=== PATIENT | male | born 1950 | race Caucasian/White ===

== ENCOUNTER 2021-12-13 07:32 | Outpatient (CLI) | payer MEDICARE, BC, SELFPAY | END 2021-12-13 07:33 | disposition home or self-care (01) | PROVIDERS: PCP Surgery; Visit Provider Family Medicine | DX: R42 Dizziness and giddiness (principal); R53.1 Weakness | CPT/HCPCS: A0425; A0427 ==

== ENCOUNTER 2021-12-13 08:00 | Emergency (ER) | payer MEDICARE, BC, SELFPAY ==
[2021-12-13 08:05] VITALS: BP 142/96; PULSE 86; RESP 20; TEMP 35.9; O2SAT 97; BMI 39.3
--- NOTE | 2021-12-13 08:14 | CRLHL7_ITS ---
For Patients: As a result of the Century Cures Act, medical imaging exams and procedure reports are released immediately into your electronic medical record. You may view this report before your referring provider. If you have questions, please contact your health care provider. INDICATION: Weakness. Dizziness. Cough. COMPARISON: No prior transaxial studies of the chest TECHNIQUE: : CT examination of the chest was performed with the uneventful intravenous administration of 95 cc of Isovue 370 while thin axial sections were obtained from above the apices of the lungs to the lung bases. Please note that all CT scans at this facility use dose modulation, iterative reconstruction, and/or weight-based dosing when appropriate to reduce radiation dose to as low as reasonably achievable. FINDINGS: : HEART and MEDIASTINUM: The heart size is enlarged. There is no mediastinal or hilar adenopathy or mass. There is no pericardial effusion.There are atherosclerotic vascular calcifications. PULMONARY ARTERIAL CIRCULATION: There is no visible intraluminal filling defect to suggest pulmonary embolus. LUNGS: The lungs show no focal consolidation or mass. The airways appear normal. Trace basilar subsegmental atelectasis. PLEURAL SPACES: There is no pleural effusion, pneumothorax or pleural based mass. VISUALIZED UPPER ABDOMEN: No acute appearing upper abdominal finding. 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 IMPRESSION: Enlarged heart. No finding of pulmonary embolus. Trace bibasilar subsegmental atelectasis. Lungs and pleural spaces otherwise unremarkable. Please note that all CT scans at this facility use dose modulation, iterative reconstruction, and/or weight-based dosing when appropriate to reduce radiation dose to as low as reasonably achievable. Dictated by Virgilio Ferro MD @ 12/13/2021 11:01:00 AM (Electronically Signed)
--- NOTE | 2021-12-13 08:14 | CRLHL7_ITS ---
For Patients: As a result of the Century Cures Act, medical imaging exams and procedure reports are released immediately into your electronic medical record. You may view this report before your referring provider. If you have questions, please contact your health care provider. INDICATION: Weakness. Dizziness. COMPARISON: Limited portions of an MRI dated May 12, 2020 TECHNIQUE: CT examination of the head was performed as axial sections without intravenous contrast. Images were obtained from the vertex of the skull through the skull base. Please note that all CT scans at this facility use dose modulation, iterative reconstruction, and/or weight-based dosing when appropriate to reduce radiation dose to as low as reasonably achievable. FINDINGS: The brain shows no sign of mass lesion, mass effect, hemorrhage, or edema. There are involutional changes. There is [id number] cortical atrophy and there is mild white matter disease. There is no hydrocephalus. Intracranial atherosclerosis The visualized portions of the orbits are normal in appearance. The osseous structures are normal in appearance with no sign of abnormality in the skull base or calvarium. IMPRESSION: Involutional changes. No acute appearing findings. Please note that all CT scans at this facility use dose modulation, iterative reconstruction, and/or weight-based dosing when appropriate to reduce radiation dose to as low as reasonably achievable. Dictated by Virgilio Ferro MD @ 12/13/2021 10:56:48 AM (Electronically Signed)
--- NOTE | 2021-12-13 08:17 | ED_ITS ---
HPI - General Adult General Time Seen by Provider: 08:17 Date Seen: 12/13/21 Chief complaint: Weakness Stated complaint: Dizzy, lightheaded Time Seen by Provider: 12/13/21 08:07 Source: patient Mode of arrival: EMS Limitations: no limitations History of Present Illness HPI narrative: Patient is a 70-year-old male who has had 3 days of dizziness lightheadedness common today felt he needed a lower and soft to the ground to prevent falling. He feels the room spinning. He called 911 and ambulance brought him to the ER, he also reports he has had a lot of diaphoresis and sweats, no chest pain, has history of atrial fib and he is on Xarelto. He lives in [place]. He has had no leg swelling, edema, dysuria, does not believe he has had a cough of any significance. He has not had chest pain. He reports currently he is feeling a little lightheaded but otherwise well, he does have a history of nausea as well but not vomiting. No rigors, no fevers to speak of and no blood in his stool or bowel change Related Data Home Medications Medication Instructions Recorded Confirmed Calcium 600 + D(3) 12/13/21 albuterol sulfate 90 mcg/actuation inhalation 12/13/21 aerosol inhaler aspirin 81 mg capsule 81 mg PO DAILY 12/13/21 12/13/21 atorvastatin 20 mg tablet mg 12/13/21 carvedilol 6.25 mg tablet mg 12/13/21 cholestyramine-aspartame 4 gram ea 12/13/21 oral powder for susp in a packet (Cholestyramine Light) dapagliflozin 10 mg tablet mg 12/13/21 (Farxiga) diclofenac sodium 1 % topical gel topical 12/13/21 furosemide 20 mg tablet 20 mg PO DAILY PRN weight gain 12/13/21 12/13/21 insulin aspart U-100 100 unit/mL subcut 12/13/21 (3 mL) subcutaneous pen insulin detemir U-100 100 unit/mL unit subcut 12/13/21 (3 mL) subcutaneous pen (Levemir FlexTouch U-100 Insulin) pantoprazole 40 mg tablet,delayed mg PO 12/13/21 release rivaroxaban 20 mg tablet (Xarelto) mg 12/13/21 spironolactone 25 mg tablet mg 08/17/22 valsartan 160 mg tablet mg 12/13/21 Allergies Allergy/AdvReac Type Severity Reaction Status Date / Time metformin AdvReac Verified 12/13/21 10:44 tetracycline AdvReac Verified 12/13/21 10:44 duloxetine AdvReac Uncoded 12/13/21 10:44 tamsulosin AdvReac syncopal Uncoded 12/13/21 10:44 Review of Systems Status of ROS: Reports: 10 or more systems reviewed and unremarkable except as noted in History and below PFSH PFS Social History Smoking Status: Never smoker How often do you have a drink containing alcohol: 2-4 times a month AUDIT-C Alcohol total score: 2 Non-prescribed substance use: denies use Exam Narrative: Exam Narrative: Objective: Patient is alert orient x3, somewhat slow to respond in speech but is appropriate, mental status is appropriate Vital signs are unremarkable he is afebrile O2 sat is 97% on room air HEENT is unremarkable no scleral icterus no facial asymmetry, mouth slightly dry Neck is supple Chest is clear no rales or wheezing Heart irregular regular 2/6 systolic murmur with Abdomen obese benign nontender Extremities are no edema, neurologic nonfocal Skin warm and dry, good peripheral perfusion Const: Vital Signs, click to edit/add: Vital Signs - 24 hr 12/13/21 08:05 Temperature 96.6 F L Pulse Rate [Right Pulse Oximeter] 86 Respiratory Rate 20 Blood Pressure [Le ft Upper Arm] 142/96 H Pulse Oximetry 97 Oxygen Delivery Me thod Room Air Course Vital Signs Vital signs: Initial Vital Signs Temperature 96.6 F L 12/13/21 08:05 Temperature Source Temporal Artery Scan 12/13/21 08:05 Pulse Rate 86 12/13/21 08:05 Respiratory Rate 20 12/13/21 08:05 Blood Pressure 142/96 H 12/13/21 08:05 Blood Pressure Mean 111 12/13/21 08:05 Pulse Oximetry 97 12/13/21 08:05 Oxygen Delivery Method 12/13/21 08:05 Vital Signs Temperature 96.6 F L 12/13/21 08:05 Pulse Rate 86 12/13/21 08:05 Respiratory Rate 20 12/13/21 08:05 Blood Pressure 142/96 H 12/13/21 08:05 Pulse Oximetry 97 12/13/21 08:05 Oxygen Delivery Method 12/13/21 08:05 Temperature 96.6 F L 12/13/21 08:05 Pulse Rate 72 12/13/21 11:30 Respiratory Rate 18 12/13/21 11:30 Blood Pressure 126/82 12/13/21 11:30 Pulse Oximetry 97 12/13/21 11:30 Oxygen Delivery Method 12/13/21 11:30 Medical Decision Making MDM Narrative Medical decision making narrative: Patient is a 70 year white male with history of AFib on Xarelto with dizziness for 3 days, I think a head CT scan rule out bleed or other intracranial process be appropriate, also get a chest CT given his diaphoresis and sweats rule out PE, rule out pneumonia. He will need a troponin and EKG and telemetry and cardiac monitoring, rule out acute coronary syndrome Addendum: The patient reports his dizziness is much better, his head CT shows some degenerative change but no acute findings, chest x-ray with the same findings her with also reassuring fine, he had some slight heart involvement on his chest x-ray and enlargement. Patient's the patient's laboratory studies sasha w an elevated proBNP negative troponin negative CRP, other laboratory studies look reassuring, urinalysis looks negative. Patient does feel better with his Ativan given he feels less dizzy, would recommend we try and move him about a little bit and see if he tolerates this well if he does I think he could go home rest light activity fluids and recheck with regular doctor within 48 hours. Addendum: The patient has some chronic ambulatory difficulties he does have a walker, he was able to get up and move to the bathroom without difficulty. I would suggest he get home health nurse O2 assessed the situation visit him, and also social service consult about discharge planning needs and ongoing care needs. Patient this time of the his stable to per seat home and he would like to try that. Always a risk when people go home with ambulatory difficulty to an independent setting, but that is his current arrangement think hospitalization would not benefit him at this time. Lab Data Labs: Lab Results 12/13/21 12/13/21 12/13/21 Range/Units 08:23 08:54 08:54 WBC 8.11 (4.50-11.00) K/uL RBC 5.24 (4.30-5.90) m/uL Hgb 16.1 (13.5-17.5) gm/dL Hct 47.5 (37.0-53.0) % MCV 91 (80-100) fL MCH 31 (26-34) pg MCHC 34 (32-36) gm/dL RDW Coeff of Louise 13.3 (11.5-15.5) % Plt Count 167 (140-440) K/uL Neut % (Auto) 66.1 (42.0-72.0) % Lymph % (Auto) 24.7 (20-44) % Brooke % (Auto) 7.5 (0.0-11.0) % Eos % (Auto) 1.0 (0.0-7.0) % Baso % (Auto) 0.5 (0.0-3.0) % Neut # (Auto) 5.36 (1.7-7.0) K/uL Lymph # (Auto) 2.00 (0.90-2.90) K/uL Brooke # (Auto) 0.60 (0.00-0.90) K/UL Eos # (Auto) 0.08 (0.00-0.50) K/uL Baso # (Auto) 0.04 (0.00-0.30) K/uL Abs Immat Gran (auto) 0.02 (0.00-0.30) K/uL INR (0.91-1.10) Sodium (135-149) mmol/L Potassium (3.6-5.1) mmol/L Chloride (96-114) mmol/L Carbon Dioxide (20-32) mmol/L BUN (7-30) mg/dL Creatinine (0.5-1.5) mg/dL Estimated Creat Clear Estimated GFR ml/min Glucose (60-115) mg/dL Venous Lactic Acid (Serial Order) Calcium (8.4-10.6) mg/dL Total Bilirubin (0.1-1.5) mg/dL Direct Bilirubin (0.0-0.5) mg/dL AST (12-35) U/L ALT (4-50) U/L Alkaline Phosphatase (40-150) U/L Troponin I (0.01-0.04) ng/mL C-Reactive Protein (0.5-1.0) mg/dL NT-Pro-B Natriuret Pep (0-125) PG/mL Total Protein (6.0-8.3) g/dL Albumin (3.3-5.0) g/dL Amylase 58 (18-89) U/L Urine Color (Yellow) Urine Appearance (Clear) Urine pH (5.0-8.5) Ur Specific Dewy Rose (1.000-1.030) Urine Protein (Negative) Urine Glucose (UA) (Negative) Urine Ketones (Negative) Urine Blood (Negative) Urine Nitrite (Negative) Urine Bilirubin (Negative) Urine Urobilinogen (0.2-1.0) Ur Leukocyte Esterase (Negative) Urine RBC (0-2) Urine WBC (0-5) Ur Squamous Epith Cells (None-Few) Amorphous Sediment (None) Urine Bacteria (None) SARS-CoV-2 (PCR) Negative SARS-CoV-2 (Negative) 12/13/21 12/13/21 12/13/21 Range/Units 08:54 08:54 08:54 WBC (4.50-11.00) K/uL RBC (4.30-5.90) m/uL Hgb (13.5-17.5) gm/dL Hct (37.0-53.0) % MCV (80-100) fL MCH (26-34) pg MCHC (32-36) gm/dL RDW Coeff of Louise (11.5-15.5) % Plt Count (140-440) K/uL Neut % (Auto) (42.0-72.0) % Lymph % (Auto) (20-44) % Brooke % (Auto) (0.0-11.0) % Eos % (Auto) (0.0-7.0) % Baso % (Auto) (0.0-3.0) % Neut # (Auto) (1.7-7.0) K/uL Lymph # (Auto) (0.90-2.90) K/uL Brooke # (Auto) (0.00-0.90) K/UL Eos # (Auto) (0.00-0.50) K/uL Baso # (Auto) (0.00-0.30) K/uL Abs Immat Gran (auto) (0.00-0.30) K/uL INR 1.73 H (0.91-1.10) Sodium (135-149) mmol/L Potassium (3.6-5.1) mmol/L Chloride (96-114) mmol/L Carbon Dioxide (20-32) mmol/L BUN (7-30) mg/dL Creatinine (0.5-1.5) mg/dL Estimated Creat Clear Estimated GFR ml/min Glucose (60-115) mg/dL Venous Lactic Acid (Serial Order) Calcium (8.4-10.6) mg/dL Total Bilirubin 0.7 (0.1-1.5) mg/dL Direct Bilirubin 0.2 (0.0-0.5) mg/dL AST 28 (12-35) U/L ALT 20 (4-50) U/L Alkaline Phosphatase 83 (40-150) U/L Troponin I < 0.01 L (0.01-0.04) ng/mL C-Reactive Protein 1.0 (0.5-1.0) mg/dL NT-Pro-B Natriuret Pep 527 H (0-125) PG/mL Total Protein 7.0 (6.0-8.3) g/dL Albumin 3.9 (3.3-5.0) g/dL Amylase (18-89) U/L Urine Color (Yellow) Urine Appearance (Clear) Urine pH (5.0-8.5) Ur Specific Dewy Rose (1.000-1.030) Urine Protein (Negative) Urine Glucose (UA) (Negative) Urine Ketones (Negative) Urine Blood (Negative) Urine Nitrite (Negative) Urine Bilirubin (Negative) Urine Urobilinogen (0.2-1.0) Ur Leukocyte Esterase (Negative) Urine RBC (0-2) Urine WBC (0-5) Ur Squamous Epith Cells (None-Few) Amorphous Sediment (None) Urine Bacteria (None) SARS-CoV-2 (PCR) (Negative) 12/13/21 12/13/21 Range/Units 08:54 09:11 WBC (4.50-11.00) K/uL RBC (4.30-5.90) m/uL Hgb (13.5-17.5) gm/dL Hct (37.0-53.0) % MCV (80-100) fL MCH (26-34) pg MCHC (32-36) gm/dL RDW Coeff of Louise (11.5-15.5) % Plt Count (140-440) K/uL Neut % (Auto) (42.0-72.0) % Lymph % (Auto) (20-44) % Brooke % (Auto) (0.0-11.0) % Eos % (Auto) (0.0-7.0) % Baso % (Auto) (0.0-3.0) % Neut # (Auto) (1.7-7.0) K/uL Lymph # (Auto) (0.90-2.90) K/uL Brooke # (Auto) (0.00-0.90) K/UL Eos # (Auto) (0.00-0.50) K/uL Baso # (Auto) (0.00-0.30) K/uL Abs Immat Gran (auto) (0.00-0.30) K/uL INR (0.91-1.10) Sodium 138 (135-149) mmol/L Potassium 4.3 (3.6-5.1) mmol/L Chloride 109 (96-114) mmol/L Carbon Dioxide 18 L (20-32) mmol/L BUN 27 (7-30) mg/dL Creatinine 1.2 (0.5-1.5) mg/dL Estimated Creat Clear 61.97 Estimated GFR 65 ml/min Glucose 181 H (60-115) mg/dL Venous Lactic Acid (Serial Order) Calcium 8.8 (8.4-10.6) mg/dL Total Bilirubin (0.1-1.5) mg/dL Direct Bilirubin (0.0-0.5) mg/dL AST (12-35) U/L ALT (4-50) U/L Alkaline Phosphatase (40-150) U/L Troponin I (0.01-0.04) ng/mL C-Reactive Protein (0.5-1.0) mg/dL NT-Pro-B Natriuret Pep (0-125) PG/mL Total Protein (6.0-8.3) g/dL Albumin (3.3-5.0) g/dL Amylase (18-89) U/L Urine Color Yellow (Yellow) Urine Appearance Clear (Clear) Urine pH 5.5 (5.0-8.5) Ur Specific Dewy Rose 1.025 (1.000-1.030) Urine Protein Negative (Negative) Urine Glucose (UA) 2+ A (Negative) Urine Ketones Negative (Negative) Urine Blood Negative (Negative) Urine Nitrite Negative (Negative) Urine Bilirubin Negative (Negative) Urine Urobilinogen 0.2 (0.2-1.0) Ur Leukocyte Esterase Negative (Negative) Urine RBC 0-2 (0-2) Urine WBC 0-2 (0-5) Ur Squamous Epith Cells Few (None-Few) Amorphous Sediment Few A (None) Urine Bacteria Few A (None) SARS-CoV-2 (PCR) (Negative) Discharge Plan Discharge Clinical Impression: Dizziness Patient Disposition: Home, Self-Care Condition: Improved Additional Instructions: Rest, light activity, update regular physician within the next 2 days, return sooner problems concerns difficulty Activity Level: Light activity Discharge Diet: Diabetic Prescriptions: No Action carvedilol 6.25 mg tablet Label Comments: TAKE 1 TABLET BY MOUTH TWICE DAILY WITH FOOD atorvastatin 20 mg tablet spironolactone 25 mg tablet Label Comments: TAKE 1 TABLET BY MOUTH EVERY MORNING pantoprazole 40 mg tablet,delayed release (DR/EC) PO albuterol sulfate 90 mcg/actuation HFA aerosol inhaler INHALATION valsartan 160 mg tablet insulin aspart U-100 100 unit/mL (3 mL) insulin pen SUBCUT cholestyramine-aspartame [Cholestyramine Light] 4 gram powder in packet Label Comments: MIX 1 PACKET IN LIQUID THEN TAKE BY MOUTH 2 TIMES DAILY WITH MEALS Levemir FlexTouch U-100 Insuln 100 unit/mL (3 mL) insulin pen SUBCUT Label Comments: INJECT 25 UNITS SUBCUTANEOUS EVERY NIGHT AT BEDTIME diclofenac sodium 1 % gel TOPICAL Label Comments: APPLY 4 GRAMS TOPICALLY TO THE AFFECTED AREA FOUR TIMES DAILY Xarelto 20 mg tablet Farxiga 10 mg tablet aspirin 81 mg capsule 81 mg PO DAILY Calcium 600 + D(3) furosemide 20 mg tablet 20 mg PO DAILY PRN (Reason: weight gain) Rx Instructions: if >290# Follow Up/Referrals: Elijah Fernandez MD [Primary Care Provider] - Stand Alone Forms: [employer] Info Instructions
[2021-12-13 08:30] VITALS: BP 142/96; PULSE 82; RESP 18; O2SAT 97
[2021-12-13 09:00] VITALS: BP 135/90; PULSE 85; RESP 18; O2SAT 96
[2021-12-13 09:10] LABS: Lactate Sepsis w/Reflex* 2.1 mmol/L (0.5-1.9)
[2021-12-13 09:12] LABS: Basophils Absolute Auto 0.04 K/uL (0.00-0.30); Basophils Percent Auto 0.5 % (0.0-3.0); Eosinophils Absolute Auto 0.08 K/uL (0.00-0.50); Hematocrit 47.5 % (37.0-53.0); Hemoglobin* 16.1 gm/dL (13.5-17.5); Immature Granulocytes Abs Auto 0.02 K/uL (0.00-0.30); Lymphocytes Percent Auto 24.7 % (20-44); Mean Corpuscular HGB Conc 34 gm/dL (32-36); Mean Corpuscular Hemoglobin 31 pg (26-34); Mean Corpuscular Volume 91 fL (80-100); Monocytes Percent Auto 7.5 % (0.0-11.0); Neutrophils Absolute Auto 5.36 K/uL (1.7-7.0); Neutrophils Percent Auto 66.1 % (42.0-72.0); Platelet Count* 167 K/uL (140-440); RDW Coefficient of Variation % 13.3 % (11.5-15.5); Red Blood Count 5.24 m/uL (4.30-5.90); White Blood Count* 8.11 K/uL (4.50-11.00)
[2021-12-13 09:14] LABS: Slide Review Reflex No
[2021-12-13 09:38] LABS: INR 1.73 (0.91-1.10); Prothrombin Time 20.7 Seconds
[2021-12-13 09:42] LABS: Albumin* 3.9 g/dL (3.3-5.0)
[2021-12-13 09:42] LABS: SARS PCR* Negative SARS-CoV-2 (Negative)
[2021-12-13 09:46] LABS: Alanine Aminotransferase* 20 U/L (4-50); Alkaline Phosphatase* 83 U/L (40-150); Amylase* 58 U/L (18-89); Aspartate Amino Transferase* 28 U/L (12-35); Bilirubin Direct* 0.2 mg/dL (0.0-0.5); Bilirubin Total* 0.7 mg/dL (0.1-1.5)
[2021-12-13 09:49] LABS: Appearance Urine Clear (Clear); Bilirubin Urine Negative (Negative); Blood Urine Negative (Negative); Color Urine Yellow (Yellow); Glucose Urine 2+ (Negative); Ketones Urine Negative (Negative); Leukocyte Esterase Urine Negative (Negative); Nitrite Urine Negative (Negative); Protein Urine Negative (Negative); Specific Gravity Urine 1.025 (1.000-1.030); Urobilinogen Urine 0.2 (0.2-1.0); pH Urine 5.5 (5.0-8.5)
[2021-12-13 09:55] LABS: NT Pro B Type NatriureticPept* 527 PG/mL (0-125)
[2021-12-13 09:58] LABS: Troponin I* < 0.01 ng/mL (0.01-0.04)
[2021-12-13 10:00] LABS: Chloride* 109 mmol/L (96-114); Sodium* 138 mmol/L (135-149)
[2021-12-13 10:01] LABS: Potassium* 4.3 mmol/L (3.6-5.1)
[2021-12-13] MEDS: LORazepam 2 MG/ML inj 1 MG IVP (10:02)
[2021-12-13 10:03] LABS: Creatinine* 1.2 mg/dL (0.5-1.5); Est. Creatinine Clearance* 61.97; Estimated Glomerular Filt Rate 65 ml/min
[2021-12-13] MEDS: 0.9 % SODIUM CHLORIDE 500 ML 500 ML IV (10:03)
[2021-12-13 10:04] LABS: Blood Urea Nitrogen* 27 mg/dL (7-30); Calcium* 8.8 mg/dL (8.4-10.6); Carbon Dioxide* 18 mmol/L (20-32); Glucose* 181 mg/dL (60-115)
[2021-12-13 10:10] LABS: Bacteria Urine Few; RBC Urine 0-2 (0-2); Squamous Epithelial Cell Urine Few (None-Few); WBC Urine 0-2 (0-5)
[2021-12-13 10:11] LABS: Amorphous Sediment Urine Few
[2021-12-13 11:00] VITALS: BP 135/90; PULSE 73; RESP 18; O2SAT 96
--- NOTE | 2021-12-13 11:28 | ED.NURSE ---
no second lactate per dr carnes
[2021-12-13 11:30] VITALS: BP 126/82; PULSE 72; RESP 18; O2SAT 97
--- NOTE | 2021-12-13 13:34 | ED.NURSE ---
call to [facility] social worker, set up home health per Dr. Valero, Pt was agreeable. Soc services will contact Pt.
--- NOTE | 2021-12-13 14:06 | PC.SOCIAL ---
Referral from physician for home care for pt. Pt. has discharged from the ED. A referral for home care was made to [facility], [facility], and PT to start next week. A message was left for pt. to call back to update and offer additional resources.
== END 2021-12-13 12:30 | disposition home or self-care (01) ==
PROVIDERS: Emergency Provider Family Medicine; PCP Surgery
DX: R42 Dizziness and giddiness (principal)
CPT/HCPCS: 36415; 70450; 71260; 80048; 80076; 81001; 82150; 83880; 84484; 85025; 85610; 86140; 87040; 87086; 87635; 93005; 96374; 99284; 99285; J2060; J7120; Q9967

== ENCOUNTER 2022-06-29 19:33 | Emergency (ER) | payer MEDICARE, BC, SELFPAY ==
[2022-06-29 20:31] VITALS: BP 135/113; PULSE 71; RESP 16; TEMP 36.6; O2SAT 98; BMI 39.3
--- NOTE | 2022-06-29 21:13 | ED.EPISTAXIS ---
History of Present Illness General Chief Complaint: Epistaxis/Nosebleed Stated Complaint: Bad bloody nose Time Seen by Provider: 06/29/22 21:02 History of Present Illness HPI Narrative: This 71-year-old male comes in with epistaxis. He states that it started bleeding around 3 or 4 hours ago. He had bleeding from his right nostril. He was plugging in the end of his nostril but the bleeding continued posteriorly. He states that the bleeding stopped after a couple hours and then resumed again spontaneously. He is taking Xarelto. He does not report any lightheadedness or shortness of breath. Currently he does not have any active bleeding. Related Data Home Medications Medication Instructions Recorded Confirmed Calcium 600 + D(3) 12/13/21 albuterol sulfate 90 mcg/actuation inhalation 12/13/21 aerosol inhaler aspirin 81 mg capsule 81 mg PO DAILY 12/13/21 12/13/21 atorvastatin 20 mg tablet mg 12/13/21 carvedilol 6.25 mg tablet mg 12/13/21 cholestyramine-aspartame 4 gram ea 12/13/21 oral powder for susp in a packet (Cholestyramine Light) dapagliflozin 10 mg tablet mg 12/13/21 (Farxiga) diclofenac sodium 1 % topical gel topical 12/13/21 furosemide 20 mg tablet 20 mg PO DAILY PRN weight gain 12/13/21 12/13/21 insulin aspart U-100 100 unit/mL subcut 12/13/21 (3 mL) subcutaneous pen insulin detemir U-100 100 unit/mL unit subcut 12/13/21 (3 mL) subcutaneous pen (Levemir FlexTouch U-100 Insulin) pantoprazole 40 mg tablet,delayed mg PO 12/13/21 release rivaroxaban 20 mg tablet (Xarelto) mg 12/13/21 spironolactone 25 mg tablet mg 12/13/21 valsartan 160 mg tablet mg 12/13/21 Allergies Allergy/AdvReac Type Severity Reaction Status Date / Time metformin AdvReac Verified 12/13/21 10:44 tetracycline AdvReac Verified 12/13/21 10:44 duloxetine AdvReac Uncoded 12/13/21 10:44 tamsulosin AdvReac syncopal Uncoded 12/13/21 10:44 Review of Systems Status of ROS: Reports: 10 or more systems reviewed and unremarkable except as noted in History and below Narrative: Constitutional: No fevers, no weight gain or loss. Eyes: No discharge. No vision changes. HENT: No congestion, no sore throat, no ear pain. Bleeding from the right nostril which is not currently active. Cardiovascular: No chest pain, no palpitations. Respiratory: No shortness of breath, no wheezes, no cough. Gastrointestinal: No abdominal pain, no vomiting, no diarrhea. Genitourinary: No dysuria, no hematuria. Musculoskeletal: Normal range of motion. Skin: No rashes, no pruritis. Neurological: No dizziness, weakness, sensory change, speech change. Endo/Heme/Allergies: No bruising or bleeding. No polydipsia. Pysch: no suicidality, no anxiety, no insomnia. All other systems reviewed and are negative. [facility] Social History Smoking Status: Never smoker How often do you have a drink containing alcohol: 2-4 times a month AUDIT-C Alcohol total score: 2 Non-prescribed substance use: denies use Exam Narrative: Exam Narrative: Constitutional: Well-developed, well-nourished, no acute distress. HEENT: Normocephalic, atraumatic. Left nostril appears normal. Right nostril has sign of injury to the lateral aspect of the anterior aspect of the right nostril. There is no active bleeding and no sign of posterior bleeding. Neck: Normal range of motion. Nontender. Supple. Heart: Intact distal pulses. Lungs: No chest discomfort. No wheezes, rhonchi, or rales. Abdomen: Nontender. Back: Normal range of motion. Extremities: Normal range of motion. No injury. Skin: Intact. No rash. Warm. No erythema or pallor. Neurologic: No altered sensation. No weakness. Alert and oriented. Psychiatric: No suicidality. No anxiety or depression. No insomnia. Nursing notes and vitals signs are reviewed. Const: Vital Signs, click to edit/add: Vital Signs - 24 hr 06/29/22 20:31 Temperature 97.9 F Pulse Rate [Left P ulse Oximeter] 71 Respiratory Rate 16 Blood Pressure [Ri ght Upper Arm] 135/113 H Pulse Oximetry 98 Oxygen Delivery Me thod Room Air Course Vital Signs Vital signs: Initial Vital Signs Temperature 97.9 F 06/29/22 20:31 Temperature Source Temporal Artery Scan 06/29/22 20:31 Pulse Rate 71 06/29/22 20:31 Respiratory Rate 16 06/29/22 20:31 Blood Pressure 135/113 H 06/29/22 20:31 Blood Pressure Mean 120 06/29/22 20:31 Blood Pressure Position Sitting 06/29/22 20:31 Pulse Oximetry 98 06/29/22 20:31 Oxygen Delivery Method 06/29/22 20:31 Vital Signs Temperature 97.9 F 06/29/22 20:31 Pulse Rate 71 06/29/22 20:31 Respiratory Rate 16 06/29/22 20:31 Blood Pressure 135/113 H 06/29/22 20:31 Pulse Oximetry 98 06/29/22 20:31 Oxygen Delivery Method 06/29/22 20:31 Temperature 97.9 F 06/29/22 20:31 Pulse Rate 71 06/29/22 20:31 Respiratory Rate 16 06/29/22 20:31 Blood Pressure 135/113 H 06/29/22 20:31 Pulse Oximetry 98 06/29/22 20:31 Oxygen Delivery Method 06/29/22 20:31 MDM - Epistaxis MDM Narrative Medical decision making narrative: This patient had an episode of epistaxis and then a recurrent episode. Currently he does not have any active bleeding. I can see the site where the bleeding occurred on the lateral aspect of his right anterior nostril. If rebleeding occurs this should be able to be controlled with direct pressure. The patient does have a nasal clamp. He did receive a dose of Afrin. Instructions were given regarding what to do if rebleeding occurs. Discharge Plan Discharge Clinical Impression: Epistaxis Patient Disposition: Home, Self-Care Condition: Improved Additional Instructions: Continue current medications. Be very gentle with the nostril as it is healing. If rebleeding occurs applied direct pressure and use Afrin as needed and directed. Return if unable to arrest the bleeding. Prescriptions: No Action carvedilol 6.25 mg tablet Label Comments: TAKE 1 TABLET BY MOUTH TWICE DAILY WITH FOOD atorvastatin 20 mg tablet spironolactone 25 mg tablet Label Comments: TAKE 1 TABLET BY MOUTH EVERY MORNING pantoprazole 40 mg tablet,delayed release (DR/EC) PO albuterol sulfate 90 mcg/actuation HFA aerosol inhaler INHALATION valsartan 160 mg tablet insulin aspart U-100 100 unit/mL (3 mL) insulin pen SUBCUT cholestyramine-aspartame [Cholestyramine Light] 4 gram powder in packet Label Comments: MIX 1 PACKET IN LIQUID THEN TAKE BY MOUTH 2 TIMES DAILY WITH MEALS Levemir FlexTouch U-100 Insuln 100 unit/mL (3 mL) insulin pen SUBCUT Label Comments: INJECT 25 UNITS SUBCUTANEOUS EVERY NIGHT AT BEDTIME diclofenac sodium 1 % gel TOPICAL Label Comments: APPLY 4 GRAMS TOPICALLY TO THE AFFECTED AREA FOUR TIMES DAILY Xarelto 20 mg tablet Farxiga 10 mg tablet aspirin 81 mg capsule 81 mg PO DAILY Calcium 600 + D(3) furosemide 20 mg tablet 20 mg PO DAILY PRN (Reason: weight gain) Rx Instructions: if >290# Follow Up/Referrals: Elijah Fernandez MD [Primary Care Provider] - Stand Alone Forms: [facility] Info Instructions
[2022-06-29] MEDS: OXYMETAZOLINE 0.05% NASAL SPRAY 1 SPRAY NOSTRIL-B (21:28)
--- NOTE | 2022-06-29 21:28 | ED.NURSE ---
afrin sprayed into R and L nostril per MD Shafer request.
[2022-06-29 21:46] VITALS: BP 130/99; PULSE 74; RESP 16; TEMP 36.7
== END 2022-06-29 21:47 | disposition home or self-care (01) ==
LOC: ED 21:20
PROVIDERS: Emergency Provider Emergency Medicine Emergency Medical Services; PCP Surgery
DX: R04.0 Epistaxis (principal)
CPT/HCPCS: 99282; 99284

== ENCOUNTER 2022-08-14 14:27 | Emergency (ER) | payer MEDICARE, BC, SELFPAY ==
[2022-08-14] VITALS (11 sets, daily range): BP systolic 102–119; BP diastolic 73–89; PULSE 71–93; RESP 18; TEMP 36; O2SAT 90–99
--- NOTE | 2022-08-14 15:08 | CRLHL7_ITS ---
For Patients: As a result of the Century Cures Act, medical imaging exams and procedure reports are released immediately into your electronic medical record. You may view this report before your referring provider. If you have questions, please contact your health care provider. INDICATION: Ptosis. Upward gaze palsy left eye. TECHNIQUE: CT head without contrast. COMPARISON: 12/13/2021. FINDINGS: CSF spaces: Within normal limits for age. Brain parenchyma and extra-axial spaces: The tenorio-white differentiation is normal. No sign of mass, hemorrhage, or midline shift. No extra-axial fluid collection. Skull base and calvarium: The visualized paranasal sinuses and mastoid air cells demonstrate no acute or significant findings. The visualized orbits are grossly unremarkable. No skull fractures. IMPRESSION: Unremarkable noncontrast head CT. No findings to explain ptosis or upward gaze palsy. Please note that all CT scans at this facility use dose modulation, iterative reconstruction, and/or weight-based dosing when appropriate to reduce radiation dose to as low as reasonably achievable. Dictated by Otf Uribe MD @ 08/14/2022 4:18:22 PM (Electronically Signed)
--- NOTE | 2022-08-14 15:18 | ED.GENADULT ---
HPI - General Adult General Date Seen: 08/14/22 Chief complaint: Dizziness/Vertigo Stated complaint: Headache, dizzy, blurred vision Time Seen by Provider: 08/14/22 14:53 Source: patient Mode of arrival: ambulatory Limitations: no limitations History of Present Illness HPI narrative: Patient is a 71-year-old male with underlying atrial fibrillation and diabetes who presents for evaluation of what he describes as flu symptoms. He talks about having a headache and blurred vision. He also mentions having diarrhea and nausea but no vomiting. The diarrhea is mild, he is noting loose stools maybe every other day, no abdominal pain. He is not had a fever that he knows of. His primary complaint is of blurred vision which on closer inspection he says is a sensation that when he turns his head quickly his eyes do not track normally. He does have a history of an episode of vertigo and this feels different, he has not had any sensation of movement or spinning. He has had a mild headache. Symptoms have been present for 2 weeks and have been stable, not worsening but also not improving. He denies any history of trauma recently. He has not had chest pain or cough. He says he has a little bit short of breath but that is baseline for him. According to his records he is taking both a baby aspirin as well as Xarelto. He does not smoke. Related Data Home Medications Medication Instructions Recorded Confirmed Calcium 600 + D(3) 12/13/21 albuterol sulfate 90 mcg/actuation inhalation 12/13/21 aerosol inhaler aspirin 81 mg capsule 81 mg PO DAILY 12/13/21 12/13/21 atorvastatin 20 mg tablet mg 12/13/21 carvedilol 6.25 mg tablet mg 12/13/21 cholestyramine-aspartame 4 gram ea 12/13/21 oral powder for susp in a packet (Cholestyramine Light) dapagliflozin 10 mg tablet mg 12/13/21 (Farxiga) diclofenac sodium 1 % topical gel topical 12/13/21 furosemide 20 mg tablet 20 mg PO DAILY PRN weight gain 12/13/21 12/13/21 insulin aspart U-100 100 unit/mL subcut 12/13/21 (3 mL) subcutaneous pen insulin detemir U-100 100 unit/mL unit subcut 12/13/21 (3 mL) subcutaneous pen (Levemir FlexTouch U-100 Insulin) pantoprazole 40 mg tablet,delayed mg PO 12/13/21 release rivaroxaban 20 mg tablet (Xarelto) mg 12/13/21 spironolactone 25 mg tablet mg 12/13/21 valsartan 160 mg tablet mg 12/13/21 Allergies Allergy/AdvReac Type Severity Reaction Status Date / Time metformin AdvReac Verified 12/13/21 10:44 tetracycline AdvReac Verified 12/13/21 10:44 duloxetine AdvReac Uncoded 12/13/21 10:44 tamsulosin AdvReac syncopal Uncoded 12/13/21 10:44 Review of Systems Status of ROS: Reports: 10 or more systems reviewed and unremarkable except as noted in History and below PFSH [facility] Social History Smoking Status: Never smoker Second hand tobacco smoke exposure: No How often do you have a drink containing alcohol: 2-4 times a month How many standard drinks containing alcohol do you have on a typical day: 1 or 2 How often do you have six or more drinks on one occasion: Never AUDIT-C Alcohol total score: 2 Non-prescribed substance use: denies use service: No Exam Narrative: Exam Narrative: Vital signs as noted above. In general, an alert, nontoxic male. In easily. Head: Normocephalic, atraumatic. Eyes: Pupils are equal reactive. He has an upward gaze palsy on the right as well as partial ptosis of the right lid. He is able to actively raise his lid if directed to, but at rest has a definite ptosis which his neighbor who is with him says is new. ENT: Mucous membranes are moist. Throat is normal. Tongue is midline. Neck: Supple without lymphadenopathy. Heart: Irregularly irregular. No obvious murmur. Lungs: Clear bilaterally. No increased work of breathing, crackles or wheezes. Abdomen: Soft and nontender. No organomegaly. Extremities: Well perfused. Pulses intact. Neurologic: Patient is alert and oriented to person and place. Speech is somewhat slow and measured, but fluent. Face is symmetric aside from the ptosis. Moves all extremities equally. Strength is 5 of 5 bilaterally and sensation is intact throughout. Affect: Normal. Skin: Warm and dry. Well perfused. Const: Vital Signs, click to edit/add: Vital Signs - 24 hr 08/14/22 14:44 08/14/22 14:55 08/14/22 15:00 Temperature 96.8 F L Pulse Rate 72 83 Pulse Rate [Pulse Oximeter] 71 Respiratory Rate Blood Pressure Blood Pressure [Ri ght Upper Arm] 119/89 Pulse Oximetry 96 97 99 Oxygen Delivery Me thod Room Air 08/14/22 15:02 08/14/22 15:37 08/14/22 16:34 Temperature Pulse Rate 80 93 Pulse Rate [Pulse Oximeter] Respiratory Rate Blood Pressure 102/73 Blood Pressure [Ri ght Upper Arm] Pulse Oximetry 97 90 98 Oxygen Delivery Me thod 08/14/22 16:36 08/14/22 17:00 08/14/22 18:00 Temperature Pulse Rate 84 77 Pulse Rate [Pulse Oximeter] 86 Respiratory Rate 18 Blood Pressure 118/81 Blood Pressure [Ri ght Upper Arm] 105/76 Pulse Oximetry 93 96 Oxygen Delivery Me thod 08/14/22 17:30 08/14/22 17:54 Temperature Pulse Rate 84 Pulse Rate [Pulse Oximeter] Respiratory Rate Blood Pressure 105/76 Blood Pressure [Ri ght Upper Arm] Pulse Oximetry 97 Oxygen Delivery Me thod Documenting provider has reviewed patient's vital signs: yes Course Course Hospital Course: On arrival, patient had an EKG which by my review showed atrial fibrillation with a reasonably controlled rate of 91 beats per minute. I do not see any acute ST segment changes. He has a single PVC. He had a blood sugar 160. He is not significantly hypertensive. He does have neurologic findings which are reportedly acute. Labs are ordered. I am going to get a head CT, I think hemorrhage is relatively unlikely given the duration of symptoms but with headache and anticoagulation I do want to rule that out 1st. Assuming that is negative, I think an MRI to rule out infarction or other process is indicated. Patient's labs were unremarkable. White count is normal, hemoglobin is mildly elevated at 17.6. Sed rate is normal, CRP is 1.0. TSH is normal, he was concerned about influenza so we did check that for him and that was negative. Point of care troponin is 0. Metabolic panel is unremarkable, INR is 1.57, patient is on Xarelto. LFTs notable for a total bilirubin of 2.0 of uncertain significance, remainder of LFTs are normal. He had a CT of the head which by my review was negative. Went on to have an MRI of the brain which overall was read as fairly unremarkable as well, he has some matter changes and a couple of small chronic hemorrhages in the left frontal lobe but otherwise no acute findings according to the radiologist. I did discuss his case with Dr. Rodríguez, who was on-call for Neurology at [facility]. Overall in terms of acute causes, I think those have been ruled out. He did suggest a possible diagnosis of myasthenia gravis, and I have ordered myasthenia gravis with reflex testing. I have reviewed all this with the patient. I have given him the phone number to call tomorrow to make a follow-up appointment with Neurology. If he is feeling worse, developing more weakness or having other difficulties at any time, he can return to the emergency department. Otherwise, I have stressed the importance of outpatient follow-up, as we have not determined the cause for his acute neurologic changes. Vital Signs Vital signs: Initial Vital Signs Temperature 96.8 F L 08/14/22 14:44 Temperature Source Temporal Artery Scan 08/14/22 14:44 Pulse Rate 71 08/14/22 14:44 Blood Pressure 119/89 08/14/22 14:44 Blood Pressure Mean 99 08/14/22 14:44 Blood Pressure Position Supine 08/14/22 14:44 Pulse Oximetry 96 08/14/22 14:44 Oxygen Delivery Method Room Air 08/14/22 14:44 Vital Signs Temperature 96.8 F L 08/14/22 14:44 Pulse Rate 71 08/14/22 14:44 Blood Pressure 119/89 08/14/22 14:44 Pulse Oximetry 96 08/14/22 14:44 Oxygen Delivery Method Room Air 08/14/22 14:44 Temperature 96.8 F L 08/14/22 14:44 Pulse Rate 86 08/14/22 18:00 Respiratory Rate 18 08/14/22 18:00 Blood Pressure 105/76 08/14/22 18:00 Pulse Oximetry 97 08/14/22 17:30 Oxygen Delivery Method Room Air 08/14/22 14:44 Medical Decision Making Lab Data Labs: Lab Results 08/14/22 08/14/22 08/14/22 Range/Units 15:24 15:36 17:11 WBC 7.46 (4.50-11.00) K/uL RBC 5.72 (4.30-5.90) m/uL Hgb 17.6 H (13.5-17.5) gm/dL Hct 52.0 (37.0-53.0) % MCV 91 (80-100) fL MCH 31 (26-34) pg MCHC 34 (32-36) gm/dL RDW Coeff of Louise 13.2 (11.5-15.5) % Plt Count 183 (140-440) K/uL Neut % (Auto) 64.0 (42.0-72.0) % Lymph % (Auto) 26.4 (20-44) % Latimer % (Auto) 7.2 (0.0-11.0) % Eos % (Auto) 0.8 (0.0-7.0) % Baso % (Auto) 0.4 (0.0-3.0) % Neut # (Auto) 4.77 (1.7-7.0) K/uL Lymph # (Auto) 1.97 (0.90-2.90) K/uL Latimer # (Auto) 0.50 (0.00-0.90) K/UL Eos # (Auto) 0.06 (0.00-0.50) K/uL Baso # (Auto) 0.03 (0.00-0.30) K/uL ESR < 2 L (2-15) mm/hr INR 1.57 H (0.91-1.10) APTT 37 H (23-33) Seconds Sodium 136 (135-149) mmol/L Potassium 4.1 (3.6-5.1) mmol/L Chloride 104 (96-114) mmol/L Carbon Dioxide 25 (20-32) mmol/L BUN 25 (7-30) mg/dL Creatinine 1.4 (0.5-1.5) mg/dL Estimated GFR 53 ml/min Glucose 163 H (60-115) mg/dL Calcium 9.0 (8.4-10.6) mg/dL Total Bilirubin 2.0 H (0.1-1.5) mg/dL Direct Bilirubin 0.5 (0.0-0.5) mg/dL AST 26 (12-35) U/L ALT 21 (4-50) U/L Alkaline Phosphatase 85 (40-150) U/L C-Reactive Protein 1.0 (0.5-1.0) mg/dL Total Protein 7.6 (6.0-8.3) g/dL Albumin 4.2 (3.3-5.0) g/dL TSH 3.640 (0.270-4.200) uIU/mL SARS-CoV-2 (PCR) Negative SARS-CoV-2 (Negative) Influenza Type A (PCR) Negative PCR FLU A (Negative) Influenza Type B (PCR) Negative PCR FLU B (Negative) RSV (PCR) Negative PCR RSV (Negative) POC Troponin I 0.00 L (0.01-0.04) ng/ml Discharge Plan Discharge Clinical Impression: Gaze palsy, Ptosis of eyelid, right Patient Disposition: Home, Self-Care Condition: Stable Instructions: Ptosis (ED) Additional Instructions: Your test today are normal, there is no evidence of stroke or bleeding in your head. Your labs look normal as well. I talked with the neurologist, we are adding on a couple of other blood tests and they would like you to follow-up with them. The neurologist thinks your symptoms may possibly be due to a condition called myasthenia gravis. Follow-up is very important. You can call and make an appointment at their [facility], at [phone]. Please call tomorrow to make this appointment. In the meantime, if you have any worsening weakness or other significant changes, return to the emergency department. Prescriptions: No Action carvedilol 6.25 mg tablet Patient Comments: TAKE 1 TABLET BY MOUTH TWICE DAILY WITH FOOD atorvastatin 20 mg tablet spironolactone 25 mg tablet Patient Comments: TAKE 1 TABLET BY MOUTH EVERY MORNING pantoprazole 40 mg tablet,delayed release (DR/EC) PO albuterol sulfate 90 mcg/actuation HFA aerosol inhaler INHALATION valsartan 160 mg tablet insulin aspart U-100 100 unit/mL (3 mL) insulin pen SUBCUT cholestyramine-aspartame [Cholestyramine Light] 4 gram powder in packet Patient Comments: MIX 1 PACKET IN LIQUID THEN TAKE BY MOUTH 2 TIMES DAILY WITH MEALS Levemir FlexTouch U-100 Insuln 100 unit/mL (3 mL) insulin pen SUBCUT Patient Comments: INJECT 25 UNITS SUBCUTANEOUS EVERY NIGHT AT BEDTIME diclofenac sodium 1 % gel TOPICAL Patient Comments: APPLY 4 GRAMS TOPICALLY TO THE AFFECTED AREA FOUR TIMES DAILY Xarelto 20 mg tablet Farxiga 10 mg tablet aspirin 81 mg capsule 81 mg PO DAILY Calcium 600 + D(3) furosemide 20 mg tablet 20 mg PO DAILY PRN (Reason: weight gain) Rx Instructions: if >290# Follow Up/Referrals: Elijah Fernandez MD [Primary Care Provider] - Stand Alone Forms: [employer] Info Instructions
--- NOTE | 2022-08-14 15:47 | CRLHL7_ITS ---
For Patients: As a result of the Century Cures Act, medical imaging exams and procedure reports are released immediately into your electronic medical record. You may view this report before your referring provider. If you have questions, please contact your health care provider. Indication: Ptosis, right eye upward gaze palsy Technique: Multiplanar, multisequence MRI of the brain obtained without contrast. Comparison: Same day CT head Findings: The ventricles and cortical sulci are mildly prominent. No hydrocephalus or herniation. No acute/subacute ischemia, intracranial hemorrhage or abnormal extra-axial fluid collection. There are scattered small foci of FLAIR hyperintensity throughout the supratentorial white matter bilaterally, along with a couple of chronic micro hemorrhages within the left frontal lobe. Midline structures are unremarkable. Major expected intracranial flow voids are visualized. Bone marrow signal is unremarkable. No suspicious findings in the regional soft tissues. Mild ethmoid sinus mucosal thickening, without air-fluid level or mastoid effusion. There are bilateral lens implants. Impression: 1. No evidence of acute intracranial abnormality. 2. Mild generalized cerebral volume loss, with mild scattered chronic microangiopathy changes, and a couple of chronic micro hemorrhages in the left frontal lobe. Dictated by Uzma Scott MD @ 08/14/2022 4:47:51 PM (Electronically Signed)
[2022-08-14 15:48] LABS: Basophils Absolute Auto 0.03 K/uL (0.00-0.30); Basophils Percent Auto 0.4 % (0.0-3.0); Eosinophils Absolute Auto 0.06 K/uL (0.00-0.50); Eosinophils Percent Auto 0.8 % (0.0-7.0); Hemoglobin* 17.6 gm/dL (13.5-17.5); Immature Granulocytes Abs Auto 0.09 K/uL (0.00-0.30); Immature Granulocytes Pct Auto 1.2 %; Lymphocytes Absolute Auto 1.97 K/uL (0.90-2.90); Lymphocytes Percent Auto 26.4 % (20-44); Mean Corpuscular HGB Conc 34 gm/dL (32-36); Mean Corpuscular Hemoglobin 31 pg (26-34); Mean Corpuscular Volume 91 fL (80-100); Monocytes Percent Auto 7.2 % (0.0-11.0); Neutrophils Absolute Auto 4.77 K/uL (1.7-7.0); Platelet Count* 183 K/uL (140-440); RDW Coefficient of Variation % 13.2 % (11.5-15.5); Red Blood Count 5.72 m/uL (4.30-5.90); White Blood Count* 7.46 K/uL (4.50-11.00)
[2022-08-14 15:51] LABS: Slide Review Reflex No
[2022-08-14 16:00] LABS: Chloride* 104 mmol/L (96-114)
[2022-08-14 16:01] LABS: Potassium* 4.1 mmol/L (3.6-5.1); Sodium* 136 mmol/L (135-149)
[2022-08-14 16:03] LABS: Creatinine* 1.4 mg/dL (0.5-1.5); Estimated Glomerular Filt Rate 53 ml/min
[2022-08-14 16:04] LABS: Blood Urea Nitrogen* 25 mg/dL (7-30); Carbon Dioxide* 25 mmol/L (20-32); Glucose* 163 mg/dL (60-115)
[2022-08-14 16:15] LABS: INR 1.57 (0.91-1.10); Prothrombin Time 19.6 Seconds
[2022-08-14 16:17] LABS: Partial Thromboplastin Time* 37 Seconds (23-33)
[2022-08-14 16:39] LABS: PCR FLU A Negative PCR FLU A (Negative); PCR FLU B Negative PCR FLU B (Negative); PCR RSV Negative PCR RSV (Negative); SARS PCR* Negative SARS-CoV-2 (Negative)
[2022-08-14 17:25] LABS: Albumin* 4.2 g/dL (3.3-5.0)
[2022-08-14 17:28] LABS: Bilirubin Direct* 0.5 mg/dL (0.0-0.5)
[2022-08-14 17:29] LABS: Alanine Aminotransferase* 21 U/L (4-50); Alkaline Phosphatase* 85 U/L (40-150); Aspartate Amino Transferase* 26 U/L (12-35); Total Protein* 7.6 g/dL (6.0-8.3)
[2022-08-14 17:31] LABS: Erythrocyte SedimentationRate* < 2 mm/hr (2-15)
[2022-08-17 21:12] LABS: Acetychloline Blocking Antibod 11 % (0-26)
== END 2022-08-14 18:01 | disposition home or self-care (01) ==
PROVIDERS: Emergency Provider Emergency Medicine; PCP Surgery
DX: H02.401 Unspecified ptosis of right eyelid (principal); H51.0 Palsy (spasm) of conjugate gaze
CPT/HCPCS: 36415; 70450; 70551; 80048; 80076; 83519; 83520; 84443; 84484; 85025; 85610; 85651; 85730; 86140; 87631; 93005; 99285

== ENCOUNTER 2023-07-15 12:18 | Emergency (ER) | payer MEDICARE, BC, SELFPAY ==
[2023-07-15] VITALS (26 sets, daily range): BP systolic 88–132; BP diastolic 64–86; PULSE 70–93; RESP 20; TEMP 36.6; O2SAT 93–100; BMI 38.0
[2023-07-15 13:34] LABS: PCR FLU A Negative PCR FLU A (Negative); PCR FLU B Negative PCR FLU B (Negative); PCR RSV Negative PCR RSV (Negative); SARS PCR* POSITIVE SARS-CoV-2 (Negative)
--- NOTE | 2023-07-15 13:39 | ED.NAVMDI ---
HPI - Nausea/Vomiting/Diarrhea General Time Seen by Provider: 13:39 Date Seen: 07/15/23 Chief complaint: Nausea/Vomiting Stated complaint: Nausea, diarrhea, short of breath Time Seen by Provider: 07/15/23 13:39 Source: patient Mode of arrival: ambulatory Limitations: no limitations History of Present Illness HPI Narrative: Lionel is a very pleasant 72-year-old male with history of atrial fibrillation currently on Xarelto, diabetes, history of emotional breakdown currently living in adult foster care who comes to the emergency room with complaints of pain all over and a cough. Patient notes that 10 days ago he had the onset of coughing and nausea with 1 episode of vomiting. He had diarrhea but states that he has had diarrhea for years and the amount has not changed. He notes that he has occasional headache and earlier today had a left-sided headache with blurred vision but had his dissipated. He notes occasional chest pain when he is coughing hard. He notes left sided abdominal pain when he is coughing as well. He has not been wheezing. Earlier today he was going to do errands and when he was walking up stairs he was very tired with pain over his entire body. Patient has not taken any medications at this time. He is fully vaccinated with 5 COVID shots in the past. He has never had COVID. He notes that his caregiver Olesya just returned from a cruise and has been ill. Related Data Home Medications Medication Instructions Recorded Confirmed Calcium 600 + D(3) 12/13/21 albuterol sulfate 90 mcg/actuation inhalation 12/13/21 aerosol inhaler aspirin 81 mg capsule 81 mg PO DAILY 12/13/21 12/13/21 atorvastatin 20 mg tablet mg 12/13/21 carvedilol 6.25 mg tablet mg 12/13/21 cholestyramine-aspartame 4 gram ea 12/13/21 oral powder for susp in a packet (Cholestyramine Light) dapagliflozin propanediol 10 mg mg 12/13/21 tablet (Farxiga) diclofenac sodium 1 % topical gel topical 12/13/21 furosemide 20 mg tablet 20 mg PO DAILY PRN weight gain 12/13/21 12/13/21 insulin aspart U-100 100 unit/mL subcut 12/13/21 (3 mL) subcutaneous pen insulin detemir U-100 100 unit/mL unit subcut 12/13/21 (3 mL) subcutaneous pen (Levemir FlexTouch U-100 Insulin) pantoprazole 40 mg tablet,delayed mg PO 12/13/21 release rivaroxaban 20 mg tablet (Xarelto) mg 12/13/21 spironolactone 25 mg tablet mg 12/13/21 valsartan 160 mg tablet mg 12/13/21 Allergies Allergy/AdvReac Type Severity Reaction Status Date / Time metformin AdvReac Verified 12/13/21 10:44 tetracycline AdvReac Verified 12/13/21 10:44 duloxetine AdvReac Uncoded 12/13/21 10:44 tamsulosin AdvReac syncopal Uncoded 12/13/21 10:44 Review of Systems Status of ROS: Reports: 10 or more systems reviewed and unremarkable except as noted in History and below Const: Reports: fatigue; Denies: fever or chills Eyes: Reports: blurry vision (Transient.) ENMT: Denies: throat pain or throat swelling Cardio: Reports: chest pain (With cough) and lightheadedness; Denies: palpitations, edema, swelling of feet/ankles or shortness of breath with exertion Resp: Reports: cough; Denies: shortness of breath GI: Reports: abdominal pain, vomiting and diarrhea (Chronic) : Denies: painful urination Musculo: Denies: back pain Endo: Reports: fatigue Allergy/Immuno: Denies: throat swelling PFSH PFSH Social History Smoking Status: Never smoker Do you use any of these nicotine containing products: None Second hand tobacco smoke exposure: No How often do you have a drink containing alcohol: 2-4 times a month How many standard drinks containing alcohol do you have on a typical day: 1 or 2 How often do you have six or more drinks on one occasion: Never AUDIT-C Alcohol total score: 2 Non-prescribed substance use: denies use service: No Exam Narrative: Exam Narrative: Lionel is alert and oriented. He is nontoxic in appearance. EOM is full equal pupils are equal round reactive. Head is atraumatic normocephalic oral cavity with moist mucous membranes neck is supple without lymphadenopathy Heart with regular rate and abnormal rhythm. Not hyper dynamic. Lungs are clear in all lung mario. Abdomen is soft. There is some slight tenderness left upper quadrant but this seems to be abdominal wall musculature. Calf without pain and no swelling. Moving all extremities. Const: Vital Signs, click to edit/add: Vital Signs - 24 hr 07/15/23 12:44 07/15/23 14:24 07/15/23 14:30 Temperature 97.8 F Pulse Rate 82 92 Pulse Rate [Pulse Oximeter] 77 Respiratory Rate 20 Blood Pressure Blood Pressure [Ri ght Upper Arm] 88/67 L Pulse Oximetry 97 97 97 Oxygen Delivery Me thod Room Air 07/15/23 14:33 07/15/23 14:45 07/15/23 15:00 Temperature Pulse Rate 76 80 93 Pulse Rate [Pulse Oximeter] Respiratory Rate Blood Pressure 110/75 Blood Pressure [Ri ght Upper Arm] Pulse Oximetry 95 98 99 Oxygen Delivery Me thod 07/15/23 15:03 07/15/23 15:15 07/15/23 15:30 Temperature Pulse Rate 82 77 72 Pulse Rate [Pulse Oximeter] Respiratory Rate Blood Pressure 132/86 Blood Pressure [Ri ght Upper Arm] Pulse Oximetry 98 100 99 Oxygen Delivery Me thod 07/15/23 15:32 07/15/23 15:45 07/15/23 16:00 Temperature Pulse Rate 72 83 70 Pulse Rate [Pulse Oximeter] Respiratory Rate Blood Pressure 131/78 Blood Pressure [Ri ght Upper Arm] Pulse Oximetry 99 99 94 Oxygen Delivery Me thod 07/15/23 16:02 Temperature Pulse Rate 80 Pulse Rate [Pulse Oximeter] Respiratory Rate Blood Pressure 112/76 Blood Pressure [Ri ght Upper Arm] Pulse Oximetry 98 Oxygen Delivery Me thod Documenting provider has reviewed patient's vital signs: yes Course Reevaluation(s) Reevaluation #1: Patient noted to be feeling much improved after 1 L of saline. Initial blood pressure 88/67 has now rebounded to 132/86. His pulse remained stable at 77. He notes his abdominal pain has resolved and is only present when he coughs. Vital Signs Vital signs: Initial Vital Signs Temperature 97.8 F 07/15/23 12:44 Temperature Source Temporal Artery Scan 07/15/23 12:44 Pulse Rate 77 07/15/23 12:44 Respiratory Rate 20 07/15/23 12:44 Blood Pressure 88/67 L 07/15/23 12:44 Blood Pressure Mean 74 07/15/23 12:44 Pulse Oximetry 97 07/15/23 12:44 Oxygen Delivery Method Room Air 07/15/23 12:44 Vital Signs Temperature 97.8 F 07/15/23 12:44 Pulse Rate 77 07/15/23 12:44 Respiratory Rate 20 07/15/23 12:44 Blood Pressure 88/67 L 07/15/23 12:44 Pulse Oximetry 97 07/15/23 12:44 Oxygen Delivery Method Room Air 07/15/23 12:44 Temperature 97.8 F 07/15/23 12:44 Pulse Rate 80 07/15/23 16:02 Respiratory Rate 20 07/15/23 12:44 Blood Pressure 112/76 07/15/23 16:02 Pulse Oximetry 98 07/15/23 16:02 Oxygen Delivery Method Room Air 07/15/23 12:44 Medications Administered Medications: Discontinued Medications Generic Name Dose Route Start Last Admin Trade Name Freq PRN Reason Stop Dose Admin Sodium Chloride 1,000 mls @ 1,000 mls/hr 07/15/23 13:58 07/15/23 15:15 0.9 % Sodium Chloride 1000 Ml IV 07/15/23 14:57 Infused .Q1H JD Infusion Ondansetron HCl 4 mg 07/15/23 15:22 07/15/23 15:30 Ondansetron 2 Mg/Ml Inj IVP 07/15/23 15:23 4 mg ONCE ONE Administration MDM - Nausea/Vomiting/Diarrhea MDM Narrative Medical decision making narrative: 1. COVID-at this time chest x-ray is reassuring with no evidence of infiltrate, a D-dimer is negative. Fortunately patient has oxygen levels that her in the 90s with a normal CRP. At this time do not feel the need to pursue CT. I think patient has persisting weakness lightheadedness from the COVID. Today is his 1st medical visit for this particular illness. Patient is looking much improved after 1 L of normal saline although he states he is not feeling any different. However when I walk into the room to discuss his findings he is sitting cross-legged on the bed drinking water and very interactive. 2. Diarrhea-this appears to be chronic. Patient did not need to use restroom today. I do not feel this represents any significant change or is related to his COVID. 3. Abdominal pain-this appears to be abdominal in musculature that is causing him discomfort from cough. After 1 L of saline patient had no further complaints of abdominal pain. I do not feel he needs imaging at this time but should abdominal pain increase he will need to be re-evaluated. White count is normal. As is CRP. 4. Atypical Chest pain with cough-this atypical chest pain as 2 sets of cardiac enzymes are negative. Patient's EKG is reassuring with atrial fibrillation but no evidence of acute ST or T-wave changes. Patient is currently on Xarelto and has not skipped any of his doses. 5. Disposition-home at this time. Seek medical attention especially for increasing fever, shortness of breath, worsening symptoms and as needed. Medical Records Attestation: I reviewed the patient's medical records. Lab Data Attestation: I reviewed the patient's lab results. Labs: Lab Results 07/15/23 07/15/23 07/15/23 Range/Units 12:50 14:08 14:14 WBC 10.61 (4.50-11.00) K/uL RBC 5.69 (4.30-5.90) m/uL Hgb 17.2 (13.5-17.5) gm/dL Hct 51.3 (37.0-53.0) % MCV 90 (80-100) fL MCH 30 (26-34) pg MCHC 34 (32-36) gm/dL RDW Coeff of Louise 12.8 (11.5-15.5) % Plt Count 193 (140-440) K/uL Neut % (Auto) 72.1 H (42.0-72.0) % Lymph % (Auto) 20.4 (20-44) % [place] % (Auto) 6.3 (0.0-11.0) % Eos % (Auto) 0.4 (0.0-7.0) % Baso % (Auto) 0.2 (0.0-3.0) % Neut # (Auto) 7.60 H (1.7-7.0) K/uL Lymph # (Auto) 2.16 (0.90-2.90) K/uL [place] # (Auto) 0.70 (0.00-0.90) K/UL Eos # (Auto) 0.04 (0.00-0.50) K/uL Baso # (Auto) 0.02 (0.00-0.30) K/uL Abs Immat Gran (auto) 0.06 (0.00-0.30) K/uL Imm/Tot Granulo (auto) 0.6 % D-Dimer Quant (PE/DVT) 0.32 (0.00-0.50) ug/ml Sodium 139 (135-149) mmol/L Potassium 4.6 (3.6-5.1) mmol/L Chloride 108 (96-114) mmol/L Carbon Dioxide 21 (20-32) mmol/L Anion Gap 10 (7-15) mEq/L BUN 23 (7-30) mg/dL Creatinine 1.2 (0.5-1.5) mg/dL Estimated Creat Clear 60.18 Estimated GFR 64 ml/min Glucose 159 H (60-115) mg/dL Lactate 2.0 H (0.5-1.9) mmol/L Calcium 9.0 (8.4-10.6) mg/dL Magnesium 1.7 (1.5-2.6) mg/dL Total Bilirubin 1.8 H (0.1-1.5) mg/dL AST 29 (12-35) U/L ALT 15 (4-50) U/L Alkaline Phosphatase 85 (40-150) U/L C-Reactive Protein < 0.5 L (0.5-1.0) mg/dL Total Protein 7.4 (6.0-8.3) g/dL Albumin 4.0 (3.3-5.0) g/dL Lipase 60 (23-300) U/L Urine Color Yellow (Yellow) Urine Appearance Clear (Clear) Urine pH 7.0 (5.0-8.5) Ur Specific [place] 1.010 (1.000-1.030) Urine Protein Negative (Negative) Urine Glucose (UA) Negative (Negative) Urine Ketones Negative (Negative) Urine Blood Trace-lysed A (Negative) Urine Nitrite Negative (Negative) Urine Bilirubin Negative (Negative) Urine Urobilinogen 0.2 (0.2-1.0) Ur Leukocyte Esterase Negative (Negative) Urine RBC 0-2 (0-2) Urine WBC 0-2 (0-5) Ur Squamous Epith Cells Few (None-Few) Urine Bacteria Few A (None) SARS-CoV-2 (PCR) POSITIVE SARS-CoV-2 A (Negative) Influenza Type A (PCR) Negative PCR FLU A (Negative) Influenza Type B (PCR) Negative PCR FLU B (Negative) RSV (PCR) Negative PCR RSV (Negative) POC Troponin I (0.01-0.04) ng/ml 07/15/23 Range/Units 15:22 WBC (4.50-11.00) K/uL RBC (4.30-5.90) m/uL Hgb (13.5-17.5) gm/dL Hct (37.0-53.0) % MCV (80-100) fL MCH (26-34) pg MCHC (32-36) gm/dL RDW Coeff of Louise (11.5-15.5) % Plt Count (140-440) K/uL Neut % (Auto) (42.0-72.0) % Lymph % (Auto) (20-44) % [place] % (Auto) (0.0-11.0) % Eos % (Auto) (0.0-7.0) % Baso % (Auto) (0.0-3.0) % Neut # (Auto) (1.7-7.0) K/uL Lymph # (Auto) (0.90-2.90) K/uL [place] # (Auto) (0.00-0.90) K/UL Eos # (Auto) (0.00-0.50) K/uL Baso # (Auto) (0.00-0.30) K/uL Abs Immat Gran (auto) (0.00-0.30) K/uL Imm/Tot Granulo (auto) % D-Dimer Quant (PE/DVT) (0.00-0.50) ug/ml Sodium (135-149) mmol/L Potassium (3.6-5.1) mmol/L Chloride (96-114) mmol/L Carbon Dioxide (20-32) mmol/L Anion Gap (7-15) mEq/L BUN (7-30) mg/dL Creatinine (0.5-1.5) mg/dL Estimated Creat Clear Estimated GFR ml/min Glucose (60-115) mg/dL Lactate (0.5-1.9) mmol/L Calcium (8.4-10.6) mg/dL Magnesium (1.5-2.6) mg/dL Total Bilirubin (0.1-1.5) mg/dL AST (12-35) U/L ALT (4-50) U/L Alkaline Phosphatase (40-150) U/L C-Reactive Protein (0.5-1.0) mg/dL Total Protein (6.0-8.3) g/dL Albumin (3.3-5.0) g/dL Lipase (23-300) U/L Urine Color (Yellow) Urine Appearance (Clear) Urine pH (5.0-8.5) Ur Specific [place] (1.000-1.030) Urine Protein (Negative) Urine Glucose (UA) (Negative) Urine Ketones (Negative) Urine Blood (Negative) Urine Nitrite (Negative) Urine Bilirubin (Negative) Urine Urobilinogen (0.2-1.0) Ur Leukocyte Esterase (Negative) Urine RBC (0-2) Urine WBC (0-5) Ur Squamous Epith Cells (None-Few) Urine Bacteria (None) SARS-CoV-2 (PCR) (Negative) Influenza Type A (PCR) (Negative) Influenza Type B (PCR) (Negative) RSV (PCR) (Negative) POC Troponin I 0.01 (0.01-0.04) ng/ml Imaging Data Chest x-ray: Attestation: I have reviewed the pertinent imaging results. My impression: I do not note any significant infiltrates. Radiologist's impression: Cardiovascular and mediastinum: Cardiomediastinal silhouette is mildly enlarged, similar to prior. Lungs and pleural spaces: Slightly low lung volumes. Mild basilar atelectasis. Otherwise lungs are clear no evidence of pleural effusion. No pneumothorax identified. Bones and soft tissues: Unremarkable for age. IMPRESSION: No acute cardiopulmonary process identified. No significant interval change. ECG Data Attestation: I personally reviewed and interpreted this ECG as follows: ECG interpretation date: 07/15/23 Discharge Plan Discharge Clinical Impression: COVID, Fatigue Patient Disposition: Home w/ Parent or Adult Condition: Improved Additional Instructions: Continue to push fluids. Rest. Return to the emergency room for chest pain, difficulty breathing, hot high fever and as needed. Prescriptions: No Action carvedilol 6.25 mg tablet Patient Comments: TAKE 1 TABLET BY MOUTH TWICE DAILY WITH FOOD atorvastatin 20 mg tablet spironolactone 25 mg tablet Patient Comments: TAKE 1 TABLET BY MOUTH EVERY MORNING pantoprazole 40 mg tablet,delayed release (DR/EC) PO albuterol sulfate 90 mcg/actuation HFA aerosol inhaler INHALATION valsartan 160 mg tablet insulin aspart U-100 100 unit/mL (3 mL) insulin pen SUBCUT cholestyramine-aspartame [Cholestyramine Light] 4 gram powder in packet Patient Comments: MIX 1 PACKET IN LIQUID THEN TAKE BY MOUTH 2 TIMES DAILY WITH MEALS Levemir FlexTouch U100 Insulin 100 unit/mL (3 mL) insulin pen SUBCUT Patient Comments: INJECT 25 UNITS SUBCUTANEOUS EVERY NIGHT AT BEDTIME diclofenac sodium 1 % gel TOPICAL Patient Comments: APPLY 4 GRAMS TOPICALLY TO THE AFFECTED AREA FOUR TIMES DAILY Xarelto 20 mg tablet Farxiga 10 mg tablet aspirin 81 mg capsule 81 mg PO DAILY Calcium 600 + D(3) furosemide 20 mg tablet 20 mg PO DAILY PRN (Reason: weight gain) Rx Instructions: if >290# Follow Up/Referrals: Elijah Fernandez MD [Primary Care Provider] - Stand Alone Forms: [facility] Info Instructions
--- NOTE | 2023-07-15 13:57 | XR_ITS ---
Patient: BOYD LOREDO Facility:?[facility] Patient ID:?[id number] Site Patient ID:?[id number]. Site :?[id number] Study:?XRay-Chest Portable-07/15/2023 2:22:52 PM Ordering Physician:Emily Ayala Final Report: INDICATION: COVID and cough. TECHNIQUE: Chest 1 view. COMPARISON: October 03, 2020. FINDINGS: Cardiovascular and mediastinum: Cardiomediastinal silhouette is mildly enlarged, similar to prior. Lungs and pleural spaces: Slightly low lung volumes. Mild basilar atelectasis. Otherwise lungs are clear no evidence of pleural effusion. No pneumothorax identified. Bones and soft tissues: Unremarkable for age. IMPRESSION: No acute cardiopulmonary process identified. No significant interval change. Dictated by Miguelangel Webb MD @ 07/15/2023 3:01:41 PM Signed by:?Miguelangel Webb MD @07/15/2023 3:01:41 PM (Electronic Signature)
[2023-07-15] MEDS: 0.9 % SODIUM CHLORIDE 1000 ml 1,000 ML IV (14:15)
[2023-07-15 14:20] LABS: Basophils Absolute Auto 0.02 K/uL (0.00-0.30); Basophils Percent Auto 0.2 % (0.0-3.0); Eosinophils Absolute Auto 0.04 K/uL (0.00-0.50); Eosinophils Percent Auto 0.4 % (0.0-7.0); Hematocrit 51.3 % (37.0-53.0); Hemoglobin* 17.2 gm/dL (13.5-17.5); Immature Granulocytes Abs Auto 0.06 K/uL (0.00-0.30); Immature Granulocytes Pct Auto 0.6 %; Lymphocytes Absolute Auto 2.16 K/uL (0.90-2.90); Lymphocytes Percent Auto 20.4 % (20-44); Mean Corpuscular HGB Conc 34 gm/dL (32-36); Mean Corpuscular Hemoglobin 30 pg (26-34); Mean Corpuscular Volume 90 fL (80-100); Monocytes Percent Auto 6.3 % (0.0-11.0); Neutrophils Percent Auto 72.1 % (42.0-72.0); Platelet Count* 193 K/uL (140-440); RDW Coefficient of Variation % 12.8 % (11.5-15.5); Red Blood Count 5.69 m/uL (4.30-5.90); White Blood Count* 10.61 K/uL (4.50-11.00)
[2023-07-15 14:26] LABS: Appearance Urine Clear (Clear); Bilirubin Urine Negative (Negative); Blood Urine Trace-lysed (Negative); Color Urine Yellow (Yellow); Glucose Urine Negative (Negative); Ketones Urine Negative (Negative); Leukocyte Esterase Urine Negative (Negative); Nitrite Urine Negative (Negative); Protein Urine Negative (Negative); Urobilinogen Urine 0.2 (0.2-1.0)
[2023-07-15 14:27] LABS: Slide Review Reflex No
[2023-07-15 14:33] LABS: Bacteria Urine Few; RBC Urine 0-2 (0-2); Squamous Epithelial Cell Urine Few (None-Few); WBC Urine 0-2 (0-5)
[2023-07-15 14:40] LABS: Chloride* 108 mmol/L (96-114)
[2023-07-15 14:41] LABS: Sodium* 139 mmol/L (135-149)
[2023-07-15 14:42] LABS: Potassium* 4.6 mmol/L (3.6-5.1)
[2023-07-15 14:43] LABS: Creatinine* 1.2 mg/dL (0.5-1.5); Est. Creatinine Clearance* 60.18; Estimated Glomerular Filt Rate 64 ml/min
[2023-07-15 14:44] LABS: Alanine Aminotransferase* 15 U/L (4-50); Alkaline Phosphatase* 85 U/L (40-150); Anion Gap 10 mEq/L (7-15); Aspartate Amino Transferase* 29 U/L (12-35); Bilirubin Total* 1.8 mg/dL (0.1-1.5); Blood Urea Nitrogen* 23 mg/dL (7-30); Carbon Dioxide* 21 mmol/L (20-32); Lipase* 60 U/L (23-300); Total Protein* 7.4 g/dL (6.0-8.3)
[2023-07-15 14:45] LABS: Glucose* 159 mg/dL (60-115); Magnesium* 1.7 mg/dL (1.5-2.6)
[2023-07-15 14:49] LABS: C Reactive Protein* < 0.5 mg/dL (0.5-1.0)
[2023-07-15 14:50] LABS: D Dimer Quantitative* 0.32 ug/ml (0.00-0.50)
[2023-07-15] MEDS: ONDANSETRON 2 MG/ML inj 4 MG IVP (15:30)
[2023-07-15 15:48] LABS: Troponin, Point-of-Care* 0.01 ng/ml (0.01-0.04)
== END 2023-07-15 18:14 | disposition home or self-care (01) ==
PROVIDERS: Emergency Provider Family Medicine; PCP Surgery
DX: U07.1 COVID-19 (principal); R53.83 Other fatigue
CPT/HCPCS: 36415; 71045; 80053; 81001; 83605; 83690; 83735; 84484; 85025; 85379; 86140; 87631; 93005; 96361; 96374; 99284; 99285; J2405; J7030

== ENCOUNTER 2023-08-23 17:56 | Emergency (ER) | payer MEDICARE, BC, SELFPAY ==
[2023-08-23 18:13] VITALS: BP 136/100; PULSE 104; RESP 18; TEMP 36.4; O2SAT 98; BMI 35.6
--- NOTE | 2023-08-23 18:36 | ED.GENADULT ---
HPI - General Adult General Date Seen: 08/23/23 Chief complaint: Epistaxis/Nosebleed Stated complaint: nosebleed Time Seen by Provider: 08/23/23 18:35 History of Present Illness HPI narrative: 72-year-old gentleman with a history of AFib on Xarelto presenting to the ER today with epistaxis. He started having nose bleeding around 5:30 p.m. today. He says he gets nosebleeds fairly often over the past 6 months (about 7 nose bleeds over the past 6 months) but has not had 1 that is been bleeding is heavy is today before. He does not know what is causing his nose bleeds. His partner think that he might be because he is rubbing his nose to vigorously. His current nosebleed started about 5:30 p.m. when he was at home. He tried to pack his nose with gauze to stop the bleeding which has worked before but it kept bleeding. He was passing clots of blood. The blood is coming mostly from the right nostril but a little bit from the left and was also running down the back of his throat. He did get nauseous after swallowing some blood but is now feeling better. No other unusual bleeding or bruising. Related Data Home Medications Medication Instructions Recorded Confirmed Calcium 600 + D(3) 12/13/21 albuterol sulfate 90 mcg/actuation inhalation 12/13/21 aerosol inhaler aspirin 81 mg capsule 81 mg PO DAILY 12/13/21 12/13/21 atorvastatin 20 mg tablet mg 12/13/21 carvedilol 6.25 mg tablet mg 12/13/21 cholestyramine-aspartame 4 gram ea 12/13/21 oral powder for susp in a packet (Cholestyramine Light) dapagliflozin propanediol 10 mg mg 12/13/21 tablet (Farxiga) diclofenac sodium 1 % topical gel topical 12/13/21 furosemide 20 mg tablet 20 mg PO DAILY PRN weight gain 12/13/21 12/13/21 insulin aspart U-100 100 unit/mL subcut 12/13/21 (3 mL) subcutaneous pen insulin detemir U-100 100 unit/mL unit subcut 12/13/21 (3 mL) subcutaneous pen (Levemir FlexTouch U-100 Insulin) pantoprazole 40 mg tablet,delayed mg PO 12/13/21 release rivaroxaban 20 mg tablet (Xarelto) mg 12/13/21 spironolactone 25 mg tablet mg 12/13/21 valsartan 160 mg tablet mg 12/13/21 Allergies Allergy/AdvReac Type Severity Reaction Status Date / Time metformin AdvReac Verified 12/13/21 10:44 tetracycline AdvReac Verified 12/13/21 10:44 duloxetine AdvReac Uncoded 12/13/21 10:44 tamsulosin AdvReac syncopal Uncoded 12/13/21 10:44 [facility] Social History Smoking Status: Never smoker Do you use any of these nicotine containing products: None Second hand tobacco smoke exposure: No How often do you have a drink containing alcohol: 2-4 times a month How many standard drinks containing alcohol do you have on a typical day: 1 or 2 How often do you have six or more drinks on one occasion: Never AUDIT-C Alcohol total score: 2 Non-prescribed substance use: denies use service: No Exam Narrative: Exam Narrative: Constitutional: Appears well-developed and well-nourished. Alert. Conversant. Non toxic. HENT: Head: Atraumatic. Nose: External nose normal. No sign of trauma. He does have cotton packed in both of his nostrils. I instructed him on how to apply direct digital pressure to his nose (nasal clamp does not fit). He has a small amount of ongoing bleeding mostly from the right nostril. We were able to stop the bleeding by direct pressure. I evaluated with otoscope. Unable to identify site of bleeding in the right nostril because there was blood obscuring the field. We in still do Afrin and re-evaluated. I am able to identify a site of bleeding on mucosal surface of the septum a few mm in from the nares. No active bleeding. We applied mucosal E atomized 1% lidocaine with epi. We then applied 2% viscous uro jet lidocaine on a cotton ball in the patient's right near. We let this sit for 5 minutes. We then cauterized the site of bleeding on the nasal septum using silver nitrate. After this no recurrent bleeding. He tolerated well. No pain or complication. Mouth/Throat: Oral mucosa is clear and moist. no trismus. Pharynx normal. No posterior or pharyngeal bleeding. Tonsils symmetric. No tonsillar enlargement, erythema, or exudate. Eyes: Conjunctivae normal. EOM normal. Pupils equal, round, and reactive to light. No scleral icterus. Neck: Normal range of motion. Neck supple. No tracheal deviation present. Cardiovascular: Normal rate, regular rhythm. No gallop. No friction rub. No murmur heard. Normal capillary Pulmonary/Chest: Effort normal. No stridor. No respiratory distress. No wheezes. No rales. No rhonchi . Musculoskeletal: RUE: Normal range of motion. No tenderness. No deformity LUE: Normal range of motion. No tenderness. No deformity RLE: Normal range of motion. No edema. No tenderness. No deformity LLE: Normal range of motion. No edema. No tenderness. No deformity Neurological: Alert and oriented to person, place, and time. Normal strength. CN II-VII intact. No sensory deficit. GCS eye subscore is 4. GCS verbal subscore is 5. GCS motor subscore is 6. Normal coordination Skin: Skin is warm and dry. No rash noted. No pallor. Normal capillary refill. Psychiatric: Normal mood. Normal affect. Const: Vital Signs, click to edit/add: Vital Signs - 24 hr 08/23/23 18:13 Temperature 97.5 F L Pulse Rate [Pulse Oximeter] 104 H Respiratory Rate 18 Blood Pressure [Ri ght Upper Arm] 136/100 H Pulse Oximetry 98 Oxygen Delivery Me thod Room Air Course Vital Signs Vital signs: Initial Vital Signs Temperature 97.5 F L 08/23/23 18:13 Temperature Source Temporal Artery Scan 08/23/23 18:13 Pulse Rate 104 H 08/23/23 18:13 Respiratory Rate 18 08/23/23 18:13 Blood Pressure 136/100 H 08/23/23 18:13 Blood Pressure Mean 112 H 08/23/23 18:13 Blood Pressure Position Sitting 08/23/23 18:13 Pulse Oximetry 98 08/23/23 18:13 Oxygen Delivery Method Room Air 08/23/23 18:13 Vital Signs Temperature 97.5 F L 08/23/23 18:13 Pulse Rate 104 H 08/23/23 18:13 Respiratory Rate 18 08/23/23 18:13 Blood Pressure 136/100 H 08/23/23 18:13 Pulse Oximetry 98 08/23/23 18:13 Oxygen Delivery Method Room Air 08/23/23 18:13 Temperature 97.5 F L 08/23/23 18:13 Pulse Rate 104 H 08/23/23 18:13 Respiratory Rate 18 08/23/23 18:13 Blood Pressure 136/100 H 08/23/23 18:13 Pulse Oximetry 98 08/23/23 18:13 Oxygen Delivery Method Room Air 08/23/23 18:13 Medications Administered Medications: Discontinued Medications Generic Name Dose Route Start Last Admin Trade Name Freq PRN Reason Stop Dose Admin Lidocaine HCl 15 ml 08/23/23 18:37 08/23/23 19:39 Lidocaine Viscous 2% 15 Ml Solution SWISH/SPIT 08/23/23 18:38 Not Given ONCE ONE Lidocaine HCl 6 ml 08/23/23 18:58 08/23/23 19:25 Lidocaine Hcl 2 % Jelly (Top) Sterile TOPICAL 08/23/23 18:59 6 ml ONCE ONE Administration Oxymetazoline HCl 1 spray 08/23/23 18:37 08/23/23 19:25 Oxymetazoline 0.05% Nasal [place] NOSTRIL-B 1 spray BID PRN Administration Silver Nitrate/Potassium Nitrate 1 each 08/23/23 18:37 08/23/23 19:25 Silver Nitrate Applicator 1 Each Stick..Ea. TOPICAL 08/23/23 18:38 1 each ONCE ONE Administration Medical Decision Making MDM Narrative Medical decision making narrative: 72-year-old gentleman on Xarelto for stroke prophylaxis with AFib presenting to the ER today with epistaxis. He does report episodes of epistaxis that have always been controlled at home over the past 6 months. This is the 1st bleed nosebleed bad enough to bring him to the ER. Fortunately were able to bring them large majority of the bleeding under control with direct pressure. We were able to identify a site of bleeding in the right anterior nares on the nasal septum. After topical anesthesia we did use silver nitrate to cauterize the bleeding site. Good hemostasis was achieved. We monitor the patient here in the ER any had no recurrent bleeding. He passed an ambulation trial and went to the bathroom in the recurrent bleeding. At this point I do not think we need to pack his naris. Hold off on TXA for now. He is hemodynamically stable. No lightheadedness. At this point I do not think he needs hemoglobin check or admission for monitoring. Since he is on Xarelto he certainly would be at risk for rebleeding. We discussed care to prevent rebleeding including saline, humidifier. Avoid nasal picking and rubbing. Recommend clinic follow-up with ENT next week for re-evaluation. Precautions for return to the ER reviewed. Discharge Plan Discharge Clinical Impression: Epistaxis Patient Disposition: Home, Self-Care Condition: Stable Instructions: Nosebleed (ED) Additional Instructions: As we discussed, to keep her nose healthy try to use a humidifier at home and use nasal saline to help keep the lining of your nose healthy and moist. Avoid rubbing or picking at your nose. It is okay to continue on your medications, including Xarelto, for now. If you have any recurrent episodes of nose bleeding, be sure to lean forward and hold pressure on the soft part of your nose. Set a timer for 10 minutes and continue to hold firm pressure for 10 minutes. If your still bleeding after 10 minutes come back to the ER to be rechecked. Even if your getting better, you should recheck with ENT, Dr. Andrade, within 1 week. You can call [phone] to the [facility] scheduler to set up an appointment to see Dr. Andrade Prescriptions: No Action carvedilol 6.25 mg tablet Patient Comments: TAKE 1 TABLET BY MOUTH TWICE DAILY WITH FOOD atorvastatin 20 mg tablet spironolactone 25 mg tablet Patient Comments: TAKE 1 TABLET BY MOUTH EVERY MORNING pantoprazole 40 mg tablet,delayed release (DR/EC) PO albuterol sulfate 90 mcg/actuation HFA aerosol inhaler INHALATION valsartan 160 mg tablet insulin aspart U-100 100 unit/mL (3 mL) insulin pen SUBCUT cholestyramine-aspartame [Cholestyramine Light] 4 gram powder in packet Patient Comments: MIX 1 PACKET IN LIQUID THEN TAKE BY MOUTH 2 TIMES DAILY WITH MEALS Levemir FlexTouch U100 Insulin 100 unit/mL (3 mL) insulin pen SUBCUT Patient Comments: INJECT 25 UNITS SUBCUTANEOUS EVERY NIGHT AT BEDTIME diclofenac sodium 1 % gel TOPICAL Patient Comments: APPLY 4 GRAMS TOPICALLY TO THE AFFECTED AREA FOUR TIMES DAILY Xarelto 20 mg tablet Farxiga 10 mg tablet aspirin 81 mg capsule 81 mg PO DAILY Calcium 600 + D(3) furosemide 20 mg tablet 20 mg PO DAILY PRN (Reason: weight gain) Rx Instructions: if >290# Follow Up/Referrals: Elijah Fernandez MD [Primary Care Provider] - Stand Alone Forms: Source MDx Instructions
[2023-08-23] MEDS: SILVER NITRATE APPLICATOR 1 EACH STICK..EA. TOPICAL (19:25)
[2023-08-23] MEDS: OXYMETAZOLINE 0.05% NASAL SPRAY 1 SPRAY NOSTRIL-B (19:25)
[2023-08-23] MEDS: lidocaine HCL 2 % JELLY (TOP) STERILE 6 ML TOPICAL (19:25)
== END 2023-08-23 19:53 | disposition home or self-care (01) ==
PROVIDERS: Emergency Provider Emergency Medicine; PCP Surgery
DX: R04.0 Epistaxis (principal)
CPT/HCPCS: 30901; 99282; 99283; A9270

== ENCOUNTER 2023-09-28 02:07 | Emergency (ER) | payer MEDICARE, BC, SELFPAY ==
--- NOTE | 2023-09-28 02:09 | ED_ITS ---
History of Present Illness General Date Seen: 09/28/23 Chief Complaint: Epistaxis/Nosebleed Stated Complaint: nosebleed Time Seen by Provider: 09/28/23 02:09 Source: patient Mode of arrival: ambulatory Limitations: no limitations History of Present Illness HPI Narrative: Patient is a 72-year-old male with history of AFib on Xarelto, hypertension presenting to the emergency department for epistaxis. States this morning he started to have a nosebleed from his right naris and has continued all day. He has been dealing with this on and off for several months now. He saw his primary care provider today and he got a referral for ENT. Patient states it has bled from his left nares once but almost always is from the right. Denies lightheadedness, dizziness, chest pain, shortness of breath, headache, vision changes, weakness, numbness. No other concerns noted at this time. States previously when this has happened he has needed to be cauterized. Related Data Home Medications ?Medication ?Instructions ?Recorded ?Confirmed Calcium 600 + D(3) 12/13/21 albuterol sulfate 90 mcg/actuation inhalation 12/13/21 aerosol inhaler aspirin 81 mg capsule 81 mg PO DAILY 12/13/21 09/28/23 atorvastatin 20 mg tablet mg 12/13/21 carvedilol 6.25 mg tablet mg 12/13/21 cholestyramine-aspartame 4 gram ea 12/13/21 oral powder for susp in a packet (Cholestyramine Light) dapagliflozin propanediol 10 mg mg 12/13/21 tablet (Farxiga) diclofenac sodium 1 % topical gel topical 12/13/21 furosemide 20 mg tablet 20 mg PO DAILY PRN weight gain 12/13/21 12/13/21 insulin aspart U-100 100 unit/mL subcut 12/13/21 (3 mL) subcutaneous pen insulin detemir U-100 100 unit/mL unit subcut 12/13/21 (3 mL) subcutaneous pen (Levemir FlexTouch U-100 Insulin) pantoprazole 40 mg tablet,delayed mg PO 12/13/21 release rivaroxaban 20 mg tablet (Xarelto) mg 12/13/21 spironolactone 25 mg tablet mg 12/13/21 valsartan 160 mg tablet mg 12/13/21 alfuzosin 10 mg tablet,extended 10 mg PO DAILY 09/28/23 09/28/23 release 24 hr carvedilol 12.5 mg tablet 12.5 mg PO BID 09/28/23 09/28/23 cholestyramine-aspartame 4 gram 1 ea PO DAILY 09/28/23 09/28/23 oral powder (Cholestyramine Light) empagliflozin 10 mg tablet 10 mg PO DAILY 09/28/23 09/28/23 (Jardiance) valsartan 80 mg tablet 80 mg PO DAILY 09/28/23 09/28/23 Allergies Allergy/AdvReac Type Severity Reaction Status Date / Time metformin AdvReac Verified 12/13/21 10:44 tetracycline AdvReac Verified 12/13/21 10:44 duloxetine AdvReac Uncoded 12/13/21 10:44 tamsulosin AdvReac syncopal Uncoded 12/13/21 10:44 Review of Systems Narrative: Pertinent systems reviewed and were negative unless stated in HPI PFSH PFSH Social History Smoking Status: Never smoker Do you use any of these nicotine containing products: None Second hand tobacco smoke exposure: No How often do you have a drink containing alcohol: 2-4 times a month How many standard drinks containing alcohol do you have on a typical day: 1 or 2 How often do you have six or more drinks on one occasion: Never AUDIT-C Alcohol total score: 2 Non-prescribed substance use: denies use service: No Exam Narrative: Exam Narrative: Const: Well-nourished, Well-developed, in mild distress Eyes: PERRL, no conjunctival injection, and symmetrical lids HENT: Bleeding noted from right nares with large clot seen on exam. Cannot visualize source of bleeding at this time. Some blood seen in back of throat. Neck: Symmetric, trachea midline, No thyromegaly. MSK:Extremities w/o deformity, Normal Active ROM Skin: Warm, Dry. No rashes or lesions. Neuro: Normal Muscle tone, No focal neurological deficits. Psych: Awake, Alert, & Oriented x3. Appropriate mood and affect. Const: Vital Signs, click to edit/add: Vital Signs - 24 hr 09/28/23 02:15 09/28/23 03:59 Temperature 97.6 F 97.5 F L Pulse Rate [Pulse Oximeter] 87 87 Respiratory Rate 18 18 Blood Pressure [Le ft Upper Arm] 97/64 153/91 H Pulse Oximetry 98 98 Oxygen Delivery Me thod Room Air Room Air Course Vital Signs Vital signs: Initial Vital Signs Temperature 97.6 F 09/28/23 02:15 Temperature Source Temporal Artery Scan 09/28/23 02:15 Pulse Rate 87 09/28/23 02:15 Pulse Rhythm Regular 09/28/23 02:15 Respiratory Rate 18 09/28/23 02:15 Blood Pressure 97/64 09/28/23 02:15 Blood Pressure Mean 75 09/28/23 02:15 Blood Pressure Position Sitting 09/28/23 02:15 Pulse Oximetry 98 09/28/23 02:15 Oxygen Delivery Method Room Air 09/28/23 02:15 Vital Signs Temperature 97.6 F 09/28/23 02:15 Pulse Rate 87 09/28/23 02:15 Respiratory Rate 18 09/28/23 02:15 Blood Pressure 97/64 09/28/23 02:15 Pulse Oximetry 98 09/28/23 02:15 Oxygen Delivery Method Room Air 09/28/23 02:15 Temperature 97.5 F L 09/28/23 03:59 Pulse Rate 87 09/28/23 03:59 Respiratory Rate 18 09/28/23 03:59 Blood Pressure 153/91 H 09/28/23 03:59 Pulse Oximetry 98 09/28/23 03:59 Oxygen Delivery Method Room Air 09/28/23 03:59 Medications Administered Medications: Generic Name Dose Route Start Last Admin Trade Name Freq PRN Reason Stop Dose Admin Lidocaine HCl 6 ml 09/28/23 03:37 09/28/23 02:45 Lidocaine Hcl 2 % Jelly (Top) Sterile TOPICAL 09/28/23 03:38 6 ml ONCE ONE Administration Ondansetron HCl 4 mg 09/28/23 02:38 09/28/23 02:43 Ondansetron Odt 4 Mg Tab PO 09/28/23 02:39 4 mg ONCE ONE Administration Ondansetron HCl 4 mg 09/28/23 03:37 09/28/23 03:45 Ondansetron Odt 4 Mg Tab PO 09/28/23 03:38 4 mg ONCE ONE Administration Oxymetazoline HCl 1 spray 09/28/23 03:37 09/28/23 02:16 Oxymetazoline 0.05% Nasal [place] NOSTRIL-B 1 spray BID PRN Administration MDM - Epistaxis MDM Narrative Medical decision making narrative: Patient is a 72-year-old male presenting for right nares epistaxis. We 1st arrived he was slightly hypotensive but doing well. Asymptomatic other than the bleeding. I did do a CBC. He returned showing no concerning abnormalities. Hemoglobin is 16.4. He is having some nausea and Zofran was given. I initially tried to direct pressure with a nasal clamp. I had a blood clots and then Afrin was squirted into the right nostril and clamp was placed with the head leaned forward for 20 minutes. This did not stop the bleeding. At this time I will try to cauterized with silver nitrate. Tried to numb up the area with cotton swabs covered in lidocaine and Afrin. While cauterizing I could not get the bleeding to stop if so could not do effective cauterize of it. At that time a rhino rocket was placed. I was not able to get all the way N but considering I could see the bleed from the inferior turbinate I do believe I have been in far enough. He appeared to have some vagal symptoms in became nauseated another dose of Zofran was given. He got lightheaded. Symptoms eventually resolved. His blood pressure is now 153 over 91. He is feeling better now and does states he feels well enough to go home. No further bleeding has been seen. He will follow up to have the rhino rocket removed in the next few days. Lab Data Labs: Lab Results 09/28/23 Range/Units 02:30 WBC 8.73 (4.50-11.00) K/uL RBC 5.39 (4.30-5.90) m/uL Hgb 16.4 (13.5-17.5) gm/dL Hct 49.6 (37.0-53.0) % MCV 92 (80-100) fL MCH 30 (26-34) pg MCHC 33 (32-36) gm/dL RDW Coeff of Louise 13.9 (11.5-15.5) % Plt Count 157 (140-440) K/uL Neut % (Auto) 55.8 (42.0-72.0) % Lymph % (Auto) 33.2 (20-44) % Schley % (Auto) 8.6 (0.0-11.0) % Eos % (Auto) 1.3 (0.0-7.0) % Baso % (Auto) 0.6 (0.0-3.0) % Neut # (Auto) 4.88 (1.7-7.0) K/uL Lymph # (Auto) 2.90 (0.90-2.90) K/uL Schley # (Auto) 0.80 (0.00-0.90) K/UL Eos # (Auto) 0.11 (0.00-0.50) K/uL Baso # (Auto) 0.05 (0.00-0.30) K/uL Abs Immat Gran (auto) 0.04 (0.00-0.30) K/uL Imm/Tot Granulo (auto) 0.5 % Discharge Plan Discharge Clinical Impression: Epistaxis Patient Disposition: Home, Self-Care Condition: Improved Instructions: Nosebleed (ED) Additional Instructions: Have the rhino rocket removed in the next 48-72 hours. This can be done either with the primary care provider, ENT, emergency department, urgent care. Also give you information to set up ENT follow-up. Prescriptions: No Action carvedilol 6.25 mg tablet Patient Comments: TAKE 1 TABLET BY MOUTH TWICE DAILY WITH FOOD atorvastatin 20 mg tablet spironolactone 25 mg tablet Patient Comments: TAKE 1 TABLET BY MOUTH EVERY MORNING pantoprazole 40 mg tablet,delayed release (DR/EC) PO albuterol sulfate 90 mcg/actuation HFA aerosol inhaler INHALATION valsartan 160 mg tablet insulin aspart U-100 100 unit/mL (3 mL) insulin pen SUBCUT cholestyramine-aspartame [Cholestyramine Light] 4 gram powder in packet Patient Comments: MIX 1 PACKET IN LIQUID THEN TAKE BY MOUTH 2 TIMES DAILY WITH MEALS Levemir FlexTouch U100 Insulin 100 unit/mL (3 mL) insulin pen SUBCUT Patient Comments: INJECT 25 UNITS SUBCUTANEOUS EVERY NIGHT AT BEDTIME diclofenac sodium 1 % gel TOPICAL Patient Comments: APPLY 4 GRAMS TOPICALLY TO THE AFFECTED AREA FOUR TIMES DAILY Xarelto 20 mg tablet Farxiga 10 mg tablet aspirin 81 mg capsule 81 mg PO DAILY Calcium 600 + D(3) furosemide 20 mg tablet 20 mg PO DAILY PRN (Reason: weight gain) Rx Instructions: if >290# carvedilol 12.5 mg tablet 12.5 mg PO BID valsartan 80 mg tablet 80 mg PO DAILY alfuzosin 10 mg tablet extended release 24 hr 10 mg PO DAILY Cholestyramine Light 4 gram powder 1 ea PO DAILY Jardiance 10 mg tablet 10 mg PO DAILY Follow Up/Referrals: Elijah Fernandez MD [Primary Care Provider] - Stand Alone Forms: [facility] Info Instructions Procedures Epistaxis Control Nostril: Yes right Nose prepped with: Yes lidocaine and Yes oxymetazoline Direct inspection: Yes anterior source identified Direct inspection method: Yes nasal speculum and Yes otoscope Clots removed by: Yes blowing nose Epistaxis treatment: Yes silver nitrate cautery, Yes nasal tampon and Yes oxidized cellulose sheet Results of treatment: Yes bleeding controlled Estimated blood loss (if any): less than 5mls Complications: Yes none Conclusion: patient tolerated procedure
[2023-09-28 02:15] VITALS: BP 97/64; PULSE 87; RESP 18; TEMP 36.4; O2SAT 98; BMI 38.5
--- NOTE | 2023-09-28 02:15 | PC.NURSE ---
Afrin to right nare, nasal clamp on. Will recheck at 0240.
[2023-09-28] MEDS: OXYMETAZOLINE 0.05% NASAL SPRAY 1 SPRAY NOSTRIL-B (02:16)
[2023-09-28 02:38] LABS: Basophils Absolute Auto 0.05 K/uL (0.00-0.30); Basophils Percent Auto 0.6 % (0.0-3.0); Eosinophils Absolute Auto 0.11 K/uL (0.00-0.50); Eosinophils Percent Auto 1.3 % (0.0-7.0); Hematocrit 49.6 % (37.0-53.0); Hemoglobin* 16.4 gm/dL (13.5-17.5); Immature Granulocytes Abs Auto 0.04 K/uL (0.00-0.30); Immature Granulocytes Pct Auto 0.5 %; Lymphocytes Percent Auto 33.2 % (20-44); Mean Corpuscular HGB Conc 33 gm/dL (32-36); Mean Corpuscular Hemoglobin 30 pg (26-34); Mean Corpuscular Volume 92 fL (80-100); Monocytes Percent Auto 8.6 % (0.0-11.0); Neutrophils Absolute Auto 4.88 K/uL (1.7-7.0); Neutrophils Percent Auto 55.8 % (42.0-72.0); Platelet Count* 157 K/uL (140-440); RDW Coefficient of Variation % 13.9 % (11.5-15.5); Red Blood Count 5.39 m/uL (4.30-5.90); White Blood Count* 8.73 K/uL (4.50-11.00)
--- NOTE | 2023-09-28 02:40 | PC.NURSE ---
Nasal clamp off. Right nare still bleeding. Per physician orders use lidocaine jelly topically to cotton ball, right nare. Zofran 4mg ODT given for nausea.
[2023-09-28 02:41] LABS: Slide Review Reflex No
[2023-09-28] MEDS: ONDANSETRON ODT 4 MG TAB PO ×2 (02:43→03:45)
--- OUTSIDE RECORDS SUMMARY | 2023-09-28 02:44 | XMS_ITS | Clinical Summary ---
Author Organization [facility] Address [place], [place] [address] Care Team Providers Care Life Management Teacher Name Role Phone Evan Marinelli MD Primary Care Provider [phone] Allergies Active Allergy Reactions Criticality Noted Date Comments Duloxetine Other - Describe In Comment Field 06/28/2016 Mouth sores Metformin Diarrhea 04/07/2019 Tamsulosin Syncope High 10/29/2007 flomax Tetracycline Intolerance-Can't Take 08/14/2005 Bumps on tongue Medications Medication Sig Dispensed Refills Start Date End Date Status albuterol HFA (PRO-AIR; VENTOLIN; PROVENTIL) 90 mcg/actuation inhalerIndications: COPD with chronic bronchitis (HC) Inhale 1-2 Puffs by mouth every 4 hours if needed (shortness of breath). 1 Each 4 2 Active diclofenac topical (VOLTAREN) 1 % gelIndications:Olap Developer arti pain of both knees Apply 4 g topically to affected area(s) four times daily. 100 g 1 2 Active pen needle, diabetic (BD Insulin Pen Needle UF) 31 gauge x 5/16Indications:Ty pe 2 diabetes mellitus with diabetic neuropathy, with long-term current use of insulin (HC) USE FOR ADMINISTERING INSULIN 400 Each 3 3 Active carvediloL (COREG) 12.5 mg tabletIndications:H eart failure with reduced ejection fraction (HC) Take 1 Tablet (12.5 mg) by mouth two times daily. Additional refills require cardiology appt. Please call [phone] to schedule 180 Tablet 4 Active cholestyramine-aspa rtame (QUESTRAN LIGHT) 4 gram powderIndications:C hronic diarrhea 1 packet daily by mouth away from other medications 231 g 11 4 Active furosemide (LASIX) 20 mg tabletIndications:A cute combined systolic and diastolic CHF, NYHA class 3 (HC) TAKE ONCE DAILY IF WEIGHT IS>290, HOLD IF WEIGHT IS<290 90 Tablet 4 Active atorvastatin (LIPITOR) 20 mg tabletIndications:H yperlipidemia, unspecified hyperlipidemia type Take 1 Tablet (20 mg) by mouth at bedtime. 90 Tablet 3 4 Active blood sugar diagnostic (Contour Next Test Strips) stripIndications:Ty pe 2 diabetes mellitus with diabetic neuropathy, with long-term current use of insulin (HC) USE TO TEST FOUR TIMES DAILY 400 Each 3 4 Active insulin aspart, U-100, (NOVOLOG FLEXPEN) 100 unit/mL (3 mL) penIndications:Type 2 diabetes mellitus with diabetic neuropathy, with long-term current use of insulin (HC) INJECT 12 UNITS UNDER THE SKIN EVERY MORNING, 15 UNITS AT NOON, AND 15 UNITS EVERY EVENING 60 mL 3 4 Active insulin detemir U-100 (LEVEMIR) 100 unit/mL (3 mL) penIndications:Type 2 diabetes mellitus with diabetic neuropathy, with long-term current use of insulin (HC) Inject 19 units subcutaneous before bedtime. 18 mL 3 4 Active pantoprazole (PROTONIX) 40 mg delayed-release tabletIndications:C hronic GERD Take 1 Tablet (40 mg) by mouth once daily before a meal. 90 Tablet 3 4 Active spironolactone (ALDACTONE) 25 mg tabletIndications:A cute combined systolic and diastolic CHF, NYHA class 3 (HC) Take 1 Tablet (25 mg) by mouth every morning. 90 Tablet 3 4 Active valsartan (DIOVAN) 80 mg tabletIndications:H eart failure with reduced ejection fraction (HC) Take 1 Tablet (80 mg) by mouth once daily. 90 Tablet 3 4 Active rivaroxaban (Xarelto) 20 mg tabletIndications:L ongstanding persistent atrial fibrillation (HC) Take 1 Tablet (20 mg) by mouth once daily with evening meal. 90 Tablet 3 4 Active empagliflozin (JARDIANCE) 10 mg tabletIndications:T ype 2 diabetes mellitus with diabetic neuropathy, with long-term current use of insulin (HC) Take 1 Tablet (10 mg) by mouth once daily. 90 Tablet 3 4 Active transmitter for continuous blood glucose monitor (CGM)Indications:Ty pe 2 diabetes mellitus with diabetic neuropathy, with long-term current use of insulin (HC) Change every 90 days 1 Each 2 09/06/19 24 Discontinu ed(*Patien t states no longer taking) blood sugar diagnostic (Contour Next Test Strips) stripIndications:Ty pe 2 diabetes mellitus with diabetic neuropathy, with long-term current use of insulin (HC) USE TO TEST FOUR TIMES DAILY 400 Each 3 3 09/06/19 24 Discontinu ed(Reorder (E-cancel not sent)) insulin aspart, U-100, (NOVOLOG FLEXPEN) 100 unit/mL (3 mL) penIndications:Type 2 diabetes mellitus with diabetic neuropathy, with long-term current use of insulin (HC) INJECT 8 UNITS UNDER THE SKIN EVERY MORNING, 12 UNITS AT NOON, AND 12 UNITS EVERY EVENING 60 mL 3 3 09/06/19 Discontinu ed(*Medica tion adjustment ) pantoprazole (PROTONIX) 40 mg delayed-release tabletIndications:C hronic GERD Take 1 Tablet (40 mg) by mouth once daily before a meal. 90 Tablet 3 3 09/06/19 24 Discontinu ed(Reorder (E-cancel not sent)) valsartan (DIOVAN) 80 mg tabletIndications:H eart failure with reduced ejection fraction (HC) Take 1 Tablet (80 mg) by mouth once daily. 90 Tablet 3 3 09/06/19 24 Discontinu ed(Reorder (E-cancel not sent)) atorvastatin (LIPITOR) 20 mg tabletIndications:H yperlipidemia, unspecified hyperlipidemia type TAKE 1 TABLET(20 MG) BY MOUTH EVERY DAY 90 Tablet 3 3 09/06/19 24 Discontinu ed(Reorder (E-cancel not sent)) Xarelto 20 mg tabletIndications:L ongstanding persistent atrial fibrillation (HC) TAKE 1 TABLET(20 MG) BY MOUTH EVERY DAY WITH THE EVENING MEAL 90 Tablet 2 4 09/06/19 24 Discontinu ed(Reorder (E-cancel not sent)) insulin detemir U-100 (LEVEMIR) 100 unit/mL (3 mL) penIndications:Type 2 diabetes mellitus with diabetic neuropathy, with long-term current use of insulin (HC) ADMINISTER 19 UNITS UNDER THE SKIN EVERY NIGHT AT BEDTIME 45 mL 4 09/06/19 24 Discontinu ed(Reorder (E-cancel not sent)) dapagliflozin propanediol (Farxiga) 10 mg tabletIndications:T ype 2 diabetes mellitus with diabetic neuropathy, with long-term current use of insulin (HC) Take 1 Tablet (10 mg) by mouth once daily. 60 Tablet 5 4 09/06/19 24 Discontinu ed(Reorder (E-cancel not sent)) spironolactone (ALDACTONE) 25 mg tabletIndications:A cute combined systolic and diastolic CHF, NYHA class 3 (HC) TAKE 1 TABLET(25 MG) BY MOUTH EVERY MORNING 30 Tablet 4 09/06/19 24 Discontinu ed(Reorder (E-cancel not sent)) dapagliflozin propanediol (Farxiga) 5 mg tabletIndications:T ype 2 diabetes mellitus with diabetic neuropathy, with long-term current use of insulin (HC) Take 1 Tablet (5 mg) by mouth once daily. 90 Tablet 3 4 09/06/19 24 Discontinu ed(*Availa bility/For mulary change/Cos t of medication ) Active Problems Problem Noted Date Diagnosed Date Ascending aorta dilatation 06/01/2021 Overview: 4.7 cm May 2021 4.5 cm May 2022 Heart failure with reduced ejection fraction 11/2020 Atrial fibrillation 10/04/2020 Adenomatous colon polyp 01/29/2017 Overview: Colonoscopy 12/2016 polyps repeat in 3 years Colonoscopy 03/2020 polyp, repeat in 5 years Morbid obesity with BMI of 40.0-44.9, adult 03/0 10/2016 JOANIE 05/04/2014 AHI-48 05/17/2014 Chronic cough 04/01/2014 Calcific tendinitis of right shoulder 08/13/2012 Other chronic allergic conjunctivitis 04/01/2012 Overactive bladder 06/25/2011 Regular astigmatism 10/20/2008 Presbyopia 10/20/2008 HIATAL HERNIA 11/14/2006 Unspecified essential hypertension 08/15/2005 Other and unspecified hyperlipidemia 08/15/2005 Esophageal reflux 08/15/2005 Overview: EGD 07/2014 normal BPH without urinary obstruction 08/15/2005 Type 2 diabetes mellitus wit h diabetic neuropathy, with long-term current use of insulin 08/08/2004 Acute combined systolic and diastolic CHF, NYHA class 3 ASHD (arteriosclerotic heart disease) Resolved Problems Problem Noted Date Diagnosed Date Resolved Date Benign cyst of right kidney 04/06/2021 01/25/2023 Overview: Cyst found on kidney at emergency room -- plan follow up CT March 2022. New onset atrial fibrillation 01/06/2019 04/14/2021 Coccydynia 01/27/2013 04/08/2019 Right knee pain 08/13/2012 07/02/2018 Tinea pedis 05/06/2012 07/02/2018 Bursitis of hip, right, greater trochanter 02/19/2012 04/08/2019 Esophageal ulcer 06/25/2011 08/02/2014 Fx foot bone NEC-closed 09/26/2010 03/09/2018 Myopia 10/20/2008 01/25/2023 Vitreous Hemorrhage-R 07/09/20082008 Memory loss 07/09/2007 04/08/2019 Major depressive disorder, r ecurrent episode, severe, without mention of psychotic behavior 08/15/2005 04/01/2018 Generalized anxiety disorder 08/15/2005 04/08/2019 Headache(784.0) 08/15/2005 07/02/2018 Encounters Date Type Department Care Team Description 09/27/2023 10:15 AM CDT Office Visit [facility] [address] [facility] [place] [address] Selin Briones PA Nose Problem 09/27/2023 Travel 09/27/2023 Nurse Triage [facility] [address] [facility] [place] [address] Evan Marinelli MD Nose Problem 09/06/2023 1:10 PM CDT Office Visit [address] [address] Evan Marinelli MD Medicare ANNUAL (subsequent) Visit (72 year old male) 09/06/[address] [address] Evan Marinelli MD Refill Request (DAPAGLIFLOZIN) 09/06/2023 Travel 08/29/[address] [address] Evan Marinelli MD Refill Request (Spironolactone) 08/28/[address] [address] Evan Marinelli MD Refill Request (Spironolactone) 08/17/[address] [address] Evan Marinelli MD Refill Request (Furosemide) 08/15/[address] [address] Evan Marinelli MD Refill Request (dapagliflozin propanediol (Farxiga) 10 mg tablet) 08/15/[address] [address] Jori Siddiqui MD Medication Management (cholestyramine-aspar tame (QUESTRAN LIGHT) 4 gram powder) 08/13/2023 Nurse Triage [address] [address] Evan Marinelli MD Nose Problem 08/06/[address] [address] Evan Marinelli MD Prior Authorization (dapagliflozin propanediol (Farxiga) 10 mg tablet (PA NOT NEEDED/ NOT REQUIRED)) 08/05/2023 Telephone [facility] [address] [place] [address] Evan Marinelli MD Medication Management (Generic vs. Brand ) 07/24/2023 Refill [facility] [address] [place] [address] Evan Marinelli MD Refill Request (Farxiga) 07/15/2023 Orders Only [facility] Scanner 1 scan: (1-Ord) [facility], XR CHECT 1 VIEW PORTABLE, 07/15/2023 07/15/2023 Nurse Triage [facility] [address] [place] [address] Evan Marinelli MD Vomiting 07/12/2023 Refill [facility] [address] [place] [address] Jorge Alberto Cavanaugh MD Refill Request (Carvedilol) 07/03/2023 2:30 PM DECK MECHANIC Office Visit [facility] [address] [place] [address] Jori Siddiqui MD Consult (Loose stools, 1-4 bowel movements daily, symptoms x years) 07/03/2023 Travel 07/01/2023 Telephone [facility] [address] [place] [address] Evan Marinelli MD Results 06/28/2023 1:00 PM DECK MECHANIC Ancillary Procedure [facility] [address] [place] [phone] 06/28/2023 Travel from Last 3 Months Immunizations Name Administration Dates Next Due AMB INFLUENZA IIV3 (AGE 65+ YRS) PF (Flu Clinic Only) 02/20/2018 COVID-19 vaccine (Moderna 100mcg/0.5mL) MARLON DOBBINS 10/05/2021,03/05/2021,07/14/2020,06/13 COVID-19 vaccine (Moderna 50 mcg/0.5mL) 12YO+ BIVALENT MARLON DOBBINS 02/25/2022 Hepatitis B (Adult) 03/28/1999,11/21/1998,1998 Influenza A (H1N1), Inactiva abiola (Age >=3 Years) 04/15/2009 Influenza Virus, Unspecified 03/22/1998,02/17/19 97 Influenza, High-dose Inactivated 02/13/2016,01/27 Influenza, High-dose Quadriv alent Inactivated 02/25/2022 Influenza, IIV3 (Age >=3 years) 01/28/20 13,02/19/2012,01/19/2011,02/08,01/24/2009,02/26/2008,03/10/2007 ,05/03/2006,02/03/2005 Influenza, IIV4 01/26/2014 Influenza, Inactivated AIIV4 (Age 65+ Years) Preserv Free 01/25/2023,01/09/2021,02/15/2020 Influenza, Inactivated IIV3 (Age 65+ Years) Preserv Free 01/06/2019,01/01/2017 Pneumococcal Poly,23-Valent (Pneumovax) 02/13/2016,08/02/2004 Pneumococcal conj 13-Valent (Prevnar 13) 02/08/2015 RSV, Bivalent Vaccine Recons tituted (Abrysvo 120MCG/0.5mL) 02/04/2023 Td (Age >=7 Years) 09/05/1998,04/28/1989 Tdap 06/22/2014,10/04/2005 Zoster (Shingrix-RZV, recombinant) 12/10/2017, Zoster (Zostavax-ZVL, live) 02/19/2012 Family History Medical History Relation Name Comments Cancer-colon Father 80 Heart Disease Father Hypertension Father Cancer Mother Stomach Diabetes Sister 1 5 yrs younger Unknown Sister 2 16 months young er Relation Name Status Comments Father Mother Sister 1 Sister 2 Social History Tobacco Use Types Packs/Day Years Used Date Smoking Tobacco: Never Passive Smoke Exposure: Yes Smokeless Tobacco: Never Tobacco Cessation:Counseling Given: Yes Comments:2nd hand smoke exposure for 12+ yrs Alcohol Use Standard Drinks/Week Comments Yes 0 (1 standard drink = 0.6 oz pure alcohol) very rarely (1-2 drinks every 3 weeks, prior history of heavy alcohol use PHQ-2 Answer Date Recorded PHQ-2 TOTAL SCORE 1 09/06/2023 Social Connections Answer Date Recorded Frequency of Communication with Friends and Fami ly 0 12/13/2022 Financial Resource Strain Answer Date R ecorded Difficulty of Paying Living Expenses 3 12/13/2022 Difficulty of Paying Living Expenses Not on file 12/13/2022 Food Insecurity Answer Date Recorded Worried About Running Out of Food in the Last Ye ar 1 12/13/2022 Transportation Needs Answer Date Record ed Lack of Transportation (Medical) 1 12/13/2022 Housing Stability Answer Date Recorded Unable to Pay for Housing in the Last Year 1 12/13/2022 Sex and Gender Information Value Date Recorded Sex Assigned at Not on file Gender Identity Not on file Sexual Orientation Not on file Obstetrics History Last Filed Vital Signs Vital Sign Reading Time Taken Comments Blood Pressure 128/91 09/27/2023 10:06 AM CDT Pulse 90 09/27/2023 10:06 AM CDT Temperature 36.5 ??C (97.7 ??F) 09/06/2023 1:04 PM CD T Respiratory Rate 22 04/06/2021 2:12 PM DECK MECHANIC Oxygen Saturation 97% 09/27/2023 10: 06 AM CDT Inhaled Oxygen Concentration - - Weight 129.5 kg (285 lb 9.6 oz) 024 10:06 AM CDT Height 182.9 cm (6') 09/06/2023 1:04 PM CDT Body Mass Index 38.73 09/06/2023 1:04 PM CDT Plan of Treatment Upcoming Encounters Date Type Department Care Team (Late st Contact Info) Description 10/29/2023 2:00 PM CDT Office Visit [facility] [address] [place] [phone] Matthew Willis MD [address] [place] [address] 12/09/2023 1:25 PM CDT Office Visit [facility] [address] [place] [address] Evan Marinelli MD [address] [place] [address] Health Maintenance Due Date Last Done Comments Influenza for age 65+ 12/29/2023 01/25/2023 , 02/25/2022, 01/09/2021, Additional history exists Tetanus booster 06/22/2024 06/22/2014, 11/2005, 09/28/2005, Additional history exists BMI (ht and wt on same day) for age 18+ 09/05/2024 09/06/2023, 11/27/2022, 08/17/2022, Additional history exists Depression screening for age 12+ 09/05/2024 09/06/2023, 09/06/2023, 06/04/2023, Additional history exists Medicare Wellness for age 65+ 09/06/2024, 04/27/2022, 04/14/2021, Additional history exists Colonoscopy through age 75 03/29/202503/29, 03/29/2020, 03/29/2020, Additional history exists Lipids for age 45-75 02/21/2028 02/20/2023, 11/20/2022, 11/13/2021, Additional history exists Tdap Completed 06/22/2014, 10/04/2005 Pneumococcal series for age 65+ Completed 02/13/2016, 02/08/2015, 08/02/2004 Hepatitis C screening for ag e 18-79 Completed 11/20/2016 Zoster (shingles) series for age 50+ Completed 12/10/2017, 09/25/2017, 02/19/2012 COVID-19 vaccine series Completed 02/05/20, 02/25/2022, 10/05/2021, Additional history exists Procedures Procedure Name Priority Date/Time Associated Diagnosis Comments BASIC METABOLIC PANEL Routine 09/06/2023 1:32 PM CDT Type 2 diabetes mellitus with diabetic neuropathy, with long-term current use of insulin (HC) HEMOGLOBIN A1C Routine 09/06/2023 1:32 PM CDT Type 2 diabetes mellitus with diabetic neuropathy, with long-term current use of insulin (HC) SCAN-RADIOLOGY REPORT 07/15/2023 12:00 AM CDT ECHO TTE COMPLETE WO CONTRAST Routine 06/28/2023 1:36 PM DECK MECHANIC Ascending aorta dilatation (HC) LIPID PANEL W REFLEX MEASURED LDL Routine 02/20/2023 11:34 AM CDT Type 2 diabetes mellitus with diabetic neuropathy, with long-term current use of insulin (HC) COLONOSCOPY DIAGNOSTIC Routine 03/29/2020 12:12 PM DECK MECHANIC History of colon polyps ANTI HCV Routine 11/20/2016 12:25 PM CDT Need for hepatitis C screening test from Last 3 Months or Most Recently Relevant to Health Maintenance Results * (ABNORMAL) HEMOGLOBIN A1C MONITORING (POCT) (09/06/2023 1:32 PM CDT) HEMOGLOBIN A1C MONITORING (POCT) 7.0(H) <=6.4 % 09/06/2023 1:43 PM CDT [facility] Blood BLOOD SPECIMEN / Unknown Butterfly / Unknown 09/06/2023 1:32 PM CDT 09/06/2023 1:33 PM CDT Narrative [facility] - 09/06/2023 1:43 PM CDT ? (<=6.9%) ? Indicates good control ? (7.0% to 7.9%) ? Indicates fair control ? (>=8.0%) ? Indicates poor control ?? NOTE: ??These thresholds are guidelines and ?individual targets may vary. Falsely low levels may be seen with: Recent Transfusion, Recent Significant Blood Loss, Hemolytic Diseases, or Falsely elevated levels may be seen with: Untreated Anemias, Splenectomy ? Evan Marinelli MD CHEMISTRY [facility] [address] [place] [address], [place] [phone] * (ABNORMAL) BASIC METABOLIC PANEL (09/06/2023 1:32 PM CDT) SODIUM 139 136 - 145 mmol/L 09/06/2023 10:30 PM CDT [facility] POTASSIUM 4.7 3.5 - 5.1 mmol/L 09/06/2023 10:30 PM CDT [facility] CHLORIDE 106 98 - 107 mmol/L 09/06/2023 10:30 PM CDT [facility] CO2,TOTAL 20(L) 22 - 29 mmol/L 09/06/2023 10:30 PM CDT [facility] ANION GAP 13 5 - 18 09/06/2023 10:30 PM CDT [facility] GLUCOSE 130(H) 70 - 99 mg/dL 09/06/2023 10:30 PM CDT [facility] CALCIUM 8.8 8.8 - 10.2 mg/dL 09/06/2023 10:30 PM CDT [facility] BUN 20 8 - 23 mg/dL 09/06/2023 10:30 PM CDT [facility] CREATININE 1.47(H) 0.70 - 1.20 mg/dL 09/06/2023 10:30 PM CDT [facility] BUN/CREAT RATIO 14 10 - 20 10:30 PM CDT [facility] eGFR 50(L) >90 mL/min/1.7 3m2 09/06/2023 10:30 PM CDT [facility] Comment:As of 2021, eG FR is calculated by the CKD-EPI creatinine equation without race adjustment. ??eGFR can be influenced by muscle mass, exercise, and diet. ??The reported eGFR is an estimation only and is only applicable if the renal function is stable. Blood BLOOD SPECIMEN / Unknown Butterfly / Unknown 09/06/2023 1:32 PM CDT 09/06/2023 1:33 PM CDT Evan Marinelli MD CHEMISTRY [facility] [address] [place] [address], * SCAN-RADIOLOGY REPORT (07/15/2023 12:00 AM CDT) Anatomical Region Laterality Modality Other Scanner OTHER * ECHO TTE COMPLETE WO CONTRAST (06/28/2023 1:36 PM DECK MECHANIC) AORTIC VALVE MEAN PG 1 mmHg EJECTION FRACTION 49 % LVEDD 5.3 cm EJECTION FRACTION 55% Anatomical Region Laterality Modality Ultrasound 06/28/2023 1:00 PM DECK MECHANIC Narrative 06/28/2023 3:27 PM DECK MECHANIC ECHOCARDIOGRAM BOYD CARLOS ? Accession#: ?? [id number] : ?1950 72 years Study Date: ?? 06/28/2023 1:00:45 PM Gender: M ?BP: ? 120/70 mmHg Height: 183.00 cm ?BSA: ?2.47 m? ? ? Weight: 128.00 kg ?Tech: ? MSR ? Referring MD: EVAN MARINELLI Site: ? [facility] Reading Location: Mobile OP Patient Location: Outpatient. Procedure: 2D, Spectral Doppler and Color Doppler. Indication for study: Ascending aorta dilatation (HC) Cardiac Rhythm: Irregular.Study quality: Technically limited. Final Impressions: 1. Technically limited exam. 2. Normal LV size, mildly increased wall thickness, low normal global systolic function with an estimated EF of ~ 55%. 3. Right ventricular cavity size is not well visualized, global systolic RV function is not well visualized. 4. Mildly enlarged left atrium. 5. The ascending aorta is dilated with a maximal diameter of 4.3 cm. 6. The aortic sinus is dilated with a maximal diameter of 4.7 cm. Chamber Sizes and Function Normal left ventricular size, mildly increased wall thickness, low normal global systolic function with an estimated EF of ~ 55%. Left atrial size is mildly enlarged. Right ventricular cavity size is not well visualized, global systolic RV function is not well visualized. The right atrium is normal. The pulmonary artery is not well visualized. The sinus of Valsalva is dilated. The ascending aorta is dilated. Valves, RV Pressures and Diastolic Function The aortic valve is trileaflet, no stenosis and trivial regurgitation. The mitral valve is normal in structure, trace mitral regurgitation. Indeterminate pattern of LV diastolic filling. The tricuspid valve is normal in structure. Tricuspid regurgitation is trace regurgitation. The pulmonic valve is not well visualized. Mild pulmonary regurgitation. Masses, Effusion, Shunts There is no pericardial effusion. The inferior vena cava is not well visualized, respiratory size variation not well visualized. No left to right shunting was detected by limited color flow Doppler interrogation of the interatrial septum. MEASUREMENTS AND CALCULATIONS 2-D Measurements and LV Function: LVID (d) 5.3 cm LV FS% (2D) ?? 19 % LVID (s) 4.2 cm LVOT diameter 2.3 cm IVS (d) ??1.3 cm HR ?86 bpm LVPW (d) 1.3 cm RV Max 4C (d) 4.3 cm Ao Sinus 4.7 cm Asc Ao ?? 4.3 cm Diastology: Mitral ?Tissue Doppler E Peak 0.6 m/s ??e', Septum ? 0.07 m/s DT ? 170 msec e', Lateral ?0.12 m/s ?E/e' Average ?? 6.11 Aortic Valve: Vmax ? 0.8 m/s ??AWA (V) ?? 3.52 cm? ? ? VTI ?0.13 m ?? AWA (I) ?? 3.39 cm? ? ? LVOT V max 0.6 m/s ??Max PG ?2 mmHg LVOT VTI ?? 0.11 m ?? Mean PG ?? 1 mmHg SV ? 44 ml ?Dim Index 0.81 SV index ?? 18 ml/m? ? ? CO ?3.8 l/min ?CI ?1.5 l/min/m? ? ? Mitral Valve: MVA ?4.5 cm? ? ? MV P 1/2 49 msec Tricuspid Valve and estimated PA pressures: TAPSE 1.1 cm Pulmonic Valve: PIEDV 1.6 m/s . This study was interpreted by an [facility] accredited facility. ??Final ?? Procedure Note Matthew Zambrano MD - 06/28/2023 ECHOCARDIOGRAM BOYD CARLOS : 1950 72 years Study Date: 06/28/2023 1:00:45 PM Gender: M BP: 120/70 mmHg Height: 183.00 cm BSA: 2.47 m? ? ? Weight: 128.00 kg Tech: CARLA Referring MD: EVAN MARINELLI Site: [facility] Reading Location: Mobile OP Patient Location: Outpatient. Procedure: 2D, Spectral Doppler and Color Doppler. Indication for study: Ascending aorta dilatation (HC) Cardiac Rhythm: Irregular.Study quality: Technically limited. Final Impressions: 1. Technically limited exam. 2. Normal LV size, mildly increased wall thickness, low normal globalsystolic function with an estimated EF of ~ 55%. 3. Right ventricular cavity size is not well visualized, global systolicRV function is not well visualized. 4. Mildly enlarged left atrium. 5. The ascending aorta is dilated with a maximal diameter of 4.3 cm. 6. The aortic sinus is dilated with a maximal diameter of 4.7 cm. Chamber Sizes and Function Normal left ventricular size, mildly increased wall thickness, low normalglobal systolic function with an estimated EF of ~ 55%. Left atrial sizeis mildly enlarged. Right ventricular cavity size is not well visualized,global systolic RV function is not well visualized. The right atrium isnormal. The pulmonary artery is not well visualized. The sinus of Valsalvais dilated. The ascending aorta is dilated. Valves, RV Pressures and Diastolic Function The aortic valve is trileaflet, no stenosis and trivial regurgitation. Themitral valve is normal in structure, trace mitral regurgitation.Indeterminate pattern of LV diastolic filling. The tricuspid valve isnormal in structure. Tricuspid regurgitation is trace regurgitation. Thepulmonic valve is not well visualized. Mild pulmonary regurgitation. Masses, Effusion, Shunts There is no pericardial effusion. The inferior vena cava is not wellvisualized, respiratory size variation not well visualized. No left toright shunting was detected by limited color flow Doppler interrogation ofthe interatrial septum. MEASUREMENTS AND CALCULATIONS 2-D Measurements and LV Function: LVID (d) 5.3 cm LV FS% (2D) 19 % LVID (s) 4.2 cm LVOT diameter 2.3 cm IVS (d) 1.3 cm HR 86 bpm LVPW (d) 1.3 cm RV Max 4C (d) 4.3 cm Ao Sinus 4.7 cm Asc Ao 4.3 cm Diastology: Mitral Tissue Doppler E Peak 0.6 m/s e', Septum 0.07 m/s DT 170 msec e', Lateral 0.12 m/s E/e' Average 6.11 Aortic Valve: Vmax 0.8 m/s AWA (V) 3.52 cm? ? ? VTI 0.13 m AWA (I) 3.39 cm? ? ? LVOT V max 0.6 m/s Max PG 2 mmHg LVOT VTI 0.11 m Mean PG 1 mmHg SV 44 ml Dim Index 0.81 SV index 18 ml/m? ? ? CO 3.8 l/min CI 1.5 l/min/m? ? ? Mitral Valve: MVA 4.5 cm? ? ? MV P 1/2 49 msec Tricuspid Valve and estimated PA pressures: TAPSE 1.1 cm Pulmonic Valve: PIEDV 1.6 m/s . This study was interpreted by an [facility] accredited facility. Final Evan Marinelli MD ECHO ORD * LIPID PANEL W REFLEX MEASURED LDL (02/20/2023 11:34 AM CDT) CHOLESTEROL,TOTAL 135 100 - 199 mg/dL 02/21/2023 8:03 AM CDT [facility] Comment: Cholesterol, Total Reference Ranges Desirable <200 mg/dL Borderline 200-239 mg/dL High >=240 mg/dL TRIGLYCERIDES 135 <150 mg/dL 02/21/2023 8:03 AM CDT [facility] HDL CHOLESTEROL 44 >40 mg/dL 8:03 AM CDT [facility] NON-HDL CHOLESTEROL 91 <145 mg/dl 02/21/2023 8:03 AM CDT [facility] CHOL/HDL RATIO 3.07 <4.50 02/21/2023 8:03 AM CDT [facility] LDL CHOLESTEROL 64 <=130 mg/dL 02/21/2023 8:03 AM CDT [facility] VLDL CHOLESTEROL 27 <=30 mg/dL 02/21/2023 8:03 AM CDT [facility] PROVIDER ORDERED STATUS RANDOM 02/21/2023 8:03 AM CDT [facility] Blood BLOOD SPECIMEN / Unknown Venipuncture / Unknown 02/20/2023 11:34 AM CDT 02/20/2023 11:37 AM CDT Ryder Thompson MD CHEMISTRY [facility] [address] [place], [place] [address] * COLONOSCOPY DIAGNOSTIC (03/29/2020 12:12 PM DECK MECHANIC) Jori Siddiqui MD GI PROCEDURE ORD * ANTI HCV (11/20/2016 12:25 PM CDT) HEPATITIS C ANTIBODY Non-Reacti ve Non-Reacti ve 11/20/2016 8:43 PM CDT [facility] Blood BLOOD SPECIMEN / Unknown Venipuncture / Unknown 11/20/2016 12:25 PM CDT 11/20/2016 1:51 PM CDT Narrative [facility] - 11/20/2016 8:43 PM CDT Antibodies to HCV not detected; does not exclude the possibility of exposure to HCV. Evan Marinelli MD SEND OUTS [facility] [address] [place] [address], from Last 3 Months or Most Recently Relevant to Health Maintenance Advance Directives Documents on File Type Date Recorded Patient Director Data Analytics Expl anation KENYA 2021 11:11 AM SYDNI ZAMBRANO, 12/19/2021 * Full Code (Latest Code Status on File) Date Activated Date Inactivated Comments 10/04/2020 9:05 PM 10/16/2020 2:59 PM Question Answer Comments Code Status Discussion: Discussed * Full Code Date Activated Date Inactivated Comments 07/09/2007 1:19 AM 07/21/2007 4:26 PM * Full Code Date Activated Date Inactivated Comments 07/08/2007 11:19 PM 07/09/2007 1:19 AM Care Teams Life Management Teacher Relationship Specialty Start Date End Date [place] [address] [address] PCP - General Family Practice 03/17/14
[2023-09-28] MEDS: lidocaine HCL 2 % JELLY (TOP) STERILE 6 ML TOPICAL (02:45)
[2023-09-28 03:59] VITALS: BP 153/91; PULSE 87; RESP 18; TEMP 36.4; O2SAT 98
== END 2023-09-28 04:43 | disposition home or self-care (01) ==
PROVIDERS: Emergency Provider Student in an Organized Health Care Education/Training Program; PCP Surgery
DX: R04.0 Epistaxis (principal)
CPT/HCPCS: 30901; 36415; 85025; 99283; A9270

== ENCOUNTER 2024-02-19 20:01 | Outpatient (CLI) | payer MEDICARE, BC, SELFPAY | END 2024-02-19 20:02 | disposition home or self-care (01) | LOC: AMB 02-22 19:28 | PROVIDERS: PCP Surgery; Visit Provider Family Medicine | DX: S89.91XA Unspecified injury of right lower leg, initial encounter (principal); W01.0XXA Fall on same level from slipping, tripping and stumbling without subsequent striking against object, initial encounter; Y92.008 Other place in unspecified non-institutional (private) residence as the place of occurrence of the external cause | CPT/HCPCS: A0425; A0427 ==

== ENCOUNTER 2024-02-19 20:20 | Observation (INO) | payer MEDICARE, BC, SELFPAY ==
[2024-02-19 20:26] VITALS: BP 170/90; PULSE 74; RESP 18; TEMP 36.7; O2SAT 99; BMI 38.7
--- OUTSIDE RECORDS SUMMARY | 2024-02-19 20:29 | XMS_ITS | Clinical Summary ---
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 100 g 1 2 Active pen needle, diabetic (BD Insulin Pen Needle UF) 31 gauge x 5/16Indications:Ty pe 2 diabetes mellitus with diabetic neuropathy, with long-term current use of insulin (HC) USE FOR ADMINISTERING INSULIN 400 Each 3 3 Active atorvastatin (LIPITOR) 20 mg tabletIndications:H yperlipidemia, unspecified hyperlipidemia type Take 1 Tablet (20 mg) by mouth at bedtime. 90 Tablet 3 4 Active blood sugar diagnostic (Contour Next Test Strips) stripIndications:Ty pe 2 diabetes mellitus with diabetic neuropathy, with long-term current use of insulin (HC) USE TO TEST FOUR TIMES DAILY 400 Each 3 4 Active empagliflozin (JARDIANCE) 10 mg tabletIndications:T ype 2 diabetes mellitus with diabetic neuropathy, with long-term current use of insulin (HC) Take 1 Tablet (10 mg) by mouth once daily. 90 Tablet 3 4 Active rivaroxaban (Xarelto) 15 mg tab tabletIndications:L ongstanding persistent atrial fibrillation (HC) Take 1 Tablet (15 mg) by mouth once daily with evening meal. 90 Tablet 3 4 Active cholestyramine-aspa rtame (QUESTRAN LIGHT) 4 gram powderIndications:C hronic diarrhea 1 packet daily by mouth away from other medications 693 g 2 4 Active carvediloL (Coreg) 25 mg tabletIndications:C hronic diastolic heart failure (HC) Take 1 Tablet (25 mg) by mouth two times daily with meals. 180 Tablet 3 4 Active valsartan (DIOVAN) 160 mg tabletIndications:C hronic diastolic heart failure (HC) Take 1 Tablet (160 mg) by mouth once daily. 90 Tablet 3 4 Active furosemide (LASIX) 20 mg tabletIndications:A cute combined systolic and diastolic CHF, NYHA class 3 (HC) TAKE ONCE DAILY IF WEIGHT IS>290, HOLD IF WEIGHT IS<290 90 Tablet 4 Active pantoprazole (PROTONIX) 40 mg delayed-release tabletIndications:C hronic GERD Take 1 Tablet (40 mg) by mouth once daily before a meal. 90 Tablet 2 4 Active insulin detemir U-100 (LEVEMIR) 100 unit/mL (3 mL) penIndications:Type 2 diabetes mellitus with diabetic neuropathy, with long-term current use of insulin (HC) Inject 19 units subcutaneous before bedtime. 18 mL 3 4 Active insulin aspart, U-100, (NOVOLOG FLEXPEN) 100 unit/mL (3 mL) penIndications:Type 2 diabetes mellitus with diabetic neuropathy, with long-term current use of insulin (HC) INJECT 12 UNITS UNDER THE SKIN TWICE DAILY WITH MEALS 60 mL 3 4 Active spironolactone (ALDACTONE) 25 mg tabletIndications:A cute combined systolic and diastolic CHF, NYHA class 3 (HC) Take 1 Tablet (25 mg) by mouth every morning. 90 Tablet 3 4 02/13/20 Discontinu ed(*Medica tion adjustment ) insulin aspart, U-100, (NOVOLOG FLEXPEN) 100 unit/mL (3 mL) penIndications:Type 2 diabetes mellitus with diabetic neuropathy, with long-term current use of insulin (HC) INJECT 12 UNITS UNDER THE SKIN EVERY MORNING, 15 UNITS AT NOON, AND 12 UNITS EVERY EVENING 60 mL 3 4 02/13/20 Discontinu ed(*Medica tion adjustment ) insulin detemir U-100 (LEVEMIR) 100 unit/mL (3 mL) penIndications:Type 2 diabetes mellitus with diabetic neuropathy, with long-term current use of insulin (HC) Inject 21 units subcutaneous before bedtime. 18 mL 3 4 02/13/20 Discontinu ed(*Medica tion adjustment ) Active Problems Problem Noted Date Diagnosed Date Ascending aorta dilatation 06/01/2021 Overview (12/09/2023): 4.7 cm May 2021 4.5 cm May 2022 4.7 cm May 2023 Heart failure with reduced ejection fraction 11/2020 Atrial fibrillation 10/04/2020 Adenomatous colon polyp 01/29/2017 Overview (03/30/2020): Colonoscopy 12/2016 polyps repeat in 3 years Colonoscopy 03/2020 polyp, repeat in 5 years Morbid obesity with BMI of 40.0-44.9, adult /0 10/2016 JOANIE 05/04/2014 AHI-48 05/17/2014 Chronic cough 04/01/2014 Calcific tendinitis of right shoulder 08/13/2012 Other chronic allergic conjunctivitis 04/01/2012 Overactive bladder 06/25/2011 Regular astigmatism 10/20/2008 Presbyopia 10/20/2008 HIATAL HERNIA 11/14/2006 Unspecified essential hypertension 08/15/2005 Other and unspecified hyperlipidemia 08/15/2005 Esophageal reflux 08/15/2005 Overview (08/02/2014): EGD 07/2014 normal BPH without urinary obstruction 08/15/2005 Type 2 diabetes mellitus wit h diabetic neuropathy, with long-term current use of insulin 08/08/2004 Acute combined systolic and diastolic CHF, NYHA class 3 ASHD (arteriosclerotic heart disease) Resolved Problems Problem Noted Date Diagnosed Date Resolved Date Benign cyst of right kidney 04/06/2021 01/25/2023 Overview (04/06/2021): Cyst found on kidney at emergency room -- plan follow up CT March 2022. New onset atrial fibrillation 01/06/2019 04/14/2021 Coccydynia 01/27/2013 04/08/2019 Right knee pain 08/13/2012 07/02/2018 Tinea pedis 05/06/2012 07/02/2018 Bursitis of hip, right, greater trochanter 02/19/2012 04/08/2019 Esophageal ulcer 06/25/2011 08/02/2014 Fx foot bone NEC-closed 09/26/201009/2018 Myopia 10/20/2008 01/25/2023 Vitreous Hemorrhage-R 07/09/20082008 Memory loss 07/09/2007 04/08/2019 Major depressive disorder, r ecurrent episode, severe, without mention of psychotic behavior 08/15/2005 04/01/2018 Generalized anxiety disorder 08/15/2005 04/08/2019 Headache(784.0) 08/15/2005 07/02/2018 Encounters Date Type Department Care Team Description 02/13/2024 12:45 PM CDT Office Visit [facility] [address] [place] [address] Elijah Fernandez MD Follow Up 02/13/2024 Travel 01/23/2024 11:55 AM CDT Nurse/Clinic Staff Only [facility] [address] [place] [address] Immunization/Injection (COVID-19) 01/23/2024 Travel 01/14/2024 2:25 PM CDT Office Visit [facility] [address] [place] [address] Elijah Fernandez MD Perspiration (Been going on for weeks); Gi Problem (Been going on for weeks); Fatigue (Been going on for weeks); Breathing Problem (Shortness of breath been going on for weeks); Diarrhea (Been going on for weeks) 01/14/2024 Travel 01/14/2024 Nurse Triage [facility] [address] [place] [address] Elijah Fernandez MD Perspiration (Sweating, feeling shaky) 12/23/2023 1:45 PM CDT Office Visit [facility] [address] [facility] [address] [place] [phone] Jose Alfredo Donald DO Consult (Back Pain) 12/23/2023 Travel 12/10/2023 Telephone [facility] [address] [place] [address] Elijah Fernandez MD Screening (Spine Center) 12/09/2023 1:25 PM CDT Office Visit [facility] [address] [place] [address] Elijah Fernandez MD Diabetes (follow up diabetes) 12/09/2023 10:20 AM CDT Office Visit [facility] [address] [place] [address] Olivier Ortega MD Musculoskeletal Problem (Consult, bilateral knee pain and ongoing back pain.) 12/09/2023 Travel 12/05/2023 1:30 PM CDT Office Visit [facility] [address] [place] [address] Benita Edgar MD Consult (Epistaxis [R04.0]) 12/05/2023 Travel 11/25/2023 1:00 PM CDT Nurse/Clinic Staff Only [facility] [address] [place] [address] Blood Pressure (BP 122/75) 11/25/2023 Travel 11/21/2023 Refill [facility] [address] [place] [address] Elijah Fernandez MD Refill Request (Pantoprazole) from Last 3 Months Immunizations Name Administration Dates Next Due AMB INFLUENZA IIV3 (AGE 65+ YRS) PF (Flu Clinic Only) 02/20/2018 COVID-19 VACCINE SPIKEVAX (M ODERNA 50MCG/0.5ML) 12YO+ PFS 01/23/2024 COVID-19 vaccine (Moderna 100mcg/0.5mL) PF, MDV 10/05/2021,03/05/2021,07/14/2020,06/13 COVID-19 vaccine (Moderna 50 mcg/0.5mL) 12YO+ BIVALENT PF, MDV 02/25/2022 Hepatitis B (Adult) 03/28/1999,11/21/1998,1998 Influenza A (H1N1), Inactiva abiola (Age >=3 Years) 04/15/2009 Influenza Virus, Unspecified 03/22/1998,02/17/19 97 Influenza, High-dose Inactivated 02/13/2016,01/27 Influenza, High-dose Quadriv alent Inactivated 02/25/2022 Influenza, IIV3 (Age >=3 years) 01/28/20 13,02/19/2012,01/19/2011,02/08,01/24/2009,02/26/2008,03/10/2007 ,05/03/2006,02/03/2005 Influenza, IIV4 01/26/2014 Influenza, Inactivated AIIV4 (Age 65+ Years) Preserv Free 01/25/2023,01/09/2021,02/15/2020 Influenza, Inactivated IIV3 (Age 65+ Years) Preserv Free 01/14/2024,01/06/2019,01/01/2017 Pneumococcal Poly,23-Valent (Pneumovax) 02/13/2016,08/02/2004 Pneumococcal conj 13-Valent [...] of Communication with Friends and Fami ly 4 01/14/2024 Financial Resource Strain Answer Date R ecorded Difficulty of Paying Living Expenses 3 01/14/2024 Difficulty of Paying Living Expenses Not on file 01/14/2024 Food Insecurity Answer Date Recorded Do you worry your food will run out before you are able to buy more? 1 01/14/2024 Transportation Needs Answer Date Record ed Lack of Transportation (Medical) 1 01/14/2024 Housing Stability Answer Date Recorded What is your housing situation today? 1 01/14/2024 Sex and Gender Information Value Date Recorded Sex Assigned at Not on file Gender Identity Not on file Sexual Orientation Not on file Obstetrics History Last Filed Vital Signs Vital Sign Reading Time Taken Comments Blood Pressure 125/82 02/13/2024 1:02 PM CDT Pulse 52 02/13/2024 1:02 PM CDT Temperature 36.5 ??C (97.7 ??F) 12/09/2023 1 0:18 AM CDT Respiratory Rate 22 04/06/2021 2:12 PM ROD BUSTER HELPER Oxygen Saturation 97% 02/13/2024 1:02 PM CDT Inhaled Oxygen Concentration - - Weight 128.9 kg (284 lb 3.2 oz) 02/13/2024 1:02 PM CDT Height 182.9 cm (6' 0.01) 12/23/2023 1:16 PM CD T Body Mass Index 38.54 12/23/2023 1:16 PM CDT Plan of Treatment Upcoming Encounters Date Type Department Care Team (Late st Contact Info) Description 03/12/2024 12:20 PM ROD BUSTER HELPER Office Visit [facility] [address] [place] [address] Elijah Fernandez MD [address] [facility] [address] Health Maintenance Due Date Last Done Comments Tetanus booster 06/22/2024 06/22/2014, 06/0 11/2005, 09/28/2005, Additional history exists Depression screening for age 12+ 09/05/2024 09/06/2023, 09/06/2023, 06/04/2023, Additional history exists Medicare Wellness for age 65+ 09/06/2024, 04/27/2022, 04/14/2021, Additional history exists BMI (ht and wt on same day) for age 18+ 12/22/2024 12/23/2023, 12/09/2023, 09/06/2023, Additional history exists Colonoscopy through age 75 03/29/202503/29, 03/29/2020, 03/29/2020, Additional history exists Lipids for age 45-75 02/21/2028 02/20/2023, 11/20/2022, 11/13/2021, Additional history exists Tdap Completed 06/22/2014, 10/04/2005 Pneumococcal series for age 65+ Completed 02/13/2016, 02/08/2015, 08/02/2004 Hepatitis C screening for ag e 18-79 Completed 11/20/2016 Zoster (shingles) series for age 50+ Completed 12/10/2017, 09/25/2017, 02/19/2012 Influenza for age 65+ Completed 01/14/2024 , 01/25/2023, 02/25/2022, Additional history exists COVID-19 vaccine series Completed 01/23/20 24, 02/04/2023, 02/25/2022, Additional history exists Procedures Procedure Name Priority Date/Time Associated Diagnosis Comments BASIC METABOLIC PANEL Routine 12/09/2023 1:26 PM CDT Type 2 diabetes mellitus with diabetic neuropathy, with long-term current use of insulin (HC) HEMOGLOBIN A1C MONITORING (POCT) Routine 12/09/2023 1:26 PM CDT Type 2 diabetes mellitus with diabetic neuropathy, with long-term current use of insulin (HC) LIPID PANEL W REFLEX MEASURED LDL Routine 02/20/2023 11:34 AM CDT Type 2 diabetes mellitus with diabetic neuropathy, with long-term current use of insulin (HC) COLONOSCOPY DIAGNOSTIC Routine 03/29/2020 12:12 PM ROD BUSTER HELPER History of colon polyps ANTI HCV Routine 11/20/2016 12:25 PM CDT Need for hepatitis C screening test from Last 3 Months or Most Recently Relevant to Health Maintenance Results * (ABNORMAL) HEMOGLOBIN A1C MONITORING (POCT) (12/09/2023 1:26 PM CDT) HEMOGLOBIN A1C MONITORING (POCT) 7.5(H) <=6.4 % 12/09/2023 1:38 PM CDT [facility] Blood BLOOD SPECIMEN / Unknown Butterfly / Unknown 12/09/2023 1:26 PM CDT 12/09/2023 1:26 PM CDT Narrative [facility] - 12/09/2023 1:38 PM CDT ? (<=6.9%) ? Indicates good control ? (7.0% to 7.9%) ? Indicates fair control ? (>=8.0%) ? Indicates poor control ?? NOTE: ??These thresholds are guidelines and ?individual targets may vary. Falsely low levels may be seen with: Recent Transfusion, Recent Significant Blood Loss, Hemolytic Diseases, or Falsely elevated levels may be seen with: Untreated Anemias, Splenectomy ? Elijah Fernandez MD CHEMISTRY [facility] [address] [place] [address], [place] [phone] * (ABNORMAL) BASIC METABOLIC PANEL (12/09/2023 1:26 PM CDT) SODIUM 135(L) 136 - 145 mmol/L 12/10/2023 1:14 AM [facility] POTASSIUM 4.9 3.5 - 5.1 mmol/L 12/10/2023 1:14 AM [facility] CHLORIDE 103 98 - 107 mmol/L 12/10/2023 1:14 AM [facility] CO2,TOTAL 20(L) 22 - 29 mmol/L 12/10/2023 1:14 AM [facility] ANION GAP 12 5 - 18 12/10/2023 1:14 AM [facility] GLUCOSE 268(H) 70 - 99 mg/dL 12/10/2023 1:14 AM [facility] CALCIUM 8.9 8.8 - 10.2 mg/dL 12/10/2023 1:14 AM [facility] BUN 20 8 - 23 mg/dL 12/10/2023 1:14 AM [facility] CREATININE 1.24(H) 0.70 - 1.20 mg/dL 12/10/2023 1:14 AM [facility] BUN/CREAT RATIO 16 10 - 20 1:14 AM [facility] eGFR 61(L) >90 mL/min/1.7 3m2 12/10/2023 1:14 AM [facility] Comment:As of 2021, eG FR is calculated by the CKD-EPI creatinine equation without race adjustment. ??eGFR can be influenced by muscle mass, exercise, and diet. ??The reported eGFR is an estimation only and is only applicable if the renal function is stable. Blood BLOOD SPECIMEN / Unknown Butterfly / Unknown 12/09/2023 1:26 PM CDT 12/09/2023 1:26 PM CDT Elijah Fernandez MD CHEMISTRY [facility] [address] [place] [address], * LIPID PANEL W REFLEX MEASURED LDL (02/20/2023 11:34 AM CDT) CHOLESTEROL,TOTAL 135 100 - 199 mg/dL 02/21/2023 8:03 AM CDT [facility] Comment: Cholesterol, Total Reference Ranges Desirable <200 mg/dL Borderline 200-239 mg/dL High >=240 mg/dL TRIGLYCERIDES 135 <150 mg/dL 02/21/2023 8:03 AM CDT [facility] HDL CHOLESTEROL 44 >40 mg/dL 8:03 AM CDT [facility] NON-HDL CHOLESTEROL 91 <145 mg/dl 02/21/2023 8:03 AM CDT [facility] CHOL/HDL RATIO 3.07 <4.50 02/21/2023 8:03 AM CDT [facility] LDL CHOLESTEROL 64 <=130 mg/dL 02/21/2023 8:03 AM CDT [facility] VLDL CHOLESTEROL 27 <=30 mg/dL 02/21/2023 8:03 AM CDT [facility] PROVIDER ORDERED STATUS RANDOM 02/21/2023 8:03 AM CDT [facility] Blood BLOOD SPECIMEN / Unknown Venipuncture / Unknown 02/20/2023 11:34 AM CDT 02/20/2023 11:37 AM CDT Ryder Thompson MD CHEMISTRY [facility] [address] [place] [address], * COLONOSCOPY DIAGNOSTIC (03/29/2020 12:12 PM ROD BUSTER HELPER) Jori Siddiqui MD GI PROCEDURE ORD * ANTI HCV (11/20/2016 12:25 PM CDT) HEPATITIS C ANTIBODY Non-Reacti ve Non-Reacti ve 11/20/2016 8:43 PM CDT [facility] Blood BLOOD SPECIMEN / Unknown Venipuncture / Unknown 11/20/2016 12:25 PM CDT 11/20/2016 1:51 PM CDT Narrative [facility] - 11/20/2016 8:43 PM CDT Antibodies to HCV not detected; does not exclude the possibility of exposure to HCV. Elijah Fernandez MD SEND OUTS [facility] [address] [place] [address], from Last 3 Months or Most Recently Relevant to Health Maintenance Advance Directives Documents on File Type Date Recorded Patient Olap Developer Expl anation KENYA 2021 11:11 AM SYDNI [...] 11:19 PM 07/09/2007 1:19 AM Care Teams Echocardiography Radiology Technologist Relationship Specialty Start Date End Date Elijah Fernandez MD [address] [place] [address] PCP - General Family Practice 03/17/14
--- NOTE | 2024-02-19 20:30 | ED_ITS ---
HPI - Extremity Injury (Lower) General Time Seen by Provider: 20:30 Date Seen: 02/19/24 Chief Complaint: Extremity Pain/Injury, Lower Stated Complaint: Right Knee Pain/Injury Time Seen by Provider: 02/19/24 20:22 Source: patient, EMS and RN notes reviewed Mode of arrival: EMS Limitations: no limitations History of Present Illness HPI Narrative: This 73-year-old male is brought in by ambulance from home after he injured his right leg when he misstepped and fell. He was going down concrete steps in his garage, had socks on, slipped and bent his right leg wrong. It hurts most in the knee area but he states that is also sore in the ankle, feels he twisted his hip as well. He has known arthritis in his hip, does not hurt as much as as knee does. His knee hurts medially along the knee area and just above. He states if we lift it is okay but he is having significant pain if he tries to move or walk. EMS did attempt an IV but were unable. He did not hit his head, denies any loss of consciousness, no neck or back pain. No difficulty breathing. Has a very superficial abrasion over the left posterior elbow area of but he is not having any pain with range of motion or movement in this arm or elbow. Patient is anticoagulated on Xarelto but do not see any significant hematomas or bruising at this point as I am talking to him. complaint: hip injury, knee injury and ankle injury Onset (ago): minute(s) Place: home Related Data Home Medications ?Medication ?Instructions ?Recorded ?Confirmed Calcium 600 + D(3) 12/13/21 albuterol sulfate 90 mcg/actuation inhalation 12/13/21 aerosol inhaler aspirin 81 mg capsule 81 mg PO DAILY 12/13/21 09/28/23 atorvastatin 20 mg tablet mg 12/13/21 carvedilol 6.25 mg tablet mg 12/13/21 cholestyramine-aspartame 4 gram ea 12/13/21 oral powder for susp in a packet (Cholestyramine Light) dapagliflozin propanediol 10 mg mg 12/13/21 tablet (Farxiga) diclofenac sodium 1 % topical gel topical 12/13/21 furosemide 20 mg tablet 20 mg PO DAILY PRN weight gain 12/13/21 12/13/21 insulin aspart U-100 100 unit/mL subcut 12/13/21 (3 mL) subcutaneous pen insulin detemir U-100 100 unit/mL unit subcut 12/13/21 (3 mL) subcutaneous pen (Levemir FlexTouch U-100 Insulin) pantoprazole 40 mg tablet,delayed mg PO 12/13/21 release rivaroxaban 20 mg tablet (Xarelto) mg 12/13/21 spironolactone 25 mg tablet mg 12/13/21 valsartan 160 mg tablet mg 12/13/21 alfuzosin 10 mg tablet,extended 10 mg PO DAILY 09/28/23 09/28/23 release 24 hr carvedilol 12.5 mg tablet 12.5 mg PO BID 09/28/23 09/28/23 cholestyramine-aspartame 4 gram 1 ea PO DAILY 09/28/23 09/28/23 oral powder (Cholestyramine Light) empagliflozin 10 mg tablet 10 mg PO DAILY 09/28/23 09/28/23 (Jardiance) valsartan 80 mg tablet 80 mg PO DAILY 09/28/23 09/28/23 Allergies Allergy/AdvReac Type Severity Reaction Status Date / Time metformin AdvReac Verified 02/19/24 20:29 tetracycline AdvReac Verified 02/19/24 20:29 duloxetine AdvReac Uncoded 12/13/21 10:44 tamsulosin AdvReac syncopal Uncoded 12/13/21 10:44 Review of Systems Narrative: Five as per HPI. PFSH PFSH Social History Smoking Status: Never smoker Do you use any of these nicotine containing products: None Second hand tobacco smoke exposure: No How often do you have a drink containing alcohol: 2-4 times a month How many standard drinks containing alcohol do you have on a typical day: 1 or 2 How often do you have six or more drinks on one occasion: Never AUDIT-C Alcohol total score: 2 Non-prescribed substance use: denies use service: No Exam Const: Vital Signs, click to edit/add: Vital Signs - 24 hr 02/19/24 20:26 Temperature 98.0 F Pulse Rate [Right Pulse Oximeter] 74 Respiratory Rate 18 Blood Pressure [Ri ght Upper Arm] 170/90 H Pulse Oximetry 99 Oxygen Delivery Me thod Room Air Patient is in exam room 5, he is lying in the bed, alert, interactive, no apparent distress. Right lower extremity is exposed, see no visible ecchymosis, no abrasions. There is no swelling throughout the toes, foot, ankle, lower extremity, knee, thigh or hip that I can palpate or visualize. I can internally and externally rotate his hip without any significant pain. He complains of pain when I palpate along his right medial knee, I can do some flexion extension of the joint, do not feel any joint effusion. His lower extremity really has no traumatic change, complains of pain when I palpate along his medial as well as lateral malleolus of the right ankle. Neurovascular is intact in this extremity. There is no swelling of the right ankle, ankle mortise palpates intact. Face atraumatic, sclera clear. Able to speak in complete sentences. CV regular rate and rhythm, no significant murmur heard. Lungs are clear. Abdomen soft, nontender. Documenting provider has reviewed patient's vital signs: yes Course Course ED Course: Obtain images of his right hip and pelvis, knee as well as ankle to rule out acute fracture. He is adamant that he did not hit his head, no neck or back issues, no evidence of any hemodynamic instability or active bleeding. Reevaluation(s) Time of Reevaluation #1: 22:35 Reevaluation #1: Have reviewed with patient that the only findings are lateral malleolus fracture. On re-evaluation of his ankle, he is definitely tender over that posterior and distal fibula. He is not giving me any tenderness over the medial malleolus. There is no significant swelling that is developed. He still complains of right medial knee pain, can lift his leg off the bed, do not appreciate any significant joint effusion. We reviewed that x-rays of his knee and hip were negative for fracture but this does not rule out ligamentous injury or cartilaginous injury within the knee. Will get him some Tylenol, put him in a orthopedic boot for stabilization of the ankle fracture. He does live independently, does not want observation status for hospitalization, states it is too much money. He is worried about returning home and having to get up to urinate at night. Did review with him that I cannot make him admission, he does not meet criteria. If he does not feel safe to go home, he certainly can be placed in the hospital but it will be observation status. He declines. Vital Signs Vital signs: Initial Vital Signs Temperature 98.0 F 02/19/24 20:26 Temperature Source Temporal Artery Scan 02/19/24 20:26 Pulse Rate 74 02/19/24 20:26 Respiratory Rate 18 02/19/24 20:26 Blood Pressure 170/90 H 02/19/24 20:26 Blood Pressure Mean 116 H 02/19/24 20:26 Blood Pressure Position Sitting 02/19/24 20:26 Pulse Oximetry 99 02/19/24 20:26 Oxygen Delivery Method Room Air 02/19/24 20:26 Vital Signs Temperature 98.0 F 02/19/24 20:26 Pulse Rate 74 02/19/24 20:26 Respiratory Rate 18 02/19/24 20:26 Blood Pressure 170/90 H 02/19/24 20:26 Pulse Oximetry 99 02/19/24 20:26 Oxygen Delivery Method Room Air 02/19/24 20:26 Temperature 98.0 F 02/19/24 20:26 Pulse Rate 74 02/19/24 20:26 Respiratory Rate 18 02/19/24 20:26 Blood Pressure 170/90 H 02/19/24 20:26 Pulse Oximetry 99 02/19/24 20:26 Oxygen Delivery Method Room Air 02/19/24 20:26 MDM - Extremity Injury (Lower) MDM Narrative Medical decision making narrative: Patient's clinical exam is reassuring but will x-ray his right hip and pelvis, right knee, right ankle to ensure no traumatic change or fracture. I do not feel any right knee joint effusion. Imaging Data XR right hip: Attestation: I have reviewed the pertinent imaging results. My impression: A my preliminary view, do not see any hip or pelvic fracture. Does seem to have some bilateral hip arthritic changes. Await Radiology over read. Radiologist's impression: Patient: BOYD LOREDO Facility:?[facility] Patient ID:?[id number] Site Patient ID:?[id number]. Site :?1950 Study:?XRay-Hip Right 2V-02/19/2024 10:06:16 PM Ordering Physician:Shantal Khalil Final Report: Indication: Trauma. Technique: AP view of the pelvis with AP and lateral views of the right hip. Comparison: None. Findings: No acute fracture, dislocation, or suspicious osseous lesion. Mild degenerative changes of the bilateral hips without significant joint space narrowing. There are degenerative changes of the lower lumbar spine. No suspicious soft tissue abnormality. Impression: No acute osseous abnormality identified. If clinical suspicion for fracture remains high, recommend further evaluation with CT/MR Dictated by Pavel Alonso MD @ 02/19/2024 10:23:45 PM (Electronic Signature) XR right knee: Attestation: I have reviewed the pertinent imaging results. My impression: With I do not appreciate any acute fracture on my preliminary review. Radiologist's impression: Patient: BOYD LOREDO Facility:?[facility] Patient ID:?[id number] Site Patient ID:?[id number]. Site :?1950 Study:?XRay-Knee Right 2V-02/19/2024 10:06:40 PM Ordering Physician:Shantal Khalil Final Report: Indication: Trauma. Technique: Two views of the right knee. Comparison: None. Findings: No definite acute fracture, dislocation, or suspicious osseous lesion. No significant joint space narrowing. No joint effusion. No suspicious soft tissue abnormality. Impression: No definite acute osseous abnormality. If clinical suspicion for fracture remains high, recommend further evaluation with CT/MR. Dictated by Pavel Alonso MD @ 02/19/2024 10:21:51 PM (Electronic Signature) XR right ankle: Attestation: I have reviewed the pertinent imaging results. My impression: Question lateral malleolus fracture posteriorly seen on the lateral view, await Radiology over-read. Radiologist's impression: Patient: BOYD LOREDO Facility:?[facility] Patient ID:?[id number] Site Patient ID:?[id number]. Site :?1950 Study:?XRay-Extremity Right ANKLE 3V-02/19/2024 10:07:02 PM Ordering Physician:Shantal Khalil Final Report: Indication: Fall, pain. Technique: Right ankle 3 views. Comparison: None. Findings: Bones: Acute, nondisplaced fracture of the distal fibula, only seen on the lateral image. There may be a nondisplaced fracture of the posterior malleolus, also only seen on the lateral image. No medial malleolar fracture. No underlying aggressive osseous lesion. Tiny posterior calcaneal enthesophyte. Joint spaces: No ankle joint effusion. The joint spaces are preserved. Soft tissues: Lateral malleolar soft tissue swelling.. Impression: Acute, nondisplaced fracture of the distal fibula, and possibly of the posterior malleolus, both of which are only seen on the lateral image. Dictated by Nathan Michelle MD @ 02/19/2024 10:27:27 PM (Electronic Signature) Discharge Plan Discharge Clinical Impression: Fall, Acute pain of right knee, Fracture of lateral malleolus of right ankle Instructions: Ankle Fracture (ED), Fall Prevention for Older Adults (ED), Knee Pain (ED) Additional Instructions: Please call Orthopedic Clinic in the morning to get scheduled for follow-up to re-evaluate ankle fracture and further evaluation and management of your knee pain if ongoing. Phone number is [phone]. Need to leave the boot on for stabilization of the ankle fracture. Elevate this leg as much as able to to help diminish pain and swelling. Can purchase an [id number]-ydabevq knee sleeve or brace as this might provide some improvement in your symptoms. I would recommend getting your friends cane or possibly walker to help with ambulation. Can use Tylenol 1000 mg 3 times a day for pain management. Can also try using some ice to your right knee and see if this helps decrease pain. There is no evidence of fracture in the knee but that does not mean that there cannot be cartilage or ligament damage that is not seen on x-ray. Activity Level: Activity as Tolerated Prescriptions: No Action carvedilol 6.25 mg tablet Patient Comments: TAKE 1 TABLET BY MOUTH TWICE DAILY WITH FOOD atorvastatin 20 mg tablet spironolactone 25 mg tablet Patient Comments: TAKE 1 TABLET BY MOUTH EVERY MORNING pantoprazole 40 mg tablet,delayed release (DR/EC) PO albuterol sulfate 90 mcg/actuation HFA aerosol inhaler INHALATION valsartan 160 mg tablet insulin aspart U-100 100 unit/mL (3 mL) insulin pen SUBCUT cholestyramine-aspartame [Cholestyramine Light] 4 gram powder in packet Patient Comments: MIX 1 PACKET IN LIQUID THEN TAKE BY MOUTH 2 TIMES DAILY WITH MEALS Levemir FlexTouch U100 Insulin 100 unit/mL (3 mL) insulin pen SUBCUT Patient Comments: INJECT 25 UNITS SUBCUTANEOUS EVERY NIGHT AT BEDTIME diclofenac sodium 1 % gel TOPICAL Patient Comments: APPLY 4 GRAMS TOPICALLY TO THE AFFECTED AREA FOUR TIMES DAILY Xarelto 20 mg tablet Farxiga 10 mg tablet aspirin 81 mg capsule 81 mg PO DAILY Calcium 600 + D(3) furosemide 20 mg tablet 20 mg PO DAILY PRN (Reason: weight gain) Rx Instructions: if >290# carvedilol 12.5 mg tablet 12.5 mg PO BID valsartan 80 mg tablet 80 mg PO DAILY alfuzosin 10 mg tablet extended release 24 hr 10 mg PO DAILY Cholestyramine Light 4 gram powder 1 ea PO DAILY Jardiance 10 mg tablet 10 mg PO DAILY Follow Up/Referrals: Elijah Fernandez MD [Primary Care Provider] - Stand Alone Forms: [facility] Info Instructions
--- OUTSIDE RECORDS SUMMARY | 2024-02-19 20:30 | XMS_ITS | Continuity of Care Document ---
Author Organization [facility] Address [address] [address] [place] [address] Phone Care Team Providers Care Hi Ranger Operator Name Role Phone Pauly Peguero MD Unavailable Unavailable Allergies, Adverse Reactions, Alerts Substance Reaction Status Criticality TAMSULOSIN HCL faint Active No Informatio n difficulty breathing+ Active No Inf ormation FLAVORING AGENT Rash Active No Informati on TETRACYCLINE HCL bumps on tounge Active No Infor mation tetracycline bumps on tounge Active No Informati on WARNIN allergy(ies) could not be collected because the type is not supported. Please contact the source practice for further details. Medications Medication Instructions Dosage Effective Dates (start - stop) Status Comments Multiple Vitamin Tab take 1 tablet by ORAL route every day with food 1 tablet - Active citalopram 10 mg Tab take 1 tablet (10MG) by oral route every day 10 MG - Active oxybutynin chloride 5 mg Tab take 1 tablet (5MG) by oral route every day 5 MG - Active bupropion HCl SR 150 mg Tab take 1 tablet (150MG) by ORAL route every day 150 MG - Active simvastatin 40 mg Tab take 1 tablet (40MG) by ORAL route every day in the evening 40 MG - Active OMEPRAZOLE (unknown strength) take 1 capsule by ORAL route every day before a meal Not Available - Active aspirin 81 mg Tab Take one tablet by mouth daily - Active Abilify 5 mg Tab - Active COMPLEX B-100 (unknown strength) one tab orally each day Not Available - Active Actos 45 mg Tab Take 1 tablet by mouth daily - Active Entocort EC 3 mg 24 hr Cap Take three capsules by mouth daily - No Longer Active Entocort EC 3 mg 24 hr Cap Take three tablets every morning - No Longer Active Entocort EC 3 mg 24 hr Cap Take three tablets every morning - No Longer Active benztropine 1 mg Tab Take 1 tablet by mouth daily - No Longer Active Cymbalta 60 mg Cap one tab orally each day - No Longer Active terazosin 2 mg Cap Take one tablet by mouth twice a day - No Longer Active thiamine 100 mg Tab Take one tablet by mouth daily - No Longer Active Zocor 80 mg Tab Take one tablet by mouth daily - No Longer Active atenolol 100 mg Tab Take one tablet by mouth daily - No Longer Active lisinopril-hydroc hlorothiazide 20 mg-12.5 mg Tab Take 1 tablet by mouth daily - No Longer Active Procedures Procedure Date Colonoscopy Flex; W/remov Les- 12 Colonoscopy Flex; W/bx 1/mx Ugi Endo; W/bx 1/mx Level Iv-surg Path Gross/micro 12 Offic/outpt E&m Estab Minor 10 09 G8447 Colonoscopy Flex; W/bx 1/mx Ugi Endo; W/bx 1/mx Level Iv-surg Path Gross/micro 09 Offic Cons New/estab Mod-hi 60 09 Routine Serum Collection [id number] [place] PH Monitor Ugi Endo; Dx W/wo Collec Specm 07 Advance Directives Directive Yes / No Effective Date File Name Resuscitation Not Answered N/A N/A Life Support Not Answered N/A N/A Intubation Not Answered N/A N/A Antibiotics Not Answered N/A N/A IV Fluid Support Not Answered N/A N/A Tube Feed Not Answered N/A N/A Other Directive N/A N/A WARNING:The information contained in this section is historical and is provided for information only and does not constitute a legal document or any assurance that the information is still accurate. Please verify the information with the mendoza of the legal document before using it for clinical purposes. Encounters Encounter Description Practice Location Reason(s) For Visit Diagnoses Date Provider Providers Copied on Encounter [facility], [address] [address], [place], [id number], [place] tel:[phone] [facility] Family Hx GI Tract CancerEsop Ulcer W/o BleedGastritis W/o BleedColon Cancer ScreeningColon Cancer ScreeningEsop Ulcer W/o BleedFamily Hx GI Tract CancerBenign Neoplasm Colon 2 Marielena Coats. [address] [facility], [facility] [address], [place], [id number] , [place]. [phone] Referring Provider: Nathan Pedraza, [address], [place], [address]. tel:[phone] [facility], [address] [address], [place], [id number], [place] tel:[phone] [facility] No Information 9 Marielena Coats. [address] [facility], [facility] [address], [facility] [place], [id number] , [place]. [phone] Offic/outpt E&m Estab Minor 10 [facility], [address] [address], [place], [id number], [place] tel:[phone] [facility] Colitis undefined (chief complaint) Colitis Unspecified/IBD 9 Phillip Wheat. [address] [facility], [facility] [address], [place], [id number] , [place]. [phone] Referring Provider: Nathan Pedraza, [address], [place], [address]. tel:[phone] [facility], [address] [address], [facility] [place], [id number], [place] tel:[phone] [facility] Colitis Unspecified/IBDColi tis Unspecified/IBDAbdo alyssa Pain, UnspecifiedDiarrhea Benign Neoplasm Lg Bowel Sep-2 3-200 9 Phillip Wheat. [address] [address], [facility], [place], [id number] , [place]. tel: [phone] Referring Provider: Nathan Pedraza, [address], [place], [address]. tel:[phone] Offic Cons New/estab Mod-hi 60 [facility], [address] [address], [facility] [place], [id number], [place] tel:[phone] [facility] DiarrheaNausea Alone Sep-0 2200 9 Haroldo Albert. [address] [address], [facility] [place], [id number] , [place]. tel:[phone] Referring Provider: Nathan Pedraza, [address], [place], [address]. tel:[phone] [facility], [address] [address], [facility] [place], [id number], [place] tel:[phone] [facility] Diarrhea (chief complaint) No Information Sep-0 2200 9 Haroldo Albert. [address] [facility] [address], [facility] [place], [id number] , [place]. tel:[phone] Referring Provider: Nathan Pedraza, [address], [place], [address]. tel:[phone] [facility], [address] [address], [facility] [place], [id number], [place] tel:[phone] [facility] No Information Sep-3 0-200 7 Yumiko Flowers. [address] [facility] [address], [place], [id number] , [place]. tel: [phone] [facility], [address] [address], [place], [id number], [place] tel:[phone] Leti [facility] HeartburnHiatal Hernia 5200 7 Radha Siegel. [address] [facility], [facility] [address], [place], [id number] , [place]. tel: [phone] Family History Family Member Type Diagnosis Age At Onset First degree family history Problem (finding) cancer of colon First degree family history Problem (finding) Mother stomach cancer First degree family history Problem (finding) No Family history of No history of Colon Polyps First degree family history Problem (finding) No history of Ulcerative Colitis First degree family history Problem (finding) No history of Crohn's Payers Payer name Insurance type Covered republican ID Authoriza tion(s) [facility] CI [id number] Social History Type Description Quantity Date Captured Comments Alcohol Use Details Unknown Caffeine Use Details Unknown Tobacco Use Status No Information Smoking Status No Information Sex Male Chief Complaint And Reason For Visit No Information Reason For Referral Reason For Referral No Information History Of Present Illness Encounter Date Complaint History Of Prese nt Illness No Information Functional Status Date Functional Assessmen t No Information Instructions Date Instruction Additional Infor mation No Information Assessments Type Assessment Date No Information Patient Care Teams Name Effective Dates (start - stop) Status Members No Information
--- OUTSIDE RECORDS SUMMARY | 2024-02-19 20:30 | XMS_ITS | Continuity of Care Document ---
Author Organization [facility] Address [address] [place] [address] Phone Care Team Providers Care Stripping Shovel Operator Name Role Phone Sarah MEDINA, PhD, Herb Unavailable Unavai lable Procedures Procedure Date Office/Outpatient Visit,[facility] 2023 Advance Directives Directive Yes / No Effective Date File Name No Information Encounters Encounter Description Practice Location Reason(s) For Visit Diagnoses Date Provider Providers Copied on Encounter Office/Outpat ient Visit,[facility], [address], [place], [place], [id number], [place] tel:[phone] [facility] Low back pain, unspecified Sarah Estevez. [facility], [address] [facility] [address], [place], [address], [place]. tel:[phone] Referring Provider: Elijah Suarez, [address], [place], [address] . tel:[phone] Family History Family Member Type Diagnosis Age At Onset No Information Payers Payer name Insurance type Covered green party ID Authoriza tion(s) Medicare MB [id number] [facility] [id number] Social History Type Description Quantity Date Captured Comments Sex Male Smoking Status No Information Vital Signs Date / Time: Height Weight BMI Pulse Rate Blood Pressure Temperature Respiratory Rate Body Surface Area Head Circumference Head Circ. Percentile Wt./Gregor. Percentile BMI percentile Pulse Ox Inhaled Ox 9:35 AM 72.00 in 127.006 kg (280.00 lbs) 37.9 7 kg/m eter (2) Chief Complaint And Reason For Visit No [...]
--- NOTE | 2024-02-19 20:37 | CRLHL7_ITS ---
For Patients: As a result of the Century Cures Act, medical imaging exams and procedure reports are released immediately into your electronic medical record. You may view this report before your referring provider. If you have questions, please contact your health care provider. Indication: Fall, pain. Technique: Right ankle 3 views. Comparison: None. Findings: Bones: Acute, nondisplaced fracture of the distal fibula, only seen on the lateral image. There may be a nondisplaced fracture of the posterior malleolus, also only seen on the lateral image. No medial malleolar fracture. No underlying aggressive osseous lesion. Tiny posterior calcaneal enthesophyte. Joint spaces: No ankle joint effusion. The joint spaces are preserved. Soft tissues: Lateral malleolar soft tissue swelling.. Impression: Acute, nondisplaced fracture of the distal fibula, and possibly of the posterior malleolus, both of which are only seen on the lateral image. Dictated by Nathan Michelle MD @ 02/19/2024 10:27:27 PM (Electronically Signed)
--- NOTE | 2024-02-19 20:37 | CRLHL7_ITS ---
For Patients: As a result of the Cures Act, medical imaging exams and procedure reports are released immediately into your electronic medical record. You may view this report before your referring provider. If you have questions, please contact your health care provider. Indication: Trauma. Technique: AP view of the pelvis with AP and lateral views of the right hip. Comparison: None. Findings: No acute fracture, dislocation, or suspicious osseous lesion. Mild degenerative changes of the bilateral hips without significant joint space narrowing. There are degenerative changes of the lower lumbar spine. No suspicious soft tissue abnormality. Impression: No acute osseous abnormality identified. If clinical suspicion for fracture remains high, recommend further evaluation with CT/MR Dictated by Pavel Alonso MD @ 02/19/2024 10:23:45 PM (Electronically Signed)
--- NOTE | 2024-02-19 20:37 | CRLHL7_ITS ---
For Patients: As a result of the Cures Act, medical imaging exams and procedure reports are released immediately into your electronic medical record. You may view this report before your referring provider. If you have questions, please contact your health care provider. Indication: Trauma. Technique: Two views of the right knee. Comparison: None. Findings: No definite acute fracture, dislocation, or suspicious osseous lesion. No significant joint space narrowing. No joint effusion. No suspicious soft tissue abnormality. Impression: No definite acute osseous abnormality. If clinical suspicion for fracture remains high, recommend further evaluation with CT/MR. Dictated by Pavel Alonso MD @ 02/19/2024 10:21:51 PM (Electronically Signed)
--- OUTSIDE RECORDS SUMMARY | 2024-02-19 21:21 | XMS_ITS | Continuity of Care Document ---
Author Organization [facility] Address [address] [address] [place] [address] Phone Care Team Providers Care Clinical Staff Pharmacist Name Role Phone Pauly Peguero MD Unavailable [...] Diagnoses Date Provider Providers Copied on Encounter [facility], [address] [address], [place], [id number], [place] tel:[phone] [facility] Family Hx GI Tract CancerEsop Ulcer W/o BleedGastritis W/o BleedColon Cancer ScreeningColon Cancer ScreeningEsop Ulcer W/o BleedFamily Hx GI Tract CancerBenign Neoplasm Colon 2 Marielena Coats. [address] [facility], [facility] [address], [place], [id number] , [place]. [phone] Referring Provider: Nathan Pedraza, [address], [place], [address]. tel:[phone] [facility], [address] [address], [place], [id number], [place] tel:[phone] [facility] No Information 9 Marielena Coats. [address] [facility], [facility] 500, [facility] [place], [id number] , [place]. [phone] Offic/outpt E&m Estab Minor 10 [facility], [address] [address], [place], [address], [place] tel:[phone] [facility] Colitis undefined (chief complaint) Colitis Unspecified/IBD 9 Phillip Wheat. [address] [facility], [facility] 500, [place], [id number] , [place]. [phone] Referring Provider: Nathan Pedraza, [address], [place], [address]. tel:[phone] [facility], [address] [address], [facility], [id number], [place] tel:[phone] [facility] Colitis Unspecified/IBDColi tis Unspecified/IBDAbdo alyssa Pain, UnspecifiedDiarrhea Benign Neoplasm Lg Bowel Sep-2 3-200 9 Phillip Wheat. [address] [address], [facility], [place], [id number] , [place]. tel: [phone] Referring Provider: Nathan Pedraza, [address], [place], [address]. tel:[phone] Offic Cons New/estab Mod-hi 60 [facility], [address] [address], [facility], [id number], [place] tel:[phone] [facility] DiarrheaNausea Alone Sep-0 2200 9 Haroldo Albert. [address] [address], [facility] [place], [address] , [place]. tel:[phone] Referring Provider: Nathan Pedraza, [address], [place], [address]. tel:[phone] [facility], [address] [address], [facility], [address], [place] tel:[phone] [facility] Diarrhea (chief complaint) No Information Sep-0 2200 9 Haroldo Albert. [address] [facility] 500, [facility] [place], [id number] , [place]. tel:[phone] Referring Provider: Nathan Pedraza, [address], [place], [address]. tel:[phone] [facility], [address] [address], [facility], [address], [place] tel:[phone] [facility] No Information Sep-3 0-200 7 Yumiko Flowers. [address] [facility] 500, [place], [id number] , [place]. tel: [phone] [facility], [address] [address], [place], [id number], [place] tel:[phone] Leti [facility] HeartburnHiatal Hernia 5200 7 Radha Siegel. [address] [facility], [facility] [address], [place], [id number] , [place]. tel: [phone] Family History Family Member Type Diagnosis Age [...] Crohn's Payers Payer name Insurance type Covered constitution party ID Authoriza tion(s) [facility] CI [id number] Social History Type Description Quantity Date Captured [...]
--- OUTSIDE RECORDS SUMMARY | 2024-02-19 21:21 | XMS_ITS | Clinical Summary ---
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 Apply 4 [...] Description 02/13/2024 12:45 PM CDT Office Visit [facility] [address] [place] [place] [address] Elijah Fernandez MD Follow Up 02/13/2024 Travel 01/23/2024 11:55 AM CDT Nurse/Clinic Staff Only [facility] [address] [place] [address] Immunization/Injection (COVID-19) 01/23/2024 Travel 01/14/2024 2:25 PM CDT Office Visit [facility] [address] [place] [address] Elijah Fernandez MD Perspiration (Been going on for weeks); Gi Problem (Been going on for weeks); Fatigue (Been going on for weeks); Breathing Problem (Shortness of breath been going on for weeks); Diarrhea (Been going on for weeks) 01/14/2024 Travel 01/14/2024 Nurse Triage [facility] [address] [place] [address] Elijah Fernandez MD Perspiration (Sweating, feeling shaky) 12/23/2023 1:45 PM CDT Office Visit [facility] [address] [place] [id number] Jose Alfredo Donald DO Consult (Back Pain) 12/23/2023 Travel 12/10/2023 Telephone [facility] [address] [place] [address] Elijah Fernandez MD Screening (Spine Center) 12/09/2023 1:25 PM CDT Office Visit [facility] [address] [place] [address] Elijah Fernandez MD Diabetes (follow up diabetes) 12/09/2023 10:20 AM CDT Office Visit [facility] [address] [place] [address] Olivier Ortega MD Musculoskeletal Problem (Consult, bilateral knee pain and ongoing back pain.) 12/09/2023 Travel 12/05/2023 1:30 PM CDT Office Visit [facility] [address] [place] [address] Benita Edgar MD Consult (Epistaxis [R04.0]) 12/05/2023 Travel 11/25/2023 1:00 PM CDT Nurse/Clinic Staff Only [facility] [address] [place] [address] Blood Pressure (BP 122/75) 11/25/2023 Travel 11/21/2023 Refill [facility] [address] [place] [address] Elijah Fernandez MD Refill Request (Pantoprazole) from [...] CDT Respiratory Rate 22 04/06/2021 2:12 PM SOCIAL WELFARE CLERK Oxygen Saturation 97% 02/13/2024 1:02 PM CDT Inhaled Oxygen Concentration - - Weight 128.9 kg (284 lb 3.2 oz) 02/13/2024 1:02 PM CDT Height 182.9 cm (6' 0.01) 12/23/2023 1:16 PM CD T Body Mass Index 38.54 12/23/2023 1:16 PM CDT Plan of Treatment Upcoming Encounters Date Type Department Care Team (Late st Contact Info) Description 03/12/2024 12:20 PM SOCIAL WELFARE CLERK Office Visit [facility] [address] [place] [address] Elijah Fernandez MD [address] [facility] [address] Health Maintenance Due Date Last Done Comments [...] (HC) COLONOSCOPY DIAGNOSTIC Routine 03/29/2020 12:12 PM SOCIAL WELFARE CLERK History of colon polyps ANTI HCV Routine 11/20/2016 12:25 PM CDT Need for hepatitis C screening test from Last 3 Months or Most Recently Relevant to Health Maintenance Results * (ABNORMAL) HEMOGLOBIN A1C MONITORING (POCT) (12/09/2023 1:26 PM CDT) HEMOGLOBIN A1C MONITORING (POCT) 7.5(H) <=6.4 % 12/09/2023 1:38 PM CDT [facility] Blood BLOOD SPECIMEN / Unknown Butterfly / Unknown 12/09/2023 1:26 PM CDT 12/09/2023 1:26 PM CDT Narrative [facility] - 12/09/2023 1:38 PM CDT ? (<=6.9%) [...] Anemias, Splenectomy ? Elijah Fernandez MD CHEMISTRY [facility] [address] [place] [address], [place] [phone] * (ABNORMAL) BASIC METABOLIC PANEL (12/09/2023 1:26 PM CDT) SODIUM 135(L) 136 - 145 mmol/L 12/10/2023 1:14 AM [facility] POTASSIUM 4.9 3.5 - 5.1 mmol/L 12/10/2023 1:14 AM [facility] CHLORIDE 103 98 - 107 mmol/L 12/10/2023 1:14 AM [facility] CO2,TOTAL 20(L) 22 - 29 mmol/L 12/10/2023 1:14 AM [facility] ANION GAP 12 5 - 18 12/10/2023 1:14 AM [facility] GLUCOSE 268(H) 70 - 99 mg/dL 12/10/2023 1:14 AM [facility] CALCIUM 8.9 8.8 - 10.2 mg/dL 12/10/2023 1:14 AM [facility] BUN 20 8 - 23 mg/dL 12/10/2023 1:14 AM [facility] CREATININE 1.24(H) 0.70 - 1.20 mg/dL 12/10/2023 1:14 AM [facility] BUN/CREAT RATIO 16 10 - 20 1:14 AM [facility] eGFR 61(L) >90 mL/min/1.7 3m2 12/10/2023 1:14 AM [facility] Comment:As of 2021, [...] CHEMISTRY [facility] [address] [place] [address], * LIPID PANEL W REFLEX MEASURED LDL (02/20/2023 11:34 AM CDT) CHOLESTEROL,TOTAL 135 100 - 199 mg/dL 02/21/2023 8:03 AM CDT [facility] Comment: Cholesterol, Total Reference Ranges Desirable <200 mg/dL Borderline 200-239 mg/dL High >=240 mg/dL TRIGLYCERIDES 135 <150 mg/dL 02/21/2023 8:03 AM CDT [facility] HDL CHOLESTEROL 44 >40 mg/dL 8:03 AM CDT [facility] NON-HDL CHOLESTEROL 91 <145 mg/dl 02/21/2023 8:03 AM CDT [facility] CHOL/HDL RATIO 3.07 <4.50 02/21/2023 8:03 AM CDT [facility] LDL CHOLESTEROL 64 <=130 mg/dL 02/21/2023 8:03 AM CDT [facility] VLDL CHOLESTEROL 27 <=30 mg/dL 02/21/2023 8:03 AM CDT [facility] PROVIDER ORDERED STATUS RANDOM 02/21/2023 8:03 AM CDT [facility] Blood BLOOD SPECIMEN / Unknown Venipuncture / Unknown 02/20/2023 11:34 AM CDT 02/20/2023 11:37 AM CDT Ryder Thompson MD CHEMISTRY [facility] [address] [place] [address], * COLONOSCOPY DIAGNOSTIC (03/29/2020 12:12 PM SOCIAL WELFARE CLERK) Jori Siddiqui MD GI PROCEDURE ORD * ANTI HCV (11/20/2016 12:25 PM CDT) HEPATITIS C ANTIBODY Non-Reacti ve Non-Reacti ve 11/20/2016 8:43 PM CDT [facility] Blood BLOOD SPECIMEN / Unknown Venipuncture / Unknown 11/20/2016 12:25 PM CDT 11/20/2016 1:51 PM CDT Narrative [facility] - 11/20/2016 8:43 PM CDT Antibodies to HCV not detected; does not exclude the possibility of exposure to HCV. Elijah Fernandez MD SEND OUTS [facility] 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
--- OUTSIDE RECORDS SUMMARY | 2024-02-19 21:21 | XMS_ITS | Continuity of Care Document ---
Author Organization [facility] Address [address] [place] [address] Phone Care Team Providers Care Mixing Machine Feeder Name Role Phone Sarah MEDINA, PhD, Herb Unavailable Unavai lable Procedures Procedure Date Office/Outpatient Visit,[facility] 2023 Advance Directives Directive Yes / No Effective Date File Name No Information Encounters Encounter Description Practice Location Reason(s) For Visit Diagnoses Date Provider Providers Copied on Encounter Office/Outpat ient Visit,[facility], [facility], [address], [place], [place], [id number], [place] tel:[phone] [facility] - [facility] Low back pain, unspecified Sarah Estevez. [facility], [address] [facility] [address], [place], [address], [place]. tel:[phone] Referring Provider: Elijah Suarez, [address], [place], [address] . tel:[phone] Family History Family Member Type Diagnosis Age At Onset No Information Payers Payer name Insurance type Covered democrat ID Authoriza tion(s) Medicare MB [id number] [facility] [id number] Social History Type Description Quantity Date Captured [...]
--- OUTSIDE RECORDS SUMMARY | 2024-02-19 21:22 | XMS_ITS | Continuity of Care Document ---
Author Organization [facility] Address [address] [address] [place] [address] Phone Care Team Providers Care Office Copy Selector Name Role Phone Pauly Peguero MD Unavailable [...] Diagnoses Date Provider Providers Copied on Encounter [facility], [address] [address], [place], [id number], [place] tel:[phone] [facility] Family Hx GI Tract CancerEsop Ulcer W/o BleedGastritis W/o BleedColon Cancer ScreeningColon Cancer ScreeningEsop Ulcer W/o BleedFamily Hx GI Tract CancerBenign Neoplasm Colon 2 Marielena Coats. [address] [facility], [facility] 500, [place], [id number] , [place]. [phone] Referring Provider: Nathan Pedraza, [address], [place], [address]. tel:[phone] [facility], [address] [address], [place], [id number], [place] tel:[phone] [facility] No Information 9 Marielena Coats. [address] [facility], [facility] [address], [facility] [place], [id number] , [place]. [phone] Offic/outpt E&m Estab Minor 10 [facility], [address] [address], [place], [id number], [place] tel:[phone] [facility] Colitis undefined (chief complaint) Colitis Unspecified/IBD 9 Phillip Wheat. [address] [facility], [facility] 500, [place], [id number] , [place]. [phone] Referring Provider: Nathan Pedraza, [address], [place], [address]. tel:[phone] [facility], [address] [address], [facility], [id number], [place] tel:[phone] [facility] Colitis Unspecified/IBDColi tis Unspecified/IBDAbdo alyssa Pain, UnspecifiedDiarrhea Benign Neoplasm Lg Bowel Sep-2 3-200 9 Phillip Wheat. [address] [address], [facility], [place], [id number] , [place]. tel: [phone] Referring Provider: Nathan Pedraza, [address], [place], [address]. tel:[phone] Offic Cons New/estab Mod-hi 60 [facility], [address] [address], [facility], [address], [place] tel:[phone] [facility] DiarrheaNausea Alone Sep-0 2200 9 Haroldo Albert. [address] [address], [facility] [place], [id number] , [place]. tel:[phone] Referring Provider: Nathan Pedraza, [address], [place], [address]. tel:[phone] [facility], [address] [address], [facility], [id number], [place] tel:[phone] [facility] Diarrhea (chief complaint) No Information Sep-0 2200 9 Haroldo Albert. [address] [facility] 500, [facility] [place], [id number] , [place]. tel:[phone] Referring Provider: Nathan Pedraza, [address], [place], [address]. tel:[phone] [facility], [address] [address], [facility] [place], [address], [place] tel:[phone] [facility] No Information Sep-3 0-200 7 Yumiko Flowers. [address] [facility] [address], [place], [id number] , [place]. tel: [phone] [facility], [address] [address], [place], [id number], [place] tel:[phone] Leti [facility] HeartburnHiatal Hernia 5200 7 Radha Siegel. [address] [facility], [facility] [address], [place], [id number] , [place]. tel: [phone] Family History Family Member Type Diagnosis Age [...] Insurance type Covered republican ID Authoriza tion(s) [facility] CI [id number] Social History Type Description Quantity Date Captured [...]
--- OUTSIDE RECORDS SUMMARY | 2024-02-19 21:22 | XMS_ITS | Continuity of Care Document ---
Author Organization [facility] Address [address] [place] [address] Phone Care Team Providers Care Railroad Brake Repairer Name Role Phone Sarah MEDIAN, PhD, Herb Unavailable Unavai lable Procedures Procedure Date Office/Outpatient Visit,[facility] 2023 Advance Directives Directive Yes / No Effective Date File Name No Information Encounters Encounter Description Practice Location Reason(s) For Visit Diagnoses Date Provider Providers Copied on Encounter Office/Outpat ient Visit,[facility], [facility], [address], [place], [place], [id number], [place] tel:[phone] [facility] - [facility] Low back pain, unspecified Sarah Estevez. [facility], [address] [facility] [address], [place], [address], [place]. tel:[phone] Referring Provider: Elijah Suarez, [address], [place], [address] . tel:[phone] Family History Family Member Type Diagnosis Age At Onset No Information Payers Payer name Insurance type Covered alliance party ID Authoriza tion(s) Medicare MB [id number] [facility] [id number] Social History Type Description Quantity Date Captured [...]
[2024-02-19] MEDS: ACETAMINOPHEN 500 MG TABLET 1000 MG PO (23:21)
[2024-02-19 23:42] VITALS: BP 155/84; PULSE 72; RESP 18; TEMP 36.7; O2SAT 99
--- OUTSIDE RECORDS SUMMARY | 2024-02-19 23:42 | XMS_ITS | Continuity of Care Document ---
Author Organization [facility] Address [address] [place] [address] Phone Care Team Providers Care Obgyn Specialist Name Role Phone Sarah MEDINA, PhD, Herb Unavailable Unavai lable Procedures Procedure Date Office/Outpatient Visit,[facility] 2023 Advance Directives Directive Yes / No Effective Date File Name No Information Encounters Encounter Description Practice Location Reason(s) For Visit Diagnoses Date Provider Providers Copied on Encounter Office/Outpat ient Visit,[facility], [facility], [address], [place], [place], [id number], [place] tel:[phone] [facility] - [facility] Low back pain, unspecified Sarah Estevez. [facility], [address] [facility] [address], [place], [address], [place]. tel:[phone] Referring Provider: Elijah Suarez, [address], [place], [address] . tel:[phone] Family History Family Member Type Diagnosis Age At Onset No Information Payers Payer name Insurance type Covered libertarian ID Authoriza tion(s) Medicare MB [id number] [facility] [id number] Social History Type Description Quantity Date Captured [...]
--- OUTSIDE RECORDS SUMMARY | 2024-02-19 23:42 | XMS_ITS | Clinical Summary ---
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 Apply 4 [...] [facility] [address] [facility] [place] [address] Elijah Fernandez MD Follow Up 02/13/2024 Travel 01/23/2024 11:55 AM CDT Nurse/Clinic Staff Only [facility] [address] [place] [address] Immunization/Injection (COVID-19) 01/23/2024 Travel 01/14/2024 2:25 PM CDT Office Visit [facility] [address] [place] [address] Elijah Fernandez MD Perspiration (Been going on for weeks); Gi Problem (Been going on for weeks); Fatigue (Been going on for weeks); Breathing Problem (Shortness of breath been going on for weeks); Diarrhea (Been going on for weeks) 01/14/2024 Travel 01/14/2024 Nurse Triage [facility] [address] [place] [address] Elijah Fernandez MD Perspiration (Sweating, feeling shaky) 12/23/2023 1:45 PM CDT Office Visit [facility] [address] [facility] [address] [place] [id number] Jose Alfredo Donald DO Consult (Back Pain) 12/23/2023 Travel 12/10/2023 Telephone [facility] [address] [place] [address] Elijah Fernandez MD Screening (Spine Center) 12/09/2023 1:25 PM CDT Office Visit [facility] [address] [place] [address] Elijah Fernandez MD Diabetes (follow up diabetes) 12/09/2023 10:20 AM CDT Office Visit [facility] [address] [place] [address] Olivier Ortega MD Musculoskeletal Problem (Consult, bilateral knee pain and ongoing back pain.) 12/09/2023 Travel 12/05/2023 1:30 PM CDT Office Visit [facility] [address] [place] [address] Benita Edgar MD Consult (Epistaxis [R04.0]) 12/05/2023 Travel 11/25/2023 1:00 PM CDT Nurse/Clinic Staff Only [facility] [address] [place] [address] Blood Pressure (BP 122/75) 11/25/2023 Travel 11/21/2023 Refill [facility] [address] [place] [address] Elijah Fernandez MD Refill Request (Pantoprazole) from [...] CDT Respiratory Rate 22 04/06/2021 2:12 PM BIOSTATISTICS DIRECTOR Oxygen Saturation 97% 02/13/2024 1:02 PM CDT Inhaled Oxygen Concentration - - Weight 128.9 kg (284 lb 3.2 oz) 02/13/2024 1:02 PM CDT Height 182.9 cm (6' 0.01) 12/23/2023 1:16 PM CD T Body Mass Index 38.54 12/23/2023 1:16 PM CDT Plan of Treatment Upcoming Encounters Date Type Department Care Team (Late st Contact Info) Description 03/12/2024 12:20 PM BIOSTATISTICS DIRECTOR Office Visit [facility] [address] [place] [address] Elijah Fernandez MD [address] [facility] [address] Health Maintenance Due Date Last Done Comments [...] (HC) COLONOSCOPY DIAGNOSTIC Routine 03/29/2020 12:12 PM BIOSTATISTICS DIRECTOR History of colon polyps ANTI HCV Routine 11/20/2016 12:25 PM CDT Need for hepatitis C screening test from Last 3 Months or Most Recently Relevant to Health Maintenance Results * (ABNORMAL) HEMOGLOBIN A1C MONITORING (POCT) (12/09/2023 1:26 PM CDT) HEMOGLOBIN A1C MONITORING (POCT) 7.5(H) <=6.4 % 12/09/2023 1:38 PM CDT [facility] Blood BLOOD SPECIMEN / Unknown Butterfly / Unknown 12/09/2023 1:26 PM CDT 12/09/2023 1:26 PM CDT Narrative [facility] - 12/09/2023 1:38 PM CDT ? (<=6.9%) [...] Anemias, Splenectomy ? Elijah Fernandez MD CHEMISTRY [facility] [address] [place] [address], [place] [phone] * (ABNORMAL) BASIC METABOLIC PANEL (12/09/2023 1:26 PM CDT) SODIUM 135(L) 136 - 145 mmol/L 12/10/2023 1:[address] [facility] POTASSIUM 4.9 3.5 - 5.1 mmol/L 12/10/2023 1:[address] [facility] CHLORIDE 103 98 - 107 mmol/L 12/10/2023 1:[address] [facility] CO2,TOTAL 20(L) 22 - 29 mmol/L 12/10/2023 1:[address] [facility] ANION GAP 12 5 - 18 12/10/2023 1:14 AM [facility] GLUCOSE 268(H) 70 - 99 mg/dL 12/10/2023 1:[address] [facility] CALCIUM 8.9 8.8 - 10.2 mg/dL 12/10/2023 1:[address] [facility] BUN 20 8 - 23 mg/dL 12/10/2023 1:[address] [facility] CREATININE 1.24(H) 0.70 - 1.20 mg/dL 12/10/2023 1:[address] [facility] BUN/CREAT RATIO 16 10 - 20 1:[address] [facility] eGFR 61(L) >90 mL/min/1.7 3m2 12/10/2023 1:[address] [facility] Comment:As of 2021, eG FR [...] CHEMISTRY [facility] [address] [place] [address], * LIPID PANEL W REFLEX MEASURED LDL (02/20/2023 11:34 AM CDT) CHOLESTEROL,TOTAL 135 100 - 199 mg/dL 02/21/2023 8:03 AM CDT [facility] Comment: Cholesterol, Total Reference Ranges Desirable <200 mg/dL Borderline 200-239 mg/dL High >=240 mg/dL TRIGLYCERIDES 135 <150 mg/dL 02/21/2023 8:03 AM CDT [facility] HDL CHOLESTEROL 44 >40 mg/dL 8:03 AM CDT [facility] NON-HDL CHOLESTEROL 91 <145 mg/dl 02/21/2023 8:03 AM CDT [facility] CHOL/HDL RATIO 3.07 <4.50 02/21/2023 8:03 AM CDT [facility] LDL CHOLESTEROL 64 <=130 mg/dL 02/21/2023 8:03 AM CDT [facility] VLDL CHOLESTEROL 27 <=30 mg/dL 02/21/2023 8:03 AM CDT [facility] PROVIDER ORDERED STATUS RANDOM 02/21/2023 8:03 AM CDT [facility] Blood BLOOD SPECIMEN / Unknown Venipuncture / Unknown 02/20/2023 11:34 AM CDT 02/20/2023 11:37 AM CDT Ryder Thompson MD CHEMISTRY [facility] [address] [place] [address], * COLONOSCOPY DIAGNOSTIC (03/29/2020 12:12 PM BIOSTATISTICS DIRECTOR) Jori Siddiqui MD GI PROCEDURE ORD * ANTI HCV (11/20/2016 12:25 PM CDT) HEPATITIS C ANTIBODY Non-Reacti ve Non-Reacti ve 11/20/2016 8:43 PM CDT [facility] Blood BLOOD SPECIMEN / Unknown Venipuncture / Unknown 11/20/2016 12:25 PM CDT 11/20/2016 1:51 PM CDT Narrative [facility] - 11/20/2016 8:43 PM CDT Antibodies to HCV not detected; does not exclude the possibility of exposure to HCV. Elijah Fernandez MD SEND OUTS [facility] 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
--- OUTSIDE RECORDS SUMMARY | 2024-02-19 23:42 | XMS_ITS | Continuity of Care Document ---
Author Organization [facility] Address [address] [address] [place] [address] Phone Care Team Providers Care Telemarketing Representative Name Role Phone Pauly Peguero MD Unavailable [...] Diagnoses Date Provider Providers Copied on Encounter [facility], [address] [address], [place], [id number], [place] tel:[phone] [facility] Family Hx GI Tract CancerEsop Ulcer W/o BleedGastritis W/o BleedColon Cancer ScreeningColon Cancer ScreeningEsop Ulcer W/o BleedFamily Hx GI Tract CancerBenign Neoplasm Colon 2 Marielena Coats. [address] [facility], [facility] [address], [place], [id number] , [place]. [phone] Referring Provider: Nathan Pedraza, [address], [place], [address]. tel:[phone] [facility], [address] [address], [place], [id number], [place] tel:[phone] [facility] No Information 9 Marielena Coats. [address] [facility], [facility] [address], [facility] [place], [id number] , [place]. [phone] Offic/outpt E&m Estab Minor 10 [facility], [address] [address], [place], [id number], [place] tel:[phone] [facility] Colitis undefined (chief complaint) Colitis Unspecified/IBD 9 Phillip Wheat. [address] [facility], [facility] [address], [place], [id number] , [place]. [phone] Referring Provider: Nathan Pedraza, [address], [place], [address]. tel:[phone] [facility], [address] [address], [facility], [id number], [place] tel:[phone] [facility] Colitis Unspecified/IBDColi tis Unspecified/IBDAbdo alyssa Pain, UnspecifiedDiarrhea Benign Neoplasm Lg Bowel Sep-2 3-200 9 Phillip Wheat. [address] [address], [facility], [place], [id number] , [place]. tel: [phone] Referring Provider: Nathan Pedraza, [address], [place], [address]. tel:[phone] Offic Cons New/estab Mod-hi 60 [facility], [address] [address], [facility] [place], [id number], [place] tel:[phone] [facility] DiarrheaNausea Alone Sep-0 2200 9 Haroldo Albert. [address] [address], [facility] [place], [id number] , [place]. tel:[phone] Referring Provider: Nathan Pedraza, [address], [place], [address]. tel:[phone] [facility], [address] [address], [facility], [id number], [place] tel:[phone] [facility] Diarrhea (chief complaint) No Information Sep-0 2200 9 Haroldo Albert. [address] [facility] [address], [facility] [place], [id number] , [place]. tel:[phone] Referring Provider: Nathan Pedraza, [address], [place], [address]. tel:[phone] [facility], [address] [address], [facility] [place], [id number], [place] tel:[phone] [facility] No Information Sep-3 0-200 7 Yumiko Flowers. [address] [facility] [address], [place], [id number] , [place]. tel: [phone] [facility], [address] [address], [place], [id number], [place] tel:[phone] Leti [facility] HeartburnHiatal Hernia 5200 7 Radha Siegel. [address] [facility], [facility] [address], [place], [id number] , [place]. tel: [phone] Family History Family Member Type Diagnosis Age [...] type Covered constitution party ID Authoriza tion(s) [facility] CI [id number] Social History Type Description Quantity Date Captured [...]
[2024-02-19 23:43] VITALS: BP 155/84; PULSE 72; RESP 18; TEMP 36.7
[2024-02-19 23:46] VITALS: BP 130/90; BP 139/114; PULSE 89; RESP 18; RESP 26; TEMP 36.5; O2SAT 97; BMI 38.6
--- NOTE | 2024-02-20 00:49 | W.PM.TELEH&P ---
Telehealth- H&P: HPI History of Present Illness Date Seen: 02/20/24 Chief complaint: ankle injury Narrative: Lionel Carlos is seen as an Interactive Telehealth visit. Lionel Carlos 73-year-old male with a history of hypertension insulin-dependent diabetes who fell. Patient was walking in his garage in his socks when he slipped, he fell on his ankle. He had severe pain. He was brought to the emergency room by ambulance. EMS was brought after his friend called them. In the ER, patient went underwent imaging which showed no definitive fracture of the right knee. No acute fracture of the right hip or AP pelvis. However there was noted injury to the right ankle. There is acute nondisplaced fracture of the distal fibula only seen on the lateral image. There was a possible concern for nondisplaced fracture of the posterior malleolus. Patient subsequently placed on the boot. ER provider worked with the patient and they are hoping to eventually discharge the patient but he was unable to bear weight due to the extraordinary amount of pain he was experience. The goal is to admit the patient to the hospital and work with physical therapy and Occupational Therapy. Review of Systems Status of ROS: Reports: 10 or more systems reviewed and unremarkable except as noted in History and below Const: Denies: fever or chills Cardio: Denies: chest pain or shortness of breath with exertion Resp: Denies: shortness of breath GI: Denies: abdominal pain, nausea or vomiting : Denies: painful urination Musculo: Reports: extremity pain; Denies: back pain Neuro: Reports: headache PFSH PFSH Social History What is your current living situation?: I presently have a place to live Problems where you live: no known problems Problems where you live details: NA In the past 12 months, utilities in danger of being shut off: no In past 12 months, lack of transportation kept you from medical appts, meetings, work, or getting things needed for daily living: no In the past 12 mos, have been you worried that your food would run out before you had money to buy more?: never true In the past 12 mos, the food you bought just didn't last and you didn't have money to buy more?: never true Highest level of school completed/degree received: some college, no degree Smoking Status: Never smoker Do you use any of these nicotine containing products: None Second hand tobacco smoke exposure: No How often do you have a drink containing alcohol: 2-4 times a month How many standard drinks containing alcohol do you have on a typical day: 1 or 2 How often do you have six or more drinks on one occasion: Never AUDIT-C Alcohol total score: 2 Non-prescribed substance use: denies use How often does anyone, including family, friends and others, physically hurt you: never How often does anyone, including family, friends and others, insult or talk down to you: never How often does anyone, including family, friends and others, threaten you with harm: never How often does anyone, including family, friends and others, scream or curse at you: never service: No Meds Home Medications and Allergies Home Medications ?Medication ?Instructions ?Recorded ?Confirmed ?Type Calcium 600 + D(3) 12/13/21 History albuterol sulfate 90 mcg/actuation inhalation 12/13/21 History aerosol inhaler aspirin 81 mg capsule 81 mg PO DAILY 12/13/21 09/28/23 History atorvastatin 20 mg tablet mg 12/13/21 History carvedilol 6.25 mg tablet mg 12/13/21 History cholestyramine-aspartame 4 gram ea 12/13/21 History oral powder for susp in a packet (Cholestyramine Light) dapagliflozin propanediol 10 mg mg 12/13/21 History tablet (Farxiga) diclofenac sodium 1 % topical gel topical 12/13/21 History furosemide 20 mg tablet 20 mg PO DAILY PRN weight gain 12/13/21 12/13/21 History insulin aspart U-100 100 unit/mL subcut 12/13/21 History (3 mL) subcutaneous pen insulin detemir U-100 100 unit/mL unit subcut 12/13/21 History (3 mL) subcutaneous pen (Levemir FlexTouch U-100 Insulin) pantoprazole 40 mg tablet,delayed mg PO 12/13/21 History release rivaroxaban 20 mg tablet (Xarelto) mg 12/13/21 History spironolactone 25 mg tablet mg 12/13/21 History valsartan 160 mg tablet mg 12/13/21 History alfuzosin 10 mg tablet,extended 10 mg PO DAILY 09/28/23 09/28/23 History release 24 hr carvedilol 12.5 mg tablet 12.5 mg PO BID 09/28/23 09/28/23 History cholestyramine-aspartame 4 gram 1 ea PO DAILY 09/28/23 09/28/23 History oral powder (Cholestyramine Light) empagliflozin 10 mg tablet 10 mg PO DAILY 09/28/23 09/28/23 History (Jardiance) valsartan 80 mg tablet 80 mg PO DAILY 09/28/23 09/28/23 History Allergies Allergy/AdvReac Type Severity Reaction Status Date / Time metformin AdvReac Verified 02/19/24 20:29 tetracycline AdvReac Verified 02/19/24 20:29 duloxetine AdvReac Uncoded 12/13/21 10:44 tamsulosin AdvReac syncopal Uncoded 12/13/21 10:44 Exam Narrative Exam Narrative: Physical Exam GENERAL: ?vital signs reviewed, well developed and nourished, in no distress HEENT: pupils are equal round and reactive to light, extraocular movements are grossly within normal limits and oral mucosa is moist. NECK: Supple without lymphadenopathy or thyromegaly according to nursing staff examination observation HEART: Regular rate and rhythm without any rubs, murmurs, or gallops. LUNGS: Clear to auscultation bilaterally with good air movement throughout ABDOMEN: Observation from nurse assisted exam, abdomen appears soft, nontender, and nondistended with Positive bowel sounds noted. EXTREMITIES: ankle in boot, pain upon standing SKIN:? Observed warm and dry with color normal Const Vital Signs, click to edit/add: Vital Signs - 24 hr 02/19/24 20:26 02/19/24 23:42 02/19/24 23:43 Temperature 98.0 F 98.0 F 98.0 F Pulse Rate [Pulse Oximeter] Pulse Rate [Right Pulse Oximeter] 74 72 72 Respiratory Rate 18 18 18 Blood Pressure [Left Arm] Blood Pressure [Right Arm] Blood Pressure [Right Upper Arm] 170/90 H 155/84 H 155/84 H Pulse Oximetry 99 99 Oxygen Delivery Method Room Air Room Air 02/19/24 23:46 Temperature 97.7 F Pulse Rate [Pulse Oximeter] 89 Pulse Rate [Right Pulse Oximeter] Respiratory Rate 26 H Blood Pressure [Left Arm] 139/114 H Blood Pressure [Right Arm] 130/90 H Blood Pressure [Right Upper Arm] Pulse Oximetry 97 Oxygen Delivery Method Room Air Common normals: no apparent distress [facility] Common normals: normocephalic Head and scalp: normocephalic Assessment and Plan Assessment and plan (1) Fracture of lateral malleolus of right ankle: Status: Acute (2) Fall: Status: Acute (3) Insulin dependent diabetes mellitus: Status: Acute (4) Hypertension: Status: Acute (5) Intractable pain: Status: Acute Plan This patient has an acute fracture of the lateral malleolus of the right ankle as well as an acute fracture of the distal fibula. Patient currently is in an immobilizing boot. This is nonsurgical. We do have pain medication provided. Will focus on oral pain medication including Tylenol, hospital and follow-up Dilaudid. Patient states that in the past oxycodone has not worked for him. I would like to be conservative in regards to pain medication with him due to the risk of falls, and dependence. Patient has a known history of insulin-dependent diabetes. His blood sugar was on the lower side this morning. Therefore I will hold off on his Lantus tonight. He will be on a sliding scale in the morning. Will have physical therapy and Occupational Therapy see the patient 6 ensured he is safe to go home. History of atrial fibrillation currently rate controlled. Patient is normally on a beta-earnest as well as Xarelto anticoagulation. No evidence of any bleeding or bruising. Telehealth Visit Today's History and Physical is provided via interactive telehealth by Dr. Hasmukh Cui MD. Patient is located at [facility]. Provider is located at [facility]. Nursing staff assisted with the patient's examination. The visit being done today meets criteria for a telehealth visit and the patient or patient's parent and/or gaurdian is aware the visit is a telehealth visit. Camera Start Time 12:30 AM Camera End Time 1 AM Telehealth: Statement Statement Telehealth Visit: Today's History and Physical is provided via interactive telehealth by Hasmukh Cui MD.? Patient is located at [facility].? Provider is located at [facility].? Nursing staff assisted with the patient's exam. The visit being done today meets criteria for a telehealth visit and the patient or patient?s parent/guardian is aware the visit is a telehealth visit.
[2024-02-20] MEDS: OXYCODONE 5 MG TABLET PO ×4 (01:48→16:09)
[2024-02-20 03:00] VITALS: BP 140/99; PULSE 90; RESP 18; TEMP 36.5; O2SAT 97
--- NOTE | 2024-02-20 06:25 | PC.NURSE ---
Addendum entered by Kari Castillo RN 02/20/24 06:32: Pt AxOx4, cooperative, and pleasant. Pt denies nausea, headache, CP, SOB. Pt has a boot on the R ankle. Pt came in with a complaint of the R hip, R knee, and R foot pain. Pt rated pain 4-5/10. No edema noted. Weatherization Director utilized PRN medication and position change. Pt is continent of the bladder using urinal and toilet. Non weight bearing to the R foot. No IV in place per MD orders. Continuing to manage pain. Pt appears resting with call light in reach. Original Note: End of shift [id number]: Pt arrived to the unit via wheelchair @ 1644
[2024-02-20] MEDS: OMEPRAZOLE 20 MG CAPSULE DR 40 MG PO (06:40)
[2024-02-20 07:29] VITALS: BP 157/87; PULSE 97; RESP 12; TEMP 37.4; O2SAT 97
[2024-02-20] MEDS: ACETAMINOPHEN 325 MG TABLET 1000 MG PO (07:37)
--- NOTE | 2024-02-20 08:25 | CRLHL7_ITS ---
For Patients: As a result of the Century Cures Act, medical imaging exams and procedure reports are released immediately into your electronic medical record. You may view this report before your referring provider. If you have questions, please contact your health care provider. INDICATION: Fracture COMPARISON: 02/19/2024 TECHNIQUE: Three views right ankle FINDINGS: There is a transverse fracture across the left distal fibular diaphysis, at the level of the distal tibiofibular syndesmosis. There is some faint adjacent periostitis which indicates this may not be an acute fracture. No other fracture identified. Ankle mortise is symmetric. Mild subtalar arthritis. No focal bone lesions. Lateral predominant soft tissue swelling and ankle joint effusion. Atherosclerotic vascular calcifications. IMPRESSION: Nondisplaced subacute appearing right distal fibular fracture. No substantial change since yesterday. Dictated by Alexandrea Paz MD @ 02/20/2024 9:02:10 AM (Electronically Signed)
--- NOTE | 2024-02-20 09:53 | CRLHL7_ITS ---
For Patients: As a result of the Cures Act, medical imaging exams and procedure reports are released immediately into your electronic medical record. You may view this report before your referring provider. If you have questions, please contact your health care provider. Indication: Injury Technique: [place] stress view portable right ankle Comparison: 02/20/2024, 02/19/2024 IMPRESSION: Fracture deformity of the lateral malleolus. Mortise intact. Dictated by Matthew Muhammad MD @ 02/20/2024 10:20:01 AM (Electronically Signed)
--- NOTE | 2024-02-20 10:31 | PM.ORCN ---
History of Present Illness HPI Time Seen by Provider: 10:15 Date Seen: 02/20/24 Consult date: 02/20/24 Requesting physician: Jessica Vidal Consult reason: fracture Chief complaint: Ankle injury Narrative: Lionel is a pleasant 73 year-old male that presented to our ED yesterday after he fell down his stairs. During our visit, Lionel is resting comfortably in bed. He does not appear to be in pain, while I remove his CAM boot and manipulate his right lower leg, but patient c/o severe right ankle pain. Associated symptoms include: hindfoot ecchymosis and swelling. Patient also fell onto his right knee. He reports his right knee pain has significantly improved overnight. Denies numbness/tingling distally. Denies previous right ankle/foot injuries. Review of Systems Const: Denies: fever or chills Cardio: Denies: chest pain or shortness of breath with exertion Resp: Denies: shortness of breath PFSH PFSH Social History What is your current living situation?: I presently have a place to live Problems where you live: no known problems Problems where you live details: NA In the past 12 months, utilities in danger of being shut off: no In past 12 months, lack of transportation kept you from medical appts, meetings, work, or getting things needed for daily living: no In the past 12 mos, have been you worried that your food would run out before you had money to buy more?: never true In the past 12 mos, the food you bought just didn't last and you didn't have money to buy more?: never true Highest level of school completed/degree received: some college, no degree Smoking Status: Never smoker Do you use any of these nicotine containing products: None Second hand tobacco smoke exposure: No How often do you have a drink containing alcohol: 2-4 times a month How many standard drinks containing alcohol do you have on a typical day: 1 or 2 How often do you have six or more drinks on one occasion: Never AUDIT-C Alcohol total score: 2 Non-prescribed substance use: denies use How often does anyone, including family, friends and others, physically hurt you: never How often does anyone, including family, friends and others, insult or talk down to you: never How often does anyone, including family, friends and others, threaten you with harm: never How often does anyone, including family, friends and others, scream or curse at you: never service: No Meds Home Medications and Allergies Home Medications ?Medication ?Instructions ?Recorded ?Confirmed ?Type albuterol sulfate 90 mcg/actuation 1 - 2 puff inhalation Q4H PRN 12/13/21 02/20/24 History aerosol inhaler atorvastatin 20 mg tablet 20 mg PO DAILY 12/13/21 02/20/24 History cholestyramine-aspartame 4 gram 1 ea PO DAILY 12/13/21 02/20/24 History oral powder for susp in a packet (Cholestyramine Light) furosemide 20 mg tablet 20 mg PO DAILY PRN weight gain 12/13/21 02/20/24 History insulin aspart U-100 100 unit/mL 12 unit subcut .with meals 12/13/21 02/20/24 History (3 mL) subcutaneous pen insulin detemir U-100 100 unit/mL 19 unit subcut HS 12/13/21 02/20/24 History (3 mL) subcutaneous pen (Levemir FlexTouch U-100 Insulin) pantoprazole 40 mg tablet,delayed 40 mg PO DAILY 12/13/21 02/20/24 History release spironolactone 25 mg tablet mg 12/13/21 History valsartan 160 mg tablet 160 mg PO HS 12/13/21 02/20/24 History empagliflozin 10 mg tablet 10 mg PO DAILY 09/28/23 02/20/24 History (Jardiance) carvedilol 25 mg tablet 25 mg PO BID 02/20/24 02/20/24 History rivaroxaban 15 mg tablet (Xarelto) 15 mg PO DAILY 02/20/24 02/20/24 History Allergies Allergy/AdvReac Type Severity Reaction Status Date / Time metformin AdvReac Verified 02/19/24 20:29 tetracycline AdvReac Verified 02/19/24 20:29 duloxetine AdvReac Uncoded 12/13/21 10:44 tamsulosin AdvReac syncopal Uncoded 12/13/21 10:44 Ortho Exam Narrative Exam Narrative: Patient is alert and oriented x3. No acute distress. Converses with nonlabored breathing. Presents wearing short CAM boot. Right ankle exam: No erythema, induration or cutaneous changes. No abrasions or open wounds. Moderate effusion. Hindfoot ecchymosis present. Mild-moderate tenderness over lateral malleolus. Medial and posterior malleoli nontender. Ankle ROM deferred today. CMS intact with 2+ DP and PT pulses. [place], warm digits with brisk capillary refill. Sensation confirmed distally. Const Vital Signs, click to edit/add: Vital Signs - 24 hr 02/19/24 20:26 02/19/24 23:42 02/19/24 23:43 Temperature 98.0 F 98.0 F 98.0 F Pulse Rate [Pulse Oximeter] Pulse Rate [Right Pulse Oximeter] 74 72 72 Respiratory Rate 18 18 18 Blood Pressure [Left Arm] Blood Pressure [Right Arm] Blood Pressure [Right Upper Arm] 170/90 H 155/84 H 155/84 H Pulse Oximetry 99 99 Oxygen Delivery Method Room Air Room Air 02/19/24 23:46 02/19/24 23:46 02/20/24 03:00 Temperature 97.7 F 97.7 F Pulse Rate [Pulse Oximeter] 89 90 Pulse Rate [Right Pulse Oximeter] Respiratory Rate 26 H 18 18 Blood Pressure [Left Arm] 139/114 H Blood Pressure [Right Arm] 130/90 H 140/99 H Blood Pressure [Right Upper Arm] Pulse Oximetry 97 97 97 Oxygen Delivery Method Room Air Room Air Room Air 02/20/24 07:29 02/20/24 07:29 Temperature 99.3 F Pulse Rate [Pulse Oximeter] 97 97 Pulse Rate [Right Pulse Oximeter] Respiratory Rate 12 12 Blood Pressure [Left Arm] Blood Pressure [Right Arm] 157/87 H Blood Pressure [Right Upper Arm] Pulse Oximetry 97 Oxygen Delivery Method Room Air Results Diagnostic results Ankle/Foot x-ray: report reviewed and image reviewed (3-view right ankle images were reviewed from [facility] dated 02/19/24 and 1-view (gravity stress view) x-ray reviewed dated 02/20/24. These show: an acute, nondisplaced distal fibular fracture, Mcd[place] B without medial clear space widening, suggesting no syndesmosis injury. ) Assessment and Plan Assessment and plan (1) Fracture of lateral malleolus of right ankle: Problem comment: Closed treatment of a closed, acute, nondisplaced distal fibular fracture, Mcdowell B. DOI: 02/19/24. Status: Acute Assessment and Plan: Lionel's pain has improved overnight and he appears comfortable. This fracture may be treated non-operatively. [place] stress view shows no medial clear space widening, which indicates there is no syndesmosis injury. Lionel will continue to wear his CAM boot daily. He may remove this boot when resting in bed and to shower (with a shower chair and using a shower bar). I explained to Lionel that his ankle fracture is stable and he may fully weightbear as his pain allows. If needed, he may do partial-weightbearing with a walker. PT and OT consults. Patient will f/u with Orthopedics in 7-10 days. We will provide the outpatient Physical Therapy referral at his f/u visit. All questions were answered. Phone Orthopedics with any questions or concerns. Total time spent: Total time spent is greater than 50% in coordination of care (as documented) at patient's floor/unit and/or counseling patient:
--- NOTE | 2024-02-20 11:05 | PM.DS1 ---
DS: Providers Provider Date Seen: 02/20/24 Date of admission: 02/19/24 23:39 Primary care physician: Elijah Fernandez MD Admitting Clinician: Kellee Pearce MD Consults: 02/20/24 00:43 Consult to Physical Therapy [CONS] Routine Comment: Reason(s) for PT Consult:: Inability to Mobilize Any Restrictions?:: See Comment 02/20/24 00:46 Consult to Occupational Therapy [CONS] Routine Comment: Reason(s) for OT Consult:: Evaluate and Treat Any Restrictions?:: See Comment 02/20/24 08:22 Consult to Physician [CONS] Routine Comment: Consulting Provider: Orthopedics, [facility] Has provider been notified: No Attending Physician on discharge: Jessica Vidal [facility], PA-C [facility] Date of Discharge: 02/20/24 DS: Diagnosis Discharge Diagnosis (1) Fracture of lateral malleolus of right ankle: Status: Acute Problem details: Closed treatment of a closed, acute, nondisplaced distal fibular fracture, Jeremias Lopes. DOI: 02/19/24. Per orthopedic surgery, [place] stress view shows no medial clear space widening, which indicates there is no syndesmosis injury. Lionel will continue to wear his CAM boot daily. He may remove this boot when resting in bed and to shower (with a shower chair and using a shower bar). I explained to Lionel that his ankle fracture is stable and he may fully weightbear as his pain allows. If needed, he may do partial-weightbearing with a walker. PT and OT consults. Patient will f/u with Orthopedics in 7-10 days. We will provide the outpatient Physical Therapy referral at his f/u visit. Pain management to include Tylenol 1 g q.6 hours p.r.n. and oxycodone as needed, using cautiously given age and fall risk. (2) Right knee pain: Status: Acute Problem details: S/p mechanical fall. Plain film without evidence of definite acute fracture, dislocation, or suspicious osseous lesion. Pain management with ice, elevation, rest, Tylenol, oxycodone as needed. If pain persists or worsens, outpatient follow-up with PCP for repeat or further imaging. (3) Fall: Status: Acute Problem details: Mechanical fall from standing height while wearing socks on a cement floor in the garage. Denies hitting head during fall (on chronic anticoagulation). No headaches or dizziness. (4) Insulin dependent diabetes mellitus: Status: Acute Problem details: Discharged on home medications. (5) Hypertension: Status: Acute Problem details: Continued on home medications. DS: Summary Hospital Course Hospital Course: [age] year old male was admitted to the medical floor for further management right distal fibular/lateral malleolus fracture status post fall. Course of care and details as noted above. Remainder of chronic medical comorbidities were monitored and managed with home medications. Status at Discharge Functional status at discharge: independent ambulation Overall status at discharge: patient is progressing back to baseline Time Spent with Patient Time attestation: Total time spent providing and/or coordinating discharge services: Time spent: Greater than 30 minutes Exam Narrative: Exam Narrative: PHYSICAL EXAM General: Pleasant, conversant, NAD Cardiovascular: RRR Pulmonary: No dyspnea Neurological: Alert, answering questions appropriately Extremities: Right knee without bruising, erythema, swelling. Right foot in cam walker boot. Skin: Warm, dry. Const: Vital Signs, click to edit/add: Vital Signs - 24 hr 02/19/24 20:26 02/19/24 23:42 02/19/24 23:43 Temperature 98.0 F 98.0 F 98.0 F Pulse Rate [Pulse Oximeter] Pulse Rate [Right Pulse Oximeter] 74 72 72 Respiratory Rate 18 18 18 Blood Pressure [Le ft Arm] Blood Pressure [Ri ght Arm] Blood Pressure [Ri ght Upper Arm] 170/90 H 155/84 H 155/84 H Pulse Oximetry 99 99 Oxygen Delivery Me thod Room Air Room Air 02/19/24 23:46 02/19/24 23:46 02/20/24 03:00 Temperature 97.7 F 97.7 F Pulse Rate [Pulse Oximeter] 89 90 Pulse Rate [Right Pulse Oximeter] Respiratory Rate 26 H 18 18 Blood Pressure [Le ft Arm] 139/114 H Blood Pressure [Ri ght Arm] 130/90 H 140/99 H Blood Pressure [Ri ght Upper Arm] Pulse Oximetry 97 97 97 Oxygen Delivery Me thod Room Air Room Air Room Air 02/20/24 07:29 02/20/24 07:29 Temperature 99.3 F Pulse Rate [Pulse Oximeter] 97 97 Pulse Rate [Right Pulse Oximeter] Respiratory Rate 12 12 Blood Pressure [Le ft Arm] Blood Pressure [Ri ght Arm] 157/87 H Blood Pressure [Ri ght Upper Arm] Pulse Oximetry 97 Oxygen Delivery Me thod Room Air DS: Data Imaging Right ankle: Attestation: I have reviewed the pertinent imaging results. Radiologist's impression: Bones: Acute, nondisplaced fracture of the distal fibula, only seen on the lateral image. There may be a nondisplaced fracture of the posterior malleolus, also only seen on the lateral image. No medial malleolar fracture. No underlying aggressive osseous lesion. Tiny posterior calcaneal enthesophyte. Joint spaces: No ankle joint effusion. The joint spaces are preserved. Soft tissues: Lateral malleolar soft tissue swelling.. Impression: Acute, nondisplaced fracture of the distal fibula, and possibly of the posterior malleolus, both of which are only seen on the lateral image. Right hip: Attestation: I have reviewed the pertinent imaging results. Radiologist's impression: No acute fracture, dislocation, or suspicious osseous lesion. Mild degenerative changes of the bilateral hips without significant joint space narrowing. There are degenerative changes of the lower lumbar spine. No suspicious soft tissue abnormality. Impression: No acute osseous abnormality identified. If clinical suspicion for fracture remains high, recommend further evaluation with CT/MR Right knee: Attestation: I have reviewed the pertinent imaging results. Radiologist's impression: No definite acute fracture, dislocation, or suspicious osseous lesion. No significant joint space narrowing. No joint effusion. No suspicious soft tissue abnormality. Impression: No definite acute osseous abnormality. If clinical suspicion for fracture remains high, recommend further evaluation with CT/MR. [place] assist right ankle: Attestation: I have reviewed the pertinent imaging results. Radiologist's impression: Injury Technique: [place] stress view portable right ankle Comparison: 02/20/2024, 02/19/2024 IMPRESSION: Fracture deformity of the lateral malleolus. [place] intact. Discharge Plan Discharge Disposition: Home, Self-Care Date of Admission: 02/19/24 23:39 Attending Provider on Discharge: Jessica Vidal Consulting Providers: Richard Medrano; Mary Jo Galarza; Jalen Pearce; Anita Ivey; Darrell Sandoval; Osvaldo Perez; Elijah Smith Primary Care Provider: Elijah Fernandez Condition: Stable Anticipated Discharge Date/Time: 02/20/24 14:00 Discharge Medications: New oxycodone 5 mg tablet 5 mg PO Q6H PRN (Reason: pain) Qty: 20 0RF Continued carvedilol 25 mg tablet 25 mg PO BID Patient Comments: on hold since 02/13/24 appt Xarelto 15 mg tablet 15 mg PO DAILY atorvastatin 20 mg tablet 20 mg PO DAILY spironolactone 25 mg tablet Patient Comments: TAKE 1 TABLET BY MOUTH EVERY MORNING pantoprazole 40 mg tablet,delayed release (DR/EC) 40 mg PO DAILY albuterol sulfate 90 mcg/actuation HFA aerosol inhaler 1 - 2 puff INHALATION Q4H PRN valsartan 160 mg tablet 160 mg PO HS insulin aspart U-100 100 unit/mL (3 mL) insulin pen 12 unit SUBCUT .with meals cholestyramine-aspartame [Cholestyramine Light] 4 gram powder in packet 1 ea PO DAILY Patient Comments: MIX 1 PACKET IN LIQUID THEN TAKE BY MOUTH 2 TIMES DAILY WITH MEALS Levemir FlexTouch U100 Insulin 100 unit/mL (3 mL) insulin pen 19 unit SUBCUT HS Patient Comments: INJECT 19 UNITS SUBCUTANEOUS EVERY NIGHT AT BEDTIME furosemide 20 mg tablet 20 mg PO DAILY PRN (Reason: weight gain) Rx Instructions: if >290# Jardiance 10 mg tablet 10 mg PO DAILY Discharge Orders: Discharge Order (Routine); Ordered 02/20/24 Ordered By: Jessica Vidal Consulting provider completed their portion of the discharge: Yes Patient Education: Ankle Fracture (ED), Fall Prevention for Older Adults (ED), Knee Pain (ED) Additional Instructions: Please call Orthopedic Clinic in the morning to get scheduled for follow-up to re-evaluate ankle fracture and further evaluation and management of your knee pain if ongoing. Phone number is [phone]. Need to leave the boot on for stabilization of the ankle fracture. Elevate this leg as much as able to to help diminish pain and swelling. Can purchase an [id number] knee sleeve or brace as this might provide some improvement in your symptoms. I would recommend getting your friends cane or possibly walker to help with ambulation. Can use Tylenol 1000 mg 3 times a day for pain management. Can also try using some ice to your right knee and see if this helps decrease pain. There is no evidence of fracture in the knee but that does not mean that there cannot be cartilage or ligament damage that is not seen on x-ray. Activity Level: Activity as Tolerated Discharge Diet: Diabetic Follow Up Appointments: Mary Jo Galarza PA-C [Physician Mat Cutter] - 03/04/24 1:30 pm ([facility] for follow-up.) Elijah Fernandez MD [Primary Care Provider] - Forms: [employer] Info Instructions
[2024-02-20 11:54] VITALS: BP 151/83; PULSE 83; RESP 20; TEMP 36.1; O2SAT 93
[2024-02-20] MEDS: INSULIN ASPART 100 UNIT/ML SUBCUT (12:28)
[2024-02-20 15:23] VITALS: BP 134/90; PULSE 98; RESP 16; TEMP 36.6; O2SAT 96
--- NOTE | 2024-02-20 15:44 | PC.SOCIAL ---
Discharge planning: Pt was recommended for home care with PT/OT and home health aide in place after discharge. wire worker faxed a referral to [facility], [facility]. at #[phone]. They can accept the pt and will be able to open him for services on Saturday(02/21). wire worker informed the provider and charge nurse on duty. wire worker also informed the pt. Social work to follow-up as needed.
--- NOTE | 2024-02-20 18:19 | PC.NURSE ---
Discharge: Patient pleasant and cooperative. Patient vitally stable, lungs clear, BS WNL, NO IV. Patient 1 assist/walker. Patient rated pain at most 8/10 and decreased to 3/10, tylenol given once and 5 mg of oxy given x3. Patient reports more knee pain, right knee is swollen, active ice used. Patient signed belongings sheet and discharge form, with no further questions. Patient discharge with a walker and left the floor by EMS to home at 1750.
== END 2024-02-20 17:50 | disposition home or self-care (01) ==
LOC: ED 23:01 → MEDSURG 23:40
PROVIDERS: Admitting Provider Family Medicine; Emergency Provider Family Medicine; PCP Surgery; Visit Provider Family Medicine
DX: S82.61XA Displaced fracture of lateral malleolus of right fibula, initial encounter for closed fracture (principal); M25.561 Pain in right knee; M25.571 Pain in right ankle and joints of right foot; M25.461 Effusion, right knee; S50.319A Abrasion of unspecified elbow, initial encounter; W19.XXXA Unspecified fall, initial encounter; I10 Essential (primary) hypertension; Z79.01 Long term (current) use of anticoagulants; Z79.4 Long term (current) use of insulin; Z79.82 Long term (current) use of aspirin
CPT/HCPCS: 73502; 73560; 73600; 73610; 82962; 96372; 97116; 97162; 97165; 97530; 97535; 99284; 99285; A9270; G0378

== ENCOUNTER 2024-02-20 17:53 | Outpatient (CLI) | payer MEDICARE, BC, SELFPAY ==
--- OUTSIDE RECORDS SUMMARY | 2024-03-06 03:57 | XMS_ITS | Clinical Summary ---
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 Broke his ankle and sprained the knee) 02/25/2024 Travel 02/20/2024 Orders Only [facility] Scanner 1 scan: (1-Ord) [place], ANKLE RT MIN 3V, 02/20/2024 02/20/2024 Orders Only [facility] Scanner 1 scan: (1-Ord) [facility], XR ANKLE RIGHT, 02/20/2024 02/19/2024 Orders Only [facility] Scanner 1 scan: (1-Ord) [facility], ANKLE RT MIN 3 VIEW, 02/19/2024 02/19/2024 Orders Only [facility] Scanner 1 scan: (1-Ord) [place], XR KNEE RT 2V, 02/19/2024 02/13/2024 12:45 PM CDT Office Visit [facility] [address] [place] [place] [address] Elijah Fernandez MD Follow Up 02/13/2024 Travel 01/23/2024 11:55 AM CDT Nurse/Clinic Staff Only [facility] [address] [facility] [address] Immunization/Injection (COVID-19) 01/23/2024 Travel 01/14/2024 2:25 PM CDT Office Visit [facility] [address] [facility] [address] Elijah Fernandez MD Perspiration (Been going on for weeks); Gi Problem (Been going on for weeks); Fatigue (Been going on for weeks); Breathing Problem (Shortness of breath been going on for weeks); Diarrhea (Been going on for weeks) 01/14/2024 Travel 01/14/2024 Nurse Triage [facility] [address] [place] [place] [address] Elijah Fernandez MD Perspiration (Sweating, feeling shaky) 12/23/2023 1:45 PM CDT Office Visit [facility] [id number] [place] [address] [address] [place] [id number] Jose Alfredo Donald DO Consult (Back Pain) 12/23/2023 Travel 12/10/2023 Telephone [facility] [address] [place] [address] Elijah Fernandez MD Screening (Spine Center) 12/09/2023 1:25 PM CDT Office Visit [facility] [address] [facility] [address] Elijah Fernandez MD Diabetes (follow up diabetes) 12/09/2023 10:20 AM CDT Office Visit [facility] [address] [place] [address] Olivier Ortega MD Musculoskeletal Problem (Consult, bilateral knee pain and ongoing back pain.) 12/09/2023 Travel 12/05/2023 1:30 PM CDT Office Visit [facility] [address] [facility] [place] [address] Oliver Edgar-Dennis Ross MD Consult (Epistaxis [R04.0]) 12/05/2023 Travel from Last 3 Months Immunizations Name [...] 1 09/06/2023 Social Connections Answer Date Recorded Do you often feel lonely or isolated from those around you? 4 01/14/2024 Financial Resource Strain Answer Date R ecorded Difficulty of Paying Living Expenses 3 01/14/2024 Difficulty of Paying Living Expenses Not on file 01/14/2024 Food Insecurity Answer Date Recorded Do you worry your food will run out before you are able to buy more? 1 01/14/2024 Transportation Needs Answer Date Record ed Does lack of transportation keep you from medica l appointments? 1 01/14/2024 Does lack of transportation keep you from work, meetings or getting things that you need? 1 01/14/2024 Housing Stability Answer Date Recorded What is your housing situation today? 1 01/14/2024 Sex and Gender Information Value Date Recorded Sex Assigned at Not on file Gender Identity Not on file Sexual Orientation Not on file Obstetrics History Last Filed Vital Signs Vital Sign Reading Time Taken Comments Blood Pressure 117/76 02/25/2024 8:41 AM CDT Pulse 68 02/25/2024 8:41 AM CDT Temperature 36.5 ??C (97.7 ??F) 12/09/2023 1 0:18 AM CDT Respiratory Rate 22 04/06/2021 2:12 PM DOOR PERSON Oxygen Saturation 94% 02/25/2024 8:38 AM CDT Inhaled Oxygen Concentration - - Weight 128.9 kg (284 lb 3.2 oz) 02/13/2024 1:02 PM CDT Height 182.9 cm (6' 0.01) 12/23/2023 1:16 PM CD T Body Mass Index 38.54 12/23/2023 1:16 PM CDT Plan of Treatment Upcoming Encounters Date Type Department Care Team (Late st Contact Info) Description 03/12/2024 12:20 PM DOOR PERSON Office Visit [facility] [address] [place] [address] Elijah Fernandez MD [address] [place] [address] Health Maintenance Due Date Last Done Comments Tetanus booster 06/22/2024 06/22/2014, 11/2005, 09/28/2005, Additional history exists Depression screening [...] Additional history exists COVID-19 vaccine series Completed 01/23/20, 02/04/2023, 02/25/2022, Additional history exists Procedures Procedure Name Priority Date/Time Associated Diagnosis Comments SCAN-RADIOLOGY REPORT 02/20/2024 12:00 AM CDT SCAN-RADIOLOGY REPORT 02/20/2024 12:00 AM CDT SCAN-RADIOLOGY REPORT 02/19/2024 12:00 AM CDT SCAN-RADIOLOGY REPORT 02/19/2024 12:00 AM CDT BASIC METABOLIC PANEL Routine 12/09/2023 1:26 PM [...] (HC) COLONOSCOPY DIAGNOSTIC Routine 03/29/2020 12:12 PM DOOR PERSON History of colon polyps ANTI HCV Routine 11/20/2016 12:25 PM CDT Need for hepatitis C screening test from Last 3 Months or Most Recently Relevant to Health Maintenance Results * SCAN-RADIOLOGY REPORT (02/20/2024 12:00 AM CDT) Only the most recent of4 resultswithin the time period is included. Anatomical Region Laterality Modality Other Scanner OTHER * (ABNORMAL) HEMOGLOBIN A1C MONITORING (POCT) (12/09/2023 1:26 PM CDT) [facility] HEMOGLOBIN A1C MONITORING (POCT) 7.5(H) <=6.4 % 12/09/2023 1:38 PM CDT [facility] Blood BLOOD SPECIMEN / Unknown Butterfly / Unknown 12/09/2023 1:26 PM CDT 12/09/2023 1:26 PM CDT Narrative [facility] - 12/09/2023 1:38 PM CDT ? [...] Anemias, Splenectomy ? Elijah Fernandez MD CHEMISTRY [facility] [address] [place] [address], * (ABNORMAL) BASIC METABOLIC PANEL (12/09/2023 1:26 PM CDT) [facility] SODIUM 135(L) 136 - 145 mmol/L 12/10/2023 1:14 AM CDT [facility] POTASSIUM 4.9 3.5 - 5.1 mmol/L 12/10/2023 1:14 AM CDT [facility] CHLORIDE 103 98 - 107 mmol/L 12/10/2023 1:14 AM CDT [facility] CO2,TOTAL 20(L) 22 - 29 mmol/L 12/10/2023 1:14 AM CDT [facility] ANION GAP 12 5 - 18 12/10/2023 1:14 AM CDT [facility] GLUCOSE 268(H) 70 - 99 mg/dL 12/10/2023 1:14 AM T [facility] CALCIUM 8.9 8.8 - 10.2 mg/dL 12/10/2023 1:14 AM CDT [facility] BUN 20 8 - 23 mg/dL 12/10/2023 1:14 AM T [facility] CREATININE 1.24(H) 0.70 - 1.20 mg/dL 12/10/2023 1:14 AM T [facility] BUN/CREAT RATIO 16 10 - 20 4 1:14 AM T [facility] eGFR 61(L) >90 mL/min/1.7 3m2 12/10/2023 1:14 AM T [facility] Comment:As of 2021, [...] 1:26 PM CDT Elijah Fernandez MD [facility] [address] [place] [id number], * LIPID PANEL W REFLEX MEASURED LDL (02/20/2023 11:34 AM CDT) CHOLESTEROL,TOTAL 135 100 - 199 mg/dL 02/21/2023 8:03 AM T [facility] Comment: Cholesterol, Total Reference Ranges Desirable <200 mg/dL Borderline 200-239 mg/dL High >=240 mg/dL TRIGLYCERIDES 135 <150 mg/dL 02/21/2023 8:03 AM T [facility] HDL CHOLESTEROL 44 >40 mg/dL 8:03 AM CDT [facility] NON-HDL CHOLESTEROL 91 <145 mg/dl 02/21/2023 8:03 AM CDT [facility] CHOL/HDL RATIO 3.07 <4.50 02/21/2023 8:03 AM CDT [facility] LDL CHOLESTEROL 64 <=130 mg/dL 02/21/2023 8:03 AM CDT [facility] VLDL CHOLESTEROL 27 <=30 mg/dL 02/21/2023 8:03 AM CDT [facility] PROVIDER ORDERED STATUS RANDOM 02/21/2023 8:03 AM CDT [facility] Blood BLOOD SPECIMEN / Unknown Venipuncture / Unknown 02/20/2023 11:34 AM CDT 02/20/2023 11:37 AM CDT Ryder Thompson MD CHEMISTRY [facility] [address] [place] [address], * COLONOSCOPY DIAGNOSTIC (03/29/2020 12:12 PM DOOR PERSON) Jori Siddiqui MD GI PROCEDURE ORD * ANTI HCV (11/20/2016 12:25 PM CDT) HEPATITIS C ANTIBODY Non-Reacti ve Non-Reacti ve 11/20/2016 8:43 PM CDT [facility] Blood BLOOD SPECIMEN / Unknown Venipuncture / Unknown 11/20/2016 12:25 PM CDT 11/20/2016 1:51 PM CDT Narrative [facility] - 11/20/2016 8:43 PM CDT Antibodies to HCV not detected; does not exclude the possibility of exposure to HCV. Elijah Fernandez MD SEND OUTS [facility] [address] [place] [address], [place] from Last 3 Months or Most Recently Relevant to Health Maintenance Advance Directives Documents on File Type Date Recorded Patient Temp Recruiter Expl anatjeanna ZAMBRANO 2021 11:11 AM SYDNI ZAMBRANO, 12/19/2021 * Full Code (Latest Code Status on File) Date Activated Date Inactivated Comments 10/04/2020 9:05 PM 10/16/2020 2:59 PM Question Answer Comments Code Status Discussion: Discussed * Full Code Date Activated Date Inactivated Comments 07/09/2007 1:19 AM 07/21/2007 4:26 PM * Full Code Date Activated Date Inactivated Comments 07/08/2007 11:19 PM 07/09/2007 1:19 AM Care Teams Cigarette Machine Operator Relationship Specialty Start Date End Date Elijah Fernandez MD [address] [place] [address] PCP - General Family Practice 03/17/14
== END 2024-02-20 17:54 | disposition home or self-care (01) ==
LOC: AMB 03-06 03:55
PROVIDERS: PCP Surgery; Visit Provider Student in an Organized Health Care Education/Training Program
DX: Z99.3 Dependence on wheelchair (principal)
CPT/HCPCS: A0425; A0426

== ENCOUNTER 2024-02-28 10:16 | Outpatient (RCR) | payer MEDICARE, BC, SELFPAY ==
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
--- NOTE | 2024-03-13 12:29 | PC.SOCIAL ---
Discharge planning: Social work art gallery internship faxed discharge summary to [facility], fax number: [phone].
== END 2024-03-13 12:10 | disposition home or self-care (01) ==
PROVIDERS: PCP Surgery; Visit Provider Surgery
DX: R41.89 Other symptoms and signs involving cognitive functions and awareness (principal); R41.840 Attention and concentration deficit; Z51.89 Encounter for other specified aftercare
CPT/HCPCS: 97165; 97535

== ENCOUNTER 2024-03-11 11:31 | Outpatient (CLI) | payer MEDICARE, BC, SELFPAY | END 2024-03-11 11:32 | disposition home or self-care (01) | LOC: AMB 03-14 20:40 | PROVIDERS: PCP Surgery; Visit Provider Emergency Medicine | DX: S89.91XA Unspecified injury of right lower leg, initial encounter (principal); W06.XXXA Fall from bed, initial encounter; Y92.003 Bedroom of unspecified non-institutional (private) residence as the place of occurrence of the external cause | CPT/HCPCS: A0425; A0427 ==

== ENCOUNTER 2024-03-11 12:17 | Observation (INO) | payer MEDICARE, BC, SELFPAY ==
[2024-03-11] VITALS (19 sets, daily range): BP systolic 140–168; BP diastolic 91–140; PULSE 77–111; RESP 18–20; TEMP 36.6–36.9; O2SAT 81–100; BMI 38.2; BMI 38.0
--- NOTE | 2024-03-11 12:49 | CRLHL7_ITS ---
For Patients: As a result of the Cures Act, medical imaging exams and procedure reports are released immediately into your electronic medical record. You may view this report before your referring provider. If you have questions, please contact your health care provider. INDICATION: Fall. COMPARISON: 02/19/2024 TECHNIQUE: Views: 3 FINDINGS: Mineralization: Normal. Alignment: Normal. Bones and Joints: Subchondral lucency in the posterior aspect of the proximal tibia on the lateral view without definite interruption of the overlying cortex. Soft Tissues: Small joint effusion. IMPRESSION: Small joint effusion. Subtle lucency in the subarticular aspect of the posterior proximal tibia on the lateral view without interruption of the overlying cortex. This could be due to a nondisplaced fracture. Similar findings were present on the prior exam. Consider further evaluation (MRI), as clinically appropriate. Dictated by Robbin Rizzo MD @ 03/11/2024 1:23:07 PM (Electronically Signed)
--- NOTE | 2024-03-11 12:58 | ED_ITS ---
HPI - General Adult General Date Seen: 03/11/24 Chief complaint: Extremity Pain/Injury, Lower Stated complaint: Fall Time Seen by Provider: 03/11/24 12:41 Source: patient, RN notes reviewed and old records reviewed Mode of arrival: ambulatory Limitations: no limitations History of Present Illness HPI narrative: Patient is a 73-year-old who was seen here at the end of January after fall, had a right distal fibular fracture and was admitted to the hospital for inability to ambulate. He is back at home, was discharged on February 19. Sounds like has been doing reasonably well but says he sat down on the edge of his bed today, he says that his comforter is very slippery and he slid to the floor. He injured his right knee. Looks like he injured this knee last time he fell as well but imaging was negative. He says he has pain on the inside of his knee just above the knee joint area. He is not wearing his boot on his ankle right now, but says he wears it at home when he is walking around. No other injuries or complaints. Related Data Home Medications ?Medication ?Instructions ?Recorded ?Confirmed albuterol sulfate 90 mcg/actuation 1 - 2 puff inhalation Q4H PRN 12/13/21 03/11/24 aerosol inhaler atorvastatin 20 mg tablet 20 mg PO DAILY 12/13/21 03/11/24 cholestyramine-aspartame 4 gram 1 ea PO DAILY 12/13/21 03/11/24 oral powder for susp in a packet (Cholestyramine Light) furosemide 20 mg tablet 20 mg PO DAILY PRN weight gain 12/13/21 03/11/24 insulin aspart U-100 100 unit/mL 12 unit subcut .with meals 12/13/21 03/11/24 (3 mL) subcutaneous pen insulin detemir U-100 100 unit/mL 19 unit subcut HS 12/13/21 03/11/24 (3 mL) subcutaneous pen (Levemir FlexTouch U-100 Insulin) pantoprazole 40 mg tablet,delayed 40 mg PO DAILY 12/13/21 03/11/24 release valsartan 160 mg tablet 160 mg PO HS 12/13/21 03/11/24 empagliflozin 10 mg tablet 10 mg PO DAILY 09/28/23 03/11/24 (Jardiance) carvedilol 25 mg tablet 25 mg PO BID 02/20/24 03/11/24 rivaroxaban 15 mg tablet (Xarelto) 15 mg PO QPM 02/20/24 03/11/24 Previous Rx's ?Medication ?Instructions ?Recorded acetaminophen 325 mg tablet 650 mg (2 x 325 mg) PO Q8H PRN 03/12/24 Breakthrough Pain 14 days #84 tabs docusate sodium 100 mg capsule 100 mg PO BID PRN Constipation #10 03/12/24 caps oxycodone 5 mg tablet 2.5 mg (1/2 x 5 mg) PO Q6H PRN 03/12/24 Pain 3 days #12 tabs Allergies Allergy/AdvReac Type Severity Reaction Status Date / Time metformin AdvReac Verified 03/11/24 12:31 tetracycline AdvReac Verified 03/11/24 12:31 duloxetine AdvReac Uncoded 12/13/21 10:44 tamsulosin AdvReac syncopal Uncoded 12/13/21 10:44 Review of Systems Status of ROS: Reports: 6 or more systems reviewed and unremarkable except as noted in History and below [facility] Medical History (Updated 03/12/24 @ 12:02 by Anita Ivey PA-C) BPH without urinary obstruction ?N40.0 - Benign prostatic hyperplasia without lower urinary tract symptoms (ICD-10) GERD (gastroesophageal reflux disease) ?K21.9 - Gastro-esophageal reflux disease without esophagitis (ICD-10) JOANIE (obstructive sleep apnea) ?G47.33 - Obstructive sleep apnea (adult) (pediatric) (ICD-10) Ascending aorta dilatation ?I77.810 - Thoracic aortic ectasia (ICD-10) ASHD (arteriosclerotic heart disease) ?I25.10 - Atherosclerotic heart disease of [place] coronary artery without angina pectoris (ICD-10) Atrial fibrillation ?I48.91 - Unspecified atrial fibrillation (ICD-10) Combined systolic and diastolic heart failure, NYHA class 3 ?I50.40 - Unspecified combined systolic (congestive) and diastolic (congestive) heart failure (ICD-10) Social History What is your current living situation?: I presently have a place to live Problems where you live: no known problems Problems where you live details: NA In the past 12 months, utilities in danger of being shut off: no In the past 12 mos, have been you worried that your food would run out before you had money to buy more?: never true In the past 12 mos, the food you bought just didn't last and you didn't have money to buy more?: never true Highest level of school completed/degree received: some college, no degree Smoking Status: Never smoker Do you use any of these nicotine containing products: None Second hand tobacco smoke exposure: No How often do you have a drink containing alcohol: 2-4 times a month Alcohol type: beer and wine How many standard drinks containing alcohol do you have on a typical day: 1 or 2 How often do you have six or more drinks on one occasion: Never AUDIT-C Alcohol total score: 2 Non-prescribed substance use: denies use Caffeine: Yes (cup of coffee daily, energy drinks) How often does anyone, including family, friends and others, physically hurt you : never How often does anyone, including family, friends and others, insult or talk down to you: never How often does anyone, including family, friends and others, threaten you with harm: never How often does anyone, including family, friends and others, scream or curse at you: never service: No Exam Narrative: Exam Narrative: Vital signs reviewed. In general, alert, nontoxic male. He was scrolling on his phone most of the time I was in with him. Extremities: Examination of the right lower extremity shows no obvious deformity. He has a little tenderness in the medial joint line on the right knee. There is no effusion. He has pain with range of motion. He is able to straight leg raise. Continues to have some tenderness over the lateral right ankle. Distal CMS normal. Skin: Warm and dry, well perfused. No laceration or abrasion. Const: Vital Signs, click to edit/add: Vital Signs - 24 hr 03/11/24 12:24 03/11/24 13:23 03/11/24 13:31 Pulse Rate 94 Pulse Rate [Pulse Oximeter] 83 Respiratory Rate 18 Blood Pressure Blood Pressure [Ri ght Upper Arm] 150/107 H 147/91 H Pulse Oximetry 98 95 Oxygen Delivery Me thod Room Air Room Air 03/11/24 13:54 03/11/24 14:00 03/11/24 14:15 Pulse Rate 111 H 83 91 Pulse Rate [Pulse Oximeter] Respiratory Rate Blood Pressure Blood Pressure [Ri ght Upper Arm] Pulse Oximetry 96 98 99 Oxygen Delivery Me thod 03/11/24 14:27 03/11/24 14:30 03/11/24 14:45 Pulse Rate 93 87 85 Pulse Rate [Pulse Oximeter] Respiratory Rate Blood Pressure 151/114 H Blood Pressure [Ri ght Upper Arm] Pulse Oximetry 99 95 89 Oxygen Delivery Me thod 03/11/24 15:00 03/11/24 15:08 Pulse Rate 85 96 Pulse Rate [Pulse Oximeter] Respiratory Rate Blood Pressure 168/140 H Blood Pressure [Ri ght Upper Arm] Pulse Oximetry 81 L 95 Oxygen Delivery Me thod Documenting provider has reviewed patient's vital signs: yes Course Course ED Course: I did x-rays of the right knee, which by my review show just a little lucency of the proximal tibia on the lateral view, I do not see anything on the PA or sunrise views. Radiology read this as follows:NDICATION: Fall. COMPARISON: 02/19/2024 TECHNIQUE: Views: 3 FINDINGS: Mineralization: Normal. Alignment: Normal. Bones and Joints: Subchondral lucency in the posterior aspect of the proximal tibia on the lateral view without definite interruption of the overlying cortex. Soft Tissues: Small joint effusion. IMPRESSION: Small joint effusion. Subtle lucency in the subarticular aspect of the posterior proximal tibia on the lateral view without interruption of the overlying cortex. This could be due to a nondisplaced fracture. Similar findings were present on the prior exam. Consider further evaluation (MRI), as clinically appropriate. Dictated by Robbin Rizzo MD @ 03/11/2024 1:23:07 PM ----- ADDENDUM ----- ADDENDUM: Alternatively, CT could be performed for further evaluation. Of note, on review, there is a possible lipohemarthrosis on the prior exam of 02/19/2024 suggesting an intra-articular fracture. This was discussed with Dr. Gavin at 1:26 p.m. 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 Dictated by Robbin Rizzo MD @ Mar 11 2024 1:24PM (Electronically Signed) For Patients: As a result of the Cures Act, medical imaging exams and procedure reports are released immediately into your electronic medical record. You may view this report before your referring provider. If you have questions, please contact your health care provider. INDICATION: Fall. COMPARISON: 02/19/2024 TECHNIQUE: Views: 3 FINDINGS: Mineralization: Normal. Alignment: Normal. Bones and Joints: Subchondral lucency in the posterior aspect of the proximal tibia on the lateral view without definite interruption of the overlying cortex. Soft Tissues: Small joint effusion. IMPRESSION: Small joint effusion. Subtle lucency in the subarticular aspect of the posterior proximal tibia on the lateral view without interruption of the overlying cortex. This could be due to a nondisplaced fracture. Similar findings were present on the prior exam. Consider further evaluation (MRI), as clinically appropriate. Dictated by Robbin Rizzo MD @ 03/11/2024 1:23:07 PM I recommended to the patient that we do a CT scan today to further evaluate this, Radiology did tell me that while they said MRI in the read, they felt CT would be appropriate. Patient is agreeable to this. He does tell me that actually his knee has been bothering him since that fall a few weeks ago, that it is worse since the fall today but never got better after that original fall, suggesting that this may have been an occult fracture from originally a few weeks ago. Care was discussed with Orthopedics, her recommendation was knee immobilizer in addition to the cam walker, nonweightbearing until pain is improved. In discussion with the patient, he lives with a roommate, he is in [facility] basement, and says he has navigate about 15 stairs. I do not think this is going to be feasible for him in his current condition, he agrees. He is amenable to short-term rehab placement, will be admitted to the hospital to achieve that goal. Vital Signs Vital signs: Initial Vital Signs Pulse Rate 83 03/11/24 12:24 Respiratory Rate 18 03/11/24 12:24 Blood Pressure 150/107 H 03/11/24 12:24 Blood Pressure Mean 121 H 03/11/24 12:24 Blood Pressure Position Supine 03/11/24 12:24 Pulse Oximetry 98 03/11/24 12:24 Oxygen Delivery Method Room Air 03/11/24 12:24 Vital Signs Pulse Rate 83 03/11/24 12:24 Respiratory Rate 18 03/11/24 12:24 Blood Pressure 150/107 H 03/11/24 12:24 Pulse Oximetry 98 03/11/24 12:24 Oxygen Delivery Method Room Air 03/11/24 12:24 Temperature 98.3 F 03/12/24 11:00 Pulse Rate 92 03/12/24 11:00 Respiratory Rate 18 03/12/24 15:00 Blood Pressure 161/103 H 03/12/24 11:00 Pulse Oximetry 93 03/12/24 11:00 Oxygen Delivery Method Room Air 03/12/24 11:00 Medications Administered Medications: Discontinued Medications Generic Name Dose Route Start Last Admin Trade Name Shreya PRN Reason Stop Dose Admin Acetaminophen 650 mg 03/11/24 18:54 03/12/24 17:15 Acetaminophen 325 Mg Tablet PO Not Given Q6H [facility] Atorvastatin Calcium 20 mg 03/12/24 09:00 03/12/24 09:53 Atorvastatin 10 Mg Tablet PO Not Given DAILY [facility] Cholestyramine Resin 4 gm 03/12/24 09:00 03/12/24 09:47 Cholestyramine Powder 4 Gm PO Not Given DAILY [facility] Empagliflozin 10 mg 03/12/24 09:00 03/12/24 09:49 Empagliflozin 10 Mg Tablet PO 10 mg DAILY [facility] Administration Sodium Chloride 1,000 mls @ 75 mls/hr 03/11/24 17:54 03/11/24 17:57 0.9 % Sodium Chloride 1000 Ml IV Not Given .[id number] [facility] Insulin Aspart 0 unit 03/11/24 21:00 03/12/24 18:05 Insulin Aspart 100 Unit/Ml SUBCUT Not Given ACHS [facility] Protocol Insulin Glargine 10 unit 03/11/24 21:00 03/11/24 20:52 Insulin Glargine,Hum.Rec.Anlog 100 Unit/Ml Insuln.Pen SUBCUT 10 unit HS [facility] Administration Omeprazole 40 mg 03/12/24 09:00 03/12/24 09:49 Omeprazole [address] PO 40 mg DAILY [facility] Administration Rivaroxaban 15 mg 03/12/24 18:00 03/12/24 18:05 Rivaroxaban 10 Mg Tablet PO Not Given QPM [facility] Sodium Chloride 5 ml 03/11/24 21:00 03/12/24 09:50 Sodium Chloride 0.9 % (Flush) 10 Ml Syringe IVF Not Given BID [facility] Valsartan 160 mg 03/11/24 21:00 03/11/24 21:22 Valsartan 160 Mg Tablet PO 160 mg HS JD Administration Discharge Plan Discharge Clinical Impression: Injury of ligament of right knee, Closed fracture of right distal fibula Patient Disposition: Admitted As Observation Condition: Stable Activity Level: Weight Bearing as Tolerated Activity Detail: Cam Walker right lower extremity while ambulating times 3 weeks, hinged knee brace, right knee while ambulating times 6 weeks Discharge Diet: Heart Healthy (2 gm sodium, low fat)
--- OUTSIDE RECORDS SUMMARY | 2024-03-11 12:59 | XMS_ITS | Clinical Summary ---
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 Broke his ankle and sprained the knee) 02/25/2024 Travel 02/20/2024 Orders Only [facility] Scanner 1 scan: (1-Ord) [place], ANKLE RT MIN 3V, 02/20/2024 02/20/2024 Orders Only [facility] Scanner 1 scan: (1-Ord) [facility], XR ANKLE RIGHT, 02/20/2024 02/19/2024 Orders Only [facility] Scanner 1 scan: (1-Ord) [facility], ANKLE RT MIN 3 VIEW, 02/19/2024 02/19/2024 Orders Only [facility] Scanner 1 scan: (1-Ord) [place], XR KNEE RT 2V, 02/19/2024 02/13/2024 12:45 PM CDT Office Visit [facility] [address] [place] [address] Elijah Fernandez MD Follow Up 02/13/2024 Travel 01/23/2024 11:55 AM CDT Nurse/Clinic Staff Only [facility] [address] [place] [address] Immunization/Injecti on (COVID-19) 01/23/2024 Travel 01/14/2024 2:25 PM CDT Office Visit [facility] [address] [place] [address] Elijah Fernandez MD Perspiration (Been going on for weeks); Gi Problem (Been going on for weeks); Fatigue (Been going on for weeks); Breathing Problem (Shortness of breath been going on for weeks); Diarrhea (Been going on for weeks) 01/14/2024 Travel 01/14/2024 Nurse Triage [facility] [address] [place] [address] Elijah Fernandez MD Perspiration (Sweating, feeling shaky) 12/23/2023 1:45 PM CDT Office Visit [facility] [place] [address] [facility] [address] [place] [id number] Jose Alfredo Donald DO Consult (Back Pain) 12/23/2023 Travel 12/10/2023 Telephone [facility] [address] [place] [address] Elijah Fernandez MD Screening ([facility]) from Last 3 Months Immunizations Name Administration [...] CDT Respiratory Rate 22 04/06/2021 2:12 PM BACK STAYER Oxygen Saturation 94% 02/25/2024 8:38 AM CDT Inhaled Oxygen Concentration - - Weight 128.9 kg (284 lb 3.2 oz) 02/13/2024 1:02 PM CDT Height 182.9 cm (6' 0.01) 12/23/2023 1:16 PM CD T Body Mass Index 38.54 12/23/2023 1:16 PM CDT Plan of Treatment Upcoming Encounters Date Type Department Care Team (Late st Contact Info) Description 03/12/2024 12:20 PM BACK STAYER Office Visit [facility] [address] [place] [address] Elijah Fernandez MD [address] [place] [address] Health Maintenance Due Date Last Done Comments Tetanus booster 06/22/2024 06/22/2014, 06/11/2005, 09/28/2005, Additional history exists Depression screening for [...] CDT SCAN-RADIOLOGY REPORT 02/19/2024 12:00 AM CDT LIPID PANEL W REFLEX MEASURED LDL Routine 02/20/2023 11:34 AM CDT Type 2 diabetes mellitus with diabetic neuropathy, with long-term current use of insulin (HC) COLONOSCOPY DIAGNOSTIC Routine 03/29/2020 12:12 PM BACK STAYER History of colon polyps ANTI HCV Routine 11/20/2016 12:25 PM CDT Need for hepatitis C screening test from Last 3 Months or Most Recently Relevant to Health Maintenance Results * SCAN-RADIOLOGY REPORT (02/20/2024 12:00 AM CDT) Only the most recent of4 resultswithin the time period is included. Anatomical Region Laterality Modality Other Scanner OTHER * LIPID PANEL W REFLEX MEASURED LDL (02/20/2023 11:34 AM CDT) CHOLESTEROL,TOTAL 135 100 - 199 mg/dL 02/21/2023 8:[address] [facility] [employer] Comment: Cholesterol, Total Reference Ranges Desirable <200 mg/dL Borderline 200-239 mg/dL High >=240 mg/dL TRIGLYCERIDES 135 <150 mg/dL 02/21/2023 8:[address] [facility] [employer] [facility] HDL CHOLESTEROL 44 >40 mg/dL 8:[address] [facility] [employer] [facility] NON-HDL CHOLESTEROL 91 <145 mg/dl 02/21/2023 8:03 AM CDT [facility] [employer] CHOL/HDL RATIO 3.07 <4.50 02/21/2023 8:[address] [facility] [employer] LDL CHOLESTEROL 64 <=130 mg/dL 02/21/2023 8:03 AM CDT [facility] [employer] VLDL CHOLESTEROL 27 <=30 mg/dL 02/21/2023 8:[address] [facility] [employer] [facility] PROVIDER ORDERED STATUS RANDOM 02/21/2023 8:[address] [facility] [employer] Blood BLOOD SPECIMEN / Unknown Venipuncture / Unknown 02/20/2023 11:34 AM CDT 02/20/2023 11:37 AM CDT Ryder Thompson MD CHEMISTRY [facility] [employer] [address] [place] [address], * COLONOSCOPY DIAGNOSTIC (03/29/2020 12:12 PM BACK STAYER) Jori Siddiqui MD GI PROCEDURE ORD * ANTI HCV (11/20/2016 12:25 PM CDT) HEPATITIS C ANTIBODY Non-Reacti ve Non-Reacti ve 11/20/2016 8:[address] [facility] Blood BLOOD SPECIMEN / Unknown Venipuncture / Unknown 11/20/2016 12:25 PM CDT 11/20/2016 1:[address] [facility] - 11/20/2016 8:43 PM CDT Antibodies to HCV not detected; does not exclude the possibility of exposure to HCV. Elijah Fernandez MD SEND [facility] 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
--- NOTE | 2024-03-11 13:27 | CRLHL7_ITS ---
For Patients: As a result of the Century Cures Act, medical imaging exams and procedure reports are released immediately into your electronic medical record. You may view this report before your referring provider. If you have questions, please contact your health care provider. EXAM: CT OF THE RIGHT KNEE, WITHOUT CONTRAST CLINICAL INDICATION: Fall 2 weeks prior with persistent knee pain and abnormal radiographs. COMPARISON STUDIES: 03/11/2024. TECHNICAL: Non-contrast CT of the knee with axial images. Sagittal oblique and coronal oblique reformatted images were created. FINDINGS: OSSEOUS STRUCTURES: Paragraph general: Osteopenia. Femur: Acute nondisplaced fracture of the medial aspect of the medial femoral condyle measures 3.4 cm CC x 2.1 cm AP x 0.9 cm RL. Given the location, findings are most consistent with extension of an avulsion type fracture of the MCL. Tibia: There are 2 thin cortical avulsion fracture fragments which are minimally displaced at the insertional footprint of the PCL in the posterior aspect of the tibia that measure 1.0 cm RL x 1.3 cm AP in aggregate. No tibial plateau fracture is evident. Fibula: No fracture. Patella: No fracture. JOINT SPACE: Knee Joint: Small knee joint effusion with tiny lipohemarthrosis component. Tiny popliteal cyst. No calcific loose body. Medial Compartment: No joint space narrowing, hypertrophic change or subchondral cystic change. Lateral Compartment: No joint space narrowing, hypertrophic change or subchondral cystic change. Patellofemoral Compartment: Mild hypertrophic changes without joint space narrowing. EXTENSOR MECHANISM: Distal Quadriceps Tendon: No tear or tendinopathy. Patellar Tendon: No tear or tendinopathy. Patellar Retinaculum: Normal. Patellar Alignment: No tilt or subluxation. SOFT TISSUES: No subcutaneous edema, fluid collection or hematoma. MUSCLES AND TENDONS: Atrophy of the distal vastus medialis musculature. No intramuscular hematoma. NEUROVASCULAR STRUCTURES: No abnormality of the visualized neurovascular structures. IMPRESSION: 1. Acute nondisplaced fracture of the medial femoral condyle most consistent with an extensive avulsion type fracture of the MCL insertion. 2. Thin cortical avulsion fracture at the tibial insertion of the PCL. 3. Osteopenia. 4. Small knee joint effusion with lipohemarthrosis component. Tiny popliteal cyst. 5. Mild hypertrophic change in the patellofemoral compartment. 6. Atrophy of the vastus medialis musculature. Please note that all CT scans at this facility use dose modulation, iterative reconstruction, and/or weight-based dosing when appropriate to reduce radiation dose to as low as reasonably achievable. Dictated by Olivier Gatica MD @ 03/11/2024 2:30:53 PM (Electronically Signed)
--- NOTE | 2024-03-11 15:43 | ED.NURSE ---
Report given to MS Salazar. RN state okay to go to floor without IV. Report given. Room air. Pain rating 2-3 in right leg.
--- NOTE | 2024-03-11 18:47 | P.IMHP_ITS ---
Hospitalist- H&P: HPI History of Present Illness Date Seen: 03/11/24 Chief complaint: Fall Narrative: Lionel Carlos is a 73 year old male past medical history significant for it diabetes mellitus, insulin dependent, hypertension, hyperlipidemia, atrial fibrillation, recurrent falls is admitted to the medical floor from the ED following another fall resulting in further fractures and will require assessment for SNF placement. Patient was recently admitted to this hospital 02/18-02/20/24 after falling in his garage resulting in a distal fibular fracture. He was placed in an orthopedic cam boot with weight-bearing as tolerated. He returns to the ED tonight after falling again. He tells me he sat on the edge of the bed, but not back far enough, slipping off the bedding and onto the floor. This resulted in increased right knee pain. CT of the knee shows femoral and tibial fractures as well as concern for MCL and PCL injuries. ED provider discussed with Orthopedic surgery, recommending a knee immobilizer, nonweightbearing of the right lower extremity, as well as continuing in the boot for the distal fibular fracture. He is admitted for evaluation for SNF placement. Currently, patient denies headache or dizziness. Denies chest pain or shortness of breath. No recent fevers. Denies abdominal pain, nausea, vomiting, diarrhea. Currently rating his lower extremity pain 2/10. Review of Systems Narrative: REVIEW OF SYSTEMS: Complete review of systems performed and negative unless otherwise stated in HPI or below. [facility] Medical History (Updated 03/11/24 @ 21:25 by Jessica Vidal PA-C) BPH without urinary obstruction ?N40.0 - Benign prostatic hyperplasia without lower urinary tract symptoms (ICD-10) GERD (gastroesophageal reflux disease) ?K21.9 - Gastro-esophageal reflux disease without esophagitis (ICD-10) JOANIE (obstructive sleep apnea) ?G47.33 - Obstructive sleep apnea (adult) (pediatric) (ICD-10) Ascending aorta dilatation ?I77.810 - Thoracic aortic ectasia (ICD-10) ASHD (arteriosclerotic heart disease) ?I25.10 - Atherosclerotic heart disease of [place] coronary artery without angina pectoris (ICD-10) Atrial fibrillation ?I48.91 - Unspecified atrial fibrillation (ICD-10) Combined systolic and diastolic heart failure, NYHA class 3 ?I50.40 - Unspecified combined systolic (congestive) and diastolic (congestive) heart failure (ICD-10) Social History What is your current living situation?: I presently have a place to live Problems where you live: no known problems Problems where you live details: NA In the past 12 months, utilities in danger of being shut off: no In the past 12 mos, have been you worried that your food would run out before you had money to buy more?: never true In the past 12 mos, the food you bought just didn't last and you didn't have money to buy more?: never true Highest level of school completed/degree received: some college, no degree Smoking Status: Never smoker Do you use any of these nicotine containing products: None Second hand tobacco smoke exposure: No How often do you have a drink containing alcohol: 2-4 times a month Alcohol type: beer and wine How many standard drinks containing alcohol do you have on a typical day: 1 or 2 How often do you have six or more drinks on one occasion: Never AUDIT-C Alcohol total score: 2 Non-prescribed substance use: denies use Caffeine: Yes (cup of coffee daily, energy drinks) How often does anyone, including family, friends and others, physically hurt you : never How often does anyone, including family, friends and others, insult or talk down to you: never How often does anyone, including family, friends and others, threaten you with harm: never How often does anyone, including family, friends and others, scream or curse at you: never service: No Meds Home Medications and Allergies Home Medications ?Medication ?Instructions ?Recorded ?Confirmed ?Type albuterol sulfate 90 mcg/actuation 1 - 2 puff inhalation Q4H PRN 12/13/21 03/11/24 History aerosol inhaler atorvastatin 20 mg tablet 20 mg PO DAILY 12/13/21 03/11/24 History cholestyramine-aspartame 4 gram 1 ea PO DAILY 12/13/21 03/11/24 History oral powder for susp in a packet (Cholestyramine Light) furosemide 20 mg tablet 20 mg PO DAILY PRN weight gain 12/13/21 03/11/24 History insulin aspart U-100 100 unit/mL 12 unit subcut .with meals 12/13/21 03/11/24 History (3 mL) subcutaneous pen insulin detemir U-100 100 unit/mL 19 unit subcut HS 12/13/21 03/11/24 History (3 mL) subcutaneous pen (Levemir FlexTouch U-100 Insulin) pantoprazole 40 mg tablet,delayed 40 mg PO DAILY 12/13/21 03/11/24 History release valsartan 160 mg tablet 160 mg PO HS 12/13/21 03/11/24 History empagliflozin 10 mg tablet 10 mg PO DAILY 09/28/23 03/11/24 History (Jardiance) carvedilol 25 mg tablet 25 mg PO BID 02/20/24 03/11/24 History rivaroxaban 15 mg tablet (Xarelto) 15 mg PO QPM 02/20/24 03/11/24 History Allergies Allergy/AdvReac Type Severity Reaction Status Date / Time metformin AdvReac Verified 03/11/24 12:31 tetracycline AdvReac Verified 03/11/24 12:31 duloxetine AdvReac Uncoded 12/13/21 10:44 tamsulosin AdvReac syncopal Uncoded 12/13/21 10:44 Exam Narrative: Exam Narrative: PHYSICAL EXAM General: Pleasant, NAD HEENT: Normocephalic, atraumatic, sclera white, EOMI, oral mucosa moist Cardiovascular: RRR, S1S2. No pitting edema Pulmonary: CTA bilaterally without rhonchi, rales, expiratory wheezes. No dyspnea Neurological: Alert, answering questions appropriately, cranial nerves intact, no focal findings Extremities: RLE is in a knee immobilizer. Mild edema distally. Neurovascularly intact Skin: Warm, dry. Const: Vital Signs, click to edit/add: Vital Signs - 24 hr 03/11/24 12:24 03/11/24 13:23 03/11/24 13:31 Temperature Pulse Rate 94 Pulse Rate [Pulse Oximeter] 83 Pulse Rate [Right Pulse Oximeter] Respiratory Rate 18 Blood Pressure Blood Pressure [Le ft Arm] Blood Pressure [Ri ght Upper Arm] 150/107 H 147/91 H Pulse Oximetry 98 95 Oxygen Delivery Me thod Room Air Room Air 03/11/24 13:54 03/11/24 14:00 03/11/24 14:15 Temperature Pulse Rate 111 H 83 91 Pulse Rate [Pulse Oximeter] Pulse Rate [Right Pulse Oximeter] Respiratory Rate Blood Pressure Blood Pressure [Le ft Arm] Blood Pressure [Ri ght Upper Arm] Pulse Oximetry 96 98 99 Oxygen Delivery Me thod 03/11/24 14:27 03/11/24 14:30 03/11/24 14:45 Temperature Pulse Rate 93 87 85 Pulse Rate [Pulse Oximeter] Pulse Rate [Right Pulse Oximeter] Respiratory Rate Blood Pressure 151/114 H Blood Pressure [Le ft Arm] Blood Pressure [Ri ght Upper Arm] Pulse Oximetry 99 95 89 Oxygen Delivery Me thod 03/11/24 15:00 03/11/24 15:08 03/11/24 15:09 Temperature Pulse Rate 85 96 89 Pulse Rate [Pulse Oximeter] Pulse Rate [Right Pulse Oximeter] Respiratory Rate Blood Pressure 168/140 H Blood Pressure [Le ft Arm] Blood Pressure [Ri ght Upper Arm] Pulse Oximetry 81 L 95 96 Oxygen Delivery Me thod 03/11/24 15:15 03/11/24 15:31 03/11/24 15:33 Temperature 98 F Pulse Rate 91 84 Pulse Rate [Pulse Oximeter] Pulse Rate [Right Pulse Oximeter] Respiratory Rate 20 Blood Pressure Blood Pressure [Le ft Arm] Blood Pressure [Ri ght Upper Arm] Pulse Oximetry 100 96 Oxygen Delivery Me thod 03/11/24 15:36 03/11/24 15:48 Temperature 97.9 F Pulse Rate Pulse Rate [Pulse Oximeter] Pulse Rate [Right Pulse Oximeter] 92 Respiratory Rate 18 Blood Pressure 166/124 H Blood Pressure [Le ft Arm] 160/99 H Blood Pressure [Ri ght Upper Arm] Pulse Oximetry 98 Oxygen Delivery Me thod Room Air Hospitalist - H&P: Result Imaging Right knee x-ray: Attestation: I have reviewed the pertinent imaging results. Radiologist's impression: Small joint effusion. Subtle lucency in the subarticular aspect of the posterior proximal tibia on the lateral view without interruption of the overlying cortex. This could be due to a nondisplaced fracture. Similar findings were present on the prior exam. Consider further evaluation (MRI), as clinically appropriate. Dictated by Robbin Rizzo MD @ 03/11/2024 1:23:07 PM ----- ADDENDUM ----- ADDENDUM: Alternatively, CT could be performed for further evaluation. Of note, on review, there is a possible lipohemarthrosis on the prior exam of 02/19/2024 suggesting an intra-articular fracture. This was discussed with Dr. 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 Right knee CT: Attestation: I have reviewed the pertinent imaging results. Radiologist's impression: OSSEOUS STRUCTURES: Paragraph general: Osteopenia. Femur: Acute nondisplaced fracture of the medial aspect of the medial femoral condyle measures 3.4 cm CC x 2.1 cm AP x 0.9 cm RL. Given the location, findings are most consistent with extension of an avulsion type fracture of the MCL. Tibia: There are 2 thin cortical avulsion fracture fragments which are minimally displaced at the insertional footprint of the PCL in the posterior aspect of the tibia that measure 1.0 cm RL x 1.3 cm AP in aggregate. No tibial plateau fracture is evident. Fibula: No fracture. Patella: No fracture. JOINT SPACE: Knee Joint: Small knee joint effusion with tiny lipohemarthrosis component. Tiny popliteal cyst. No calcific loose body. Medial Compartment: No joint space narrowing, hypertrophic change or subchondral cystic change. Lateral Compartment: No joint space narrowing, hypertrophic change or subchondral cystic change. Patellofemoral Compartment: Mild hypertrophic changes without joint space narrowing. EXTENSOR MECHANISM: Distal Quadriceps Tendon: No tear or tendinopathy. Patellar Tendon: No tear or tendinopathy. Patellar Retinaculum: Normal. Patellar Alignment: No tilt or subluxation. SOFT TISSUES: No subcutaneous edema, fluid collection or hematoma. MUSCLES AND TENDONS: Atrophy of the distal vastus medialis musculature. No intramuscular hematoma. NEUROVASCULAR STRUCTURES: No abnormality of the visualized neurovascular structures. IMPRESSION: 1. Acute nondisplaced fracture of the medial femoral condyle most consistent with an extensive avulsion type fracture of the MCL insertion. 2. Thin cortical avulsion fracture at the tibial insertion of the PCL. 3. Osteopenia. 4. Small knee joint effusion with lipohemarthrosis component. Tiny popliteal cyst. 5. Mild hypertrophic change in the patellofemoral compartment. 6. Atrophy of the vastus medialis musculature. Assessment and Plan Assessment and plan (1) Injury of ligament of right knee: Problem comment: -s/p fall -CT shows acute nondisplaced fracture of the medial femoral condyle most consistent with an extensive avulsion type fracture of the MCL insertion. Thin cortical avulsion fracture at the tibial insertion of the PCL -Knee immobilizer -NWB -pain management to include scheduled Tylenol, p.r.n. oxycodone, ice/elevation -PT/OT consults, business services clerk for SNF placement -Orthopedic surgery consult, outpatient follow-up needs Status: Acute (2) Tibia fracture: Problem comment: -as noted on CT -management as above Status: Acute (3) Femur fracture: Problem comment: -as noted on CT -management as above Status: Acute (4) Fracture of lateral malleolus of right ankle: Problem comment: -DOI: 02/19/24.Closed treatment of a closed, acute, nondisplaced distal fibular fracture -Per orthopedic surgery 02/20/24, [place] stress view shows no medial clear space widening, which indicates there is no syndesmosis injury. Lionel will continue to wear his CAM boot daily. -NWB this extremity in setting of acute injuries as above Status: Acute (5) Insulin dependent diabetes mellitus: Problem comment: -most recent A1c 7.5 -home insulin glargine 19 units at bedtime, will start with 10 units on admission given decreased appetite/oral intake, adjusting as necessary. Insulin sliding scale. Continue Jardiance -glucose checks ACHS Status: Acute (6) Hypertension: Problem comment: -continue home medications Status: Acute (7) Atrial fibrillation: Problem comment: -on chronic anticoagulation. Continue carvedilol and Xarelto. Telemetry Status: Acute Total Time Spent Total Time Spent: Total time spent caring for the patient today was 75 minutes. This includes time spent for the visit reviewing the chart, time spent during the visit, time spent after the visit and documentation and planning in coordination of care.
[2024-03-11 19:40] LABS: Hemoglobin* 15.4 gm/dL (13.5-17.5); Immature Granulocytes Pct Auto 0.3 %; Mean Corpuscular HGB Conc 33 gm/dL (32-36); Mean Corpuscular Hemoglobin 31 pg (26-34); Red Blood Count 5.04 m/uL (4.30-5.90)
[2024-03-11 19:43] LABS: Slide Review Reflex No
[2024-03-11 19:51] LABS: Chloride* 100 mmol/L (96-114); Potassium* 3.6 mmol/L (3.6-5.1); Sodium* 135 mmol/L (135-149)
[2024-03-11 19:54] LABS: Anion Gap 9 mEq/L (7-15); Blood Urea Nitrogen* 20 mg/dL (7-30); Carbon Dioxide* 26 mmol/L (20-32); Est. Creatinine Clearance* 71.13; Estimated Glomerular Filt Rate 79 ml/min
[2024-03-11 19:55] LABS: Calcium* 8.6 mg/dL (8.4-10.6); Glucose* 179 mg/dL (60-115)
--- NOTE | 2024-03-11 20:32 | PC.NURSE ---
RN unable to get Tele Box to work on pt. Tried several boxes, wires, leads, etc. Dr bryan
[2024-03-11] MEDS: INSULIN GLARGINE,HUM.REC.ANLOG 100 UNIT/ML INSULN.PEN 10 UNIT SUBCUT (20:52)
[2024-03-11] MEDS: INSULIN ASPART 100 UNIT/ML SUBCUT (20:53)
[2024-03-11] MEDS: VALSARTAN 160 MG TABLET PO (21:22)
[2024-03-11 22:35] LABS: Basophils Percent Auto 0.4 % (0.0-3.0); Eosinophils Percent Auto 0.8 % (0.0-7.0); Hematocrit 47.1 % (37.0-53.0); Lymphocytes Percent Auto 25.3 % (20-44); Mean Corpuscular Volume 94 fL (80-100); Monocytes Percent Auto 8.7 % (0.0-11.0); Neutrophils Percent Auto 64.5 % (42.0-72.0); Platelet Count* 178 K/uL (140-440); White Blood Count* 7.84 K/uL (4.50-11.00)
[2024-03-12 00:40] VITALS: TEMP 36.9
[2024-03-12 02:36] VITALS: BP 155/112; PULSE 87; RESP 16; TEMP 36.8; O2SAT 97
--- NOTE | 2024-03-12 05:11 | PC.NURSE ---
Pt rates pain at 2-310. NWB to right foot. Refuses any pain meds. Oriented x3
[2024-03-12 07:00] VITALS: BP 164/123; PULSE 59; RESP 18; O2SAT 97
[2024-03-12 07:22] LABS: Hemoglobin* 15.9 gm/dL (13.5-17.5); Mean Corpuscular HGB Conc 32 gm/dL (32-36); Mean Corpuscular Hemoglobin 30 pg (26-34); Mean Corpuscular Volume 93 fL (80-100); Platelet Count* 160 K/uL (140-440); White Blood Count* 7.36 K/uL (4.50-11.00)
[2024-03-12 07:28] LABS: Slide Review Reflex No
[2024-03-12 07:40] LABS: Chloride* 103 mmol/L (96-114); Potassium* 3.7 mmol/L (3.6-5.1); Sodium* 136 mmol/L (135-149)
[2024-03-12 07:43] LABS: Anion Gap 11 mEq/L (7-15); Blood Urea Nitrogen* 20 mg/dL (7-30); Carbon Dioxide* 22 mmol/L (20-32); Est. Creatinine Clearance* 71.13; Estimated Glomerular Filt Rate 79 ml/min; Glucose* 136 mg/dL (60-115)
[2024-03-12 07:44] LABS: Calcium* 8.9 mg/dL (8.4-10.6)
--- NOTE | 2024-03-12 09:16 | P.IMPN_ITS ---
Progress Note: A&P Assessment and plan (1) Injury of ligament of right knee: Problem details: -s/p fall -CT shows acute nondisplaced fracture of the medial femoral condyle most consistent with an extensive avulsion type fracture of the MCL insertion. Thin cortical avulsion fracture at the tibial insertion of the PCL -Knee immobilizer -NWB -pain management to include scheduled Tylenol, p.r.n. oxycodone, ice/elevation -PT/OT consults, business services assistant for SNF placement -Orthopedic surgery consult, outpatient follow-up needs Status: Acute (2) Tibia fracture: Problem details: -as noted on CT -management as above Status: Acute (3) Femur fracture: Problem details: -as noted on CT -management as above Status: Acute (4) Fracture of lateral malleolus of right ankle: Problem details: -DOI: 02/19/24.Closed treatment of a closed, acute, nondisplaced distal fibular fracture -Per orthopedic surgery 02/20/24, [place] stress view shows no medial clear space widening, which indicates there is no syndesmosis injury. Lionel will continue to wear his CAM boot daily. -NWB this extremity in setting of acute injuries as above Status: Acute (5) Insulin dependent diabetes mellitus: Problem details: -most recent A1c 7.5 -home insulin glargine 19 units at bedtime, will start with 10 units on admission given decreased appetite/oral intake, adjusting as necessary. Insulin sliding scale. Continue Jardiance -glucose checks ACHS Status: Acute (6) Hypertension: Problem details: -continue home medications Status: Acute (7) Atrial fibrillation: Problem details: -on chronic anticoagulation. Continue carvedilol and Xarelto. Telemetry Status: Acute Exam Const: Vital Signs, click to edit/add: Vital Signs - 24 hr 03/11/24 12:24 03/11/24 13:23 03/11/24 13:31 Temperature Pulse Rate 94 Pulse Rate [Pulse Oximeter] 83 Pulse Rate [Right Pulse Oximeter] Respiratory Rate 18 Blood Pressure Blood Pressure [Le ft Arm] Blood Pressure [Ri ght Upper Arm] 150/107 H 147/91 H Pulse Oximetry 98 95 Oxygen Delivery Me thod Room Air Room Air 03/11/24 13:54 03/11/24 14:00 03/11/24 14:15 Temperature Pulse Rate 111 H 83 91 Pulse Rate [Pulse Oximeter] Pulse Rate [Right Pulse Oximeter] Respiratory Rate Blood Pressure Blood Pressure [Le ft Arm] Blood Pressure [Ri ght Upper Arm] Pulse Oximetry 96 98 [facility] 03/11/24 14:27 03/11/24 14:30 03/11/24 14:45 Temperature Pulse Rate 93 87 85 Pulse Rate [Pulse Oximeter] Pulse Rate [Right Pulse Oximeter] Respiratory Rate Blood Pressure 151/114 H Blood Pressure [Le ft Arm] Blood Pressure [Ri ght Upper Arm] Pulse Oximetry 99 95 89 Oxygen Delivery Me od 03/11/24 15:00 03/11/24 15:08 03/11/24 15:09 Temperature Pulse Rate 85 96 89 Pulse Rate [Pulse Oximeter] Pulse Rate [Right Pulse Oximeter] Respiratory Rate Blood Pressure 168/140 H Blood Pressure [Le ft Arm] Blood Pressure [Ri ght Upper Arm] Pulse Oximetry 81 L 95 96 [facility] 03/11/24 15:15 03/11/24 15:31 03/11/24 15:33 Temperature 98 F Pulse Rate 91 84 Pulse Rate [Pulse Oximeter] Pulse Rate [Right Pulse Oximeter] Respiratory Rate 20 Blood Pressure Blood Pressure [Le ft Arm] Blood Pressure [Ri ght Upper Arm] Pulse Oximetry 100 96 Oxygen Delivery [facility] 03/11/24 15:36 03/11/24 15:48 03/11/24 15:48 Temperature 97.9 F Pulse Rate Pulse Rate [Pulse Oximeter] Pulse Rate [Right Pulse Oximeter] 92 Respiratory Rate 18 18 Blood Pressure 166/124 H Blood Pressure [Le ft Arm] 160/99 H Blood Pressure [Ri ght Upper Arm] Pulse Oximetry 98 Oxygen Delivery [facility] Room Air Room Air 03/11/24 22:22 03/11/24 22:24 03/12/24 00:40 Temperature 98.5 F 98.5 F Pulse Rate Pulse Rate [Pulse Oximeter] Pulse Rate [Right Pulse Oximeter] 77 77 Respiratory Rate 18 18 Blood Pressure Blood Pressure [Le ft Arm] 140/93 H Blood Pressure [Ri ght Upper Arm] Pulse Oximetry 98 [facility] 03/12/24 02:36 03/12/24 07:00 Temperature 98.3 F Pulse Rate Pulse Rate [Pulse Oximeter] Pulse Rate [Right Pulse Oximeter] 87 59 L Respiratory Rate 16 18 Blood Pressure Blood Pressure [Le ft Arm] 155/112 H 164/123 H Blood Pressure [Ri ght Upper Arm] Pulse Oximetry 97 97 Oxygen Delivery Me thod Room Air Room Air Labs Labs: Laboratory Results - last 24 hr 03/11/24 03/12/24 19:34 06:04 WBC 7.84 7.36 RBC 5.04 5.30 Hgb 15.4 15.9 Hct 47.1 49.0 MCV 94 93 MCH 31 30 MCHC 33 32 RDW Coeff of Louise 14.0 Plt Count 178 160 Neut % (Auto) 64.5 Lymph % (Auto) 25.3 [place] % (Auto) 8.7 Eos % (Auto) 0.8 Baso % (Auto) 0.4 Neut # (Auto) 5.10 Lymph # (Auto) 2.00 [place] # (Auto) 0.70 Eos # (Auto) 0.10 Baso # (Auto) 0.00 Abs Immat Gran (auto) 0.00 Imm/Tot Granulo (auto) 0.3 Sodium 135 136 Potassium 3.6 3.7 Chloride 100 103 Carbon Dioxide 26 22 Anion Gap 9 11 BUN 20 20 Creatinine 1.0 1.0 Estimated Creat Clear 71.13 71.13 Estimated GFR 79 79 Glucose 179 H 136 H Calcium 8.6 8.9
[2024-03-12] MEDS: OMEPRAZOLE 20 MG CAPSULE DR 40 MG PO (09:49)
[2024-03-12] MEDS: EMPAGLIFLOZIN 10 MG TABLET PO (09:49)
[2024-03-12 11:00] VITALS: BP 161/103; PULSE 92; RESP 18; TEMP 36.8; O2SAT 93
--- NOTE | 2024-03-12 11:32 | P.ORCN_ITS ---
History of Present Illness HPI Time Seen by Provider: 11:32 Date Seen: 03/12/24 Consult date: 03/12/24 Requesting physician: Jessica Vidal Chief complaint: Fall Narrative: Lionel Carlos is a very pleasant 73 year old male past medical history significant for it diabetes mellitus, insulin dependent, hypertension, hyperlipidemia, atrial fibrillation, recurrent falls is admitted to the medical floor from the ED following another fall resulting in further fractures and will require assessment for SNF placement. Patient was recently admitted to this hospital 02/18-02/20/24 after falling in his garage resulting in a distal fibular fracture. He was placed in an orthopedic cam boot with weight-bearing as tolerated. He returns to the ED tonight after falling again. He sat on the edge of the bed, but not back far enough, slipping off the bedding and onto the floor. This resulted in increased right knee pain. CT of the knee shows femoral and tibial fractures as well as concern for MCL and PCL injuries. ED provider discussed with Orthopedic surgery, recommending a knee immobilizer, nonweightbearing of the right lower extremity, as well as continuing in the boot for the distal fibular fracture. He is admitted for evaluation for SNF placement. Currently, patient denies headache or dizziness. Denies chest pain or shortness of breath. No recent fevers. Denies abdominal pain, nausea, vomiting, diarrhea. Currently rating his lower extremity pain 2/10. He states his knee hurts much worse than his ankle. He lives with a friend in a town house. His room is up stairs, 15 steps. He has been sleeping on the main floor of the home for the last 3 weeks Review of Systems Status of ROS: Reports: 10 or more systems reviewed and unremarkable except as noted in History and below [facility] Medical History (Updated 03/12/24 @ 12:02 by Anita Ivey PA-C) BPH without urinary obstruction ?N40.0 - Benign prostatic hyperplasia without lower urinary tract symptoms (ICD-10) GERD (gastroesophageal reflux disease) ?K21.9 - Gastro-esophageal reflux disease without esophagitis (ICD-10) JOANIE (obstructive sleep apnea) ?G47.33 - Obstructive sleep apnea (adult) (pediatric) (ICD-10) Ascending aorta dilatation ?I77.810 - Thoracic aortic ectasia (ICD-10) ASHD (arteriosclerotic heart disease) ?I25.10 - Atherosclerotic heart disease of [place] coronary artery without angina pectoris (ICD-10) Atrial fibrillation ?I48.91 - Unspecified atrial fibrillation (ICD-10) Combined systolic and diastolic heart failure, NYHA class 3 ?I50.40 - Unspecified combined systolic (congestive) and diastolic (congestive) heart failure (ICD-10) Social History What is your current living situation?: I presently have a place to live Problems where you live: no known problems Problems where you live details: NA In the past 12 months, utilities in danger of being shut off: no In the past 12 mos, have been you worried that your food would run out before you had money to buy more?: never true In the past 12 mos, the food you bought just didn't last and you didn't have money to buy more?: never true Highest level of school completed/degree received: some college, no degree Smoking Status: Never smoker Do you use any of these nicotine containing products: None Second hand tobacco smoke exposure: No How often do you have a drink containing alcohol: 2-4 times a month Alcohol type: beer and wine How many standard drinks containing alcohol do you have on a typical day: 1 or 2 How often do you have six or more drinks on one occasion: Never AUDIT-C Alcohol total score: 2 Non-prescribed substance use: denies use Caffeine: Yes (cup of coffee daily, energy drinks) How often does anyone, including family, friends and others, physically hurt you : never How often does anyone, including family, friends and others, insult or talk down to you: never How often does anyone, including family, friends and others, threaten you with harm: never How often does anyone, including family, friends and others, scream or curse at you: never service: No Meds Home Medications and Allergies Home Medications ?Medication ?Instructions ?Recorded ?Confirmed ?Type albuterol sulfate 90 mcg/actuation 1 - 2 puff inhalation Q4H PRN 12/13/21 03/11/24 History aerosol inhaler atorvastatin 20 mg tablet 20 mg PO DAILY 12/13/21 03/11/24 History cholestyramine-aspartame 4 gram 1 ea PO DAILY 12/13/21 03/11/24 History oral powder for susp in a packet (Cholestyramine Light) furosemide 20 mg tablet 20 mg PO DAILY PRN weight gain 12/13/21 03/11/24 History insulin aspart U-100 100 unit/mL 12 unit subcut .with meals 12/13/21 03/11/24 History (3 mL) subcutaneous pen insulin detemir U-100 100 unit/mL 19 unit subcut HS 12/13/21 03/11/24 History (3 mL) subcutaneous pen (Levemir FlexTouch U-100 Insulin) pantoprazole 40 mg tablet,delayed 40 mg PO DAILY 12/13/21 03/11/24 History release valsartan 160 mg tablet 160 mg PO HS 12/13/21 03/11/24 History empagliflozin 10 mg tablet 10 mg PO DAILY 09/28/23 03/11/24 History (Jardiance) carvedilol 25 mg tablet 25 mg PO BID 02/20/24 03/11/24 History rivaroxaban 15 mg tablet (Xarelto) 15 mg PO QPM 02/20/24 03/11/24 History Allergies Allergy/AdvReac Type Severity Reaction Status Date / Time metformin AdvReac Verified 03/11/24 12:31 tetracycline AdvReac Verified 03/11/24 12:31 duloxetine AdvReac Uncoded 12/13/21 10:44 tamsulosin AdvReac syncopal Uncoded 12/13/21 10:44 Ortho Exam Narrative Exam Narrative: Alert and oriented x3. Patient is in no acute distress. Converses without labored breathing. Hearing is grossly intact. Ambulates with a walker in his room today with Candelaria and I guiding him, waist belt in place. He ambulated on his own accord with really no assistance with a knee immobilizer on. The immobilizer has slipped to his ankle, giving him little knee support. Examination of the right knee shows no erythema or warmth or sign of infection. Mild effusion. Tender over the medial distal femur. Nontender over the tibia. He is able to range his knee without pain. Exquisite pain with valgus stress. No significant with varus stress. CMS intact right lower extremity. No posterior knee pain. Calf is soft and nontender bilateral. Range of motion in the recliner is 0-90 degrees. Examination of the right ankle shows ecchymosis about the toes. Soft tissue edema about the dorsum of the foot and lateral ankle. Tender to palpation about the lateral ankle. Nontender medial malleolus or deltoid ligament. He is able to actively flex and extend his ankle and toes. Const Vital Signs, click to edit/add: Vital Signs - 24 hr 03/11/24 12:24 03/11/24 13:23 03/11/24 13:31 Temperature Pulse Rate 94 Pulse Rate [Pulse Oximeter] 83 Pulse Rate [Right Pulse Oximeter] Respiratory Rate 18 Blood Pressure Blood Pressure [Left Arm] Blood Pressure [Right Upper Arm] 150/107 H 147/91 H Pulse Oximetry 98 95 Oxygen Delivery Method Room Air Room Air 03/11/24 13:54 03/11/24 14:00 03/11/24 14:15 Temperature Pulse Rate 111 H 83 91 Pulse Rate [Pulse Oximeter] Pulse Rate [Right Pulse Oximeter] Respiratory Rate Blood Pressure Blood Pressure [Left Arm] Blood Pressure [Right Upper Arm] Pulse Oximetry 96 98 99 Oxygen Delivery Method 03/11/24 14:27 03/11/24 14:30 03/11/24 14:45 Temperature Pulse Rate 93 87 85 Pulse Rate [Pulse Oximeter] Pulse Rate [Right Pulse Oximeter] Respiratory Rate Blood Pressure 151/114 H Blood Pressure [Left Arm] Blood Pressure [Right Upper Arm] Pulse Oximetry 99 95 89 Oxygen Delivery Method 03/11/24 15:00 03/11/24 15:08 03/11/24 15:09 Temperature Pulse Rate 85 96 89 Pulse Rate [Pulse Oximeter] Pulse Rate [Right Pulse Oximeter] Respiratory Rate Blood Pressure 168/140 H Blood Pressure [Left Arm] Blood Pressure [Right Upper Arm] Pulse Oximetry 81 L 95 96 Oxygen Delivery Method 03/11/24 15:15 03/11/24 15:31 03/11/24 15:33 Temperature 98 F Pulse Rate 91 84 Pulse Rate [Pulse Oximeter] Pulse Rate [Right Pulse Oximeter] Respiratory Rate 20 Blood Pressure Blood Pressure [Left Arm] Blood Pressure [Right Upper Arm] Pulse Oximetry 100 96 Oxygen Delivery Method 03/11/24 15:36 03/11/24 15:48 03/11/24 15:48 Temperature 97.9 F Pulse Rate Pulse Rate [Pulse Oximeter] Pulse Rate [Right Pulse Oximeter] 92 Respiratory Rate 18 18 Blood Pressure 166/124 H Blood Pressure [Left Arm] 160/99 H Blood Pressure [Right Upper Arm] Pulse Oximetry 98 Oxygen Delivery Method Room Air Room Air 03/11/24 22:22 03/11/24 22:24 03/12/24 00:40 Temperature 98.5 F 98.5 F Pulse Rate Pulse Rate [Pulse Oximeter] Pulse Rate [Right Pulse Oximeter] 77 77 Respiratory Rate 18 18 Blood Pressure Blood Pressure [Left Arm] 140/93 H Blood Pressure [Right Upper Arm] Pulse Oximetry 98 Oxygen Delivery Method Room Air 03/12/24 02:36 03/12/24 07:00 03/12/24 11:00 Temperature 98.3 F 98.3 F Pulse Rate Pulse Rate [Pulse Oximeter] Pulse Rate [Right Pulse Oximeter] 87 59 L 92 Respiratory Rate 16 18 18 Blood Pressure Blood Pressure [Left Arm] 155/112 H 164/123 H 161/103 H Blood Pressure [Right Upper Arm] Pulse Oximetry 97 97 93 Oxygen Delivery Method Room Air Room Air Room Air Results Labs Labs: Laboratory Results - last 48 hr 03/11/24 03/12/24 19:34 06:04 WBC 7.84 7.36 RBC 5.04 5.30 Hgb 15.4 15.9 Hct 47.1 49.0 MCV 94 93 MCH 31 30 MCHC 33 32 RDW Coeff of [place] 14.0 Plt Count 178 160 Neut % (Auto) 64.5 Lymph % (Auto) 25.3 [place] % (Auto) 8.7 Eos % (Auto) 0.8 Baso % (Auto) 0.4 Neut # (Auto) 5.10 Lymph # (Auto) 2.00 [place] # (Auto) 0.70 Eos # (Auto) 0.10 Baso # (Auto) 0.00 Abs Immat Gran (auto) 0.00 Imm/Tot Granulo (auto) 0.3 Sodium 135 136 Potassium 3.6 3.7 Chloride 100 103 Carbon Dioxide 26 22 Anion Gap 9 11 BUN 20 20 Creatinine 1.0 1.0 Estimated Creat Clear 71.13 71.13 Estimated GFR 79 79 Glucose 179 H 136 H Calcium 8.6 8.9 Diagnostic results Additional Comments: CT OF THE RIGHT KNEE, WITHOUT CONTRAST CLINICAL INDICATION: Fall 2 weeks prior with persistent knee pain and abnormal radiographs. COMPARISON STUDIES: 03/11/2024. TECHNICAL: Non-contrast CT of the knee with axial images. Sagittal oblique and coronal oblique reformatted images were created. FINDINGS: OSSEOUS STRUCTURES: Paragraph general: Osteopenia. Femur: Acute nondisplaced fracture of the medial aspect of the medial femoral condyle measures 3.4 cm CC x 2.1 cm AP x 0.9 cm RL. Given the location, findings are most consistent with extension of an avulsion type fracture of the MCL. Tibia: There are 2 thin cortical avulsion fracture fragments which are minimally displaced at the insertional footprint of the PCL in the posterior aspect of the tibia that measure 1.0 cm RL x 1.3 cm AP in aggregate. No tibial plateau fracture is evident. Fibula: No fracture. Patella: No fracture. JOINT SPACE: Knee Joint: Small knee joint effusion with tiny lipohemarthrosis component. Tiny popliteal cyst. No calcific loose body. Medial Compartment: No joint space narrowing, hypertrophic change or subchondral cystic change. Lateral Compartment: No joint space narrowing, hypertrophic change or subchondral cystic change. Patellofemoral Compartment: Mild hypertrophic changes without joint space narrowing. EXTENSOR MECHANISM: Distal Quadriceps Tendon: No tear or tendinopathy. Patellar Tendon: No tear or tendinopathy. Patellar Retinaculum: Normal. Patellar Alignment: No tilt or subluxation. SOFT TISSUES: No subcutaneous edema, fluid collection or hematoma. MUSCLES AND TENDONS: Atrophy of the distal vastus medialis musculature. No intramuscular hematoma. NEUROVASCULAR STRUCTURES: No abnormality of the visualized neurovascular structures. IMPRESSION: 1. Acute nondisplaced fracture of the medial femoral condyle most consistent with an extensive avulsion type fracture of the MCL insertion. 2. Thin cortical avulsion fracture at the tibial insertion of the PCL. 3. Osteopenia. 4. Small knee joint effusion with lipohemarthrosis component. Tiny popliteal cyst. 5. Mild hypertrophic change in the patellofemoral compartment. 6. Atrophy of the vastus medialis musculature. 03/11/2024, right knee x-rays Small joint effusion. Subtle lucency in the subarticular aspect of the posterior proximal tibia on the lateral view without interruption of the overlying cortex. This could be due to a nondisplaced fracture. Similar findings were present on the prior exam. Consider further evaluation (MRI), as clinically appropriate. 02/20/2024 right ankle x-rays Fracture deformity of the lateral malleolus. [place] intact. Nondisplaced subacute appearing right distal fibular fracture. No substantial change since yesterday. Right ankle three views. COMPARISON: 02/20/2024. FINDINGS: Interval blurring of obliquely oriented nondisplaced fracture of the lateral malleolus, indicative of healing. Calcaneal enthesophytes, as before. No new osseous abnormality evident. Soft tissue swelling persists. IMPRESSION: Healing fracture of the lateral malleolus, unchanged in alignment. Assessment and Plan Assessment and plan (1) Injury of ligament of right knee: Problem comment: -s/p fall -CT shows acute nondisplaced fracture of the medial femoral condyle most consistent with an extensive avulsion type fracture of the MCL insertion. Thin cortical avulsion fracture at the tibial insertion of the PCL -front closure hinged knee brace right knee, extra-large applied -weightbear as tolerated right lower extremity with knee brace and Cam walker -pain management to include scheduled Tylenol, p.r.n. oxycodone, ice/elevation -PT/OT consults, web services architect for SNF placement Status: Acute Assessment and Plan: I discontinued the knee immobilizer, for it is slipping down his leg and not giving him the support he needs nor the ability to bend the knee. Lionel is placed into a front closure right knee brace size extra-large. He tolerated this well. The brace is a good fit. This will be easier to manage than the knee immobilizer. He can weightbear as tolerated right lower extremity with the hinged knee brace and Cam Walker on. He will need to wear the knee brace for 6 weeks and the Cam walker for 3 more weeks. I will have him see Mary Jo at the orthopedic clinic for follow-up. Candelaria and I walked with Lionel around his room with his Cam walker. He ambulated well. He states he has been lying around for the last 3 weeks not doing much. He has likely lost some strength over the last 3 weeks. Having him weightbear will be safer and allow him to keep strength as much as possible. His fractures are not in the weight-bearing portions of the knee joint, therefore ambulation as tolerated right lower extremity with brace on is appropriate. Physical therapy will work with him. He states he has not been able to shower. He would like a shower for he doesn't feel clean. I have placed an order for shower. Total time spent: Total time spent is greater than 50% in coordination of care (as documented) at patient's floor/unit and/or counseling patient: (2) Tibia fracture: Problem comment: -as noted on CT -management as above Status: Acute Total time spent: Total time spent is greater than 50% in coordination of care (as documented) at patient's floor/unit and/or counseling patient: (3) Femur fracture: Problem comment: -as noted on CT -management as above Status: Acute Total time spent: Total time spent is greater than 50% in coordination of care (as documented) at patient's floor/unit and/or counseling patient: (4) Fracture of lateral malleolus of right ankle: Problem comment: -DOI: 02/19/24.Closed treatment of a closed, acute, nondisplaced distal fibular fracture Lionel will continue to wear his CAM boot daily WITH AMBULATION. Status: Acute Assessment and Plan: Patient was supposed to have an appointment yesterday with Mary Jo for recheck/x- rays of his right lateral malleolus ankle fracture. X-rays of the right ankle taken today three views shows healing fracture of the lateral malleolus, alignment has not changed from previous films. Therefore, continue cam walker when ambulating for 3 weeks. I placed an ABD pad about the posterior heel portion of the Cam walker for this area was irritating his heel. His Cam walker is missing anterior portion. He is aware. He states it is likely at home. He will follow up with me on 03/25/24 in clinic. Lionel is in agreement the plan. All questions were answered. Note, dictation performed with voice recognition, and as a result, wrong word or sound like substitutions may have occurred. There may be areas in the script that have gone on detected. Please consider this when interpreting information found in the chart. Total time spent: Total time spent is greater than 50% in coordination of care (as documented) at patient's floor/unit and/or counseling patient: (5) Insulin dependent diabetes mellitus: Problem comment: -most recent A1c 7.5 -home insulin glargine 19 units at bedtime, will start with 10 units on admission given decreased appetite/oral intake, adjusting as necessary. Insulin sliding scale. Continue Jardiance -glucose checks ACHS Status: Acute Total time spent: Total time spent is greater than 50% in coordination of care (as documented) at patient's floor/unit and/or counseling patient: (6) Hypertension: Problem comment: -continue home medications Status: Acute Total time spent: Total time spent is greater than 50% in coordination of care (as documented) at patient's floor/unit and/or counseling patient: (7) Atrial fibrillation: Problem comment: -on chronic anticoagulation. Continue carvedilol and Xarelto. Telemetry Status: Chronic Total time spent: Total time spent is greater than 50% in coordination of care (as documented) at patient's floor/unit and/or counseling patient:
--- NOTE | 2024-03-12 11:43 | PM.DS1 ---
DS: Providers Provider Date Seen: 03/12/24 Date of admission: 03/11/24 15:44 Primary care physician: Elijah Fernandez MD Admitting Clinician: Kellee Pearce MD Consults: 03/11/24 18:54 Consult to Occupational Therapy [CONS] Routine Comment: Reason(s) for OT Consult:: Evaluate and Treat Any Restrictions?:: No Restrictions Consult to Physical Therapy [CONS] Routine Comment: Reason(s) for PT Consult:: Evaluate and Treat Any Restrictions?:: No Restrictions Consult to Physician [CONS] Routine Comment: Consulting Provider: Orthopedics, [facility] Has provider been notified: No Consult to Cable Testers Helper [CONS] Routine Comment: Reason for Consult:: Social Service Consult Attending Physician on discharge: Flaquita Coreas MD DS: Diagnosis Discharge Diagnosis (1) Injury of ligament of right knee: Status: Acute Problem details: -s/p fall -CT shows acute nondisplaced fracture of the medial femoral condyle most consistent with an extensive avulsion type fracture of the MCL insertion. Thin cortical avulsion fracture at the tibial insertion of the PCL -front closure hinged knee brace right knee, extra-large applied -weightbear as tolerated right lower extremity with knee brace and Cam walker -pain management to include scheduled Tylenol, p.r.n. oxycodone, ice/elevation -PT/OT consults, shipping services sales representative for SNF placement (2) Tibia fracture: Status: Acute Problem details: -as noted on CT -management as above (3) Femur fracture: Status: Acute Problem details: -as noted on CT -management as above (4) Fracture of lateral malleolus of right ankle: Status: Acute Problem details: -DOI: 02/19/24.Closed treatment of a closed, acute, nondisplaced distal fibular fracture Lionel will continue to wear his CAM boot daily WITH AMBULATION. (5) Insulin dependent diabetes mellitus: Status: Acute Problem details: -most recent A1c 7.5 -home insulin glargine 19 units at bedtime, will start with 10 units on admission given decreased appetite/oral intake, adjusting as necessary. Insulin sliding scale. Continue Jardiance -glucose checks ACHS (6) Hypertension: Status: Acute Problem details: -continue home medications (7) Atrial fibrillation: Status: Chronic Problem details: -on chronic anticoagulation. Continue carvedilol and Xarelto. Telemetry DS: Summary Hospital Course Hospital Course: Lionel Carlos is a 73 year old male past medical history significant for it diabetes mellitus, insulin dependent, hypertension, hyperlipidemia, atrial fibrillation, recurrent falls is admitted to the medical floor from the ED d/t femoral and tibial fractures as well as concern for MCL and PCL injuries 2/2 a fall. Patient was recently admitted to this hospital 02/18-02/20/24 after falling in his garage resulting in a distal fibular fracture. He was placed in an orthopedic cam boot with weight-bearing as tolerated. We consulted Orthopedic surgery, recommending a knee immobilizer, nonweightbearing of the right lower extremity, as well as continuing in the boot for the distal fibular fracture. PT/OT evaluated the patient and they think he can go home and does not need rehab at this time. Patient needs to follow up PCP and Orthopedics as an outpatient. Status at Discharge Functional status at discharge: uses cane/walker Overall status at discharge: patient is not back to baseline Time Spent with Patient Time attestation: Total time spent providing and/or coordinating discharge services: 50 min Exam Narrative: Exam Narrative: General: NAD Cardiovascular: RRR, S1S2. No pitting edema Pulmonary: CTA bilaterally without rhonchi, wheezes. Neurological: Alert, normal speech Extremities: RLE is in a knee immobilizer. Mild edema distally. Neurovascularly intact Skin: Warm, dry. Const: Vital Signs, click to edit/add: Vital Signs - 24 hr 03/11/24 12:24 03/11/24 13:23 03/11/24 13:31 Temperature Pulse Rate 94 Pulse Rate [Pulse Oximeter] 83 Pulse Rate [Right Pulse Oximeter] Respiratory Rate 18 Blood Pressure Blood Pressure [Le ft Arm] Blood Pressure [Ri ght Upper Arm] 150/107 H 147/91 H Pulse Oximetry 98 95 Oxygen Delivery Me thod Room Air Room Air 03/11/24 13:54 03/11/24 14:00 03/11/24 14:15 Temperature Pulse Rate 111 H 83 91 Pulse Rate [Pulse Oximeter] Pulse Rate [Right Pulse Oximeter] Respiratory Rate Blood Pressure Blood Pressure [Le ft Arm] Blood Pressure [Ri ght Upper Arm] Pulse Oximetry 96 98 99 Oxygen Delivery Me thod 03/11/24 14:27 03/11/24 14:30 03/11/24 14:45 Temperature Pulse Rate 93 87 85 Pulse Rate [Pulse Oximeter] Pulse Rate [Right Pulse Oximeter] Respiratory Rate Blood Pressure 151/114 H Blood Pressure [Le ft Arm] Blood Pressure [Ri ght Upper Arm] Pulse Oximetry 99 95 89 Oxygen Delivery Me thod 03/11/24 15:00 03/11/24 15:08 03/11/24 15:09 Temperature Pulse Rate 85 96 89 Pulse Rate [Pulse Oximeter] Pulse Rate [Right Pulse Oximeter] Respiratory Rate Blood Pressure 168/140 H Blood Pressure [Le ft Arm] Blood Pressure [Ri ght Upper Arm] Pulse Oximetry 81 L 95 96 Oxygen Delivery Me thod 03/11/24 15:15 03/11/24 15:31 03/11/24 15:33 Temperature 98 F Pulse Rate 91 84 Pulse Rate [Pulse Oximeter] Pulse Rate [Right Pulse Oximeter] Respiratory Rate 20 Blood Pressure Blood Pressure [Le ft Arm] Blood Pressure [Ri ght Upper Arm] Pulse Oximetry 100 96 Oxygen Delivery Ri thod 03/11/24 15:36 03/11/24 15:48 03/11/24 15:48 Temperature 97.9 F Pulse Rate Pulse Rate [Pulse Oximeter] Pulse Rate [Right Pulse Oximeter] 92 Respiratory Rate 18 18 Blood Pressure 166/124 H Blood Pressure [Le ft Arm] 160/99 H Blood Pressure [Ri ght Upper Arm] Pulse Oximetry 98 [facility] 03/11/24 22:22 03/11/24 22:24 03/12/24 00:40 Temperature 98.5 F 98.5 F Pulse Rate Pulse Rate [Pulse Oximeter] Pulse Rate [Right Pulse Oximeter] 77 77 Respiratory Rate 18 18 Blood Pressure Blood Pressure [Le ft Arm] 140/93 H Blood Pressure [Ri ght Upper Arm] Pulse Oximetry 98 Oxygen Delivery Ri thod Room Air 03/12/24 02:36 03/12/24 07:00 03/12/24 11:00 Temperature 98.3 F 98.3 F Pulse Rate Pulse Rate [Pulse Oximeter] Pulse Rate [Right Pulse Oximeter] 87 59 L 92 Respiratory Rate 16 18 18 Blood Pressure Blood Pressure [Le ft Arm] 155/112 H 164/123 H 161/103 H Blood Pressure [Ri ght Upper Arm] Pulse Oximetry 97 97 93 Oxygen Delivery Me od Room Air Room Air Room Air DS: Data Data Completed and Pending Labs on day of discharge: Labs from last 24 hours 03/12/24 03/11/24 06:04 19:34 WBC 7.36 7.84 RBC 5.30 5.04 Hgb 15.9 15.4 Hct 49.0 47.1 MCV 93 94 MCH 30 31 MCHC 32 33 RDW Coeff of Louise 14.0 Plt Count 160 178 Neut % (Auto) 64.5 Lymph % (Auto) 25.3 [place] % (Auto) 8.7 Eos % (Auto) 0.8 Baso % (Auto) 0.4 Neut # (Auto) 5.10 Lymph # (Auto) 2.00 [place] # (Auto) 0.70 Eos # (Auto) 0.10 Baso # (Auto) 0.00 Abs Immat Gran (auto) 0.00 Imm/Tot Granulo (auto) 0.3 Sodium 136 135 Potassium 3.7 3.6 Chloride 103 100 Carbon Dioxide 22 26 Anion Gap 11 9 BUN 20 20 Creatinine 1.0 1.0 Estimated Creat Clear 71.13 71.13 Estimated GFR 79 79 Glucose 136 H 179 H Calcium 8.[address]- Other: Radiologist's impression: Right knee x-ray: Attestation: I have reviewed the pertinent imaging results. Radiologist's impression: Small joint effusion. Subtle lucency in the subarticular aspect of the posterior proximal tibia on the lateral view without interruption of the overlying cortex. This could be due to a nondisplaced fracture. Similar findings were present on the prior exam. Consider further evaluation (MRI), as clinically appropriate. Dictated by Robbin Rizzo MD @ 03/11/2024 1:23:07 PM ----- ADDENDUM ----- ADDENDUM: Alternatively, CT could be performed for further evaluation. Of note, on review, there is a possible lipohemarthrosis on the prior exam of 02/19/2024 suggesting an intra-articular fracture. This was discussed with Dr. Gavin at 1:26 p.m. SECRETARY. Right knee CT: Attestation: I have reviewed the pertinent imaging results. Radiologist's impression: OSSEOUS STRUCTURES: Paragraph general: Osteopenia. Femur: Acute nondisplaced fracture of the medial aspect of the medial femoral condyle measures 3.4 cm CC x 2.1 cm AP x 0.9 cm RL. Given the location, findings are most consistent with extension of an avulsion type fracture of the MCL. Tibia: There are 2 thin cortical avulsion fracture fragments which are minimally displaced at the insertional footprint of the PCL in the posterior aspect of the tibia that measure 1.0 cm RL x 1.3 cm AP in aggregate. No tibial plateau fracture is evident. Fibula: No fracture. Patella: No fracture. JOINT SPACE: Knee Joint: Small knee joint effusion with tiny lipohemarthrosis component. Tiny popliteal cyst. No calcific loose body. Medial Compartment: No joint space narrowing, hypertrophic change or subchondral cystic change. Lateral Compartment: No joint space narrowing, hypertrophic change or subchondral cystic change. Patellofemoral Compartment: Mild hypertrophic changes without joint space narrowing. EXTENSOR MECHANISM: Distal Quadriceps Tendon: No tear or tendinopathy. Patellar Tendon: No tear or tendinopathy. Patellar Retinaculum: Normal. Patellar Alignment: No tilt or subluxation. SOFT TISSUES: No subcutaneous edema, fluid collection or hematoma. MUSCLES AND TENDONS: Atrophy of the distal vastus medialis musculature. No intramuscular hematoma. NEUROVASCULAR STRUCTURES: No abnormality of the visualized neurovascular structures. IMPRESSION: 1. Acute nondisplaced fracture of the medial femoral condyle most consistent with an extensive avulsion type fracture of the MCL insertion. 2. Thin cortical avulsion fracture at the tibial insertion of the PCL. 3. Osteopenia. 4. Small knee joint effusion with lipohemarthrosis component. Tiny popliteal cyst. 5. Mild hypertrophic change in the patellofemoral compartment. 6. Atrophy of the vastus medialis musculature. Discharge Plan Discharge Disposition: Home, Self-Care Date of Admission: 03/11/24 15:44 Attending Provider on Discharge: Flaquita Coreas Consulting Providers: Richard Medrano; Mary Jo Galarza; Jalen Pearce; Anita Ivey; Darrell Sandoval; Osvaldo Perez; Elijah Smith Primary Care Provider: Elijah Fernandez Condition: Stable Anticipated Discharge Date/Time: 03/12/24 11:56 Discharge Medications: New acetaminophen 325 mg Tablet 650 mg PO Q8H PRN (Reason: Breakthrough Pain) 14 Days Qty: 84 0RF docusate sodium 100 mg Capsule 100 mg PO BID PRN (Reason: Constipation) Qty: 10 0RF oxycodone 5 mg Tablet 2.5 mg PO Q6H PRN (Reason: Pain) 3 Days Qty: 12 0RF Continued carvedilol 25 mg tablet 25 mg PO BID Patient Comments: on hold since 02/13/24 appt Xarelto 15 mg tablet 15 mg PO QPM atorvastatin 20 mg tablet 20 mg PO DAILY pantoprazole 40 mg tablet,delayed release (DR/EC) 40 mg PO DAILY albuterol sulfate 90 mcg/actuation HFA aerosol inhaler 1 - 2 puff INHALATION Q4H PRN valsartan 160 mg tablet 160 mg PO HS insulin aspart U-100 100 unit/mL (3 mL) insulin pen 12 unit SUBCUT .with meals cholestyramine-aspartame [Cholestyramine Light] 4 gram powder in packet 1 ea PO DAILY Patient Comments: MIX 1 PACKET IN LIQUID THEN TAKE BY MOUTH 2 TIMES DAILY WITH MEALS Levemir FlexTouch U100 Insulin 100 unit/mL (3 mL) insulin pen 19 unit SUBCUT HS Patient Comments: INJECT 19 UNITS SUBCUTANEOUS EVERY NIGHT AT BEDTIME furosemide 20 mg tablet 20 mg PO DAILY PRN (Reason: weight gain) Rx Instructions: if >290# Jardiance 10 mg tablet 10 mg PO DAILY Discharge Orders: Discharge Order (Routine); Ordered 03/12/24 Ordered By: Flaquita Coreas Patient Education: Leg Fracture (GEN) Additional Instructions: Please make an appointment for Lionel with [facility] in 1 to 2 weeks. Activity Level: Weight Bearing as Tolerated Activity Detail: Cam Walker right lower extremity while ambulating times 3 weeks, hinged knee brace, right knee while ambulating times 6 weeks Discharge Diet: Heart Healthy (2 gm sodium, low fat) Follow Up Appointments: Elijah Fernandez MD [Primary Care Provider] - Forms: [facility] Instructions
--- NOTE | 2024-03-12 11:45 | CRLHL7_ITS ---
For Patients: As a result of the Century Cures Act, medical imaging exams and procedure reports are released immediately into your electronic medical record. You may view this report before your referring provider. If you have questions, please contact your health care provider. INDICATION: Lateral malleolus fracture, right. TECHNIQUE: Right ankle three views. COMPARISON: 02/20/2024. FINDINGS: Interval blurring of obliquely oriented nondisplaced fracture of the lateral malleolus, indicative of healing. Calcaneal enthesophytes, as before. No new osseous abnormality evident. Soft tissue swelling persists. IMPRESSION: Healing fracture of the lateral malleolus, unchanged in alignment. Dictated by Chito Weller MD @ 03/12/2024 2:55:18 PM (Electronically Signed)
--- NOTE | 2024-03-12 12:25 | REH.OT ---
OT order received. Pt. was setup w/ AE/DME on last stay and current arrangement is working well for him per his report. Pt. is not interested in any additional OT as part of his homecare services when he returns home. Pt. will be discharging home today and resuming homecare PT.
--- NOTE | 2024-03-12 12:54 | PC.NURSE ---
PATIENT UPDATED NURSING THAT HE DOES NOT WANT THE PRESCRIPTIONS FOR TYLENOL, COLACE AND OXYCODONE. CALLED [facility] AND CANCELLED THE PRESCRIPTIONS.
--- NOTE | 2024-03-12 13:12 | PC.SOCIAL ---
Discharge planning: Met with pt for social work assessment and discharge planning. Pt lives with a room mate Mariana Walton in his two level home in [place], [place]. Pt states he wanted to go to a jail facility but is not interested in paying privately for this and does not meet criteria for a Medicare covered stay at a facility. Pt -was hospitalized about three weeks ago for one night at this hospital and discharged home with home care PT/OT and home health aid after that visit. Per pt, he cancelled the home health aid and OT and is only willing to accept a resumption of home care for the physical therapy. Pt states he is unable to climb the 15 stairs to his bedroom at home, so plans to stay on the first floor where he has access to a bathroom. Pt states he is unsure of how he will make meals and does not know if his room mate can help him. Provided pt with information sheet with [employer] and Home [employer]ivered [employer] information. Pt's main support is his room mate who works outside the home as a transportation provider. Pt states she is working currently and may not be available to pick him up for four hours. Pt states he will contact her and let her know he is ready for discharge. Pt shared that he is unpleased with having to return to the hospital and is questioning why some things were not done at his initial hospital visit a few weeks ago. Provided pt with written information on the pt advocate and how to contact her for concerns. Pt states he is not interested in contacting the patient advocate at this time. Called [facility] [phone] who is providing services. They are able to resume home care with the discharge orders being faxed to [phone] with resumption of home care PT orders. [facility] does not need a new face to face sheet sent as this is for resumption of services already being provided.
[2024-03-12 15:00] VITALS: RESP 18
--- NOTE | 2024-03-12 15:16 | PC.NURSE ---
Patient alert and oriented, cooperative, able to follow directions, tolerating diet, up with A1 walker and belt with cam boot and knee brace, patient rating pain 2/10 at rest in right leg and this does increase to a 5-6/10 with movement but is declining pain medication, declined insulin this afternoon that little won't do much, patient is being discharged to home with a roommate, patient verbalized understanding of discharge information and had no further questions at this time, waiting on a ride for which patient states will be here to pick him up around [phone]. Patient is planning to eat dinner here yet tonight.
== END 2024-03-12 18:56 | disposition home or self-care (01) ==
LOC: ED 15:19 → MEDSURG 15:44
PROVIDERS: Physician Assistant; Admitting Provider Family Medicine; Emergency Provider Emergency Medicine; PCP Surgery; Visit Provider Family Medicine
DX: S89.91XA Unspecified injury of right lower leg, initial encounter (principal); S82.201A Unspecified fracture of shaft of right tibia, initial encounter for closed fracture; S82.831A Other fracture of upper and lower end of right fibula, initial encounter for closed fracture; S72.91XA Unspecified fracture of right femur, initial encounter for closed fracture; W19.XXXA Unspecified fall, initial encounter; M25.461 Effusion, right knee; M25.561 Pain in right knee; E11.8 Type 2 diabetes mellitus with unspecified complications; Z79.4 Long term (current) use of insulin; I48.91 Unspecified atrial fibrillation; Z79.01 Long term (current) use of anticoagulants; I10 Essential (primary) hypertension; I25.10 Atherosclerotic heart disease of native coronary artery without angina pectoris; E78.5 Hyperlipidemia, unspecified; R29.6 Repeated falls; R60.9 Edema, unspecified; M85.80 Other specified disorders of bone density and structure, unspecified site; K21.9 Gastro-esophageal reflux disease without esophagitis; N40.0 Benign prostatic hyperplasia without lower urinary tract symptoms; G47.33 Obstructive sleep apnea (adult) (pediatric)
CPT/HCPCS: 36415; 73562; 73610; 73700; 80048; 82947; 82962; 85025; 85027; 96372; 97116; 97161; 97530; 99284; 99285; A9270; G0378; J1815

== ENCOUNTER 2024-04-29 19:30 | Outpatient (CLI) | payer MEDICARE, BC, SELFPAY | END 2024-04-29 19:31 | disposition home or self-care (01) | LOC: AMB 05-03 07:20 | PROVIDERS: PCP Surgery; Visit Provider Family Medicine | DX: M25.551 Pain in right hip (principal) | CPT/HCPCS: A0425; A0429 ==

== ENCOUNTER 2024-04-29 20:06 | Observation (INO) | payer MEDICARE, BC, SELFPAY ==
[2024-04-29] VITALS (19 sets, daily range): BP systolic 131–171; BP diastolic 94–112; PULSE 84–102; RESP 14–18; TEMP 36.4; O2SAT 86–99; BMI 38.0
--- OUTSIDE RECORDS SUMMARY | 2024-04-29 20:08 | XMS_ITS | Continuity of Care Document ---
Author Name NwHIN User [id number] llowed Address Unknown Organization Unknown Address Unknown Procedures FILTER APPLIED:Only known Procedures with Onset Date within the last 5 years Procedure Date Procedure Provider Additiona jarocho Information Status CONTROL OF NOSEBLEED (96066) Completed EMERGENCY DEPT VISIT LOW MDM (55392) Completed COMPREHEN METABOLIC PANEL (04227) Completed URINALYSIS AUTO W/SCOPE (64379) Completed ASSAY OF LACTIC ACID (77149) Completed ASSAY OF LIPASE (81264) Completed ASSAY OF MAGNESIUM (84463) Completed COMPLETE CBC W/AUTO DIFF WBC (20131) Completed FIBRIN DEGRADATION QUANT (55295) Completed C-REACTIVE PROTEIN (66869) Completed RESP VIRUS 3-5 TARGETS (86931) Completed ASSAY OF TROPONIN QUANT (11251) Completed ELECTROCARDIOGRAM TRACING (34430) Completed HYDRATE IV INFUSION ADD-ON (01723) Completed THER/PROPH/DIAG INJ IV PUSH (33475) Completed EMERGENCY DEPT VISIT HI MDM (92038) Completed X-RAY EXAM CHEST 1 VIEW (30075) Completed EMERGENCY DEPT VISIT MOD MDM (83056) Completed ROUTINE VENIPUNCTURE (76805) Completed Encounters FILTER APPLIED:Only known Encounters with Admission Date within the last 5 years Encounter Location Admission Discharge Billing Code Computer Training Specialist [facility]
--- OUTSIDE RECORDS SUMMARY | 2024-04-29 20:08 | XMS_ITS | Clinical Summary ---
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 1 Each 4 04/27/20 22 Active diclofenac topical (VOLTAREN) 1 % gelIndications:Ch ronic pain of both knees Apply 4 g topically to affected area(s) four times daily. 100 g 1 04/27/20 22 Active pen needle, diabetic (BD Insulin Pen Needle UF) 31 gauge x 5/16Indications: Type 2 diabetes mellitus with diabetic neuropathy, with long-term current use of insulin (HC) USE FOR ADMINISTERING INSULIN 400 Each 3 01/28/20 23 Active atorvastatin (LIPITOR) 20 mg tabletIndications :Hyperlipidemia, unspecified hyperlipidemia type Take 1 Tablet (20 mg) by mouth at bedtime. 90 Tablet 3 09/06/19 24 Active blood sugar diagnostic (Contour Next Test Strips) stripIndications: Type 2 diabetes mellitus with diabetic neuropathy, with long-term current use of insulin (HC) USE TO TEST FOUR TIMES DAILY 400 Each 3 09/06/19 24 Active empagliflozin (JARDIANCE) 10 mg tabletIndications :Type 2 diabetes mellitus with diabetic neuropathy, with long-term current use of insulin (HC) Take 1 Tablet (10 mg) by mouth once daily. 90 Tablet 3 09/06/19 24 Active rivaroxaban (Xarelto) 15 mg tab tabletIndications :Longstanding persistent atrial fibrillation (HC) Take 1 Tablet (15 mg) by mouth once daily with evening meal. 90 Tablet 3 09/30/19 24 Active cholestyramine-as partame (QUESTRAN LIGHT) 4 gram powderIndications :Chronic diarrhea 1 packet daily by mouth away from other medications 693 g 2 10/27/19 24 Active carvediloL (Coreg) 25 mg tabletIndications :Chronic diastolic heart failure (HC) Take 1 Tablet (25 mg) by mouth two times daily with meals. 180 Tablet 3 10/29/19 24 Active valsartan (DIOVAN) 160 mg tabletIndications :Chronic diastolic heart failure (HC) Take 1 Tablet (160 mg) by mouth once daily. 90 Tablet 3 10/29/19 24 Active furosemide (LASIX) 20 mg tabletIndications :Acute combined systolic and diastolic CHF, NYHA class 3 (HC) TAKE ONCE DAILY IF WEIGHT IS>290, HOLD IF WEIGHT IS<290 90 Tablet 11/16/19 24 Active pantoprazole (PROTONIX) 40 mg delayed-release tabletIndications :Chronic GERD Take 1 Tablet (40 mg) by mouth once daily before a meal. 90 Tablet 2 11/23/19 24 Active insulin aspart, U-100, (NOVOLOG FLEXPEN) 100 unit/mL (3 mL) penIndications:Ty pe 2 diabetes mellitus with diabetic neuropathy, with long-term current use of insulin (HC) INJECT 12 UNITS UNDER THE SKIN TWICE DAILY WITH MEALS 60 mL 3 02/13/20 24 Active Lantus Solostar U-100 Insulin 100 unit/mL (3 mL) penIndications:Ty pe 2 diabetes mellitus with diabetic neuropathy, with long-term current use of insulin (HC) Inject 19 units subcutaneous before bedtime. Product desired: LANTUS SOLOSTAR 15 mL 3 04/16/20 24 Active insulin detemir U-100 (LEVEMIR) 100 unit/mL (3 mL) penIndications:Ty pe 2 diabetes mellitus with diabetic neuropathy, with long-term current use of insulin (HC) Inject 19 units subcutaneous before bedtime. 18 mL 3 02/13/20 24 024 Discontin ued(*Avai lability/ Formulary change/Co st of medicatio n) Active Problems Problem Noted Date Diagnosed Date [...] Encounters Date Type Department Care Team Description 04/28/2024 Telephone [facility] [address] [place] [address] Mary Jo Mix MD Results (Thyroid US) 04/27/2024 1:00 PM DIRECTOR MERIT SYSTEM Ancillary Procedure [facility] [address] [place] [address] Arrived 04/27/2024 Travel 04/09/[address] [facility] [place] [address] Elijah Fernandez MD Medication Management (insulin detemir U-100 (LEVEMIR) 100 unit/mL (3 mL) pen) 04/07/2024 Nurse Triage [facility] [address] [facility] [place] [address] Elijah Fernandez MD Leg Injury 03/31/2024 3:40 PM DIRECTOR MERIT SYSTEM Office Visit [place] [address] [address] [facility] [place] [address] Elijah Fernandez MD Diabetes; Blood Pressure 03/31/2024 Travel 03/24/2024 Telephone [facility] [address] [facility] [place] [address] Elijah Fernandez MD Appointment Request 03/23/20[address] [facility] [place] [address] Mary Jo Mix MD Testing (Needs repeat 1 year thyroid US to follow up nodule) 03/12/2024 Orders Only [facility] Scanner 1 scan: (1-Ord) [facility], ANKLE RT MIN 3V, 03/12/2024 03/12/2024 Telephone [facility] [address] [place] [address] Elijah Fernandez MD Appointment Request (Diabetic visit reschedule ) 03/11/2024 Orders Only [facility] Scanner 1 scan: (1-Ord) [facility], XR KNEE RT 3V, 03/11/2024 03/11/2024 Orders Only [facility] Scanner 1 scan: (1-Ord) [facility], KNEE RT 3V, 03/11/2024 03/11/2024 Orders Only [facility] Scanner 1 scan: (1-Ord) [place], RT KNEE WO CONTRAST, 03/11/2024 02/25/2024 8:50 AM CDT Office Visit [facility] [address] [facility] [place] [address] Elijah Fernandez MD Hospital F/U (Last Saturday in the er for a fall. Broke his ankle and sprained the knee) 02/25/2024 Travel 02/20/2024 Orders Only [facility] Scanner 1 scan: (1-Ord) [place], ANKLE RT MIN 3V, 02/20/2024 02/20/2024 Orders Only [facility] Scanner 1 scan: (1-Ord) [facility], XR ANKLE RIGHT, 02/20/2024 02/19/2024 Orders Only [facility] Scanner 1 scan: (1-Ord) [facility], ANKLE RT MIN 3 VIEW, 02/19/2024 02/19/2024 Orders Only [facility] Scanner 1 scan: (1-Ord) [place], XR KNEE RT 2V, 02/19/2024 02/13/2024 12:45 PM CDT Office Visit [facility] [address] [facility] [place] [address] Elijah Fernandez MD Follow Up 02/13/2024 Travel from Last 3 Months Immunizations Name [...] weeks, prior history of heavy alcohol use [facility] Utilities Answer Date Recorded Do you have trouble paying f or utilities (for example, heat, electricity, water, phone)? Yes 01/14/2024 PHQ-2 Answer Date Recorded PHQ-2 TOTAL SCORE [...] Recorded Sex Assigned at Not on file Legal Sex Male 6:44 AM DIRECTOR MERIT SYSTEM Gender Identity Not on file Sexual Orientation Not on file Occupation Industry Job Start Date Job End Date Disabled Not on file Not on file Not on file Obstetrics History Last Filed Vital Signs Vital Sign Reading Time Taken Comments Blood Pressure 144/90 03/31/2024 4:06 PM DIRECTOR MER[employer] SYSTEM Pulse 92 03/31/2024 4:06 PM DIRECTOR [employer] SYSTEM Temperature 36.5 C (97.7 F) 12/09/2023 10:18 AM CDT Respiratory Rate 22 04/06/2021 2:12 PM DIRECTOR MERIT SYSTEM Oxygen Saturation 100% 03/31/2024 4:03 PM DIRECTOR MERIT SYSTEM Inhaled Oxygen Concentration - - Weight 128.9 kg (284 lb 3.2 oz) 02/13/2024 1:02 PM CDT Height 182.9 cm (6' 0.01) 12/23/2023 1:16 PM CD T Body Mass Index 38.54 12/23/2023 1:16 PM CDT Plan of Treatment Upcoming Encounters Date Type Department Care Team (Late st Contact Info) Description 06/30/2024 1:10 PM DIRECTOR MERIT SYSTEM Office Visit [facility] [address] [place] [address] Elijah Fernandez MD [address] [place] [address] Health Maintenance Due Date Last Done Comments [...] Additional history exists Lipids for age 45-75 03/31/2029 03/31/2024, 02/20/2023, 11/20/2022, Additional history exists Tdap Completed 06/22/2014, 10/04/2005 Pneumococcal series for age 50+ Completed 02/13/2016, 02/08/2015, 08/02/2004 Hepatitis C screening for ag e 18-79 Completed 11/20/2016 Zoster (shingles) series for age 50+ Completed 12/10/2017, 09/25/2017, 02/19/2012 RSV vaccine for adults or Completed 02/04/2023 Influenza for age 65+ Completed 01/14/2024 , 01/25/2023, 02/25/2022, Additional history exists COVID-19 vaccine series Completed 01/23/20, 02/04/2023, 02/25/2022, Additional history exists Procedures Procedure Name Priority Date/Time Associated Diagnosis Comments US THYROID/PARATHYROID Routine 1:20 PM DIRECTOR MERIT SYSTEM Thyroid nodule BASIC METABOLIC PANEL Routine 03/31/2024 3:39 PM DIRECTOR MERIT SYSTEM HTN (hypertension) LIPID PANEL Routine 03/31/2024 3:39 PM DIRECTOR MERIT SYSTEM Hyperlipidemia, unspecified hyperlipidemia type PSA TOTAL Routine 03/31/2024 3:39 PM DIRECTOR MERIT SYSTEM Screening for prostate cancer HEMOGLOBIN A1C MONITORING (POCT) Routine 03/31/2024 3:38 PM DIRECTOR MERIT SYSTEM Type 2 diabetes mellitus with diabetic neuropathy, with long-term current use of insulin (HC) SCAN-RADIOLOGY REPORT 03/12/2024 12:00 AM DIRECTOR MERIT SYSTEM SCAN-RADIOLOGY REPORT 03/11/2024 12:00 AM DIRECTOR MERIT SYSTEM SCAN-RADIOLOGY REPORT 03/11/2024 12:00 AM DIRECTOR MERIT SYSTEM SCAN-CT INTERPRETATION 12:00 AM DIRECTOR MERIT SYSTEM SCAN-RADIOLOGY REPORT 02/20/2024 12:00 AM CDT SCAN-RADIOLOGY REPORT 02/20/2024 12:00 AM CDT SCAN-RADIOLOGY REPORT 02/19/2024 12:00 AM CDT SCAN-RADIOLOGY REPORT 02/19/2024 12:00 AM CDT COLONOSCOPY DIAGNOSTIC Routine 0 12:12 PM DIRECTOR MERIT SYSTEM History of colon polyps ANTI HCV Routine 11/20/2016 12:25 PM CDT Need for hepatitis C screening test from Last 3 Months or Most Recently Relevant to Health Maintenance Results * US THYROID/PARATHYROID (04/27/2024 1:20 PM DIRECTOR MERIT SYSTEM) Anatomical Region Laterality Modality THYROID Ultrasound 04/27/2024 3:06 PM DIRECTOR MERIT SYSTEM Impressions 04/27/2024 3:06 PM DIRECTOR MERIT SYSTEM Stable size and morphology of left-sided thyroid nodules. Dictated by Matthew Muhammad MD @ 04/27/2024 3:06:11 PM (Electronically Signed) Narrative 04/27/2024 3:06 PM DIRECTOR MERIT SYSTEM For Patients: As a result of the Cures Act, medical imaging exams and procedure reports are released immediately into your electronic medical record. You may view this report before your referring provider. If you have questions, please contact your health care provider. INDICATION: Thyroid nodule COMPARISON: 04/15/2023 TECHNIQUE: Alexander scale and color Doppler images were acquired of the thyroid gland. FINDINGS: Isthmus measures 3.2 millimeters. Heterogeneous solid and cystic nodule within the left thyroid lobe measures 1.3 x 1.1 x 1.0 cm, previously measuring 1.3 x 0.8 x 1.1 cm, TR 3. Solid and cystic nodule left thyroid lobe measures 3.4 x 1.8 x 2.0 cm, previously measuring 3.3 x 1.8 x 2.1 cm, TR 3. The right lobe measures 3.3 x 1.2 x 2.0 cm and the left lobe measures 4.4 x 2.0 x 2.8 cm in size. The color Doppler images demonstrate normal vascularity. There is no evidence of cervical lymphadenopathy or parathyroid mass. Procedure Note Matthew Muhammad MD - 04/27/2024 For Patients: As a result of the Cures Act, medical imagingexams and procedure reports are released immediately into your electronicmedical record. You may view this report before your referring provider.If you have questions, please contact your health care provider. INDICATION: Thyroid nodule COMPARISON: 04/15/2023 TECHNIQUE: Alexander scale and color Doppler images were acquired of the thyroid gland. FINDINGS: Isthmus measures 3.2 millimeters. Heterogeneous solid and cystic nodulewithin the left thyroid lobe measures 1.3 x 1.1 x 1.0 cm, previouslymeasuring 1.3 x 0.8 x 1.1 cm, TR 3. Solid and cystic nodule left thyroidlobe measures 3.4 x 1.8 x 2.0 cm, previously measuring 3.3 x 1.8 x 2.1 cm,TR 3. The right lobe measures 3.3 x 1.2 x 2.0 cm and the left lobemeasures 4.4 x 2.0 x 2.8 cm in size. The color Doppler images demonstratenormal vascularity. There is no evidence of cervical lymphadenopathy orparathyroid mass. IMPRESSION: Stable size and morphology of left-sided thyroid nodules. Dictated by Matthew Muhammad MD @ 04/27/2024 3:06:11 PM (Electronically Signed) Mary Jo Mix MD US Final Re sult * PSA TOTAL (03/31/2024 3:39 PM DIRECTOR MERIT SYSTEM) PSA, TOTAL 1.05 < OR = 4.00 ng/mL [employer] [facility] [place] Comment: The total PSA value from this assay system is standardized against the WHO standard. The test result will be approximately 20% lower when compared to the equimolar-standardized total PSA (Jesi Henry). Comparison of serial PSA results should be interpreted with this fact in mind. This test was performed using the Siemens chemiluminescent method. Values obtained from different assay methods cannot be used interchangeably. PSA levels, regardless of value, should not be interpreted as absolute evidence of the presence or absence of disease. Blood BLOOD SPECIMEN / Unknown 03/31/2024 3:39 PM DIRECTOR MERIT SYSTEM 03/31/2024 3:48 PM DIRECTOR MERIT SYSTEM Elijah Fernandez MD CHEMISTRY Final Resu lt [facility] [address] [place] [address], [facility] [address] [place] [address] * (ABNORMAL) LIPID PANEL (03/31/2024 3:39 PM DIRECTOR MERIT SYSTEM) Pathologist [facility] CHOLESTEROL, TOTAL 121 <200 mg/dL [facility] [place] HDL CHOLESTEROL 46 > OR = 40 mg/dL [employer] [facility] [place] TRIGLYCERIDES 154(H) <150 mg/dL [facility] [place] LDL-CHOLESTEROL 51 mg/dL (calc) [facility] [place] Comment: Reference range: <100 Desirable range <100 mg/dL for primary prevention; <70 mg/dL for patients with CHD or diabetic patients with > or = 2 CHD risk factors. LDL-C is now calculated using the Devorah calculation, which is a validated novel method providing better accuracy than the Friedewald equation in the estimation of LDL-C. Jori SS et al. EMMA. 2013;310(40): 6904-3117 (http://education.SigFig/faq/NYQ186) CHOL/HDLC RATIO 2.6 <5.0 (calc) [facility] [place] NON HDL CHOLESTEROL 75 <130 mg/dL (calc) [employer] [facility] [place] Comment: For patients with diabetes plus 1 major ASCVD risk factor, treating to a non-HDL-C goal of <100 mg/dL (LDL-C of <70 mg/dL) is considered a therapeutic option. Blood BLOOD SPECIMEN / Unknown 03/31/2024 3:39 PM DIRECTOR MERIT SYSTEM 03/31/2024 3:48 PM DIRECTOR MERIT SYSTEM us Elijah Fernandez MD CHEMISTRY Final Resu lt [facility] [address] [place] [address], [facility] [address] [place] [address] * (ABNORMAL) BASIC METABOLIC PANEL (03/31/2024 3:39 PM DIRECTOR MERIT SYSTEM) GLUCOSE 138(H) 65 - 99 mg/dL [employer] [facility] [place] Comment: Fasting reference interval For someone without known diabetes, a glucose value >125 mg/dL indicates that they may have diabetes and this should be confirmed with a follow-up test. UREA NITROGEN (BUN) 19 7 - 25 mg/dL [facility] CREATININE 1.37(H) 0.70 - 1.28 mg/dL [facility] EGFR 54(L) > OR = 60 mL/min/1.7 3m2 [facility] BUN/CREATININE RATIO 14 6 - 22 (calc) [facility] SODIUM 140 135 - 146 mmol/L [facility] POTASSIUM 4.0 3.5 - 5.3 mmol/L [facility] CHLORIDE 106 98 - 110 mmol/L [facility] CARBON DIOXIDE 23 20 - 32 mmol/L [facility] ELECTROLYTE BALANCE 11 7 - 17 mmol/L (calc) [facility] CALCIUM 8.6 8.6 - 10.3 mg/dL [facility] Blood BLOOD SPECIMEN / Unknown 03/31/2024 3:39 PM DIRECTOR MERIT SYSTEM 03/31/2024 3:48 PM DIRECTOR MERIT SYSTEM Elijah Fernandez MD CHEMISTRY Final Resu lt [facility] [employer] [facility] [address] [place] [address], [place] [phone] [facility] [address] [place] [address] * (ABNORMAL) POCT Hemoglobin A1C Monitoring (03/31/2024 3:38 PM DIRECTOR MERIT SYSTEM) POC HEMOGLOBIN A1C 6.1(H) <6.0 % OF TOTAL HGB [facility] Comment: Any point of care results exhibiting inconsistency with the patient's clinical status should be repeated using a different testing method. Blood BLOOD SPECIMEN / Unknown 03/31/2024 3:38 PM DIRECTOR MERIT SYSTEM 03/31/2024 3:39 PM DIRECTOR MERIT SYSTEM Elijah Fernandez MD CHEMISTRY Final Resu lt [facility] [address] [place] [address], [place] [phone] [facility] [address] [place] [address] * SCAN-RADIOLOGY REPORT (03/12/2024 12:00 AM DIRECTOR MERIT SYSTEM) Only the most recent of7 resultswithin the time period is included. Anatomical Region Laterality Modality Other us Scanner OTHER Final Result * SCAN-CT INTERPRETATION (03/11/2024 12:00 AM DIRECTOR MERIT SYSTEM) Anatomical Region Laterality Modality Other us Scanner OTHER Final Result * COLONOSCOPY DIAGNOSTIC (03/29/2020 12:12 PM DIRECTOR MERIT SYSTEM) us Jori Siddiqui MD GI PROCEDURE ORD Final Re sult * ANTI HCV (11/20/2016 12:25 PM CDT) HEPATITIS C ANTIBODY Non-Reacti ve Non-Reacti ve 11/20/2016 8:43 PM CDT [facility] Blood BLOOD SPECIMEN / Unknown Venipuncture / Unknown 11/20/2016 12:25 PM CDT 11/20/2016 1:51 PM CDT Narrative [facility] - 11/20/2016 8:43 PM CDT Antibodies to HCV not detected; does not exclude the possibility of exposure to HCV. us Elijah Fernandez MD SEND OUTS Final Resu lt [facility] 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
--- NOTE | 2024-04-29 20:19 | ED_ITS ---
HPI - Fall General Time Seen by Provider: 20:19 Date Seen: 04/29/24 Chief Complaint: Fall/Minor Trauma Stated Complaint: fall Time Seen by Provider: 04/29/24 20:19 Source: patient and RN notes reviewed Mode of arrival: ambulatory Limitations: no limitations History of Present Illness HPI Narrative: Mr. Carlos is a 73-year-old gentleman with a history of chronic anticoagulation secondary to AFib with Eliquis, history of diabetes, history of right knee and ankle fracture fracture a few months ago per patient who is brought to the emergency room by EMS for evaluation regarding right leg and hip pain. Patient states that he was at his desk and when he stood up his right knee gave out. This has happened to him twice in the past and is because he had a broken knee which [facility] missed twice. He fell to the side landing onto his right hip today and was on the floor for approximately an hour. EMS was called and he was transported here. No meds were given. Here in the emergency room patient points to the lateral distal aspect of the femur as causing most of his pain. He is having periods of spasm and states he wishes he could move but he has some much pain when he tries to move. He denies hitting his head, neck pain, back pain or difficulty breathing. He According to the chart he also has a history of GERD, JOANIE, ascending aortic dil atation, heart disease, femur fracture, tibia fracture. Related Data Home Medications ?Medication ?Instructions ?Recorded ?Confirmed albuterol sulfate 90 mcg/actuation 1 - 2 puff inhalation Q4H PRN 12/13/21 04/30/24 aerosol inhaler atorvastatin 20 mg tablet 20 mg PO 12/13/21 04/30/24 cholestyramine-aspartame 4 gram 1 ea PO DAILY 12/13/21 04/30/24 oral powder for susp in a packet (Cholestyramine Light) furosemide 20 mg tablet 20 mg PO DAILY PRN weight gain 12/13/21 04/30/24 insulin aspart U-100 100 unit/mL 12 unit subcut BIDWM 12/13/21 04/30/24 (3 mL) subcutaneous pen pantoprazole 40 mg tablet,delayed 40 mg PO DAILY 12/13/21 04/30/24 release valsartan 160 mg tablet 160 mg PO HS 12/13/21 04/30/24 empagliflozin 10 mg tablet 10 mg PO DAILY 09/28/23 04/30/24 (Jardiance) carvedilol 25 mg tablet 25 mg PO BID 02/20/24 04/30/24 rivaroxaban 15 mg tablet (Xarelto) 15 mg PO QPM 02/20/24 04/30/24 diclofenac sodium 1 % topical gel 4 g topical QID 04/30/24 04/30/24 insulin glargine 100 unit/mL (3 19 unit subcut HS 04/30/24 04/30/24 mL) subcutaneous pen (Lantus Solostar U-100 Insulin) Previous Rx's ?Medication ?Instructions ?Recorded acetaminophen 650 mg 1,300 mg (2 x 650 mg) PO Q8H #30 05/01/24 tablet,extended release tabs Allergies Allergy/AdvReac Type Severity Reaction Status Date / Time metformin AdvReac Verified 03/25/24 13:55 tetracycline AdvReac Verified 03/25/24 13:55 duloxetine AdvReac Uncoded 03/25/24 13:55 tamsulosin AdvReac syncopal Uncoded 03/25/24 13:55 Review of Systems Status of ROS: Reports: 10 or more systems reviewed and unremarkable except as noted in History and below Const: Denies: fever or chills Eyes: Denies: change in vision ENMT: Denies: throat pain, neck pain or nasal congestion Cardio: Reports: swelling of feet/ankles; Denies: chest pain or shortness of breath with exertion Resp: Denies: shortness of breath or cough GI: Denies: abdominal pain or nausea Musculo: Denies: neck pain Neuro: Denies: headache or numbness in extremities [facility] Medical History (Updated 05/01/24 @ 13:33 by Daphne Stuart MD) Chronic anticoagulation ?Z79.01 - technician terminal and repeater (current) use of anticoagulants (ICD-10) Thyroid nodule ?E04.1 - Nontoxic single thyroid nodule (ICD-10) COVID ?U07.1 - COVID-19 (ICD-10) Fracture of lateral malleolus of right ankle ?S82.61XA - Displaced fracture of lateral malleolus of right fibula, initial encounter for closed fracture (ICD-10) Injury of ligament of right knee ?S89.91XA - Unspecified injury of right lower leg, initial encounter (ICD-10) Tibia fracture ?S82.209A - Unspecified fracture of shaft of unspecified tibia, initial encounter for closed fracture (ICD-10) Closed fracture of right distal fibula ?S82.831A - Other fracture of upper and lower end of right fibula, initial encounter for closed fracture (ICD-10) BPH without urinary obstruction ?N40.0 - Benign prostatic hyperplasia without lower urinary tract symptoms (ICD-10) GERD (gastroesophageal reflux disease) ?K21.9 - Gastro-esophageal reflux disease without esophagitis (ICD-10) JOANIE (obstructive sleep apnea) ?G47.33 - Obstructive sleep apnea (adult) (pediatric) (ICD-10) Ascending aorta dilatation ?I77.810 - Thoracic aortic ectasia (ICD-10) ASHD (arteriosclerotic heart disease) ?I25.10 - Atherosclerotic heart disease of [place] coronary artery without angina pectoris (ICD-10) Atrial fibrillation ?I48.91 - Unspecified atrial fibrillation (ICD-10) Combined systolic and diastolic heart failure, NYHA class 3 ?I50.40 - Unspecified combined systolic (congestive) and diastolic (congestive) heart failure (ICD-10) Social History What is your current living situation?: I presently have a place to live Problems where you live: no known problems Problems where you live details: n/a In the past 12 months, utilities in danger of being shut off: no In past 12 months, lack of transportation kept you from medical appts, meetings, work, or getting things needed for daily living: no In the past 12 mos, have been you worried that your food would run out before you had money to buy more?: never true In the past 12 mos, the food you bought just didn't last and you didn't have money to buy more?: never true Highest level of school completed/degree received: some college, no degree Smoking Status: Never smoker Do you use any of these nicotine containing products: None Second hand tobacco smoke exposure: No How often do you have a drink containing alcohol: monthly or less Alcohol type: beer and wine How many standard drinks containing alcohol do you have on a typical day: 1 or 2 How often do you have six or more drinks on one occasion: Never AUDIT-C Alcohol total score: 1 Non-prescribed substance use: denies use Caffeine: No How often does anyone, including family, friends and others, physically hurt you : never How often does anyone, including family, friends and others, insult or talk down to you: never How often does anyone, including family, friends and others, threaten you with harm: never How often does anyone, including family, friends and others, scream or curse at you: never service: No Exam Narrative: Exam Narrative: Mr. Carlos is alert and oriented. Head is atraumatic normocephalic. Neck is supple. No midline cervical tenderness. Range of motion is full. EOM is full with equal pupils and reaction. Face symmetrical. Speech is normal. GCS of 15. Heart with a regular rate and rhythm and lungs are clear bilaterally. Abdomen is soft nontender. Palpation about the right lateral femur distally yield significant pain. Lower extremity shows 3+ peripheral edema. Patient is log-rolled to the left. No evidence of bruising on back or buttocks. Palpation over lumbar spine sacrum posterior superior iliac spine buttock without discomfort. Const: Vital Signs, click to edit/add: Vital Signs - 24 hr 04/29/24 20:12 04/29/24 20:16 04/29/24 20:34 Temperature 97.6 F Pulse Rate 98 88 Pulse Rate [Pulse Oximeter] 96 Respiratory Rate 18 Blood Pressure Blood Pressure [Le ft Upper Arm] 171/112 H Pulse Oximetry 96 99 97 [facility] 04/29/24 20:45 04/29/24 21:15 04/29/24 21:17 Temperature Pulse Rate 98 91 102 H Pulse Rate [Pulse Oximeter] Respiratory Rate 16 Blood Pressure 155/94 H Blood Pressure [Le ft Upper Arm] Pulse Oximetry 98 99 98 Oxygen Delivery Sc thod 04/29/24 21:30 04/29/24 21:45 04/29/24 22:00 Temperature Pulse Rate 85 85 84 Pulse Rate [Pulse Oximeter] Respiratory Rate Blood Pressure Blood Pressure [Le ft Upper Arm] Pulse Oximetry 99 94 95 Oxygen Delivery Sc thod 04/29/24 22:32 04/29/24 22:33 04/29/24 22:45 Temperature Pulse Rate 93 99 Pulse Rate [Pulse Oximeter] Respiratory Rate 16 Blood Pressure 139/108 H Blood Pressure [Le ft Upper Arm] Pulse Oximetry 98 98 Oxygen Delivery Me thod Documenting provider has reviewed patient's vital signs: yes Course Course ED Course: Differential diagnosis includes but is not limited to hip fracture, femur fracture, knee fracture, internal derangement of the knee. Patient does not describe any prodromal symptoms but certainly would check urinalysis as well as CBC and comprehensive panel to rule out electrolyte abnormality or UTI. Reevaluation(s) Reevaluation #1: By my read patient appears to have a lateral condyle fracture on the plain film. What follows is a CT report of the knee from January: . Acute nondisplaced fracture of the medial femoral condyle most consistent with an extensive avulsion type fracture of the MCL insertion. 2. Thin cortical avulsion fracture at the tibial insertion of the PCL. 3. Osteopenia. 4. Small knee joint effusion with lipohemarthrosis component. Tiny popliteal cyst. 5. Mild hypertrophic change in the patellofemoral compartment. 6. Atrophy of the vastus medialis musculature. I also compared today's x-ray with an x-ray from February and the lateral condyle injury appears to be new. Patient with relief with morphine and Zofran. Consultations Consultation #1: I spoke to GODFREY Camargo from Orthopedics. Notes that the injury from the medial condyle is poorly healing at this point. New injury now on the lateral condyle. Suggests knee immobilizer and follow-up. Vital Signs Vital signs: Initial Vital Signs Temperature 97.6 F 04/29/24 20:12 Temperature Source Temporal Artery Scan 04/29/24 20:12 Pulse Rate 96 04/29/24 20:12 Respiratory Rate 18 04/29/24 20:12 Blood Pressure 171/112 H 04/29/24 20:12 Blood Pressure Mean 131 H 04/29/24 20:12 Blood Pressure Position Sitting 04/29/24 20:12 Pulse Oximetry 96 04/29/24 20:12 Oxygen Delivery Method Room Air 04/29/24 20:12 Vital Signs Temperature 97.6 F 04/29/24 20:12 Pulse Rate 96 04/29/24 20:12 Respiratory Rate 18 04/29/24 20:12 Blood Pressure 171/112 H 04/29/24 20:12 Pulse Oximetry 96 04/29/24 20:12 Oxygen Delivery Method Room Air 04/29/24 20:12 Temperature 97.5 F L 05/01/24 07:00 Pulse Rate 90 05/01/24 11:00 Respiratory Rate 18 05/01/24 11:00 Blood Pressure 139/99 H 05/01/24 11:00 Pulse Oximetry 95 05/01/24 11:00 Oxygen Delivery Method Room Air 05/01/24 11:00 Oxygen Flow Rate 2 04/30/24 15:00 Medications Administered Medications: Discontinued Medications Generic Name Dose Route Start Last Admin Trade Name Yanq PRN Reason Stop Dose Admin Acetaminophen 1,300 mg 04/30/24 00:09 05/01/24 08:43 Acetaminophen 650 Mg Tablet Er PO 1,300 mg Q8H JD Administration Atorvastatin Calcium 20 mg 04/30/24 00:30 04/30/24 21:11 Atorvastatin 10 Mg Tablet PO 20 mg HS JD Administration Carvedilol 25 mg 04/30/24 09:00 05/01/24 10:08 Carvedilol 25 Mg Tablet PO 25 mg BID JD Administration Cholestyramine Resin 4 gm 04/30/24 09:00 05/01/24 10:09 Cholestyramine Powder 4 Gm PO 4 gm DAILY JD Administration Empagliflozin 10 mg 04/30/24 09:00 05/01/24 10:08 Empagliflozin 10 Mg Tablet PO 10 mg DAILY JD Administration Furosemide 20 mg 04/30/24 09:00 05/01/24 10:08 Furosemide 20 Mg Tablet PO 20 mg DAILY JD Administration Hydromorphone HCl 2 mg 04/30/24 00:18 04/30/24 22:11 Hydromorphone 2 Mg Tablet PO 2 mg Q6H PRN Administration Sodium Chloride 500 mls @ 250 mls/hr 04/30/24 00:09 04/30/24 04:01 0.9 % Sodium Chloride 500 Ml IV 04/30/24 02:08 Infused .Q2H ONE Infusion Sodium Chloride 500 mls @ 250 mls/hr 04/30/24 03:30 04/30/24 09:58 0.9 % Sodium Chloride 500 Ml IV 04/30/24 05:29 Infused .Q2H ONE Infusion Insulin Aspart 12 unit 04/30/24 08:00 05/01/24 10:07 Insulin Aspart 100 Unit/Ml SUBCUT 12 unit BIDWM JD Administration Insulin Aspart 0 unit 04/30/24 07:30 05/01/24 13:33 Insulin Aspart 100 Unit/Ml SUBCUT Not Given [facility] Protocol Insulin Glargine 19 unit 04/30/24 21:00 04/30/24 21:14 Insulin Glargine,Hum.Rec.Anlog 100 Unit/Ml Insuln.Pen SUBCUT 19 unit HS [facility] Administration Morphine Sulfate 4 mg 04/29/24 20:26 04/29/24 20:30 Morphine 4 Mg/Ml Inj IVP 04/29/24 20:27 4 mg ONCE ONE Administration Morphine Sulfate 2 mg 04/29/24 23:22 04/29/24 23:27 Morphine 2 Mg/Ml Inj IVP 04/29/24 23:23 2 mg ONCE ONE Administration Morphine Sulfate 2 mg 04/30/24 00:18 04/30/24 10:02 Morphine 2 Mg/Ml Inj IVP 2 mg Q2H PRN Administration Omeprazole 40 mg 04/30/24 09:00 05/01/24 10:08 Omeprazole [address] PO 40 mg DAILY JD Administration Ondansetron HCl 4 mg 04/29/24 20:26 04/29/24 20:30 Ondansetron 2 Mg/Ml Inj IVP 04/29/24 20:27 4 mg ONCE ONE Administration Rivaroxaban 15 mg 04/30/24 18:00 04/30/24 18:34 Rivaroxaban 10 Mg Tablet PO 15 mg QPM [facility] Administration Sodium Chloride 5 ml 04/30/24 09:00 04/30/24 21:18 Sodium Chloride 0.9 % (Flush) 10 Ml Syringe IVF 5 ml BID JD Administration Valsartan 160 mg 04/30/24 00:09 04/30/24 09:57 Valsartan 160 Mg Tablet PO Not Given HS [facility] Valsartan 160 mg 04/30/24 21:00 04/30/24 21:12 Valsartan 80 Mg Tablet PO 160 mg HS [facility] Administration MDM - Fall MDM Narrative Medical decision making narrative: 1. Right lateral femoral condyle fracture-this is new and is now in conjunction with a subacute fracture on the medial condyle. Patient describes his knee ?giving out?. Did offer patient knee immobilizer pain control to go home but he does not think he would be able to manage at home. He is receptive to PT/OT consultation and perhaps a short stay in care home for this healing time. Pain control has been quite good with 1 dose of morphine 4 mg. 2. History of atrial fibrillation-anticoagulated with Eliquis. No skipped doses. Heart rate within normal limits. 3. History of type 2 diabetes-laboratory values pending 4. Disposition- admit under the care of Dr. Pearce hospitalist. Discussed with patient that this is outpatient observation. Declines knee immobilizer at this time. Medical Records Attestation: I reviewed the patient's medical records. Lab Data Labs: Lab Results 04/29/24 04/29/24 Range/Units 23:10 23:35 WBC 12.39 H (4.50-11.00) K/uL RBC 5.73 (4.30-5.90) m/uL Hgb 17.2 (13.5-17.5) gm/dL Hct 52.7 (37.0-53.0) % MCV 92 (80-100) fL MCH 30 (26-34) pg MCHC 33 (32-36) gm/dL RDW Coeff of Louise 13.3 (11.5-15.5) % Plt Count 145 (140-440) K/uL Neut % (Auto) 77.1 H (42.0-72.0) % Lymph % (Auto) 15.0 L (20-44) % [place] % (Auto) 6.7 (0.0-11.0) % Eos % (Auto) 0.2 (0.0-7.0) % Baso % (Auto) 0.2 (0.0-3.0) % Neut # (Auto) 9.60 H (1.7-7.0) K/uL Lymph # (Auto) 1.90 (0.90-2.90) K/uL [place] # (Auto) 0.80 (0.00-0.90) K/UL Eos # (Auto) 0.00 (0.00-0.50) K/uL Baso # (Auto) 0.00 (0.00-0.30) K/uL Abs Immat Gran (auto) 0.10 (0.00-0.30) K/uL Imm/Tot Granulo (auto) 0.8 % Sodium 140 (135-149) mmol/L Potassium 3.9 (3.6-5.1) mmol/L Chloride 105 (96-114) mmol/L Carbon Dioxide 24 (20-32) mmol/L Anion Gap 11 (7-15) mEq/L BUN 20 (7-30) mg/dL Creatinine 1.2 (0.5-1.5) mg/dL Estimated Creat Clear 59.28 Estimated GFR 63 ml/min Glucose 135 H (60-115) mg/dL Calcium 9.2 (8.4-10.6) mg/dL Total Bilirubin 2.7 H (0.1-1.5) mg/dL AST 24 (12-35) U/L ALT 14 (4-50) U/L Alkaline Phosphatase 103 (40-150) U/L Total Protein 7.5 (6.0-8.3) g/dL Albumin 4.3 (3.3-5.0) g/dL Urine Color Yellow (Yellow) Urine Appearance Clear (Clear) Urine pH 5.5 (5.0-8.5) Ur Specific [place] 1.025 (1.000-1.030) Urine Protein 1+ A (Negative) Urine Glucose (UA) 3+ A (Negative) Urine Ketones 4+ A (Negative) Urine Blood Negative (Negative) Urine Nitrite Negative (Negative) Urine Bilirubin 1+ A (Negative) Urine Urobilinogen 1.0 (0.2-1.0) Ur Leukocyte Esterase Negative (Negative) Urine RBC 0-2 (0-2) Urine WBC 0-2 (0-5) Ur Squamous Epith Cells Few (None-Few) Urine Bacteria Few A (None) Urine Mucus Moderate A (None) Imaging Data Femur x-ray: Attestation: I have reviewed the pertinent imaging results. My impression: Lateral condyle fracture noted on the right. Radiologist's impression: Findings/Impression: Irregularity along the lateral femoral condyle, may be projectional but fracture not excluded. Dedicated radiographs of the knee recommended. Knee CT: Attestation: I have reviewed the pertinent imaging results. Radiologist's impression: Bones: There are bilateral femoral condylar fractures present. Slight irregularity along the lateral tibial plateau without fracture line favored to be due to osteopenia. No additional fracture appreciated. Joints: Hemarthrosis. Soft tissues: Mild soft tissue swelling. Impression: Bilateral femoral condylar fractures. Discharge Plan Discharge Clinical Impression: Fracture of lateral condyle of femur Qualifiers: Encounter type: initial encounter Fracture type: closed Fracture alignment: displaced Laterality: right Qualified Code(s): S72.421A - Displaced fracture of lateral condyle of right femur, initial encounter for closed fracture Patient Disposition: Admitted As Observation Condition: Improved Activity Level: Activity as Tolerated Discharge Diet: Diabetic
--- NOTE | 2024-04-29 20:26 | CRLHL7_ITS ---
For Patients: As a result of the Century Cures Act, medical imaging exams and procedure reports are released immediately into your electronic medical record. You may view this report before your referring provider. If you have questions, please contact your health care provider. Indication: Fall Technique: Two views of the right femur Comparison: None Findings/Impression: Irregularity along the lateral femoral condyle, may be projectional but fracture not excluded. Dedicated radiographs of the knee recommended. Dictated by Earl Muller MD @ 04/29/2024 10:01:27 PM (Electronically Signed)
[2024-04-29] MEDS: MORPHINE 4 MG/ML INJ IVP (20:30)
[2024-04-29] MEDS: ONDANSETRON 2 MG/ML inj 4 MG IVP (20:30)
--- OUTSIDE RECORDS SUMMARY | 2024-04-29 20:59 | XMS_ITS | Clinical Summary ---
Author Organization [facility] [facility] Address [place], [place] [address] Care Team Providers Care Fast Food Supervisor Name Role Phone Elijah Fernandez MD Primary Care Provider [phone]- [phone] Allergies Active Allergy Reactions Criticality Noted Date [...] Description 04/28/2024 Telephone [facility] [address] [place] [address] Mary Jo Mix MD Results (Thyroid US) 04/27/2024 1:00 PM ORE FEEDER Ancillary Procedure [facility] [address] [place] [address] Arrived 04/27/2024 Travel 04/09/[address] [facility] [place] [address] Elijah Fernandez MD Medication Management (insulin detemir U-100 (LEVEMIR) 100 unit/mL (3 mL) pen) 04/07/2024 Nurse Triage [facility] [address] [facility] [place] [address] Elijah Fernandez MD Leg Injury 03/31/2024 3:40 PM ORE FEEDER Office Visit [place] [address] [address] [facility] [place] [address] Elijah Fernandez MD Diabetes; Blood Pressure 03/31/2024 Travel 03/24/2024 Telephone [facility] [address] [facility] [place] [address] Elijah Fernandez MD Appointment Request 03/23/[address] [facility] [place] [address] Mary Jo Mix MD Testing (Needs repeat 1 year thyroid US to follow up nodule) 03/12/2024 Orders Only [facility] Scanner 1 scan: (1-Ord) [facility], ANKLE RT MIN 3V, 03/12/2024 03/12/2024 Telephone [facility] [address] [facility] [place] [address] Elijah Fernandez MD Appointment Request (Diabetic visit reschedule ) 03/11/2024 Orders Only [facility] Scanner 1 scan: (1-Ord) [facility], XR KNEE RT 3V, 03/11/2024 03/11/2024 Orders Only [facility] Scanner 1 scan: (1-Ord) [facility], KNEE RT 3V, 03/11/2024 03/11/2024 Orders Only [facility] Scanner 1 scan: (1-Ord) [place], RT KNEE WO CONTRAST, 03/11/2024 02/25/2024 8:50 AM CDT Office Visit [facility] [address] [facility] [place] [address] Elijah Fernandez MD Hospital F/U (Last Saturday in the er for a fall. Broke his ankle and sprained the knee) 02/25/2024 Travel 02/20/2024 Orders Only [facility] Scanner 1 scan: (1-Ord) [place], ANKLE RT MIN 3V, 02/20/2024 02/20/2024 Orders Only [facility] Scanner 1 scan: (1-Ord) [facility], XR ANKLE RIGHT, 02/20/2024 02/19/2024 Orders Only [facility] Scanner 1 scan: (1-Ord) [facility], ANKLE RT MIN 3 VIEW, 02/19/2024 02/19/2024 Orders Only [facility] Scanner 1 scan: (1-Ord) [place], XR KNEE RT 2V, 02/19/2024 02/13/2024 12:45 PM CDT Office Visit [facility] [address] [facility] [place] [address] Elijah Fernandez MD Follow Up 02/13/2024 Travel [...] weeks, prior history of heavy alcohol use [facility] Utilities Answer Date Recorded Do you have [...] on file Legal Sex Male 6:44 AM ORE FEEDER Gender Identity Not on file Sexual Orientation Not on file Occupation Industry Job Start Date Job End Date Disabled Not on file Not on file Not on file Obstetrics History Last Filed Vital Signs Vital Sign Reading Time Taken Comments Blood Pressure 144/90 03/31/2024 4:06 PM ORE FEEDER Pulse 92 03/31/2024 4:06 PM ORE FEEDER Temperature 36.5 C (97.7 F) 12/09/2023 10:18 AM CDT Respiratory Rate 22 04/06/2021 2:12 PM ORE FEEDER Oxygen Saturation 100% 03/31/2024 4:03 PM ORE FEEDER Inhaled Oxygen Concentration - - Weight 128.9 kg (284 lb 3.2 oz) 02/13/2024 1:02 PM CDT Height 182.9 cm (6' 0.01) 12/23/2023 1:16 PM CD T Body Mass Index 38.54 12/23/2023 1:16 PM CDT Plan of Treatment Upcoming Encounters Date Type Department Care Team (Late st Contact Info) Description 06/30/2024 1:10 PM ORE FEEDER Office Visit [facility] [address] [place] [address] Elijah Fernandez MD [address] [place] [address] Health Maintenance Due Date Last Done Comments [...] Diagnosis Comments US THYROID/PARATHYROID Routine 1:20 PM ORE FEEDER Thyroid nodule BASIC METABOLIC PANEL Routine 03/31/2024 3:39 PM ORE FEEDER HTN (hypertension) LIPID PANEL Routine 03/31/2024 3:39 PM ORE FEEDER Hyperlipidemia, unspecified hyperlipidemia type PSA TOTAL Routine 03/31/2024 3:39 PM ORE FEEDER Screening for prostate cancer HEMOGLOBIN A1C MONITORING (POCT) Routine 03/31/2024 3:38 PM ORE FEEDER Type 2 diabetes mellitus with diabetic neuropathy, with long-term current use of insulin (HC) SCAN-RADIOLOGY REPORT 03/12/2024 12:00 AM ORE FEEDER SCAN-RADIOLOGY REPORT 03/11/2024 12:00 AM ORE FEEDER SCAN-RADIOLOGY REPORT 03/11/2024 12:00 AM ORE FEEDER SCAN-CT INTERPRETATION 12:00 AM ORE FEEDER SCAN-RADIOLOGY REPORT 02/20/2024 12:00 AM CDT SCAN-RADIOLOGY REPORT 02/20/2024 12:00 AM CDT SCAN-RADIOLOGY REPORT 02/19/2024 12:00 AM CDT SCAN-RADIOLOGY REPORT 02/19/2024 12:00 AM CDT COLONOSCOPY DIAGNOSTIC Routine 0 12:12 PM ORE FEEDER History of colon polyps ANTI HCV Routine 11/20/2016 12:25 PM CDT Need for hepatitis C screening test from Last 3 Months or Most Recently Relevant to Health Maintenance Results * US THYROID/PARATHYROID (04/27/2024 1:20 PM ORE FEEDER) Anatomical Region Laterality Modality THYROID Ultrasound 04/27/2024 3:06 PM ORE FEEDER Impressions 04/27/2024 3:06 PM ORE FEEDER Stable size and morphology of left-sided thyroid nodules. Dictated by Matthew Muhammad MD @ 04/27/2024 3:06:11 PM (Electronically Signed) Narrative 04/27/2024 3:06 PM ORE FEEDER For Patients: As a result of the [...] sult * PSA TOTAL (03/31/2024 3:39 PM ORE FEEDER) PSA, TOTAL 1.05 < OR = 4.00 ng/mL [employer] [facility] [place] Comment: The total PSA value [...] BLOOD SPECIMEN / Unknown 03/31/2024 3:39 PM ORE FEEDER 03/31/2024 3:48 PM ORE FEEDER Elijah Fernandez MD CHEMISTRY Final Resu lt [employer] [facility] [address] [place] [address], [facility] [address] [place] [address] * (ABNORMAL) LIPID PANEL (03/31/2024 3:39 PM ORE FEEDER) Pathologist [facility] CHOLESTEROL, TOTAL 121 <200 mg/dL [employer] HDL CHOLESTEROL 46 > OR = 40 mg/dL [employer] [facility] [place] TRIGLYCERIDES 154(H) <150 mg/dL [employer] [facility] [place] LDL-CHOLESTEROL 51 mg/dL (calc) [employer] [facility] [place] Comment: Reference range: <100 Desirable range <100 mg/dL for primary prevention; <70 mg/dL for patients with CHD or diabetic patients with > or = 2 CHD risk factors. LDL-C is now calculated using the Devorah calculation, which is a validated novel method providing better accuracy than the Friedewald equation in the estimation of LDL-C. Jori SS et al. EMMA. 2013;310(90): 4313-7583 (http://education.Gibberin/faq/NSI681) CHOL/HDLC RATIO 2.6 <5.0 (calc) [employer] [place] NON HDL CHOLESTEROL 75 <130 mg/dL (calc) [employer] [facility] [place] Comment: For patients with diabetes plus 1 major ASCVD risk factor, treating to a non-HDL-C goal of <100 mg/dL (LDL-C of <70 mg/dL) is considered a therapeutic option. Blood BLOOD SPECIMEN / Unknown 03/31/2024 3:39 PM ORE FEEDER 03/31/2024 3:48 PM ORE FEEDER us Elijah Fernandez MD CHEMISTRY Final Resu lt [employer] [facility] [address] [place] [address], [facility] [address] [place] [address] * (ABNORMAL) BASIC METABOLIC PANEL (03/31/2024 3:39 PM ORE FEEDER) GLUCOSE 138(H) 65 - 99 mg/dL [employer] [place] Comment: Fasting reference interval For [...] BLOOD SPECIMEN / Unknown 03/31/2024 3:39 PM ORE FEEDER 03/31/2024 3:48 PM ORE FEEDER Elijah Fernandez MD CHEMISTRY Final Resu lt [employer] [facility] [address] [place] [address], [place] [phone] [facility] [address] [place] [address] * (ABNORMAL) POCT Hemoglobin A1C Monitoring (03/31/2024 3:38 PM ORE FEEDER) POC HEMOGLOBIN A1C 6.1(H) <6.0 % OF TOTAL HGB [facility] Comment: Any point of care results exhibiting inconsistency with the patient's clinical status should be repeated using a different testing method. Blood BLOOD SPECIMEN / Unknown 03/31/2024 3:38 PM ORE FEEDER 03/31/2024 3:39 PM ORE FEEDER Elijah Fernandez MD CHEMISTRY Final Resu lt [facility] [address] [place] [address], [place] [phone] [facility] [address] [place] [address] * SCAN-RADIOLOGY REPORT (03/12/2024 12:00 AM ORE FEEDER) Only the most recent of7 resultswithin the time period is included. Anatomical Region Laterality Modality Other us Scanner OTHER Final Result * SCAN-CT INTERPRETATION (03/11/2024 12:00 AM ORE FEEDER) Anatomical Region Laterality Modality Other us Scanner OTHER Final Result * COLONOSCOPY DIAGNOSTIC (03/29/2020 12:12 PM ORE FEEDER) us Jori Siddiqui MD GI PROCEDURE ORD Final Re sult * ANTI HCV (11/20/2016 12:25 PM CDT) HEPATITIS C ANTIBODY Non-Reacti ve Non-Reacti ve 11/20/2016 8:43 PM CDT [facility] Blood BLOOD SPECIMEN / Unknown Venipuncture / Unknown 11/20/2016 12:25 PM CDT 11/20/2016 1:51 PM CDT Narrative [facility] - 11/20/2016 8:43 PM CDT Antibodies to HCV not detected; does not exclude the possibility of exposure to HCV. us Elijah Fernandez MD SEND OUTS Final [facility] [address] [place] [address], [place] from Last 3 Months or Most Recently Relevant to Health Maintenance Insurance MEDICARE PB ONLY [place] MEDICARE PART B HB ONLY MEDICARE PART A HB ONLY MEDICARE PPS [place] [id number] [place] [id number] * Guarantor: [facility] Account Type Relation to Patient Date of Phone Billing Address Contract 2007 [address] [place] [address] Advance Directives Documents on File Type Date Recorded Patient Customer Resolution Specialist Expl anatjeanna ZAMBRANO 2021 11:11 AM SYDNI [...] 11:19 PM 07/09/2007 1:19 AM Care Teams Fast Food Supervisor Relationship Specialty Start Date End Date [place] [address] [address] PCP - General Family Practice 03/17/14
--- OUTSIDE RECORDS SUMMARY | 2024-04-29 20:59 | XMS_ITS | Continuity of Care Document ---
Author Name [facility] User [email or web address] Address Unknown Organization Unknown Address Unknown Procedures FILTER APPLIED:Only known Procedures with Onset Date within the last 5 years Procedure Date Procedure Provider Additiona jarocho Information Status CONTROL OF NOSEBLEED (58593) Completed EMERGENCY DEPT VISIT LOW MDM (60908) Completed COMPREHEN METABOLIC PANEL (45083) Completed URINALYSIS AUTO W/SCOPE (11863) Completed ASSAY OF LACTIC ACID (04750) Completed ASSAY OF LIPASE (90892) Completed ASSAY OF MAGNESIUM (75863) Completed COMPLETE CBC W/AUTO DIFF WBC (02318) Completed FIBRIN DEGRADATION QUANT (29085) Completed C-REACTIVE PROTEIN (04638) Completed RESP VIRUS 3-5 TARGETS (62438) Completed ASSAY OF TROPONIN QUANT (69822) Completed ELECTROCARDIOGRAM TRACING (46428) Completed HYDRATE IV INFUSION ADD-ON (62305) Completed THER/PROPH/DIAG INJ IV PUSH (11616) Completed EMERGENCY DEPT VISIT HI MDM (53739) Completed X-RAY EXAM CHEST 1 VIEW (01950) Completed EMERGENCY DEPT VISIT MOD MDM (74982) Completed ROUTINE VENIPUNCTURE (50403) Completed Encounters FILTER APPLIED:Only known Encounters with Admission Date within the last 5 years Encounter Location Admission Discharge Billing Code Upkeep Worker [facility] Libby Mclain
--- NOTE | 2024-04-29 22:09 | CRLHL7_ITS ---
For Patients: As a result of the Century Cures Act, medical imaging exams and procedure reports are released immediately into your electronic medical record. You may view this report before your referring provider. If you have questions, please contact your health care provider. Indication: Injury with fracture Technique: CT of the right knee without contrast Comparison: Same day radiographs Findings: Bones: There are bilateral femoral condylar fractures present. Slight irregularity along the lateral tibial plateau without fracture line favored to be due to osteopenia. No additional fracture appreciated. Joints: Hemarthrosis. Soft tissues: Mild soft tissue swelling. Impression: Bilateral femoral condylar fractures. Please note that all CT scans at this facility use dose modulation, iterative reconstruction, and/or weight-based dosing when appropriate to reduce radiation dose to as low as reasonably achievable. Dictated by Earl Muller MD @ 04/29/2024 10:43:22 PM (Electronically Signed)
--- NOTE | 2024-04-29 23:10 | PM.IMHP1 ---
Hospitalist- H&P: HPI History of Present Illness Date Seen: 04/29/24 Chief complaint: fall Narrative: ADMISSION HISTORY AND PHYSICAL - HOSPITALIST Chief Complaint: HPI: Lionel Carlos is a 73 year old male past medical history significant for diabetes mellitus, insulin dependent, hypertension, hyperlipidemia, atrial fibrillation on chronic anticoagulation, recurrent falls is admitted to the medical floor from the ED following another fall (third since January 2024) resulting in further fractures and will require assessment for SNF placement. Patient has been admitted in January and February after falling at home (garage in socks, in his bedroom off the comforter) and now from his desk. At the February admission PT/OT agreed with discharge home ... He left in a CAM book and hinged knee brace. January 2024 (slipped in garage)- right ankle nondisplaced acute fracture of the distal fibula (Admitted) February 2024 (slipped off bed comforter too slippery) Acute nondisplaced fracture of the medial femoral condyle most consistent with an extensive avulsion type fracture of the MCL insertion. Thin cortical avulsion fracture of the tibial insertion of the PCL. April 2024: Right knee bilateral femoral condyle fractures. Hemarthrosis ER COURSE: xrays, CT, ortho consult. Pt is not able to ambulate on his own and unsteady with walker. we will admit for SNF placement; this is his third fall/admission in less than three months. CODE STATUS: FULL CODE EMERGENCY CONTACT PLAN: Olesya Walton Rel To Pat Friend Cell I've updated the PFSH, medications and allergies in the Expanse tabs. INVESTIGATIONS: LABS/MICRO/ECG/IMAGING CBC shows a mild leukocytosis, 12.4. Normal hemoglobin although possibly hemoconcentrated at 17.2. Platelet count 145. Normal chemistries. Again I wonder if he has a little hemoconcentrated with a creatinine clearance of 59. Upper and of his normal creatinine 1.2. His total bili is to 2.7 but it can fluctuate in the 1s and low 2s. Again possibly hemoconcentrated. His urine shows 3+ glucose, 4+ ketones and 1+ bilirubin. No significant evidence of infection. REVIEW OF SYSTEMS: 12-point ROS completed with patient and negative unless otherwise stated in HPI or below. PHYSICAL EXAM: CONSTITUTIONAL: Conversive, good historian. A/O. Knows setting and context. GENERAL: Well-developed and above ideal body weight, in no respiratory distress. VITAL SIGNS: see record. HEENT: Sclerae are anicteric. No petechiae. 1+ edema on left, 2+ on right with symmetrical pulses. PULM: good air entry with no wheeze. NEURO: Speech is fluent. A brief neurologic exam is negative. MSK: his right lower extremity has diffuse edema; bruising and abrasions at the knee. Obvious joint effusion on the right. SKIN: No rashes, petechiae, concerning changes PSYCHIATRIC: Euthymic. ADMIT TO MEDSURG: FLOOR CARE DVT: continue OAC GI: PO intake Time spent: Today I spent 75 minutes seeing the patient, discussing the patient with ER staff, reviewing Expanse and EPIC notes/diagnostics, discussing the care plan with our care time that includes social work, PT/OT, pharmacy, RT, correction and documenting my impressions and plan in the medical record. [facility] Medical History (Updated 04/30/24 @ 00:25 by Kellee Pearce MD) Chronic anticoagulation ?Z79.01 - [facility] (current) use of anticoagulants (ICD-10) Thyroid nodule ?E04.1 - Nontoxic single thyroid nodule (ICD-10) COVID ?U07.1 - COVID-19 (ICD-10) Fracture of lateral malleolus of right ankle ?S82.61XA - Displaced fracture of lateral malleolus of right fibula, initial encounter for closed fracture (ICD-10) Injury of ligament of right knee ?S89.91XA - Unspecified injury of right lower leg, initial encounter (ICD-10) Tibia fracture ?S82.209A - Unspecified fracture of shaft of unspecified tibia, initial encounter for closed fracture (ICD-10) Closed fracture of right distal fibula ?S82.831A - Other fracture of upper and lower end of right fibula, initial encounter for closed fracture (ICD-10) BPH without urinary obstruction ?N40.0 - Benign prostatic hyperplasia without lower urinary tract symptoms (ICD-10) GERD (gastroesophageal reflux disease) ?K21.9 - Gastro-esophageal reflux disease without esophagitis (ICD-10) JOANIE (obstructive sleep apnea) ?G47.33 - Obstructive sleep apnea (adult) (pediatric) (ICD-10) Ascending aorta dilatation ?I77.810 - Thoracic aortic ectasia (ICD-10) ASHD (arteriosclerotic heart disease) ?I25.10 - Atherosclerotic heart disease of [place] coronary artery without angina pectoris (ICD-10) Atrial fibrillation ?I48.91 - Unspecified atrial fibrillation (ICD-10) Combined systolic and diastolic heart failure, NYHA class 3 ?I50.40 - Unspecified combined systolic (congestive) and diastolic (congestive) heart failure (ICD-10) Social History What is your current living situation?: I presently have a place to live Problems where you live: no known problems Problems where you live details: NA In the past 12 months, utilities in danger of being shut off: no In past 12 months, lack of transportation kept you from medical appts, meetings, work, or getting things needed for daily living: no In the past 12 mos, have been you worried that your food would run out before you had money to buy more?: never true In the past 12 mos, the food you bought just didn't last and you didn't have money to buy more?: never true Highest level of school completed/degree received: some college, no degree Smoking Status: Never smoker Do you use any of these nicotine containing products: None Second hand tobacco smoke exposure: No How often do you have a drink containing alcohol: 2-4 times a month Alcohol type: beer and wine How many standard drinks containing alcohol do you have on a typical day: 1 or 2 How often do you have six or more drinks on one occasion: Never AUDIT-C Alcohol total score: 2 Non-prescribed substance use: denies use Caffeine: Yes (cup of coffee daily, energy drinks) How often does anyone, including family, friends and others, physically hurt you: never How often does anyone, including family, friends and others, insult or talk down to you: never How often does anyone, including family, friends and others, threaten you with harm: never How often does anyone, including family, friends and others, scream or curse at you: never service: No Meds Home Medications and Allergies Home Medications ?Medication ?Instructions ?Recorded ?Confirmed ?Type albuterol sulfate 90 mcg/actuation 1 - 2 puff inhalation Q4H PRN 12/13/21 03/25/24 History aerosol inhaler atorvastatin 20 mg tablet 20 mg PO DAILY 12/13/21 03/25/24 History cholestyramine-aspartame 4 gram 1 ea PO DAILY 12/13/21 03/25/24 History oral powder for susp in a packet (Cholestyramine Light) furosemide 20 mg tablet 20 mg PO DAILY PRN weight gain 12/13/21 03/25/24 History insulin aspart U-100 100 unit/mL 12 unit subcut .with meals 12/13/21 03/25/24 History (3 mL) subcutaneous pen insulin detemir U-100 100 unit/mL 19 unit subcut HS 12/13/21 03/25/24 History (3 mL) subcutaneous pen (Levemir FlexTouch U-100 Insulin) pantoprazole 40 mg tablet,delayed 40 mg PO DAILY 12/13/21 03/25/24 History release valsartan 160 mg tablet 160 mg PO HS 12/13/21 03/25/24 History empagliflozin 10 mg tablet 10 mg PO DAILY 09/28/23 03/25/24 History (Jardiance) carvedilol 25 mg tablet 25 mg PO BID 02/20/24 03/25/24 History rivaroxaban 15 mg tablet (Xarelto) 15 mg PO QPM 02/20/24 03/25/24 History Allergies Allergy/AdvReac Type Severity Reaction Status Date / Time metformin AdvReac Verified 03/25/24 13:55 tetracycline AdvReac Verified 03/25/24 13:55 duloxetine AdvReac Uncoded 03/25/24 13:55 tamsulosin AdvReac syncopal Uncoded 03/25/24 13:55 Exam Const: Vital Signs, click to edit/add: Vital Signs - 24 hr 04/29/24 20:12 04/29/24 20:16 04/29/24 20:34 Temperature 97.6 F Pulse Rate 98 88 Pulse Rate [Pulse Oximeter] 96 Respiratory Rate 18 Blood Pressure Blood Pressure [Le ft Upper Arm] 171/112 H Pulse Oximetry 96 99 97 Oxygen Delivery Me thod Room Air 04/29/24 20:45 04/29/24 21:15 04/29/24 21:17 Temperature Pulse Rate 98 91 102 H Pulse Rate [Pulse Oximeter] Respiratory Rate 16 Blood Pressure 155/94 H Blood Pressure [Le ft Upper Arm] Pulse Oximetry 98 99 98 Oxygen Delivery Me thod 04/29/24 21:30 04/29/24 21:45 04/29/24 22:00 Temperature Pulse Rate 85 85 84 Pulse Rate [Pulse Oximeter] Respiratory Rate Blood Pressure Blood Pressure [Le ft Upper Arm] Pulse Oximetry 99 94 95 Oxygen Delivery Me thod 04/29/24 22:32 04/29/24 22:33 04/29/24 22:45 Temperature Pulse Rate 93 99 Pulse Rate [Pulse Oximeter] Respiratory Rate 16 Blood Pressure 139/108 H Blood Pressure [Le ft Upper Arm] Pulse Oximetry 98 98 Oxygen Delivery Me thod Assessment and Plan Assessment and plan (1) Fracture of lateral condyle of femur: Problem comment: -in addition to the previous RIGHT ankle fracture in January and RIGHT medial condyle femur fracture and ligament injury, he now has a RIGHT lateral condyle fracture and hemarthrosis. -ortho consult in the am (but was consulted from ED - non-op) -PT/OT -social work for placement or at least TCU -he states oral oxy doesn't work - he like morphine in the ED. I have continued the morphine at least for tonight. trial of oral dilaudid - scheduled tylenol. maybe trial tramadol. nsaids with OAC and CKD likely not a great idea. Status: Acute (2) Multiple falls: Problem comment: -3 since late January 2024 all requiring EMS. He was on the floor tonight for about an hour. multiple fractures. -not managing well at home Status: Acute (3) Ketonuria: Problem comment: -hemoconcentration; checking CK and troponin -4+ ketones in urine -NS bolus ordered -hemodynamically stable Status: Acute (4) Atrial fibrillation: Problem comment: -on chronic anticoagulation. Xarelto. -continue rate control with carvedilol Telemetry Status: Chronic (5) Chronic anticoagulation: Problem comment: -takes only 15mg Xarelto daily - was having epistaxis with full dose. Status: Acute (6) Insulin dependent diabetes mellitus: Problem comment: -has neuropathy -most recent A1c 6.1 (03/31/24) -home insulin glargine 19 units at bedtime, Insulin sliding scale. Continue Jardiance -glucose checks ACHS Status: Acute (7) Combined systolic and diastolic heart failure, NYHA class 3: Problem comment: -continue Lasix and other home meds -echo 07/20 Final Impressions: 1. Technically limited exam. 2. Normal LV size, mildly increased wall thickness, low normal global systolic function with an estimated EF of ~ 55%. 3. Right ventricular cavity size is not well visualized, global systolic RV function is not well visualized. 4. Mildly enlarged left atrium. 5. The ascending aorta is dilated with a maximal diameter of 4.3 cm. 6. The aortic sinus is dilated with a maximal diameter of 4.7 cm. Status: Acute (8) Hypertension: Problem comment: -continue home medications Status: Acute (9) BPH without urinary obstruction: Status: Acute (10) JOANIE (obstructive sleep apnea): Status: Acute (11) GERD (gastroesophageal reflux disease): Status: Acute
[2024-04-29 23:19] LABS: Basophils Percent Auto 0.2 % (0.0-3.0); Eosinophils Percent Auto 0.2 % (0.0-7.0); Hematocrit 52.7 % (37.0-53.0); Hemoglobin* 17.2 gm/dL (13.5-17.5); Immature Granulocytes Pct Auto 0.8 %; Mean Corpuscular HGB Conc 33 gm/dL (32-36); Mean Corpuscular Hemoglobin 30 pg (26-34); Mean Corpuscular Volume 92 fL (80-100); Monocytes Percent Auto 6.7 % (0.0-11.0); Neutrophils Percent Auto 77.1 % (42.0-72.0); Platelet Count* 145 K/uL (140-440); RDW Coefficient of Variation % 13.3 % (11.5-15.5); Red Blood Count 5.73 m/uL (4.30-5.90); White Blood Count* 12.39 K/uL (4.50-11.00)
[2024-04-29 23:26] LABS: Slide Review Reflex No
[2024-04-29] MEDS: MORPHINE 2 MG/ML inj IVP (23:27)
[2024-04-29 23:35] LABS: Albumin* 4.3 g/dL (3.3-5.0); Chloride* 105 mmol/L (96-114); Potassium* 3.9 mmol/L (3.6-5.1); Sodium* 140 mmol/L (135-149)
[2024-04-29 23:38] LABS: Alanine Aminotransferase* 14 U/L (4-50); Alkaline Phosphatase* 103 U/L (40-150); Anion Gap 11 mEq/L (7-15); Aspartate Amino Transferase* 24 U/L (12-35); Bilirubin Total* 2.7 mg/dL (0.1-1.5); Blood Urea Nitrogen* 20 mg/dL (7-30); Carbon Dioxide* 24 mmol/L (20-32); Creatinine* 1.2 mg/dL (0.5-1.5); Est. Creatinine Clearance* 59.28; Estimated Glomerular Filt Rate 63 ml/min; Glucose* 135 mg/dL (60-115); Total Protein* 7.5 g/dL (6.0-8.3)
[2024-04-29 23:39] LABS: Calcium* 9.2 mg/dL (8.4-10.6)
[2024-04-29 23:43] LABS: Appearance Urine Clear (Clear); Bilirubin Urine 1+ (Negative); Blood Urine Negative (Negative); Color Urine Yellow (Yellow); Glucose Urine 3+ (Negative); Ketones Urine 4+ (Negative); Leukocyte Esterase Urine Negative (Negative); Nitrite Urine Negative (Negative); Protein Urine 1+ (Negative); Specific Gravity Urine 1.025 (1.000-1.030); pH Urine 5.5 (5.0-8.5)
[2024-04-29 23:51] LABS: Bacteria Urine Few; RBC Urine 0-2 (0-2); Squamous Epithelial Cell Urine Few (None-Few); WBC Urine 0-2 (0-5)
[2024-04-29 23:52] LABS: Mucus Urine Moderate
[2024-04-30] VITALS (7 sets, daily range): BP systolic 109–141; BP diastolic 72–96; PULSE 74–89; RESP 16–20; TEMP 36.3–36.9; O2SAT 94–100; BMI 37.4
[2024-04-30 00:18] LABS: Lab Add On Test New Spec Needed
[2024-04-30 00:42] LABS: HCO3 VBG 25 mmol/L (21-28); PCO2 VBG 47 mmHG (40-50); PO2 VBG < 30.1 mmHG (25-47)
[2024-04-30 01:04] LABS: Creatine Kinase* 106 U/L (54-186)
[2024-04-30 01:19] LABS: Troponin I* < 0.01 ng/mL (0.01-0.04)
[2024-04-30] MEDS: MORPHINE 2 MG/ML inj IVP ×2 (01:43→10:02)
[2024-04-30] MEDS: 0.9 % SODIUM CHLORIDE 500 ML 500 ML 250 ML IV ×2 (01:54→04:01)
[2024-04-30] MEDS: ATORVASTATIN 10 MG TABLET 20 MG PO ×2 (01:57→21:11)
--- NOTE | 2024-04-30 06:31 | PC.NURSE ---
End of shift -- Pt arrived from ED at approximately 0000. Pt alert, oriented, cooperative. Unable to transfer independently from stretcher to bed. Pt stated bearing wt on R leg would be impossible. Continent of bladder and able to use urinal at bedside. R lower extremity noted to be edematous, pedal pulse diminished on palpation. Pt reported pain in R knee and hip as 4/10. Medication given per MAR with pt behavior indicating improvement. Pt observed to sleep during shift. Tolerating O2 via nasal cannula at 2L while sleeping to maintain O2 saturation at 90% or above per MD order. Pt appears to be resting comfortably at end of shift with call light within reach.
[2024-04-30 07:08] LABS: Lactate* 2.5 mmol/L (0.5-1.9)
[2024-04-30] MEDS: FUROSEMIDE 20 MG TABLET PO (08:42)
[2024-04-30] MEDS: carvediloL 25 MG TABLET PO ×2 (08:42→21:11)
[2024-04-30] MEDS: ACETAMINOPHEN 650 MG TABLET ER 1300 MG PO ×3 (08:42→23:49)
[2024-04-30] MEDS: OMEPRAZOLE 20 MG CAPSULE DR 40 MG PO (08:42)
[2024-04-30] MEDS: EMPAGLIFLOZIN 10 MG TABLET PO (08:42)
[2024-04-30] MEDS: INSULIN ASPART 100 UNIT/ML 12 UNIT SUBCUT ×2 (08:43→18:34)
[2024-04-30] MEDS: SODIUM CHLORIDE 0.9 % (FLUSH) 10 ML SYRINGE 5 ML IVF ×2 (08:47→21:18)
--- NOTE | 2024-04-30 10:44 | PC.SOCIAL ---
Addendum entered by AGUSTÍN Oconnor 04/30/24 11:50: Still awaiting call back from [facility] about bed availability. Secure emailed referral to [facility] asking about availability and cost of private pay rehab if accepted. cut and cover line worker to follow up as needed. Original Note: Discharge planning: Met with pt regarding d/c plan. Pt agrees in placement at a facility for rehab care at discharge and is aware he does not currently meet criteria for Medicare coverage of a rehab placement and would be expected to pay privately for a rehab stay. Pt states he id not eligible for Medical Assistance and would pay privately. Discussed alf options and provided pt with a list of facilities in the area with their Department of health ratings and the [facility] option at the [facility]. Pt requested outreach and education social worker look for placement at the [facility] on the [facility] as first choice and [facility] as second choice. Called [facility] and left message for admissions asking about bed availability. cut and cover line worker to follow up as needed.
--- NOTE | 2024-04-30 11:24 | P.IMPN_ITS ---
Progress Note: A&P Assessment and plan (1) Fracture of lateral condyle of femur: Problem details: - in addition to the previous RIGHT ankle fracture in January and RIGHT medial condyle femur fracture and ligament injury, he now has a RIGHT lateral condyle fracture and hemarthrosis. - ortho consult in the am (but was consulted from ED - non-op) - PT/OT following - social work for placement or at least TCU - he states oral oxyco doesn't work - he like morphine in the ED. I have continued the morphine at least for tonight. trial of oral dilaudid - scheduled tylenol. maybe trial tramadol. nsaids with OAC and CKD likely not a great idea. Status: Acute (2) Multiple falls: Problem details: - 3 since late January 2024 all requiring EMS. He was on the floor tonight for about an hour. multiple fractures. - not managing well at home; rarely leaves his home, minimal time on his feet - discussed importance of rehab, general strengthening, tools needed to succeed at home Status: Acute (3) Ketonuria: Problem details: - hemoconcentration; CK and troponin normal - 4+ ketones in urine - mildly elevated lactate, improving after IVF bolus - improving po intake, stable VS Status: Acute (4) Atrial fibrillation: Problem details: - on chronic anticoagulation. Xarelto. - continue rate control with carvedilol - Telemetry Status: Chronic (5) Chronic anticoagulation: Problem details: - takes only 15mg Xarelto daily - was having epistaxis with full dose. Status: Acute (6) Insulin dependent diabetes mellitus: Problem details: - has neuropathy - most recent A1c 6.1 (03/31/24) - home insulin glargine 19 units at bedtime, continue Jardiance, accuchecks and SSI - glucose checks ACHS Status: Acute (7) Combined systolic and diastolic heart failure, NYHA class 3: Problem details: - HFpEF, continue Lasix and GDMT measures - echo 07/20 Final Impressions: 1. Technically limited exam. 2. Normal LV size, mildly increased wall thickness, low normal global systolic function with an estimated EF of ~ 55%. 3. Right ventricular cavity size is not well visualized, global systolic RV function is not well visualized. 4. Mildly enlarged left atrium. 5. The ascending aorta is dilated with a maximal diameter of 4.3 cm. 6. The aortic sinus is dilated with a maximal diameter of 4.7 cm. Status: Acute (8) Hypertension: Problem details: -continue home medications Status: Acute (9) BPH without urinary obstruction: Status: Acute (10) JOANIE (obstructive sleep apnea): Status: Acute (11) GERD (gastroesophageal reflux disease): Status: Acute Plan - SNF consulted to discuss rehab stay - follow nutritional and hydration status Subjective Date Seen: 04/30/24 Interval history: Lionel was admitted to the hospital last night for recurrent falls, found to have bilateral femoral condylar fractures on right extremity CT. These are non operative, and he is in a knee immobilizer. He has weakness and is requiring of some left for transport. History of chronic deconditioning, JOANIE, IV DM2, HFpEF, BPH, atrial fibrillation. He has historically declined TCU placement, but understands it is time that he is unsafe to be home without a rehab stay and strength program. This morning, labs fairly stable. Lactate mildly elevated without evidence of acute infection. He wasn't eating or drinking well prior to admission, anticipate that labs will improve with improved po intake. Exam Narrative: Exam Narrative: GEN: Alert and oriented, nontoxic HEENT: EOMIs bilaterally, no scleral icterus CV: Irregular, No concerning murmurs, rubs, or gallops R: LCTA bilaterally without concerning wheezing Ext: Wearing R knee immobilizer, trace BLE edema Neuro: Nonfocal Psych: Appropriate Const: Vital Signs, click to edit/add: Vital Signs - 24 hr 04/29/24 20:12 04/29/24 20:16 04/29/24 20:34 Temperature 97.6 F Pulse Rate 98 88 Pulse Rate [Pulse Oximeter] 96 Respiratory Rate 18 Blood Pressure Blood Pressure [Le ft Upper Arm] 171/112 H Blood Pressure [Ri ght Arm] Pulse Oximetry 96 99 97 Oxygen Delivery Me thod Room Air Oxygen Flow Rate 04/29/24 20:45 04/29/24 21:15 04/29/24 21:17 Temperature Pulse Rate 98 91 102 H Pulse Rate [Pulse Oximeter] Respiratory Rate 16 Blood Pressure 155/94 H Blood Pressure [Le ft Upper Arm] Blood Pressure [Ri ght Arm] Pulse Oximetry 98 99 98 Oxygen Delivery Me thod Oxygen Flow Rate 04/29/24 21:30 04/29/24 21:45 04/29/24 22:00 Temperature Pulse Rate 85 85 84 Pulse Rate [Pulse Oximeter] Respiratory Rate Blood Pressure Blood Pressure [Le ft Upper Arm] Blood Pressure [Ri ght Arm] Pulse Oximetry 99 94 95 Oxygen Delivery Me thod Oxygen Flow Rate 04/29/24 22:32 04/29/24 22:33 04/29/24 22:45 Temperature Pulse Rate 93 99 Pulse Rate [Pulse Oximeter] Respiratory Rate 16 Blood Pressure 139/108 H Blood Pressure [Le ft Upper Arm] Blood Pressure [Ri ght Arm] Pulse Oximetry 98 98 Oxygen Delivery Me thod Oxygen Flow Rate 04/29/24 23:00 04/29/24 23:07 04/29/24 23:15 Temperature Pulse Rate 84 95 Pulse Rate [Pulse Oximeter] Respiratory Rate Blood Pressure Blood Pressure [Le ft Upper Arm] Blood Pressure [Ri ght Arm] Pulse Oximetry 98 98 99 Oxygen Delivery Me thod Oxygen Flow Rate 04/29/24 23:36 04/29/24 23:45 04/29/24 23:49 Temperature Pulse Rate 92 88 Pulse Rate [Pulse Oximeter] Respiratory Rate 14 Blood Pressure 131/96 H Blood Pressure [Le ft Upper Arm] Blood Pressure [Ri ght Arm] Pulse Oximetry 95 95 86 L Oxygen Delivery Me thod Nasal Cannula Room Air Oxygen Flow Rate 2 04/29/24 23:55 04/30/24 04:39 04/30/24 06:12 Temperature 98.4 F Pulse Rate 85 Pulse Rate [Pulse Oximeter] Respiratory Rate 14 18 Blood Pressure Blood Pressure [Le ft Upper Arm] Blood Pressure [Ri ght Arm] 141/94 H Pulse Oximetry 96 100 Oxygen Delivery Me thod Nasal Cannula Nasal Cannula Oxygen Flow Rate 2 2 04/30/24 07:00 04/30/24 07:00 04/30/24 07:00 Temperature 97.7 F Pulse Rate Pulse Rate [Pulse Oximeter] 87 Respiratory Rate 16 Blood Pressure Blood Pressure [Le ft Upper Arm] Blood Pressure [Ri ght Arm] 129/84 Pulse Oximetry 98 98 98 Oxygen Delivery Me thod Room Air Room Air Oxygen Flow Rate 04/30/24 07:00 Temperature Pulse Rate Pulse Rate [Pulse Oximeter] 87 Respiratory Rate 16 Blood Pressure Blood Pressure [Le ft Upper Arm] Blood Pressure [Ri ght Arm] Pulse Oximetry Oxygen Delivery Me thod Oxygen Flow Rate Labs Labs: Laboratory Results - last 24 hr 04/29/24 04/29/24 04/30/24 23:10 23:35 00:09 WBC 12.39 H RBC 5.73 Hgb 17.2 Hct 52.7 MCV 92 MCH 30 MCHC 33 RDW Coeff of Louise 13.3 Plt Count 145 Neut % (Auto) 77.1 H Lymph % (Auto) 15.0 L [place] % (Auto) 6.7 Eos % (Auto) 0.2 Baso % (Auto) 0.2 Neut # (Auto) 9.60 H Lymph # (Auto) 1.90 [place] # (Auto) 0.80 Eos # (Auto) 0.00 Baso # (Auto) 0.00 Abs Immat Gran (auto) 0.10 Imm/Tot Granulo (auto) 0.8 VBG pH VBG pCO2 VBG pO2 VBG HCO3 Sodium 140 Potassium 3.9 Chloride 105 Carbon Dioxide 24 Anion Gap 11 BUN 20 Creatinine 1.2 Estimated Creat Clear 59.28 Estimated GFR 63 Glucose 135 H Lactate Calcium 9.2 Total Bilirubin 2.7 H AST 24 ALT 14 Alkaline Phosphatase 103 Total Creatine Kinase Troponin I Total Protein 7.5 Albumin 4.3 Urine Color Yellow Urine Appearance Clear Urine pH 5.5 Ur Specific [place] 1.025 Urine Protein 1+ A Urine Glucose (UA) 3+ A Urine Ketones 4+ A Urine Blood Negative Urine Nitrite Negative Urine Bilirubin 1+ A Urine Urobilinogen 1.0 Ur Leukocyte Esterase Negative Urine RBC 0-2 Urine WBC 0-2 Ur Squamous Epith Cells Few Urine Bacteria Few A Urine Mucus Moderate A Lab Acknowledgement New Spec Needed 04/30/24 04/30/24 00:30 06:28 WBC RBC Hgb Hct MCV MCH MCHC RDW Coeff of Louise Plt Count Neut % (Auto) Lymph % (Auto) [place] % (Auto) Eos % (Auto) Baso % (Auto) Neut # (Auto) Lymph # (Auto) [place] # (Auto) Eos # (Auto) Baso # (Auto) Abs Immat Gran (auto) Imm/Tot Granulo (auto) VBG pH 7.340 VBG pCO2 47 VBG pO2 < 30.1 VBG HCO3 25 Sodium Potassium Chloride Carbon Dioxide Anion Gap BUN Creatinine Estimated Creat Clear Estimated GFR Glucose Lactate 3.0 H 2.5 H Calcium Total Bilirubin AST ALT Alkaline Phosphatase Total Creatine Kinase 106 Troponin I < 0.01 L Total Protein Albumin Urine Color Urine Appearance Urine pH Ur Specific [place] Urine Protein Urine Glucose (UA) Urine Ketones Urine Blood Urine Nitrite Urine Bilirubin Urine Urobilinogen Ur Leukocyte Esterase Urine RBC Urine WBC Ur Squamous Epith Cells Urine Bacteria Urine Mucus Lab Acknowledgement
[2024-04-30] MEDS: INSULIN ASPART 100 UNIT/ML SUBCUT ×3 (13:22→21:16)
[2024-04-30] MEDS: RIVAROXABAN 10 MG TABLET 15 MG PO (18:34)
--- NOTE | 2024-04-30 18:43 | PC.NURSE ---
Pt alert, oriented and vitally stable. Pt moves via ceiling lift per PT. Pt in straight leg brace, tolerates well. Pt uses urinal, regular diet. Pt in bed, call light within reach.
[2024-04-30] MEDS: VALSARTAN 80 MG TABLET 160 MG PO (21:12)
[2024-04-30] MEDS: INSULIN GLARGINE,HUM.REC.ANLOG 100 UNIT/ML INSULN.PEN 19 UNIT SUBCUT (21:14)
[2024-04-30] MEDS: HYDROmorphone 2 MG TABLET PO (22:11)
[2024-05-01] VITALS: BP 121/80; PULSE 90; RESP 18; TEMP 36.9; O2SAT 96
[2024-05-01 03:15] VITALS: BP 104/80; PULSE 91; RESP 18; TEMP 36.9; O2SAT 95
[2024-05-01 06:26] LABS: Basophils Absolute Auto 0.02 K/uL (0.00-0.30); Basophils Percent Auto 0.3 % (0.0-3.0); Eosinophils Percent Auto 1.3 % (0.0-7.0); Hematocrit 40.4 % (37.0-53.0); Hemoglobin* 13.4 gm/dL (13.5-17.5); Immature Granulocytes Abs Auto 0.06 K/uL (0.00-0.30); Immature Granulocytes Pct Auto 0.8 %; Lymphocytes Absolute Auto 2.17 K/uL (0.90-2.90); Lymphocytes Percent Auto 28.3 % (20-44); Mean Corpuscular HGB Conc 33 gm/dL (32-36); Mean Corpuscular Hemoglobin 30 pg (26-34); Mean Corpuscular Volume 92 fL (80-100); Monocytes Percent Auto 11.2 % (0.0-11.0); Neutrophils Absolute Auto 4.46 K/uL (1.7-7.0); Neutrophils Percent Auto 58.1 % (42.0-72.0); Platelet Count* 130 K/uL (140-440); RDW Coefficient of Variation % 13.4 % (11.5-15.5); Red Blood Count 4.41 m/uL (4.30-5.90); White Blood Count* 7.67 K/uL (4.50-11.00)
[2024-05-01 06:32] LABS: Slide Review Reflex No
--- NOTE | 2024-05-01 06:39 | PC.NURSE ---
End of shift summary: Pt has been A&O, afebrile and VSS overnight. Denies nausea or dizziness. Reports pain is at 2-3/10. PRN PO Dilaudid given last @ 2210 and scheduled Tylenol given per eMAR. Pt is a ceiling lift Ax2 for transfers d/t inability to adhere to NWB orders for RL. Pt did not move easily in bed and needs heavy assistance with bed mobility. He utilized the urinal overnight, continent. Attempted to use the BSC x1 with no BM. PIV in left hand is SL. RL immobilizer in place overnight. HS B. ?
[2024-05-01 07:00] VITALS: BP 148/97; PULSE 90; PULSE 92; PULSE 99; RESP 18; TEMP 36.4; O2SAT 94; O2SAT 95; O2SAT 97
[2024-05-01 07:01] LABS: Chloride* 106 mmol/L (96-114); Potassium* 3.5 mmol/L (3.6-5.1); Sodium* 136 mmol/L (135-149)
[2024-05-01 07:03] LABS: Creatinine* 0.9 mg/dL (0.5-1.5); Est. Creatinine Clearance* 71.13; Estimated Glomerular Filt Rate 90 ml/min
[2024-05-01 07:04] LABS: Anion Gap 6 mEq/L (7-15); Blood Urea Nitrogen* 25 mg/dL (7-30); Calcium* 8.1 mg/dL (8.4-10.6); Carbon Dioxide* 24 mmol/L (20-32); Glucose* 140 mg/dL (60-115)
[2024-05-01] MEDS: ACETAMINOPHEN 650 MG TABLET ER 1300 MG PO (08:43)
--- NOTE | 2024-05-01 09:09 | CRLHL7_ITS ---
For Patients: As a result of the Century Cures Act, medical imaging exams and procedure reports are released immediately into your electronic medical record. You may view this report before your referring provider. If you have questions, please contact your health care provider. INDICATION: + RLE. TECHNIQUE: Ultrasound venous duplex lower right extremity. Compression venous exam was performed using tenorio-scale, color Doppler, and spectral Doppler imaging. COMPARISON: None. FINDINGS: Sonographic imaging demonstrates the right common femoral, deep femoral, superficial femoral, popliteal, posterior tibial and greater saphenous and the contralateral left common femoral veins to be fully compressible with normal color Doppler blood flow. Fluid collection posterior medial popliteal fossa measures 4.0 x 1.3 x 1.0 centimeters consistent with a Mccarthy`s cyst. IMPRESSION: No sign of deep venous thrombosis. 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 Dictated by Lionel Ramsey MD @ 05/01/2024 10:25:50 AM (Electronically Signed)
[2024-05-01] MEDS: INSULIN ASPART 100 UNIT/ML SUBCUT (10:07)
[2024-05-01] MEDS: INSULIN ASPART 100 UNIT/ML 12 UNIT SUBCUT (10:07)
[2024-05-01] MEDS: FUROSEMIDE 20 MG TABLET PO (10:08)
[2024-05-01] MEDS: EMPAGLIFLOZIN 10 MG TABLET PO (10:08)
[2024-05-01] MEDS: carvediloL 25 MG TABLET PO (10:08)
[2024-05-01] MEDS: OMEPRAZOLE 20 MG CAPSULE DR 40 MG PO (10:08)
[2024-05-01 11:00] VITALS: BP 139/99; PULSE 90; RESP 18; O2SAT 95
--- NOTE | 2024-05-01 11:01 | PM.DS1 ---
DS: Providers Provider Date Seen: 05/01/24 Date of admission: 04/29/24 23:54 Primary care physician: Elijah Fernandez MD Admitting Clinician: Kellee Pearce MD Consults: OT, PT, SW Attending Physician on discharge: Daphne Stuart MD Date of Discharge: 05/01/24 DS: Diagnosis Discharge Diagnosis (1) Fracture of lateral condyle of femur: Status: Acute Problem details: - in addition to previous RIGHT ankle fracture (January), RIGHT medial condyle femur fracture/ligament injury, now has a RIGHT lateral condyle fracture and hemarthrosis - ortho reviewed by phone in ER - nonoperative - PT/OT followed, recommend increased level of care - accepted by [facility] on 05/01/24 (2) Multiple falls: Status: Acute Problem details: - 3 since late January 2024 all requiring EMS. He was on the floor tonight for about an hour. multiple fractures. - not managing well at home; rarely leaves his home, minimal time on his feet - discussed importance of rehab, general strengthening, tools needed to succeed at home (3) Ketonuria: Status: Acute Problem details: - hemoconcentration; CK and troponin normal - 4+ ketones in urine - mildly elevated lactate on admission, normalized - normal po intake upon discharge (4) Atrial fibrillation: Status: Chronic Problem details: - on chronic anticoagulation. Xarelto. - continue rate control with carvedilol - Telemetry (5) Chronic anticoagulation: Status: Acute Problem details: - takes only 15mg Xarelto daily - was having epistaxis with full dose. (6) Insulin dependent diabetes mellitus: Status: Acute Problem details: - has neuropathy - most recent A1c 6.1 (03/31/24) - continued home insulin (glargine 19 units at HS) and Jardiance (7) Combined systolic and diastolic heart failure, NYHA class 3: Status: Acute Problem details: - HFpEF, continue Lasix and GDMT measures - echo 07/20 Final Impressions: 1. Technically limited exam. 2. Normal LV size, mildly increased wall thickness, low normal global systolic function with an estimated EF of ~ 55%. 3. Right ventricular cavity size is not well visualized, global systolic RV function is not well visualized. 4. Mildly enlarged left atrium. 5. The ascending aorta is dilated with a maximal diameter of 4.3 cm. 6. The aortic sinus is dilated with a maximal diameter of 4.7 cm. (8) Hypertension: Status: Acute Problem details: -continue home medications (9) BPH without urinary obstruction: Status: Acute (10) JOANIE (obstructive sleep apnea): Status: Acute (11) GERD (gastroesophageal reflux disease): Status: Acute DS: Summary Hospital Course Hospital Course: Chano is a 73-year-old male who had been living independently and has had multiple falls at home recently, readmitted to the hospital on 04/30/2024 for another mechanical fall. Imaging revealed RIGHT bilateral femoral condylar fractures (previously had a Right medial condylar fracture, February 2024). Given multiple mechanical falls and general deconditioning, increased level of care recommended by our hospitalist and therapy teams. Comorbidities, above, stable. By hospital day 2, pain managed with scheduled Tylenol. Noted to have some right lower extremity edema on day of discharge; ultrasound revealed Mccarthy's cyst but no acute DVT. He was screened and accepted by [facility]; medically appropriate for discharge on 05/01/2024. Status at Discharge Functional status at discharge: uses cane/walker Overall status at discharge: patient is not back to baseline Time Spent with Patient Time attestation: Total time spent providing and/or coordinating discharge services: Time spent: Greater than 30 minutes Exam Narrative: Exam Narrative: GEN: Alert and oriented, nontoxic HEENT: EOMIs bilaterally, no scleral icterus CV: RRR, No concerning murmurs R: LCTA bilaterally without concerning wheezing Ext: wearing R knee immobilizer, + RLE edema Neuro: Nonfocal Psych: Appropriate Const: Vital Signs, click to edit/add: Vital Signs - 24 hr 04/30/24 15:00 04/30/24 15:00 04/30/24 15:00 Temperature Pulse Rate Pulse Rate [Pulse Oximeter] 84 Respiratory Rate 16 16 Blood Pressure [Ri ght Arm] Pulse Oximetry 95 95 Oxygen Delivery Me thod Room Air Oxygen Flow Rate 2 04/30/24 15:00 04/30/24 19:00 04/30/24 23:30 Temperature 98.1 F 98.2 F Pulse Rate 74 Pulse Rate [Pulse Oximeter] 89 88 Respiratory Rate 16 20 Blood Pressure [Ri ght Arm] 137/87 115/96 H Pulse Oximetry 98 94 Oxygen Delivery Me thod Room Air Oxygen Flow Rate 05/01/24 00:00 05/01/24 00:00 05/01/24 00:00 Temperature Pulse Rate Pulse Rate [Pulse Oximeter] 90 Respiratory Rate 18 18 Blood Pressure [Ri ght Arm] Pulse Oximetry 96 96 Oxygen Delivery Me thod Room Air Oxygen Flow Rate 05/01/24 00:00 05/01/24 03:15 05/01/24 07:00 Temperature 98.4 F 98.4 F 97.5 F L Pulse Rate Pulse Rate [Pulse Oximeter] 90 91 92 Respiratory Rate 18 18 18 Blood Pressure [Ri ght Arm] 121/80 104/80 148/97 H Pulse Oximetry 96 95 94 Oxygen Delivery Me thod Room Air Room Air Room Air Oxygen Flow Rate 05/01/24 07:00 Temperature Pulse Rate Pulse Rate [Pulse Oximeter] Respiratory Rate Blood Pressure [Ri ght Arm] Pulse Oximetry 97 Oxygen Delivery Me thod Oxygen Flow Rate DS: Data Data Completed and Pending Labs on day of discharge: Labs from last 24 hours 05/01/24 06:06 WBC 7.67 RBC 4.41 Hgb 13.4 L Hct 40.4 MCV 92 MCH 30 MCHC 33 RDW Coeff of Louise 13.4 Plt Count 130 L Neut % (Auto) 58.1 Lymph % (Auto) 28.3 [place] % (Auto) 11.2 H Eos % (Auto) 1.3 Baso % (Auto) 0.3 Neut # (Auto) 4.46 Lymph # (Auto) 2.17 [place] # (Auto) 0.90 Eos # (Auto) 0.10 Baso # (Auto) 0.02 Abs Immat Gran (auto) 0.06 Imm/Tot Granulo (auto) 0.8 Sodium 136 Potassium 3.5 L Chloride 106 Carbon Dioxide 24 Anion Gap 6 L BUN 25 Creatinine 0.9 Estimated Creat Clear 71.13 Estimated GFR 90 Glucose 140 H Lactate 1.0 Calcium 8.1 L Preliminary micro results at discharge 04/29/24 23:35 Urine Culture - Preliminary Urine,Clean Catch Culture in Progress Discharge Plan Discharge Disposition: Xfer Other Date of Admission: 04/29/24 23:54 Attending Provider on Discharge: Daphne Stuart Primary Care Provider: Elijah Fernandez Condition: Improved Anticipated Discharge Date/Time: 05/01/24 10:51 Discharge Medications: New acetaminophen 650 mg Tablet Extended Release 1,300 mg PO Q8H Qty: 30 0RF Continued carvedilol 25 mg tablet 25 mg PO BID Xarelto 15 mg tablet 15 mg PO QPM diclofenac sodium 1 % gel 4 g TOPICAL QID insulin glargine [Lantus Solostar U-100 Insulin] 100 unit/mL (3 mL) insulin pen 19 unit subcut HS atorvastatin 20 mg tablet 20 mg PO HS pantoprazole 40 mg tablet,delayed release (DR/EC) 40 mg PO DAILY albuterol sulfate 90 mcg/actuation HFA aerosol inhaler 1 - 2 puff INHALATION Q4H PRN valsartan 160 mg tablet 160 mg PO HS insulin aspart U-100 100 unit/mL (3 mL) insulin pen 12 unit SUBCUT BIDWM cholestyramine-aspartame [Cholestyramine Light] 4 gram powder in packet 1 ea PO DAILY Patient Comments: MIX 1 PACKET IN LIQUID THEN TAKE BY MOUTH 2 TIMES DAILY WITH MEALS furosemide 20 mg tablet 20 mg PO DAILY PRN (Reason: weight gain) Rx Instructions: if >290# Jardiance 10 mg tablet 10 mg PO DAILY Discharge Orders: Discharge Order (Routine); Ordered 05/01/24 Ordered By: Daphne Stuart Additional Instructions: PT and OT at [facility]. Keep working on strengthening and fall prevention. Scheduled Tylenol + as needed Diclofenac gel for pain management. Activity Level: Activity as Tolerated Discharge Diet: Diabetic Follow Up Appointments: Elijah Fernandez MD [Primary Care Provider] - (2 week hospital f/u) Forms: [facility] Info Instructions
--- NOTE | 2024-05-01 13:34 | PC.NURSE ---
Nursing Care Hours: [id number] Pt this shift alert and oriented, calm and cooperative. VSS. Pain controlled per eMAR. Swelling noted to R leg vs L leg. CMS intact, pedal pulse felt. Ultrasound of leg done, see results. Using urinal in bed. IV removed for discharge. Insulin given per sliding scale. [facility] nurse to nurse given, van picked pt up. PT assisted pt into w/c.
== END 2024-05-01 12:30 | disposition other institution (70) ==
LOC: ED 23:07 → MEDSURG 23:54
PROVIDERS: Family Medicine; Admitting Provider Family Medicine; Emergency Provider Family Medicine; PCP Surgery; Visit Provider Family Medicine
DX: S72.421A Displaced fracture of lateral condyle of right femur, initial encounter for closed fracture (principal); M25.051 Hemarthrosis, right hip; R29.6 Repeated falls; R53.1 Weakness; R26.9 Unspecified abnormalities of gait and mobility; R82.4 Acetonuria; I48.91 Unspecified atrial fibrillation; Z79.01 Long term (current) use of anticoagulants; I11.0 Hypertensive heart disease with heart failure; I50.41 Acute combined systolic (congestive) and diastolic (congestive) heart failure; N40.0 Benign prostatic hyperplasia without lower urinary tract symptoms; G47.33 Obstructive sleep apnea (adult) (pediatric); K21.9 Gastro-esophageal reflux disease without esophagitis; M85.80 Other specified disorders of bone density and structure, unspecified site
CPT/HCPCS: 36415; 73552; 73700; 80048; 80053; 81001; 82550; 82803; 82962; 83605; 84484; 85025; 87086; 93005; 93971; 94761; 96361; 96374; 96375; 96376; 97110; 97161; 97166; 97530; 97535; 99284; 99285; G0378; A9270; J1815; J2270; J2405; J7030

== ENCOUNTER 2024-05-19 11:14 | Outpatient (REF) | payer MEDICARE, BC, SELFPAY ==
[2024-05-19 11:45] LABS: Basophils Absolute Auto 0.04 K/uL (0.00-0.30); Basophils Percent Auto 0.5 % (0.0-3.0); Eosinophils Absolute Auto 0.08 K/uL (0.00-0.50); Eosinophils Percent Auto 1.1 % (0.0-7.0); Hematocrit 43.7 % (37.0-53.0); Hemoglobin* 14.3 gm/dL (13.5-17.5); Immature Granulocytes Abs Auto 0.03 K/uL (0.00-0.30); Immature Granulocytes Pct Auto 0.4 %; Lymphocytes Absolute Auto 1.71 K/uL (0.90-2.90); Lymphocytes Percent Auto 22.8 % (20-44); Mean Corpuscular HGB Conc 33 gm/dL (32-36); Mean Corpuscular Hemoglobin 30 pg (26-34); Mean Corpuscular Volume 92 fL (80-100); Neutrophils Absolute Auto 5.03 K/uL (1.7-7.0); Neutrophils Percent Auto 67.2 % (42.0-72.0); Platelet Count* 213 K/uL (140-440); RDW Coefficient of Variation % 13.9 % (11.5-15.5); Red Blood Count 4.74 m/uL (4.30-5.90); White Blood Count* 7.49 K/uL (4.50-11.00)
[2024-05-19 11:47] LABS: Slide Review Reflex No
[2024-05-19 12:09] LABS: Chloride* 106 mmol/L (96-114); Potassium* 4.7 mmol/L (3.6-5.1); Sodium* 137 mmol/L (135-149)
[2024-05-19 12:11] LABS: Cholesterol* 87 mg/dL (90-199); Creatinine* 0.8 mg/dL (0.5-1.5); Estimated Glomerular Filt Rate 93 ml/min
[2024-05-19 12:12] LABS: Anion Gap 7 mEq/L (7-15); Blood Urea Nitrogen* 18 mg/dL (7-30); Calcium* 8.7 mg/dL (8.4-10.6); Carbon Dioxide* 24 mmol/L (20-32); Glucose* 139 mg/dL (60-115); HDL Cholesterol* 45 mg/dL (>=40); LDL Cholesterol Calculated 24 mg/dL (<100); Triglycerides* 88 mg/dL (40-149)
[2024-05-19 13:24] LABS: Hemoglobin A1C* 6.5 % (0-5.6)
== END 2024-05-19 11:15 | disposition home or self-care (01) ==
LOC: NPINS 11:14
PROVIDERS: PCP Surgery; Visit Provider Nurse Practitioner Gerontology
DX: E11.9 Type 2 diabetes mellitus without complications (principal); I25.10 Atherosclerotic heart disease of native coronary artery without angina pectoris; E78.5 Hyperlipidemia, unspecified
CPT/HCPCS: 80048; 80061; 83036; 85025

== ENCOUNTER 2024-05-25 09:22 | Outpatient (CLI) | payer MEDICARE, BC, SELFPAY | END 2024-05-25 09:23 | disposition home or self-care (01) | LOC: AMB 05-31 09:33 | PROVIDERS: PCP Surgery; Visit Provider Family Medicine | DX: R55 Syncope and collapse (principal) | CPT/HCPCS: A0425; A0427; A0428 ==

== ENCOUNTER 2024-05-25 09:31 | Emergency (ER) | payer MEDICARE, BC, SELFPAY ==
[2024-05-25] VITALS (38 sets, daily range): BP systolic 115–144; BP diastolic 70–104; PULSE 63–91; RESP 16–20; TEMP 35.9; O2SAT 80–100; BMI 38.0
--- OUTSIDE RECORDS SUMMARY | 2024-05-25 09:42 | XMS_ITS | Patient Health Record ---
Author Organization [facility] Billing Info Address [address] [place] [id number] Care Team Providers Care Community Marketing Coordinator Name Role Phone ALEX CHANCE Unavailable [phone] Allergies Allergen (clinical drug ingredient) Drug/Non Drug Allergy documented on EMR Reaction Allergy Type Onset Date Status tamsulosin Flomax Unknown Drug Allergy Active tetracycline Tetracycline HCl Unknown Drug Allergy Active Reason For Referral No Information Medications Medication SIG (Take, Route, Fr equency, Duration) Notes Start Date End Date Status MetFORMIN HCl ER 500 mg 1 tablet with ev ening meal Orally Once a day for 90 day(s) 08/12/2013 Active Simvastatin 40mg 1 tab(s) Orally michel y in pm for 90 days Active Multi Vitamin Mens A ctive B Complex Active Naproxen 500 mg 1 tablet as needed O rally every 12 hrs 10/14/2013 Active Lisinopril 5 MG 1 tablet Orally Once a day for 30 day(s) 09/10/2013 Active Cetirizine HCl 10 mg 1 tablet as needed Orally Once a day for 90 day(s) 11/04/2013 Active GlipiZIDE 10 MG 1 tablet Orally Once a day for 30 day(s) 03/11/2014 Active Aspir-81 81 MG 1 tablet Orally Once a day for 30 day(s) 08/12/2013 Active Lisinopril 10 MG 1 tablet Orally Once a day for 90 day(s) 11/04/2013 Active Calcium Citrate + D3 Active Omeprazole 20mg Acti ve GlipiZIDE 10 MG 1 tablet Orally Once a day for 30 Active Immunizations Vaccine Route Administration Date Status Comme nts FLU (Past vaccine of unknown type) Unknown 07/22/2013 A dministered Problems Problem Type SNOMED Code ICD Code Onset Dates Problem Status W/U Status Risk Notes Problem 32021019 Diabetes mellitu s without mention of complication, type II or unspecified type, not stated as uncontrolled (250.00) Active confirmed Problem 11631351 Essential hypertension (401.9) Active confirmed Problem 370808921 Erectile dysfunction (607.84) Active confirmed Problem 79254484 Shoulder pain (719.41) Active confirmed Plan Of Treatment No Information Insurance Providers Payer Name Payer Address Payer Phone Subscriber Number Group Number Insured Name Patient Relationship to Insured Coverage Start Date Coverage End Date [facility] [employer] CLAIMS [address] [place], [place] [phone] [id number] Lionel Carlos Self - patient is the insured 9 0 Medical (General) History Medical History History ICD Code Migraine headaches High blood pressure High cholesterol Arthritis Hiatal hernia DM BPH- LUTs Surgical History Surgery Date(Month/Year) right shoulder arthroscopic rotator cuff repair/ Dr. Chance 08/26/2013 prostate shoulder surgery hernia repair septoplasty Hospitalization History Reason Date(Month/Year) SEE ABOVE for chest pain was negative 06/2013
--- OUTSIDE RECORDS SUMMARY | 2024-05-25 09:42 | XMS_ITS | Clinical Summary ---
Author Organization [facility] Address [place], [place] [address] Care Team Providers Care Floor Press Operator Name Role Phone Elijah Fernandez MD Primary Care Provider [phone] Allergies Active Allergy Reactions Criticality Noted Date Comments Duloxetine Other - Describe In Comment Field 06/28/2016 Mouth sores Metformin Diarrhea 04/07/2019 Tamsulosin Syncope High 10/29/2007 flomax Tetracycline Intolerance-Can't Take 08/14/2005 Bumps on tongue Medications albuterol HFA (PRO-AIR; VENTOLIN; PROVENTIL) 90 mcg/actuation inhalerIndications :COPD with chronic bronchitis (HC) Inhale 1-2 Puffs by mouth every 4 hours if needed (shortness of breath). 1 Each 4 04/27/20 22 Active diclofenac topical (VOLTAREN) 1 % gelIndications:Chr onic pain of both knees Apply 4 g topically to affected area(s) four times daily. 100 g 1 04/27/20 22 Active pen needle, diabetic (BD Insulin Pen Needle UF) 31 gauge x 5/16Indications:T ype 2 diabetes mellitus with diabetic neuropathy, with long-term current use of insulin (HC) USE FOR ADMINISTERING INSULIN 400 Each 3 01/28/20 23 Active atorvastatin (LIPITOR) 20 mg tabletIndications: Hyperlipidemia, unspecified hyperlipidemia type Take 1 Tablet (20 mg) by mouth at bedtime. 90 Tablet 3 09/06/19 24 Active blood sugar diagnostic (Contour Next Test Strips) stripIndications:T ype 2 diabetes mellitus with diabetic neuropathy, with long-term current use of insulin (HC) USE TO TEST FOUR TIMES DAILY 400 Each 3 09/06/19 24 Active empagliflozin (JARDIANCE) 10 mg tabletIndications: Type 2 diabetes mellitus with diabetic neuropathy, with long-term current use of insulin (HC) Take 1 Tablet (10 mg) by mouth once daily. 90 Tablet 3 09/06/19 24 Active rivaroxaban (Xarelto) 15 mg tab tabletIndications: Longstanding persistent atrial fibrillation (HC) Take 1 Tablet (15 mg) by mouth once daily with evening meal. 90 Tablet 3 09/30/19 24 Active cholestyramine-asp artame (QUESTRAN LIGHT) 4 gram powderIndications: Chronic diarrhea 1 packet daily by mouth away from other medications 693 g 2 10/27/19 24 Active carvediloL (Coreg) 25 mg tabletIndications: Chronic diastolic heart failure (HC) Take 1 Tablet (25 mg) by mouth two times daily with meals. 180 Tablet 3 10/29/19 24 Active valsartan (DIOVAN) 160 mg tabletIndications: Chronic diastolic heart failure (HC) Take 1 Tablet (160 mg) by mouth once daily. 90 Tablet 3 10/29/19 24 Active furosemide (LASIX) 20 mg tabletIndications: Acute combined systolic and diastolic CHF, NYHA class 3 (HC) TAKE ONCE DAILY IF WEIGHT IS>290, HOLD IF WEIGHT IS<290 90 Tablet 11/16/19 24 Active pantoprazole (PROTONIX) 40 mg delayed-release tabletIndications: Chronic GERD Take 1 Tablet (40 mg) by mouth once daily before a meal. 90 Tablet 2 11/23/19 24 Active insulin aspart, U-100, (NOVOLOG FLEXPEN) 100 unit/mL (3 mL) penIndications:Typ e 2 diabetes mellitus with diabetic neuropathy, with long-term current use of insulin (HC) INJECT 12 UNITS UNDER THE SKIN TWICE DAILY WITH MEALS 60 mL 3 02/13/20 24 Active Lantus Solostar U-100 Insulin 100 unit/mL (3 mL) penIndications:Typ e 2 diabetes mellitus with diabetic neuropathy, with long-term current use of insulin (HC) Inject 19 units subcutaneous before bedtime. Product desired: LANTUS SOLOSTAR 15 mL 3 04/16/20 24 Active Active Problems Problem Noted Date Diagnosed Date [...] Morbid obesity with BMI of 40.0-44.9, adult 10/2016 JOANIE 05/04/2014 AHI-48 05/17/2014 Chronic cough [...] Encounters Date Type Department Care Team Description 05/01/2024 Orders Only [facility] Scanner 1 scan: (1-Ord) [facility], VENOUS LE RT, 05/01/2024 04/29/2024 Orders Only [facility] Scanner 1 scan: (1-Ord) [place], [place] KNEE RT WO CON, 04/29/2024 04/29/2024 Orders Only [facility] Scanner 1 scan: (1-Ord) [place], RT FEMUR 2 VIEWS, 04/29/2024 04/28/[address] [place] [address] Mary Jo Mix MD Results (Thyroid US) 04/27/2024 1:00 PM SECURITY ASSISTANT Ancillary Procedure [address] [place] [address] 04/27/2024 Travel 04/09/[address] [place] [address] Elijah Fernandez MD Medication Management (insulin detemir U-100 (LEVEMIR) 100 unit/mL (3 mL) pen) 04/07/2024 Nurse Triage [place] [address] [place] [address] Elijah Fernandez MD Leg Injury 03/31/2024 3:40 PM SECURITY ASSISTANT Office Visit [place] [address] [address] [facility] [place] [address] Elijah Fernandez MD Diabetes; Blood Pressure 03/31/2024 Travel 03/24/20[address] [place] [address] Elijah Fernandez MD Appointment Request 03/23/2024 Telephone [facility] [address] [facility] [place] [address] Mary Jo Mix MD Testing (Needs repeat 1 year thyroid US to follow up nodule) 03/12/2024 Orders Only [facility] Scanner 1 scan: (1-Ord) [facility], ANKLE RT MIN 3V, 03/12/2024 03/12/2024 Telephone [facility] [address] [facility] [place] [address] Elijah Fernandez MD Appointment Request (Diabetic visit reschedule ) 03/11/2024 Orders Only [facility] Scanner 1 scan: (1-Ord) [facility], XR KNEE RT 3V, 03/11/2024 03/11/2024 Orders Only [facility] Scanner 1 scan: (1-Ord) [facility], KNEE RT 3V, 03/11/2024 03/11/2024 Orders Only [facility] Scanner 1 scan: (1-Ord) [place], RT KNEE WO CONTRAST, 03/11/2024 02/25/2024 8:50 AM CDT Office Visit [facility] [address] [facility] [place] [address] Elijah Fernandez MD Hospital F/U (Last Saturday in the er for a fall. Broke his ankle and sprained the knee) 02/25/2024 Travel from Last 3 Months Immunizations Name [...] is your housing situation today? 1 01/14/2024 Utilities Answer Date Recorded Do you have trouble paying f or utilities (for example, heat, electricity, water, phone)? 1 01/14/2024 Sex and Gender Information Value Date Recorded Sex Assigned at Not on file Legal Sex Male 6:44 AM SECURITY ASSISTANT Gender Identity Not on file Sexual Orientation Not on file Occupation Industry Job Start Date Job End Date Disabled Not on file Not on file Not on file Obstetrics History Last Filed Vital Signs Vital Sign Reading Time Taken Comments Blood Pressure 144/90 03/31/2024 4:06 PM SECURITY ASSISTANT Pulse 92 03/31/2024 4:06 PM SECURITY ASSISTANT Temperature 36.5 C (97.7 F) 12/09/2023 10:18 AM CDT Respiratory Rate 22 04/06/2021 2:12 PM SECURITY ASSISTANT Oxygen Saturation 100% 03/31/2024 4:03 PM SECURITY ASSISTANT Inhaled Oxygen Concentration - - Weight 128.9 kg (284 lb 3.2 oz) 02/13/2024 1:02 PM CDT Height 182.9 cm (6' 0.01) 12/23/2023 1:16 PM CD T Body Mass Index 38.54 12/23/2023 1:16 PM CDT Plan of Treatment Upcoming Encounters Date Type Department Care Team (Late st Contact Info) Description 06/30/2024 1:10 PM SECURITY ASSISTANT Office Visit [facility] [address] [place] [address] Elijah Fernandez MD [address] [place] [address] Health Maintenance Due Date Last Done Comments [...] Procedure Name Priority Date/Time Associated Diagnosis Comments SCAN-ULTRASOUND REPORT 12:00 AM SECURITY ASSISTANT SCAN-CT INTERPRETATION 12:00 AM SECURITY ASSISTANT SCAN-RADIOLOGY REPORT 04/29/2024 12:00 AM SECURITY ASSISTANT US THYROID/PARATHYROID Routine 1:20 PM SECURITY ASSISTANT Thyroid nodule BASIC METABOLIC PANEL Routine 03/31/2024 3:39 PM SECURITY ASSISTANT HTN (hypertension) LIPID PANEL Routine 03/31/2024 3:39 PM SECURITY ASSISTANT Hyperlipidemia, unspecified hyperlipidemia type PSA TOTAL Routine 03/31/2024 3:39 PM SECURITY ASSISTANT Screening for prostate cancer HEMOGLOBIN A1C MONITORING (POCT) Routine 03/31/2024 3:38 PM SECURITY ASSISTANT Type 2 diabetes mellitus with diabetic neuropathy, with long-term current use of insulin (HC) SCAN-RADIOLOGY REPORT 03/12/2024 12:00 AM SECURITY ASSISTANT SCAN-RADIOLOGY REPORT 03/11/2024 12:00 AM SECURITY ASSISTANT SCAN-RADIOLOGY REPORT 03/11/2024 12:00 AM SECURITY ASSISTANT SCAN-CT INTERPRETATION 4 12:00 AM SECURITY ASSISTANT COLONOSCOPY DIAGNOSTIC Routine 0 12:12 PM SECURITY ASSISTANT History of colon polyps ANTI HCV Routine 11/20/2016 12:25 PM CDT Need for hepatitis C screening test from Last 3 Months or Most Recently Relevant to Health Maintenance Results * SCAN-ULTRASOUND REPORT (05/01/2024 12:00 AM SECURITY ASSISTANT) Anatomical Region Laterality Modality Other us Scanner OTHER Final Result * SCAN-RADIOLOGY REPORT (04/29/2024 12:00 AM SECURITY ASSISTANT) Only the most recent of4 resultswithin the time period is included. Anatomical Region Laterality Modality Other us Scanner OTHER Final Result * SCAN-CT INTERPRETATION (04/29/2024 12:00 AM SECURITY ASSISTANT) Only the most recent of2 resultswithin the time period is included. Anatomical Region Laterality Modality Other us Scanner OTHER Final Result * US THYROID/PARATHYROID (04/27/2024 1:20 PM SECURITY ASSISTANT) Anatomical Region Laterality Modality THYROID Ultrasound 04/27/2024 3:06 PM SECURITY ASSISTANT Impressions 04/27/2024 3:06 PM SECURITY ASSISTANT Stable size and morphology of left-sided thyroid nodules. Dictated by Matthew Muhammad MD @ 04/27/2024 3:06:11 PM (Electronically Signed) Narrative 04/27/2024 3:06 PM SECURITY ASSISTANT For Patients: As a result of the [...] MD @ 04/27/2024 3:06:11 PM (Electronically Signed) us Mary Jo Mix MD US Final Re sult * PSA TOTAL (03/31/2024 3:39 PM SECURITY ASSISTANT) PSA, TOTAL 1.05 < OR = 4.00 ng/mL [facility] Comment: The total PSA value [...] BLOOD SPECIMEN / Unknown 03/31/2024 3:39 PM SECURITY ASSISTANT 03/31/2024 3:48 PM SECURITY ASSISTANT Elijah Fernandez MD CHEMISTRY Final Resu lt [facility] [address] [place] [address], [facility] [address] [place] [address] * (ABNORMAL) LIPID PANEL (03/31/2024 3:39 PM SECURITY ASSISTANT) CHOLESTEROL, TOTAL 121 <200 mg/dL [facility] HDL CHOLESTEROL 46 > OR = 40 mg/dL [facility] TRIGLYCERIDES 154(H) <150 mg/dL [facility] LDL-CHOLESTEROL 51 mg/dL (calc) [facility] Comment: Reference range: <100 Desirable range <100 mg/dL for primary prevention; <70 mg/dL for patients with CHD or diabetic patients with > or = 2 CHD risk factors. LDL-C is now calculated using the Devorah calculation, which is a validated novel method providing better accuracy than the Friedewald equation in the estimation of LDL-C. Jori COLE et al. EMMA. 2013;310(94): 3771-3186 (http://education.[employer]/faq/ADB394) CHOL/HDLC RATIO 2.6 <5.0 (calc) [facility] NON HDL CHOLESTEROL 75 <130 mg/dL (calc) [facility] Comment: For patients with diabetes plus 1 major ASCVD risk factor, treating to a non-HDL-C goal of <100 mg/dL (LDL-C of <70 mg/dL) is considered a therapeutic option. Blood BLOOD SPECIMEN / Unknown 03/31/2024 3:39 PM SECURITY ASSISTANT 03/31/2024 3:48 PM SECURITY ASSISTANT us Elijah Fernandez MD CHEMISTRY Final Resu lt [facility] [address] [place] [address], [facility] [address] [place] [address] * (ABNORMAL) BASIC METABOLIC PANEL (03/31/2024 3:39 PM SECURITY ASSISTANT) [facility] GLUCOSE 138(H) 65 - 99 mg/dL [facility] Comment: Fasting reference interval For someone without known diabetes, a glucose value >125 mg/dL indicates that they may have diabetes and this should be confirmed with a follow-up test. UREA NITROGEN (BUN) 19 7 - 25 mg/dL [facility] CREATININE 1.37(H) 0.70 - 1.28 mg/dL [facility] EGFR 54(L) > OR = 60 mL/min/1.7 [...] BLOOD SPECIMEN / Unknown 03/31/2024 3:39 PM SECURITY ASSISTANT 03/31/2024 3:48 PM SECURITY ASSISTANT Elijah Fernandez MD CHEMISTRY Final Resu lt Performing Organization Address City/[facility]/ZIP Co de Phone Number [facility] [address] [place] [address], [place] [phone] [facility] [address] [place] [address] * (ABNORMAL) POCT Hemoglobin A1C Monitoring (03/31/2024 3:38 PM SECURITY ASSISTANT) POC HEMOGLOBIN A1C 6.1(H) <6.0 % OF TOTAL HGB [facility] Comment: Any point of care results exhibiting inconsistency with the patient's clinical status should be repeated using a different testing method. Blood BLOOD SPECIMEN / Unknown 03/31/2024 3:38 PM SECURITY ASSISTANT 03/31/2024 3:39 PM SECURITY ASSISTANT Elijah Fernandez MD CHEMISTRY Final Resu lt Performing Organization Address City/[facility]/ZIP Co de Phone Number [facility] [address] [place] [address], [place] [phone] [facility] [address] [place] [address] * COLONOSCOPY DIAGNOSTIC (03/29/2020 12:12 PM SECURITY ASSISTANT) Jori Siddiqui MD GI PROCEDURE ORD Final Re sult * ANTI HCV (11/20/2016 12:25 PM CDT) HEPATITIS C ANTIBODY Non-Reacti ve Non-Reacti ve 11/20/2016 8:43 PM CDT [facility] Blood BLOOD SPECIMEN / Unknown Venipuncture / Unknown 11/20/2016 12:25 PM CDT 11/20/2016 1:51 PM CDT Narrative [facility] - 11/20/2016 8:43 PM CDT Antibodies to HCV not detected; does not exclude the possibility of exposure to HCV. Elijah Fernandez MD SEND OUTS Final Resu lt [facility] [address] [place] [address], [place] from Last 3 Months or Most Recently Relevant to Health Maintenance Insurance MEDICARE PB ONLY [facility] FED EMP MEDICARE PART B HB ONLY MEDICARE PART A HB ONLY [id number] [place] [id number] MEDICARE PPS [facility] FED EMP [id number] [place] [id number] * Guarantor: [facility] Account Type Relation to Patient Date of Phone Billing Address Contract 2007 [address] [place] [address] Advance Directives Documents on File Type Date Recorded Patient Brand Marketing Manager Expl anation POLST 05/04/2024 POLST 2021 11:11 AM SYDNI ZAMBRANO, 12/19/2021 * Full Code (Latest Code Status on File) Date Activated Date Inactivated Comments 10/04/2020 9:05 PM 10/16/2020 2:59 PM Question Answer Comments Code Status Discussion: Discussed * Full Code Date Activated Date Inactivated Comments 07/09/2007 1:19 AM 07/21/2007 4:26 PM * Full Code Date Activated Date Inactivated Comments 07/08/2007 11:19 PM 07/09/2007 1:19 AM Care Teams Floor Press Operator Relationship Specialty Start Date End Date Elijah Fernandez MD [address] [place] [address] PCP - General Family Practice 03/17/14
--- NOTE | 2024-05-25 09:48 | CRLHL7_ITS ---
For Patients: As a result of the Century Cures Act, medical imaging exams and procedure reports are released immediately into your electronic medical record. You may view this report before your referring provider. If you have questions, please contact your health care provider. INDICATION: Altered level of consciousness. No additional clinical history is provided. COMPARISON: None available. TECHNIQUE: One view (2 images) FINDINGS: Lordotic position. Medical Devices: None. Lung Volumes: Adequate inspiration. No significant atelectasis. Lungs: Clear lungs. Pleura and Pleural spaces: No significant pleural effusion. No pneumothorax. Mediastinum: AP technique exaggerates the transverse dimension of the cardiac silhouette. Enlarged cardiac silhouette is not excluded. Differential diagnostic considerations include cardiomegaly and/or pericardial effusion. Bony Thorax and Soft Tissues: No significant incidental findings. IMPRESSION: No findings to explain the clinical history. Incidental findings described in the body of the report. Dictated by Robbin Rizzo MD @ 05/25/2024 10:24:07 AM (Electronically Signed)
--- NOTE | 2024-05-25 09:50 | ED_ITS ---
HPI - General Adult General Time Seen by Provider: 09:47 Date Seen: 05/25/24 Chief complaint: Syncope/Fainted Stated complaint: in/out of consciousness Time Seen by Provider: 05/25/24 09:47 Source: patient, EMS and old records reviewed Mode of arrival: EMS Limitations: no limitations History of Present Illness HPI narrative: This 73-year-old is brought in from the [facility] after syncopal episode after eating breakfast. Patient was reported to be sitting at the table in his wheelchair, had finished breakfast and passed out. He was noted to be in and out of responsiveness. The last thing he remembers was eating breakfast. Patient reportedly was moved to the ground, did not injure anything. EMS found patient on the floor at [facility] where he is rib bili taping from orthopedic injuries. He has a history of atrial fibrillation and is anticoagulated with Xarelto. His blood sugar before breakfast was 124. He has not been ill. He does note 2 days ago he had sweats, woke up sweaty. At this time he denies any headache, no new pain from any falls or injury. No chest pain, no shortness of breath, is not feeling dizzy. EMS loaded patient and brought him here. They did page out a [facility] but review of their EKGs is not showing me concerns of this. We will get an updated EKG immediately here. Patient states he did not require any surgery for his orthopedic injury. Patient had a nondisplaced distal fibula fracture on 02/19/2024, managed non operatively. He had acute right knee MCL insertion site avulsion fracture found on 03/11/2024. He had an acute moderately displaced lateral femoral condyle fracture on 04/29/2024. All of these were separate injuries. Please see Mary Jo Galarza's MARY note from 05/06/2024. He did have an ultrasound on 05/01/2024 revealing no DVT in his right leg, which is the affected leg for all of these injuries. Related Data Home Medications ?Medication ?Instructions ?Recorded ?Confirmed albuterol sulfate 90 mcg/actuation 1 - 2 puff inhalation Q4H PRN 12/13/21 05/06/24 aerosol inhaler atorvastatin 20 mg tablet 20 mg PO HS 12/13/21 05/25/24 cholestyramine-aspartame 4 gram 1 ea PO DAILY 12/13/21 05/06/24 oral powder for susp in a packet (Cholestyramine Light) furosemide 20 mg tablet 20 mg PO DAILY PRN weight gain 12/13/21 05/06/24 pantoprazole 40 mg tablet,delayed 40 mg PO DAILY 12/13/21 05/25/24 release valsartan 160 mg tablet 160 mg PO HS 12/13/21 05/25/24 empagliflozin 10 mg tablet 10 mg PO DAILY 09/28/23 05/25/24 (Jardiance) carvedilol 25 mg tablet 25 mg PO BID 02/20/24 05/25/24 rivaroxaban 15 mg tablet (Xarelto) 15 mg PO QPM 02/20/24 05/25/24 diclofenac sodium 1 % topical gel 4 g topical QID 04/30/24 05/25/24 insulin glargine 100 unit/mL (3 19 unit subcut HS 04/30/24 05/25/24 mL) subcutaneous pen (Lantus Solostar U-100 Insulin) insulin detemir U-100 100 unit/mL 19 unit subcut QPM 05/06/24 05/06/24 (3 mL) subcutaneous pen albuterol 90 mcg-budesonide 80 2 inh inhalation BID PRN 05/25/24 05/25/24 mcg/actuation HFA aerosol inhaler insulin aspart U-100 100 unit/mL 12 unit subcut BID 05/25/24 05/25/24 (3 mL) subcutaneous pen Previous Rx's ?Medication ?Instructions ?Recorded acetaminophen 650 mg 1,300 mg (2 x 650 mg) PO Q8H #30 05/01/24 tablet,extended release tabs Tubigrip, Size G #2 ea 05/19/24 Allergies Allergy/AdvReac Type Severity Reaction Status Date / Time duloxetine Allergy Verified 05/25/24 10:50 metformin AdvReac Verified 05/25/24 10:50 tamsulosin AdvReac syncope Verified 05/25/24 10:50 tetracycline AdvReac Verified 05/25/24 10:50 Review of Systems Status of ROS: Reports: 6 or more systems reviewed and unremarkable except as noted in History and below [facility] Medical History Closed fracture of right distal fibula ?S82.831A - Other fracture of upper and lower end of right fibula, initial encounter for closed fracture (ICD-10) Injury of ligament of right knee ?S89.91XA - Unspecified injury of right lower leg, initial encounter (ICD-10) Ketonuria ?R82.4 - Acetonuria (ICD-10) Hypertension ?I10 - Essential (primary) hypertension (ICD-10) Insulin dependent diabetes mellitus Chronic anticoagulation ?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) Thyroid nodule ?E04.1 - Nontoxic single thyroid nodule (ICD-10) COVID ?U07.1 - COVID-19 (ICD-10) Fracture of lateral malleolus of right ankle ?S82.61XA - Displaced fracture of lateral malleolus of right fibula, initial encounter for closed fracture (ICD-10) Tibia fracture ?S82.209A - Unspecified fracture of shaft of unspecified tibia, initial encounter for closed fracture (ICD-10) BPH without urinary obstruction ?N40.0 - Benign prostatic hyperplasia without lower urinary tract symptoms (ICD-10) GERD (gastroesophageal reflux disease) ?K21.9 - Gastro-esophageal reflux disease without esophagitis (ICD-10) JOANIE (obstructive sleep apnea) ?G47.33 - Obstructive sleep apnea (adult) (pediatric) (ICD-10) Ascending aorta dilatation ?I77.810 - Thoracic aortic ectasia (ICD-10) ASHD (arteriosclerotic heart disease) ?I25.10 - Atherosclerotic heart disease of [place] coronary artery without angina pectoris (ICD-10) Atrial fibrillation ?I48.91 - Unspecified atrial fibrillation (ICD-10) Combined systolic and diastolic heart failure, NYHA class 3 ?I50.40 - Unspecified combined systolic (congestive) and diastolic (congestive) heart failure (ICD-10) Social History What is your current living situation?: I presently have a place to live Problems where you live: no known problems Problems where you live details: n/a In the past 12 months, utilities in danger of being shut off: no In past 12 months, lack of transportation kept you from medical appts, meetings, work, or getting things needed for daily living: no In the past 12 mos, have been you worried that your food would run out before you had money to buy more?: never true In the past 12 mos, the food you bought just didn't last and you didn't have money to buy more?: never true Highest level of school completed/degree received: some college, no degree Smoking Status: Never smoker Do you use any of these nicotine containing products: None Second hand tobacco smoke exposure: No How often do you have a drink containing alcohol: monthly or less Alcohol type: beer and wine How many standard drinks containing alcohol do you have on a typical day: 1 or 2 How often do you have six or more drinks on one occasion: Never AUDIT-C Alcohol total score: 1 Non-prescribed substance use: denies use Caffeine: No How often does anyone, including family, friends and others, physically hurt you : never How often does anyone, including family, friends and others, insult or talk down to you: never How often does anyone, including family, friends and others, threaten you with harm: never How often does anyone, including family, friends and others, scream or curse at you: never service: No Exam Const: Vital Signs, click to edit/add: Vital Signs - 24 hr 05/25/24 09:50 05/25/24 09:51 05/25/24 09:54 Temperature 96.6 F L Pulse Rate 69 73 Pulse Rate [Pulse Oximeter] 72 Pulse Rate [orthos tatic lying Pulse Oximeter] Pulse Rate [orthos tatic sitting Puls e Oximeter] Respiratory Rate 16 Blood Pressure 115/70 Blood Pressure [Le ft Upper Arm] 115/70 Blood Pressure [or thostatic lying Le ft Arm] Blood Pressure [or thostatic sitting Left Arm] Pulse Oximetry 93 92 95 Oxygen Delivery Me thod Room Air 05/25/24 09:57 05/25/24 10:00 05/25/24 10:25 Temperature Pulse Rate 67 75 Pulse Rate [Pulse Oximeter] Pulse Rate [orthos tatic lying Pulse Oximeter] Pulse Rate [orthos tatic sitting Puls e Oximeter] Respiratory Rate Blood Pressure Blood Pressure [Le ft Upper Arm] Blood Pressure [or thostatic lying Le ft Arm] Blood Pressure [or thostatic sitting Left Arm] Pulse Oximetry 97 95 95 Oxygen Delivery Me thod 05/25/24 10:44 05/25/24 10:45 05/25/24 10:58 Temperature Pulse Rate 90 74 77 Pulse Rate [Pulse Oximeter] Pulse Rate [orthos tatic lying Pulse Oximeter] Pulse Rate [orthos tatic sitting Puls e Oximeter] Respiratory Rate Blood Pressure 125/86 Blood Pressure [Le ft Upper Arm] Blood Pressure [or thostatic lying Le ft Arm] Blood Pressure [or thostatic sitting Left Arm] Pulse Oximetry 95 96 89 Oxygen Delivery Me thod 05/25/24 11:00 05/25/24 11:01 05/25/24 11:15 Temperature Pulse Rate 65 70 80 Pulse Rate [Pulse Oximeter] Pulse Rate [orthos tatic lying Pulse Oximeter] Pulse Rate [orthos tatic sitting Puls e Oximeter] Respiratory Rate 20 Blood Pressure 121/77 Blood Pressure [Le ft Upper Arm] Blood Pressure [or thostatic lying Le ft Arm] Blood Pressure [or thostatic sitting Left Arm] Pulse Oximetry 97 97 97 Oxygen Delivery Me thod 05/25/24 11:30 05/25/24 11:32 05/25/24 11:45 Temperature Pulse Rate 63 64 73 Pulse Rate [Pulse Oximeter] Pulse Rate [orthos tatic lying Pulse Oximeter] Pulse Rate [orthos tatic sitting Puls e Oximeter] Respiratory Rate Blood Pressure 134/78 Blood Pressure [Le ft Upper Arm] Blood Pressure [or thostatic lying Le ft Arm] Blood Pressure [or thostatic sitting Left Arm] Pulse Oximetry 95 97 95 Oxygen Delivery Me thod 05/25/24 12:00 05/25/24 12:02 05/25/24 12:03 Temperature Pulse Rate 65 69 68 Pulse Rate [Pulse Oximeter] Pulse Rate [orthos tatic lying Pulse Oximeter] Pulse Rate [orthos tatic sitting Puls e Oximeter] Respiratory Rate 18 Blood Pressure 129/83 Blood Pressure [Le ft Upper Arm] Blood Pressure [or thostatic lying Le ft Arm] Blood Pressure [or thostatic sitting Left Arm] Pulse Oximetry 89 96 94 Oxygen Delivery Me thod 05/25/24 12:32 05/25/24 12:36 05/25/24 12:37 Temperature Pulse Rate 91 Pulse Rate [Pulse Oximeter] Pulse Rate [orthos tatic lying Pulse Oximeter] Pulse Rate [orthos tatic sitting Puls e Oximeter] Respiratory Rate Blood Pressure 127/89 140/86 H Blood Pressure [Le ft Upper Arm] Blood Pressure [or thostatic lying Le ft Arm] Blood Pressure [or thostatic sitting Left Arm] Pulse Oximetry 98 Oxygen Delivery Me thod 05/25/24 12:39 05/25/24 12:45 05/25/24 12:54 Temperature Pulse Rate 74 77 Pulse Rate [Pulse Oximeter] Pulse Rate [orthos tatic lying Pulse Oximeter] 87 Pulse Rate [orthos tatic sitting Puls e Oximeter] 73 Respiratory Rate Blood Pressure 122/97 H Blood Pressure [Le ft Upper Arm] Blood Pressure [or thostatic lying Le ft Arm] 140/86 H Blood Pressure [or thostatic sitting Left Arm] 122/97 H Pulse Oximetry 80 L 99 Oxygen Delivery Pa thod 05/25/24 13:00 05/25/24 13:01 05/25/24 13:15 Temperature Pulse Rate 70 79 77 Pulse Rate [Pulse Oximeter] Pulse Rate [orthos tatic lying Pulse Oximeter] Pulse Rate [orthos tatic sitting Puls e Oximeter] Respiratory Rate Blood Pressure 144/94 H Blood Pressure [Le ft Upper Arm] Blood Pressure [or thostatic lying Le ft Arm] Blood Pressure [or thostatic sitting Left Arm] Pulse Oximetry 98 91 97 Oxygen Delivery Pa thod 05/25/24 13:30 05/25/24 13:31 05/25/24 13:32 Temperature Pulse Rate 73 76 77 Pulse Rate [Pulse Oximeter] Pulse Rate [orthos tatic lying Pulse Oximeter] Pulse Rate [orthos tatic sitting Puls e Oximeter] Respiratory Rate Blood Pressure 124/88 Blood Pressure [Le ft Upper Arm] Blood Pressure [or thostatic lying Le ft Arm] Blood Pressure [or thostatic sitting Left Arm] Pulse Oximetry 98 100 98 Oxygen Delivery Pa thod 05/25/24 13:45 05/25/24 14:00 05/25/24 14:01 Temperature Pulse Rate 74 75 75 Pulse Rate [Pulse Oximeter] Pulse Rate [orthos tatic lying Pulse Oximeter] Pulse Rate [orthos tatic sitting Puls e Oximeter] Respiratory Rate 18 Blood Pressure 136/88 Blood Pressure [Le ft Upper Arm] Blood Pressure [or thostatic lying Le ft Arm] Blood Pressure [or thostatic sitting Left Arm] Pulse Oximetry 93 99 100 Oxygen Delivery Pa thod 05/25/24 14:15 Temperature Pulse Rate 72 Pulse Rate [Pulse Oximeter] Pulse Rate [orthos tatic lying Pulse Oximeter] Pulse Rate [orthos tatic sitting Puls e Oximeter] Respiratory Rate Blood Pressure Blood Pressure [Le ft Upper Arm] Blood Pressure [or thostatic lying Le ft Arm] Blood Pressure [or thostatic sitting Left Arm] Pulse Oximetry 98 Oxygen Delivery Me thod This 73-year-old male is alert, interactive, no apparent distress. GCS is 15/15 on arrival. Face, scalp atraumatic, no tender spots. No tenderness over his neck, no neck masses noted. CV sounds mostly regular at times but do know he has atrial fibrillation, can hear some occasional irregularity, do not hear any murmur, normal S1-S2. Lungs clear anteriorly, breathing easily on room air, no wheezing or crackles, no tachypnea. Abdomen is soft, nontender, nondistended, no organomegaly. His right lower extremity has a stocking at on it but has generalized increased size and swelling when compared to the left. There is negative Homans bilaterally. He can mobilize lower extremities at feet and ankle, neurovascular is intact. Arms are normal, no motor or grows abnormalitie s noted. Speech is normal, symmetrical facial function. Documenting provider has reviewed patient's vital signs: yes Course Course ED Course: This patient had a reported syncopal episode. Nursing staff did get a point of care glucose after arrival which was 123. This is affectively is ruling out hypoglycemia as an etiology. His glucose was stable before and after the event. The he has atrial fibrillation and could possibly have been arrhythmia or bradycardic event. We will update his EKG, get troponin to ensure no ischemic etiology. He is on Xarelto which would make this very unlikely to be a pulmonary embolus or DVT but if it were, would have significant change in management for anticoagulants for him. Thus, given the witnessed syncope, do feel that we should proceed ruling out DVT given his recent significant orthopedic issues and do chest CT PE protocol. A stroke causing altered level of consciousness is very unlikely given his returned to normal status baseline. Head CT imaging is not indicated at this time but will consider it if we see any further etiology. Very doubtful that this was any type of seizure issue as it was witnessed and staff did not see any thing to support this. He will be monitored here on cardiac monitoring, pulse oximetry. Full complement of labs will be obtained. Consider infectious etiology as well. Reevaluation(s) Time of Reevaluation #1: 11:10 Reevaluation #1: Reviewed patient's elevated lactate at 3.5. He is diabetic but sugars are currently normal. Will have nursing staff do orthostatic vitals. His white blood count is normal, currently afebrile but does report overnight sweats to me 2 nights ago. Still need to consider infectious etiology, could be potentially component of orthostatic hypotension. Still proceeding with imaging and workup as noted before. Time of Reevaluation #2: 13:52 Reevaluation #2: Lactate did improve some, has not completed his 500 mL bolus, will order another 250 mL of normal saline. Would be careful beyond this given he does have some heart failure history. There is no evidence of infection otherwise. Could not complete orthostatics, patient is a whole your lift right now and thus cannot have him stand independently to check a standing blood pressure and pulse. His blood pressure did drop with sitting up without compensatory pulse raise. He is on Coreg. Time of Reevaluation #3: 14:33 Reevaluation #3: Have reviewed with patient that we are not finding any concerning pathology or cause for his syncope. He has been monitored here for hours, no concerning bradycardia or other rhythm outside of his atrial fibrillation. We did discuss that he is probably relatively dehydrated as evidenced by the elevated lactate. He notes he does not like to drink much because then he is up urinating at night. Reviewed with him that he could try do increased some fluids in the morning so hopefully his body will of processed more of this during the day. We plan to discharge back to home at his rehab facility at this time. Vital Signs Vital signs: Initial Vital Signs Pulse Rate 69 05/25/24 09:50 Blood Pressure 115/70 05/25/24 09:50 Blood Pressure Mean 85 05/25/24 09:50 Pulse Oximetry 93 05/25/24 09:50 Vital Signs Pulse Rate 69 05/25/24 09:50 Blood Pressure 115/70 05/25/24 09:50 Pulse Oximetry 93 05/25/24 09:50 Temperature 96.6 F L 05/25/24 09:54 Pulse Rate 72 05/25/24 14:15 Respiratory Rate 18 05/25/24 14:01 Blood Pressure 136/88 05/25/24 14:01 Pulse Oximetry 98 05/25/24 14:15 Oxygen Delivery Method Room Air 05/25/24 09:54 Medications Administered Medications: Generic Name Dose Route Start Last Admin Trade Name Shreya PRN Reason Stop Dose Admin Sodium Chloride 250 mls @ 250 mls/hr 05/25/24 13:51 05/25/24 14:16 0.9 % Sodium Chloride 250 Ml IV 05/25/24 14:50 250 mls/hr .Q1H ONE Administration Discontinued Medications Generic Name Dose Route Start Last Admin Trade Name Shreya PRN Reason Stop Dose Admin Sodium Chloride 500 mls @ 500 mls/hr 05/25/24 11:10 05/25/24 13:59 0.9 % Sodium Chloride 500 Ml IV 05/25/24 12:09 Infused .Q1H ONE Infusion Medical Decision Making Lab Data Lab results reviewed: Yes I reviewed the patient's lab results Labs: Lab Results 05/25/24 05/25/24 05/25/24 Range/Units 09:54 10:00 10:20 WBC 7.39 (4.50-11.00) K/uL RBC 5.07 (4.30-5.90) m/uL Hgb 15.2 (13.5-17.5) gm/dL Hct 47.1 (37.0-53.0) % MCV 93 (80-100) fL MCH 30 (26-34) pg MCHC 32 (32-36) gm/dL RDW Coeff of [place] 14.2 (11.5-15.5) % Plt Count 200 (140-440) K/uL Neut % (Auto) 67.3 (42.0-72.0) % Lymph % (Auto) 23.5 (20-44) % [place] % (Auto) 7.3 (0.0-11.0) % Eos % (Auto) 1.1 (0.0-7.0) % Baso % (Auto) 0.5 (0.0-3.0) % Neut # (Auto) 4.97 (1.7-7.0) K/uL Lymph # (Auto) 1.74 (0.90-2.90) K/uL [place] # (Auto) 0.50 (0.00-0.90) K/UL Eos # (Auto) 0.08 (0.00-0.50) K/uL Baso # (Auto) 0.04 (0.00-0.30) K/uL Abs Immat Gran (auto) 0.02 (0.00-0.30) K/uL Imm/Tot Granulo (auto) 0.3 % Sodium 137 (135-149) mmol/L Potassium 4.3 (3.6-5.1) mmol/L Chloride 105 (96-114) mmol/L Carbon Dioxide 23 (20-32) mmol/L Anion Gap 9 (7-15) mEq/L BUN 20 (7-30) mg/dL Creatinine 1.0 (0.5-1.5) mg/dL Estimated Creat Clear 71.13 Estimated GFR 79 ml/min Glucose 151 H (60-115) mg/dL Lactate 3.5 H (0.5-1.9) mmol/L Calcium 9.0 (8.4-10.6) mg/dL Total Bilirubin 1.4 (0.1-1.5) mg/dL AST 25 (12-35) U/L ALT 21 (4-50) U/L Alkaline Phosphatase 77 (40-150) U/L Troponin I < 0.01 L (0.01-0.04) ng/mL NT-Pro-B Natriuret Pep 1550 pg/mL Total Protein 6.7 (6.0-8.3) g/dL Albumin 3.9 (3.3-5.0) g/dL Procalcitonin 0.05 (<0.50) ng/mL Urine Color (Yellow) Urine Appearance (Clear) Urine pH (5.0-8.5) Ur Specific [place] (1.000-1.030) Urine Protein (Negative) Urine Glucose (UA) (Negative) Urine Ketones (Negative) Urine Blood (Negative) Urine Nitrite (Negative) Urine Bilirubin (Negative) Urine Urobilinogen (0.2-1.0) Ur Leukocyte Esterase (Negative) Urine RBC (0-2) Urine WBC (0-5) Ur Squamous Epith Cells (None-Few) Urine Bacteria (None) SARS-CoV-2 (PCR) Negative SARS-CoV-2 (Negative) Influenza Type A (PCR) Negative PCR FLU A (Negative) Influenza Type B (PCR) Negative PCR FLU B (Negative) RSV (PCR) Negative PCR RSV (Negative) POC Glucose 123 H (60-115) mg/dl 05/25/24 05/25/24 Range/Units 11:15 13:26 WBC (4.50-11.00) K/uL RBC (4.30-5.90) m/uL Hgb (13.5-17.5) gm/dL Hct (37.0-53.0) % MCV (80-100) fL MCH (26-34) pg MCHC (32-36) gm/dL RDW Coeff of [place] (11.5-15.5) % Plt Count (140-440) K/uL Neut % (Auto) (42.0-72.0) % Lymph % (Auto) (20-44) % [place] % (Auto) (0.0-11.0) % Eos % (Auto) (0.0-7.0) % Baso % (Auto) (0.0-3.0) % Neut # (Auto) (1.7-7.0) K/uL Lymph # (Auto) (0.90-2.90) K/uL [place] # (Auto) (0.00-0.90) K/UL Eos # (Auto) (0.00-0.50) K/uL Baso # (Auto) (0.00-0.30) K/uL Abs Immat Gran (auto) (0.00-0.30) K/uL Imm/Tot Granulo (auto) % Sodium (135-149) mmol/L Potassium (3.6-5.1) mmol/L Chloride (96-114) mmol/L Carbon Dioxide (20-32) mmol/L Anion Gap (7-15) mEq/L BUN (7-30) mg/dL Creatinine (0.5-1.5) mg/dL Estimated Creat Clear Estimated GFR ml/min Glucose (60-115) mg/dL Lactate 2.4 H (0.5-1.9) mmol/L Calcium (8.4-10.6) mg/dL Total Bilirubin (0.1-1.5) mg/dL AST (12-35) U/L ALT (4-50) U/L Alkaline Phosphatase (40-150) U/L Troponin I < 0.01 L (0.01-0.04) ng/mL NT-Pro-B Natriuret Pep pg/mL Total Protein (6.0-8.3) g/dL Albumin (3.3-5.0) g/dL Procalcitonin (<0.50) ng/mL Urine Color Yellow (Yellow) Urine Appearance Clear (Clear) Urine pH 5.5 (5.0-8.5) Ur Specific [place] <= 1.005 (1.000-1.030) Urine Protein Negative (Negative) Urine Glucose (UA) 2+ A (Negative) Urine Ketones Negative (Negative) Urine Blood Negative (Negative) Urine Nitrite Negative (Negative) Urine Bilirubin Negative (Negative) Urine Urobilinogen 0.2 (0.2-1.0) Ur Leukocyte Esterase Negative (Negative) Urine RBC 0-2 (0-2) Urine WBC 0-2 (0-5) Ur Squamous Epith Cells None (None-Few) Urine Bacteria None (None) SARS-CoV-2 (PCR) (Negative) Influenza Type A (PCR) (Negative) Influenza Type B (PCR) (Negative) RSV (PCR) (Negative) POC Glucose (60-115) mg/dl Imaging Data Chest x-ray: Attestation: I have reviewed the pertinent imaging results. My impression: Portable chest does look like there could be cardiomegaly. I do not see any infiltrate or congestive heart failure, wait radiology over read. Radiologist's impression: Patient: BOYD LOREDO Facility:?[facility] Patient ID:?[id number] Site Patient ID:?[id number]. Site :?[id number] Study:?XRay-Chest 1 VIEW PORTABLE-05/25/2024 10:15:47 AM Ordering Physician:Shantal Khalil Final Report: INDICATION: Altered level of consciousness. No additional clinical history is provided. COMPARISON: None available. TECHNIQUE: One view (2 images) FINDINGS: Lordotic position. Medical Devices: None. Lung Volumes: Adequate inspiration. No significant atelectasis. Lungs: Clear lungs. Pleura and Pleural spaces: No significant pleural effusion. No pneumothorax. Mediastinum: AP technique exaggerates the transverse dimension of the cardiac silhouette. Enlarged cardiac silhouette is not excluded. Differential diagnostic considerations include cardiomegaly and/or pericardial effusion. Bony Thorax and Soft Tissues: No significant incidental findings. IMPRESSION: No findings to explain the clinical history. Incidental findings described in the body of the report. Dictated by Robbin Rizzo MD @ 05/25/2024 10:24:07 AM ----- ADDENDUM ----- ADDENDUM: Incidental nonacute musculoskeletal findings as follows: Bilateral widening of the acromioclavicular joint could be due to posttraumatic osteolysis of the lateral clavicles. A right humeral suture anchor is incidentally noted. Dictated by Robbin Rizzo MD @ May 25 2024 10:24AM (Electronic Signature) CT scan - chest: Attestation: I have reviewed the pertinent imaging results. Radiologist's impression: Patient: BOYD LOREDO Facility:?[facility] Patient ID:?[id number] Site Patient ID:?[id number]. Site :?[id number] Study:?CT-Chest Angio 95CC ISOVUE 370-05/25/2024 10:52:55 AM Ordering Physician:?Walker Khalil Final Report: INDICATION: Syncope. TECHNIQUE: CT chest pulmonary angiogram acquired with 95 cc of Isovue 370 IV contrast. COMPARISON: CT chest with contrast 12/10/2019. FINDINGS: No evidence of pulmonary embolus. Main pulmonary artery is normal in caliber. Aortic atherosclerosis. Ascending thoracic aorta is dilated to 4.1 cm. Unenhanced thoracic aorta is otherwise unremarkable. Cardiomegaly. Extensive coronary artery calcifications. No pathologic lymphadenopathy. No pleural or pericardial effusions. Soft tissues of the thoracic wall are unremarkable. No pneumothorax. Central airways are patent. Incidental calcified granuloma in the lateral left upper lobe. Mild bibasilar scarring or atelectasis. Lungs are otherwise clear. Cholecystectomy. Visualized upper abdomen is otherwise unremarkable. Degenerative changes of the spine. No acute or suspicious osseous abnormality. IMPRESSION: 1. No evidence of pulmonary embolus or acute airspace disease. 2. Dilatation of the ascending thoracic aorta to 4.1 cm. 3. Cardiomegaly and extensive coronary artery calcifications. Dictated by Chito Weller MD @ 05/25/2024 11:27:30 AM Please note that all CT scans at this facility use dose modulation, iterative reconstruction, and/or weight-based dosing when appropriate to reduce radiation dose to as low as reasonably achievable. Dictated by: Chito Weller MD @ 05/25/2024 11:27:39 (Electronic Signature) Venous US: Attestation: I have reviewed the pertinent imaging results. Radiologist's impression: Patient: BOYD LOREDO Facility:?[facility] Patient ID:?[id number] Site Patient ID:?[id number]. Site :?[id number] Study:?US-Extremity Bilateral Venous Doppler Legs-05/25/2024 12:57:26 PM Ordering Physician:Shantal Khalil Final Report: INDICATION: History of bilateral right femoral condylar fractures as demonstrated on the CT examination of 04/29/2024. COMPARISON: 05/01/2024 TECHNIQUE: Static and compression grayscale and spectral (including color) Doppler ultrasound of the bilateral lower extremities. FINDINGS: Deep veins: The imaged bilateral common femoral, deep femoral, superficial femoral, popliteal, right posterior tibial, and peroneal veins are patent and free of clot. The left posterior tibial veins are not seen. Superficial veins: The imaged bilateral great saphenous veins are patent and free of clot. Extravascular findings: Redemonstration of a right Mccarthy`s cyst measuring approximately 2.5 x 1 x 6.2 cm, previously 1.3 x 1 x 4 cm. Differences in measurements are likely related to differences in technique between studies and are considered unlikely to be clinically significant. There is otherwise made of mixed echotexture soft tissue swelling of the right proximal leg with indistinct borders which most likely due to hemorrhage associated with the medial and lateral femoral condylar fractures of the right distal femur shown on the CT of 04/29/2024. IMPRESSION: No evidence of DVT in either lower extremity. Incidental soft tissue findings as above. Dictated by Robbin Rizzo MD @ 05/25/2024 1:18:21 PM (Electronic Signature) ECG Data Attestation: I personally reviewed and interpreted this ECG as follows: (Fibrillation, 67 beats per minute. No evidence of any active ischemia or infarct noted.) Prior ECG tracings: available for review Interpretation: Repeat EKG at 1:28 p.m. is showing atrial fibrillation, 69 beats per minute. No significant change, no ischemia or infarct. Discharge Plan Discharge Clinical Impression: Syncope Qualifiers: Syncope type: unspecified Qualified Code(s): R55 - Syncope and collapse Patient Disposition: Home w/ Parent or Adult Condition: Stable Instructions: Syncope (ED) Additional Instructions: There was no evidence of pulmonary embolus or blood clot in your leg. Your hemoglobin is stable, other labs stable. No evidence of any ischemic change or infarct on your EKG, no changes in the troponin. Your blood pressure does drop mildly when going from lying to sitting. Would watch your blood pressure a little more closely and consider dropping antihypertensive medications down if you continue to have symptoms or blood pressures running lower. It is also possible that there could be underlying slowing of your heart rate although this was not observed here. You were in chronic atrial fibrillation. If you have ongoing symptoms, consideration for ZIO patch could be made. Please schedule follow-up with your primary care provider within the next week for recheck. If recurrent symptoms, recommend re-evaluation. Do recommend that you try to drink a bit more fluids daily. Prescriptions: No Action Levemir FlexPen 100 unit/mL (3 mL) insulin pen 19 unit subcut QPM carvedilol 25 mg tablet 25 mg PO BID Xarelto 15 mg tablet 15 mg PO QPM diclofenac sodium 1 % gel 4 g TOPICAL QID insulin glargine [Lantus Solostar U-100 Insulin] 100 unit/mL (3 mL) insulin pen 19 unit subcut HS acetaminophen 650 mg Tablet Extended Release 1,300 mg PO Q8H Qty: 30 0RF atorvastatin 20 mg tablet 20 mg PO HS pantoprazole 40 mg tablet,delayed release (DR/EC) 40 mg PO DAILY albuterol sulfate 90 mcg/actuation HFA aerosol inhaler 1 - 2 puff INHALATION Q4H PRN valsartan 160 mg tablet 160 mg PO HS cholestyramine-aspartame [Cholestyramine Light] 4 gram powder in packet 1 ea PO DAILY Patient Comments: MIX 1 PACKET IN LIQUID THEN TAKE BY MOUTH 2 TIMES DAILY WITH MEALS furosemide 20 mg tablet 20 mg PO DAILY PRN (Reason: weight gain) Rx Instructions: if >290# Jardiance 10 mg tablet 10 mg PO DAILY insulin aspart U-100 100 unit/mL (3 mL) insulin pen 12 unit SUBCUT BID Patient Comments: [NO ORIGINAL SIG] albuterol-budesonide 90-80 mcg/actuation HFA aerosol inhaler 2 inh inhalation BID PRN (DME) Tubigrip, Size G Misc See Rx Instructions .Route Qty: 2 0RF Rx Instructions: As directed. Fit patient for size Follow Up/Referrals: Elijah Fernandez MD [Primary Care Provider] - Stand Alone Forms: [employer] Info Instructions
[2024-05-25 09:56] LABS: Glucose, Point-of-Care* 123 mg/dl (60-115)
--- NOTE | 2024-05-25 10:02 | CRLHL7_ITS ---
For Patients: As a result of the Cures Act, medical imaging exams and procedure reports are released immediately into your electronic medical record. You may view this report before your referring provider. If you have questions, please contact your health care provider. INDICATION: Syncope. TECHNIQUE: CT chest pulmonary angiogram acquired with 95 cc of Isovue 370 IV contrast. COMPARISON: CT chest with contrast 12/10/2019. FINDINGS: No evidence of pulmonary embolus. Main pulmonary artery is normal in caliber. Aortic atherosclerosis. Ascending thoracic aorta is dilated to 4.1 cm. Unenhanced thoracic aorta is otherwise unremarkable. Cardiomegaly. Extensive coronary artery calcifications. No pathologic lymphadenopathy. No pleural or pericardial effusions. Soft tissues of the thoracic wall are unremarkable. No pneumothorax. Central airways are patent. Incidental calcified granuloma in the lateral left upper lobe. Mild bibasilar scarring or atelectasis. Lungs are otherwise clear. Cholecystectomy. Visualized upper abdomen is otherwise unremarkable. Degenerative changes of the spine. No acute or suspicious osseous abnormality. IMPRESSION: 1. No evidence of pulmonary embolus or acute airspace disease. 2. Dilatation of the ascending thoracic aorta to 4.1 cm. 3. Cardiomegaly and extensive coronary artery calcifications. Dictated by Chito Weller MD @ 05/25/2024 11:27:30 AM Please note that all CT scans at this facility use dose modulation, iterative reconstruction, and/or weight-based dosing when appropriate to reduce radiation dose to as low as reasonably achievable. Dictated by: Chito Weller MD @ 05/25/2024 11:27:39 (Electronically Signed)
--- NOTE | 2024-05-25 10:02 | CRLHL7_ITS ---
For Patients: As a result of the Cures Act, medical imaging exams and procedure reports are released immediately into your electronic medical record. You may view this report before your referring provider. If you have questions, please contact your health care provider. INDICATION: History of bilateral right femoral condylar fractures as demonstrated on the CT examination of 04/29/2024. COMPARISON: 05/01/2024 TECHNIQUE: Static and compression grayscale and spectral (including color) Doppler ultrasound of the bilateral lower extremities. FINDINGS: Deep veins: The imaged bilateral common femoral, deep femoral, superficial femoral, popliteal, right posterior tibial, and peroneal veins are patent and free of clot. The left posterior tibial veins are not seen. Superficial veins: The imaged bilateral great saphenous veins are patent and free of clot. Extravascular findings: Redemonstration of a right Mccarthy`s cyst measuring approximately 2.5 x 1 x 6.2 cm, previously 1.3 x 1 x 4 cm. Differences in measurements are likely related to differences in technique between studies and are considered unlikely to be clinically significant. There is otherwise made of mixed echotexture soft tissue swelling of the right proximal leg with indistinct borders which most likely due to hemorrhage associated with the medial and lateral femoral condylar fractures of the right distal femur shown on the CT of 04/29/2024. IMPRESSION: No evidence of DVT in either lower extremity. Incidental soft tissue findings as above. Dictated by Robbin Rizzo MD @ 05/25/2024 1:18:21 PM (Electronically Signed)
--- OUTSIDE RECORDS SUMMARY | 2024-05-25 10:14 | XMS_ITS | Clinical Summary ---
Author Organization [employer] [facility] Address [place], [place] [address] Care Team Providers Care Product Marketing Consultant Name Role Phone Elijah Fernandez MD Primary Care Provider [phone] Allergies Active Allergy Reactions Criticality Noted Date [...] fracture of distal end of right fib hnak 02/25/2024 Medial knee pain, right 02/25/2024 Ascending [...] Department Care Team Description 05/01/2024 Orders Only [facility] Scanner 1 scan: (1-Ord) [facility], VENOUS LE RT, 05/01/2024 04/29/2024 Orders Only [facility] Scanner 1 scan: (1-Ord) [place], CT KNEE RT WO CON, 04/29/2024 04/29/2024 Orders Only [facility] Scanner 1 scan: (1-Ord) [place], RT FEMUR 2 VIEWS, 04/29/2024 04/28/[address] [place] [address] Mary Jo Mix MD Results (Thyroid US) 04/27/2024 1:00 PM WOUND TREATMENT RN Ancillary Procedure [address] [place] [address] 04/27/2024 Travel 04/09/[address] [place] [address] Elijah Fernandez MD Medication Management (insulin detemir U-100 (LEVEMIR) 100 unit/mL (3 mL) pen) 04/07/2024 Nurse Triage [place] [address] [place] [address] Elijah Fernandez MD Leg Injury 03/31/2024 3:40 PM WOUND TREATMENT RN Office Visit [place] [address] [place] [address] Elijah Fernandez MD Diabetes; Blood Pressure 03/31/2024 Travel 03/24/20[address] [place] [address] Elijah Fernandez MD Appointment Request 03/23/2024 Telephone [facility] [address] [place] [address] Mary Jo Mix MD Testing (Needs repeat 1 year thyroid US to follow up nodule) 03/12/2024 Orders Only [facility] Scanner 1 scan: (1-Ord) [facility], ANKLE RT MIN 3V, 03/12/2024 03/12/2024 Telephone [facility] [address] [place] [address] Elijah Fernandez MD Appointment Request (Diabetic visit reschedule ) 03/11/2024 Orders Only [facility] Scanner 1 scan: (1-Ord) [facility], XR KNEE RT 3V, 03/11/2024 03/11/2024 Orders Only [facility] Scanner 1 scan: (1-Ord) [facility], KNEE RT 3V, 03/11/2024 03/11/2024 Orders Only [facility] Scanner 1 scan: (1-Ord) [place], RT KNEE WO CONTRAST, 03/11/2024 02/25/2024 8:50 AM CDT Office Visit [facility] [address] [place] [address] Elijah Fernandez MD Hospital F/U (Last Saturday [...] on file Legal Sex Male 6:44 AM WOUND TREATMENT RN Gender Identity Not on file Sexual Orientation Not on file Occupation Industry Job Start Date Job End Date Disabled Not on file Not on file Not on file Obstetrics History Last Filed Vital Signs Vital Sign Reading Time Taken Comments Blood Pressure 144/90 03/31/2024 4:06 PM WOUND TREATMENT RN Pulse 92 03/31/2024 4:06 PM WOUND TREATMENT RN Temperature 36.5 C (97.7 F) 12/09/2023 10:18 AM CDT Respiratory Rate 22 04/06/2021 2:12 PM WOUND TREATMENT RN Oxygen Saturation 100% 03/31/2024 4:03 PM WOUND TREATMENT RN Inhaled Oxygen Concentration - - Weight 128.9 kg (284 lb 3.2 oz) 02/13/2024 1:02 PM CDT Height 182.9 cm (6' 0.01) 12/23/2023 1:16 PM CD T Body Mass Index 38.54 12/23/2023 1:16 PM CDT Plan of Treatment Upcoming Encounters Date Type Department Care Team (Late st Contact Info) Description 06/30/2024 1:10 PM WOUND TREATMENT RN Office Visit [facility] [address] [place] [address] Elijah Fernandez MD [address] [place] [address] Health Maintenance Due Date Last Done Comments [...] Associated Diagnosis Comments SCAN-ULTRASOUND REPORT 12:00 AM WOUND TREATMENT RN SCAN-CT INTERPRETATION 12:00 AM WOUND TREATMENT RN SCAN-RADIOLOGY REPORT 04/29/2024 12:00 AM WOUND TREATMENT RN US THYROID/PARATHYROID Routine 1:20 PM WOUND TREATMENT RN Thyroid nodule BASIC METABOLIC PANEL Routine 03/31/2024 3:39 PM WOUND TREATMENT RN HTN (hypertension) LIPID PANEL Routine 03/31/2024 3:39 PM WOUND TREATMENT RN Hyperlipidemia, unspecified hyperlipidemia type PSA TOTAL Routine 03/31/2024 3:39 PM WOUND TREATMENT RN Screening for prostate cancer HEMOGLOBIN A1C MONITORING (POCT) Routine 03/31/2024 3:38 PM WOUND TREATMENT RN Type 2 diabetes mellitus with diabetic neuropathy, with long-term current use of insulin (HC) SCAN-RADIOLOGY REPORT 03/12/2024 12:00 AM WOUND TREATMENT RN SCAN-RADIOLOGY REPORT 03/11/2024 12:00 AM WOUND TREATMENT RN SCAN-RADIOLOGY REPORT 03/11/2024 12:00 AM WOUND TREATMENT RN SCAN-CT INTERPRETATION 4 12:00 AM WOUND TREATMENT RN COLONOSCOPY DIAGNOSTIC Routine 0 12:12 PM WOUND TREATMENT RN History of colon polyps ANTI HCV Routine 11/20/2016 12:25 PM CDT Need for hepatitis C screening test from Last 3 Months or Most Recently Relevant to Health Maintenance Results * SCAN-ULTRASOUND REPORT (05/01/2024 12:00 AM WOUND TREATMENT RN) Anatomical Region Laterality Modality Other us Scanner OTHER Final Result * SCAN-RADIOLOGY REPORT (04/29/2024 12:00 AM WOUND TREATMENT RN) Only the most recent of4 resultswithin the time period is included. Anatomical Region Laterality Modality Other us Scanner OTHER Final Result * SCAN-CT INTERPRETATION (04/29/2024 12:00 AM WOUND TREATMENT RN) Only the most recent of2 resultswithin the time period is included. Anatomical Region Laterality Modality Other us Scanner OTHER Final Result * US THYROID/PARATHYROID (04/27/2024 1:20 PM WOUND TREATMENT RN) Anatomical Region Laterality Modality THYROID Ultrasound 04/27/2024 3:06 PM WOUND TREATMENT RN Impressions 04/27/2024 3:06 PM WOUND TREATMENT RN Stable size and morphology of left-sided thyroid nodules. Dictated by Matthew Muhammad MD @ 04/27/2024 3:06:11 PM (Electronically Signed) Narrative 04/27/2024 3:06 PM WOUND TREATMENT RN For Patients: As a result of the [...] sult * PSA TOTAL (03/31/2024 3:39 PM WOUND TREATMENT RN) PSA, TOTAL 1.05 < OR = 4.00 ng/mL [employer] [place] Comment: The total PSA value [...] BLOOD SPECIMEN / Unknown 03/31/2024 3:39 PM WOUND TREATMENT RN 03/31/2024 3:48 PM WOUND TREATMENT RN Elijah Fernandez MD CHEMISTRY Final Resu lt [employer] [facility] [address] [place] [address], [facility] [address] [place] [address] * (ABNORMAL) LIPID PANEL (03/31/2024 3:39 PM WOUND TREATMENT RN) CHOLESTEROL, TOTAL 121 <200 mg/dL [facility] [...] of LDL-C. Jori COLE et al. EMMA. 2013;310(76): 9910-0624 (http://education.[employer]/faq/SIR624) CHOL/HDLC RATIO 2.6 <5.0 (calc) [employer] [facility] NON HDL CHOLESTEROL 75 <130 mg/dL (calc) [employer] [facility] [place] Comment: For patients with diabetes plus 1 major ASCVD risk factor, treating to a non-HDL-C goal of <100 mg/dL (LDL-C of <70 mg/dL) is considered a therapeutic option. Blood BLOOD SPECIMEN / Unknown 03/31/2024 3:39 PM WOUND TREATMENT RN 03/31/2024 3:48 PM WOUND TREATMENT RN us Elijah Fernandez MD CHEMISTRY Final Resu lt [employer] [facility] [address] [place] [address], [facility] [address] [place] [address] * (ABNORMAL) BASIC METABOLIC PANEL (03/31/2024 3:39 PM WOUND TREATMENT RN) [facility] GLUCOSE 138(H) 65 - 99 mg/dL [employer] [facility] [place] Comment: Fasting reference interval For someone without known diabetes, a glucose value >125 mg/dL indicates that they may have diabetes and this should be confirmed with a follow-up test. UREA NITROGEN (BUN) 19 7 - 25 mg/dL [employer] [facility] CREATININE 1.37(H) 0.70 - 1.28 mg/dL [employer] [facility] [place] EGFR 54(L) > OR = [...] BLOOD SPECIMEN / Unknown 03/31/2024 3:39 PM WOUND TREATMENT RN 03/31/2024 3:48 PM WOUND TREATMENT RN Elijah Fernandez MD CHEMISTRY Final Resu lt Performing Organization Address City/[facility]/ZIP Co de Phone Number [employer] [facility] [address] [place] [address], [place] [phone] [facility] [address] [place] [address] * (ABNORMAL) POCT Hemoglobin A1C Monitoring (03/31/2024 3:38 PM WOUND TREATMENT RN) POC HEMOGLOBIN A1C 6.1(H) <6.0 % OF TOTAL HGB [facility] Comment: Any point of care results exhibiting inconsistency with the patient's clinical status should be repeated using a different testing method. Blood BLOOD SPECIMEN / Unknown 03/31/2024 3:38 PM WOUND TREATMENT RN 03/31/2024 3:39 PM WOUND TREATMENT RN Elijah Fernandez MD CHEMISTRY Final Resu lt Performing Organization Address City/[facility]/ZIP Co de Phone Number [facility] [address] [place] [address], [place] [phone] [facility] [address] [place] [address] * COLONOSCOPY DIAGNOSTIC (03/29/2020 12:12 PM WOUND TREATMENT RN) Jori Siddiqui MD GI PROCEDURE ORD Final Re sult * ANTI HCV (11/20/2016 12:25 PM CDT) HEPATITIS C ANTIBODY Non-Reacti ve Non-Reacti ve 11/20/2016 8:43 PM CDT [facility] Blood BLOOD SPECIMEN / Unknown Venipuncture / Unknown 11/20/2016 12:25 PM CDT 11/20/2016 1:51 PM CDT Narrative [facility] - 11/20/2016 8:43 PM CDT Antibodies to HCV not detected; does not exclude the possibility of exposure to HCV. Elijah Fernandez MD SEND OUTS Final Resu lt [facility] 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
--- OUTSIDE RECORDS SUMMARY | 2024-05-25 10:14 | XMS_ITS | Continuity of Care Document ---
Author Organization [facility] Address [address] [place] [address] Phone Care Team Providers Care Web Press Operator Name Role Phone Sarah MEDINA, PhD, Herb Unavailable Unavai lable Procedures Procedure Date Office/Outpatient Visit,[facility] 2023 Advance Directives Directive Yes / No Effective Date File Name No Information Encounters Encounter Description Practice Location Reason(s) For Visit Diagnoses Date Provider Providers Copied on Encounter Office/Outpat ient Visit,[facility], [address], [place], [place], [id number], [place] tel:[phone] [facility] Low back pain, unspecified Sarah Estevez. [facility], [address] [facility] [address], [place], [address], [place]. tel:[phone] Referring Provider: Elijah Suarez, [address], [place], [address] . tel:[phone] Family History Family Member Type Diagnosis Age At Onset No Information Payers Payer name Insurance type Covered democrat ID Authoriza tion(s) Medicare MB [id number] [facility] [id number] Social History Type Description Quantity Date Captured [...]
[2024-05-25 10:30] LABS: Lactate* 3.5 mmol/L (0.5-1.9)
[2024-05-25 10:34] LABS: Basophils Absolute Auto 0.04 K/uL (0.00-0.30); Basophils Percent Auto 0.5 % (0.0-3.0); Eosinophils Absolute Auto 0.08 K/uL (0.00-0.50); Eosinophils Percent Auto 1.1 % (0.0-7.0); Hematocrit 47.1 % (37.0-53.0); Hemoglobin* 15.2 gm/dL (13.5-17.5); Immature Granulocytes Abs Auto 0.02 K/uL (0.00-0.30); Immature Granulocytes Pct Auto 0.3 %; Lymphocytes Absolute Auto 1.74 K/uL (0.90-2.90); Lymphocytes Percent Auto 23.5 % (20-44); Mean Corpuscular HGB Conc 32 gm/dL (32-36); Mean Corpuscular Hemoglobin 30 pg (26-34); Mean Corpuscular Volume 93 fL (80-100); Monocytes Percent Auto 7.3 % (0.0-11.0); Neutrophils Absolute Auto 4.97 K/uL (1.7-7.0); Neutrophils Percent Auto 67.3 % (42.0-72.0); Platelet Count* 200 K/uL (140-440); RDW Coefficient of Variation % 14.2 % (11.5-15.5); Red Blood Count 5.07 m/uL (4.30-5.90); White Blood Count* 7.39 K/uL (4.50-11.00)
[2024-05-25 10:43] LABS: Slide Review Reflex No
[2024-05-25 10:47] LABS: PCR FLU A Negative PCR FLU A (Negative); PCR FLU B Negative PCR FLU B (Negative); PCR RSV Negative PCR RSV (Negative); SARS PCR* Negative SARS-CoV-2 (Negative)
[2024-05-25 10:47] LABS: Albumin* 3.9 g/dL (3.3-5.0); Chloride* 105 mmol/L (96-114)
[2024-05-25 10:48] LABS: Potassium* 4.3 mmol/L (3.6-5.1); Sodium* 137 mmol/L (135-149)
[2024-05-25 10:50] LABS: Anion Gap 9 mEq/L (7-15); Aspartate Amino Transferase* 25 U/L (12-35); Bilirubin Total* 1.4 mg/dL (0.1-1.5); Carbon Dioxide* 23 mmol/L (20-32); Est. Creatinine Clearance* 71.13; Estimated Glomerular Filt Rate 79 ml/min; Total Protein* 6.7 g/dL (6.0-8.3)
[2024-05-25 10:51] LABS: Alanine Aminotransferase* 21 U/L (4-50); Alkaline Phosphatase* 77 U/L (40-150); Blood Urea Nitrogen* 20 mg/dL (7-30); Glucose* 151 mg/dL (60-115)
[2024-05-25 11:07] LABS: Procalcitonin* 0.05 ng/mL (<0.50)
[2024-05-25 11:09] LABS: NT Pro B Type NatriureticPept* 1550 pg/mL
[2024-05-25 11:23] LABS: Troponin I* < 0.01 ng/mL (0.01-0.04)
[2024-05-25 11:30] LABS: Appearance Urine Clear (Clear); Bilirubin Urine Negative (Negative); Blood Urine Negative (Negative); Color Urine Yellow (Yellow); Glucose Urine 2+ (Negative); Ketones Urine Negative (Negative); Leukocyte Esterase Urine Negative (Negative); Nitrite Urine Negative (Negative); Protein Urine Negative (Negative); Specific Gravity Urine <= 1.005 (1.000-1.030); Urobilinogen Urine 0.2 (0.2-1.0); pH Urine 5.5 (5.0-8.5)
[2024-05-25 11:46] LABS: RBC Urine 0-2 (0-2); WBC Urine 0-2 (0-5)
[2024-05-25] MEDS: 0.9 % SODIUM CHLORIDE 500 ML 500 ML IV (12:41)
[2024-05-25 13:43] LABS: Lactate* 2.4 mmol/L (0.5-1.9)
[2024-05-25] MEDS: 0.9 % SODIUM CHLORIDE 250 ml 250 ML IV (14:16)
[2024-05-25 14:27] LABS: Troponin I* < 0.01 ng/mL (0.01-0.04)
== END 2024-05-25 15:23 | disposition home or self-care (01) ==
PROVIDERS: Emergency Provider Family Medicine; PCP Surgery
DX: R55 Syncope and collapse (principal); R22.41 Localized swelling, mass and lump, right lower limb; I48.91 Unspecified atrial fibrillation; Z79.01 Long term (current) use of anticoagulants; E11.9 Type 2 diabetes mellitus without complications; Z79.4 Long term (current) use of insulin; S72.412D Displaced unspecified condyle fracture of lower end of left femur, subsequent encounter for closed fracture with routine healing; S72.411D Displaced unspecified condyle fracture of lower end of right femur, subsequent encounter for closed fracture with routine healing; I11.0 Hypertensive heart disease with heart failure; I50.40 Unspecified combined systolic (congestive) and diastolic (congestive) heart failure
CPT/HCPCS: 36415; 71045; 71275; 80053; 81001; 82947; 83605; 83880; 84145; 84484; 85025; 87631; 93005; 93970; 94761; 99285; J7030; J7050; Q9967

== ENCOUNTER 2024-05-25 15:17 | Outpatient (CLI) | payer MEDICARE, BC, SELFPAY | END 2024-05-25 15:18 | disposition home or self-care (01) | LOC: AMB 05-31 09:49 | PROVIDERS: PCP Surgery; Visit Provider Family Medicine | DX: R55 Syncope and collapse (principal) | CPT/HCPCS: A0425; A0428 ==

== ENCOUNTER 2024-07-14 22:58 | Outpatient (CLI) | payer MEDICARE, BC, SELFPAY | END 2024-07-14 22:59 | disposition home or self-care (01) | LOC: AMB 07-21 11:33 | PROVIDERS: PCP Surgery; Visit Provider Family Medicine | DX: R06.09 Other forms of dyspnea (principal) | CPT/HCPCS: A0425; A0427 ==

== ENCOUNTER 2024-07-14 23:41 | Inpatient (IN) | payer MEDICARE, BC, SELFPAY ==
--- NOTE | 2024-07-14 23:41 | CRLHL7_ITS ---
For Patients: As a result of the Century Cures Act, medical imaging exams and procedure reports are released immediately into your electronic medical record. You may view this report before your referring provider. If you have questions, please contact your health care provider. INDICATION: Found down. COMPARISON: CT head 08/14/2022. TECHNIQUE: CT of the head without IV contrast. Coronal and sagittal reconstructions. FINDINGS: Brain: No intracranial hemorrhage or evidence of acute infarct. No mass effect or midline shift. No abnormal extra-axial fluid collections. Mild generalized cerebral and cerebellar volume loss with associated ex vacuo dilation of the lateral ventricles. Mild chronic small vessel ischemic disease. Intracranial vascular calcifications. Skull base and calvarium: The visualized paranasal sinuses and mastoid air cells are clear. The visualized orbits are grossly unremarkable. No acute fracture identified. Nasal tube in place. Soft tissues: Unremarkable. IMPRESSION: No acute intracranial findings. Please note that all CT scans at this facility use dose modulation, iterative reconstruction, and/or weight-based dosing when appropriate to reduce radiation dose to as low as reasonably achievable. Dictated by Genevieve Damon MD @ 07/15/2024 12:21:22 AM (Electronically Signed)
--- NOTE | 2024-07-14 23:42 | CRLHL7_ITS ---
For Patients: As a result of the Century Cures Act, medical imaging exams and procedure reports are released immediately into your electronic medical record. You may view this report before your referring provider. If you have questions, please contact your health care provider. INDICATION: Found down. COMPARISON: None. TECHNIQUE: CT of the cervical spine without IV contrast. Coronal and sagittal reconstructions. FINDINGS: Vertebrae: No acute fracture or suspicious bone lesion. Mild anterolisthesis of C3 on C4 and C4 on C5. Straightening of the normal cervical lordosis. Discs and facet joints: Multilevel endplate spurring and facet arthropathy. Moderate disc space narrowing at C5-C6. Bilateral neural foraminal narrowing and mild spinal canal stenosis at C5-C6. Extraspinal findings: Visualized intracranial contents and paravertebral soft tissues are unremarkable. Hypodense left thyroid nodules, the largest of which measures 3.1 cm. The included lung apices are clear. IMPRESSION: 1. No acute fracture or traumatic malalignment of the cervical spine. 2. Multilevel degenerative spondylosis. 3. Left thyroid nodules measuring up to 3.1 cm. Consider nonemergent thyroid ultrasound. Please note that all CT scans at this facility use dose modulation, iterative reconstruction, and/or weight-based dosing when appropriate to reduce radiation dose to as low as reasonably achievable. Dictated by Genevieve Damon MD @ 07/15/2024 12:34:34 AM (Electronically Signed)
[2024-07-14 23:44] VITALS: O2SAT 97
--- OUTSIDE RECORDS SUMMARY | 2024-07-14 23:44 | XMS_ITS | Clinical Summary ---
Author Organization [facility] Address [address] [place] [address] Care Team Providers Care Entry Level Sales Representative Name Role Phone Elijah Fernandez MD Primary Care Provider [phone] Allergies Active Allergy Reactions Criticality Noted Date [...] meal. 90 Tablet 2 11/23/19 24 Active Lantus Solostar U-100 Insulin 100 unit/mL (3 mL) penIndications:Ty pe 2 diabetes mellitus with diabetic neuropathy, with long-term current use of insulin (HC) Inject 18 units subcutaneous before bedtime. Product desired: LANTUS SOLOSTAR 15 mL 3 07/01/19 25 Active insulin aspart, U-100, (NOVOLOG FLEXPEN) 100 unit/mL (3 mL) penIndications:Ty pe 2 diabetes mellitus with diabetic neuropathy, with long-term current use of insulin (HC) Inject 10 units subcutaneous three times daily before meals. 60 mL 3 07/01/19 25 Active insulin aspart, U-100, (NOVOLOG FLEXPEN) 100 unit/mL (3 mL) penIndications:Ty pe 2 diabetes mellitus with diabetic neuropathy, with long-term current use of insulin (HC) INJECT 12 UNITS UNDER THE SKIN TWICE DAILY WITH MEALS 60 mL 3 02/13/20 24 025 Discontin ued(*Medi cation adjustmen t) Lantus Solostar U-100 Insulin 100 unit/mL (3 mL) penIndications:Ty pe 2 diabetes mellitus with diabetic neuropathy, with long-term current use of insulin (HC) Inject 19 units subcutaneous before bedtime. Product desired: LANTUS SOLOSTAR 15 mL 3 04/16/20 24 025 Discontin ued(Reord er (E-cancel not sent)) Active Problems Problem Noted Date Diagnosed Date [...] Encounters Date Type Department Care Team Description 07/13/2024 Telephone [facility] [address] [place] [address] Elijah Fernandez MD Outside Order (Correction ) 06/30/2024 1:10 PM POWER SWITCHBOARD OPERATOR Office Visit [facility] [address] [place] [address] [address] Elijah Fernandez MD Diabetes 06/30/2024 Travel 05/25/2024 Orders Only [facility] Scanner 1 scan: (1-Ord) [place], XR CHEST 1V PORTABLE, 05/25/2024 05/25/2024 Orders Only [facility] Scanner 1 scan: (1-Ord) [facility], US VENOUS LE BI, 05/25/2024 05/25/2024 Orders Only [facility] Scanner 1 scan: (1-Ord) [facility], ANGIO CHEST PE PROTOCOL, 05/25/2024 05/25/2024 Orders Only [facility] Scanner 1 scan: (1-Ord) [facility], CHEST 1V PORTABLE, 05/25/2024 05/01/2024 Orders Only [facility] Scanner 1 scan: (1-Ord) [facility], US VENOUS LE RT, 05/01/2024 04/29/2024 Orders Only [facility] Scanner 1 scan: (1-Ord) [place], CT KNEE RT WO CON, 04/29/2024 04/29/2024 Orders Only [facility] Scanner 1 scan: (1-Ord) [place], RT FEMUR 2 VIEWS, 04/29/2024 04/28/2024 Telephone [facility] [address] [place] [address] Mary Jo Mix MD Results (Thyroid US) 04/27/2024 1:00 PM POWER SWITCHBOARD OPERATOR Ancillary Procedure [facility] [address] [place] [address] 04/27/2024 Travel from Last 3 Months Immunizations Immunization Administration Dates Next Due AMB INFLUENZA IIV3 [...] on file Legal Sex Male 6:44 AM POWER SWITCHBOARD OPERATOR Gender Identity Not on file Sexual Orientation Not on file Occupation Industry Job Start Date Job End Date Disabled Not on file Not on file Not on file Obstetrics History Last Filed Vital Signs Vital Sign Reading Time Taken Comments Blood Pressure 128/84 06/30/2024 1:13 PM POWER SWITCHBOARD OPERATOR Pulse 87 06/30/2024 1:13 PM POWER SWITCHBOARD OPERATOR Temperature 36.5 C (97.7 F) 12/09/2023 10:18 AM CDT Respiratory Rate 22 04/06/2021 2:12 PM POWER SWITCHBOARD OPERATOR Oxygen Saturation 99% 06/30/2024 1:09 PM POWER SWITCHBOARD OPERATOR Inhaled Oxygen Concentration - - Weight 128.9 kg (284 lb 3.2 oz) 02/13/2024 1:02 PM CDT Height 182.9 cm (6' 0.01) 12/23/2023 1:16 PM CD T Body Mass Index 38.54 12/23/2023 1:16 PM CDT Plan of Treatment Upcoming Encounters Date Type Department Care Team (Late st Contact Info) Description 07/17/2024 1:00 PM CDT Ancillary Procedure [facility] [address] [place] [address] 10/02/2024 12:45 PM CDT Office Visit [facility] [address] [place] [address] Elijah Fernandez MD [address] [place] [address] Health Maintenance Due Date Last Done Comments Tetanus booster 06/22/2024 06/22/2014, 06/0 11/2005, 09/28/2005, Additional history exists COVID-19 vaccine series ( season) 2024 01/23/2024, 02/04/2023, 02/25/2022, Additional history exists Depression screening for age [...] vaccine for adults or Completed 02/04/2023 Influenza Vaccine Completed 01/14/2024, , 01/09/2021, Additional history exists Procedures Procedure Name Priority Date/Time Associated Diagnosis Comments HEMOGLOBIN A1C MONITORING (POCT) Routine 06/30/2024 12:54 PM POWER SWITCHBOARD OPERATOR Type 2 diabetes mellitus with diabetic neuropathy, with long-term current use of insulin (HC) SCAN-RADIOLOGY REPORT 05/25/2024 12:00 AM POWER SWITCHBOARD OPERATOR SCAN-ULTRASOUND REPORT 12:00 AM POWER SWITCHBOARD OPERATOR SCAN-CT INTERPRETATION 12:00 AM POWER SWITCHBOARD OPERATOR SCAN-RADIOLOGY REPORT 05/25/2024 12:00 AM POWER SWITCHBOARD OPERATOR SCAN-ULTRASOUND REPORT 12:00 AM POWER SWITCHBOARD OPERATOR SCAN-CT INTERPRETATION 01/01/202 5 12:00 AM POWER SWITCHBOARD OPERATOR SCAN-RADIOLOGY REPORT 04/29/2024 12:00 AM POWER SWITCHBOARD OPERATOR US THYROID/PARATHYROID Routine 4 1:20 PM POWER SWITCHBOARD OPERATOR Thyroid nodule LIPID PANEL Routine 03/31/2024 3:39 PM POWER SWITCHBOARD OPERATOR Hyperlipidemia, unspecified hyperlipidemia type COLONOSCOPY DIAGNOSTIC Routine 0 12:12 PM POWER SWITCHBOARD OPERATOR History of colon polyps ANTI HCV Routine 11/20/2016 12:25 PM CDT Need for hepatitis C screening test from Last 3 Months or Most Recently Relevant to Health Maintenance Results * (ABNORMAL) POCT Hemoglobin A1C Monitoring (06/30/2024 12:54 PM POWER SWITCHBOARD OPERATOR) POC HEMOGLOBIN A1C 6.3(H) <6.0 % OF TOTAL HGB [facility] Comment: Any point of care results exhibiting inconsistency with the patient's clinical status should be repeated using a different testing method. Blood BLOOD SPECIMEN / Unknown 06/30/2024 12:54 PM POWER SWITCHBOARD OPERATOR 06/30/2024 12:55 PM POWER SWITCHBOARD OPERATOR us Elijah Fernandez MD CHEMISTRY Final Resu lt [facility] [address] [place] [address], [facility] [address] [place] [address] * SCAN-RADIOLOGY REPORT (05/25/2024 12:00 AM POWER SWITCHBOARD OPERATOR) Only the most recent of3 resultswithin the time period is included. Anatomical Region Laterality Modality Other us Scanner OTHER Final Result * SCAN-ULTRASOUND REPORT (05/25/2024 12:00 AM POWER SWITCHBOARD OPERATOR) Only the most recent of2 resultswithin the time period is included. Anatomical Region Laterality Modality Other us Scanner OTHER Final Result * SCAN-CT INTERPRETATION (05/25/2024 12:00 AM POWER SWITCHBOARD OPERATOR) Only the most recent of2 resultswithin the time period is included. Anatomical Region Laterality Modality Other us Scanner OTHER Final Result * US THYROID/PARATHYROID (04/27/2024 1:20 PM POWER SWITCHBOARD OPERATOR) Anatomical Region Laterality Modality THYROID Ultrasound 04/27/2024 3:06 PM POWER SWITCHBOARD OPERATOR Impressions 04/27/2024 3:06 PM POWER SWITCHBOARD OPERATOR Stable size and morphology of left-sided thyroid nodules. Dictated by Matthew Muhammad MD @ 04/27/2024 3:06:11 PM (Electronically Signed) Narrative 04/27/2024 3:06 PM POWER SWITCHBOARD OPERATOR For Patients: As a result of the [...] PM (Electronically Signed) Mary Jo Mix MD Final Re sult * (ABNORMAL) LIPID PANEL (03/31/2024 3:39 PM POWER SWITCHBOARD OPERATOR) CHOLESTEROL, TOTAL 121 <200 mg/dL [facility] HDL CHOLESTEROL 46 > OR = 40 mg/dL [facility] TRIGLYCERIDES 154(H) <150 mg/dL [facility] LDL-CHOLESTEROL 51 mg/dL (calc) [facility] Comment: Reference range: <100 Desirable range <100 mg/dL for primary prevention; <70 mg/dL for patients with CHD or diabetic patients with > or = 2 CHD risk factors. LDL-C is now calculated using the Jori-Noemy calculation, which is a validated novel method providing better accuracy than the Friedewald equation in the estimation of LDL-C. Jori SS et al. EMMA. 2013;310(19): 4681-8177 (http://education.eshtery.Likely.co/faq/WGU113) CHOL/HDLC RATIO 2.6 <5.0 (calc) [facility] NON HDL CHOLESTEROL 75 <130 mg/dL (calc) [facility] Comment: For patients with diabetes plus 1 major ASCVD risk factor, treating to a non-HDL-C goal of <100 mg/dL (LDL-C of <70 mg/dL) is considered a therapeutic option. Blood BLOOD SPECIMEN / Unknown 03/31/2024 3:39 PM POWER SWITCHBOARD OPERATOR 03/31/2024 3:48 PM POWER SWITCHBOARD OPERATOR Elijah Fernandez MD CHEMISTRY Final Resu lt [employer] [facility] [address] [place] [address], [facility] [address] [place] [address] * COLONOSCOPY DIAGNOSTIC (03/29/2020 12:12 PM POWER SWITCHBOARD OPERATOR) Jori Siddiqui MD GI PROCEDURE ORD Final Re sult * ANTI HCV (11/20/2016 12:25 PM CDT) HEPATITIS C ANTIBODY Non-Reacti ve Non-Reacti ve 11/20/2016 8:43 PM CDT [facility] Blood BLOOD SPECIMEN / Unknown Venipuncture / Unknown 11/20/2016 12:25 PM CDT 11/20/2016 1:51 PM CDT Narrative [facility] [employer] [facility] - 11/20/2016 8:43 PM CDT Antibodies to HCV not detected; does not exclude the possibility of exposure to HCV. Elijah Fernandez MD SEND OUTS Final Resu lt [facility] [address] [place] [address], [place] from Last 3 Months or Most Recently Relevant to Health Maintenance Insurance MEDICARE PB ONLY MEDICARE PART B HB ONLY MEDICARE PART A HB ONLY [facility] FED EMP MEDICARE PPS [id number] [place] [phone] * Guarantor: [facility] Account Type Relation to Patient Date of Phone Billing Address Contract 2007 [address] [place] [id number] Advance Directives Documents on File Type Date Recorded Patient Borough Coordinator Expl anation POL 05/04/2024 POL 2021 11:11 AM SYDNI ZAMBRANO, 12/19/2021 * Full Code (Latest Code Status on File) Date Activated Date Inactivated Comments 10/04/2020 9:05 PM 10/16/2020 2:59 PM Question Answer Comments Code Status Discussion: Discussed * Full Code Date Activated Date Inactivated Comments 07/09/2007 1:19 AM 07/21/2007 4:26 PM * Full Code Date Activated Date Inactivated Comments 07/08/2007 11:19 PM 07/09/2007 1:19 AM Care Teams Entry Level Sales Representative Relationship Specialty Start Date End Date Elijah Fernandez MD [address] [place] [address] [address] PCP - General Family Practice 03/17/14
--- OUTSIDE RECORDS SUMMARY | 2024-07-14 23:44 | XMS_ITS | Patient Health Record ---
Author Organization [facility] Billing Info Address [address] [place] [address] Care Team Providers Care Garden Machinery Mechanic Name Role Phone ALEX CHANCE Unavailable [phone] Allergies Allergen (clinical drug ingredient) Drug/Non Drug [...] Problem Status W/U Status Risk Notes Problem 34057888 Diabetes mellitu s without mention of complication, type II or unspecified type, not stated as uncontrolled (250.00) Active confirmed Problem 38729779 Essential hypertension (401.9) Active confirmed Problem 762225868 Erectile dysfunction (607.84) Active confirmed Problem 46237990 Shoulder pain (719.41) Active confirmed Plan Of Treatment No Information Insurance Providers Payer Name Payer Address Payer Phone Subscriber Number Group Number Insured Name Patient Relationship to Insured Coverage Start Date Coverage End Date [facility] FEDERAL CLAIMS [address] [place], [place] [id number] Lionel Carlos Self - patient is the insured 9 0 Medical (General) History Medical History History ICD Code Migraine headaches High blood pressure High cholesterol Arthritis Hiatal hernia DM BPH- LUTs Surgical History Surgery Date(Month/Year) septoplasty hernia repair shoulder surgery prostate right shoulder arthroscopic rotator cuff repair/ Dr. Chance 08/26/2013 Hospitalization History Reason Date(Month/Year) SEE ABOVE for chest pain was negative 06/2013
[2024-07-14 23:46] VITALS: BP 150/95; RESP 16; TEMP 36.6; O2SAT 98; BMI 34.7
--- NOTE | 2024-07-14 23:46 | CRLHL7_ITS ---
For Patients: As a result of the Century Cures Act, medical imaging exams and procedure reports are released immediately into your electronic medical record. You may view this report before your referring provider. If you have questions, please contact your health care provider. INDICATION: Found down. Right forehead and periorbital swelling. COMPARISON: CT head 08/14/2022. TECHNIQUE: CT of the facial bones without IV contrast. Coronal and sagittal reconstructions. FINDINGS: No acute fracture identified. No significant soft tissue swelling. The paranasal sinuses and mastoid air cells are clear. No air-fluid levels. No bony hyperostosis or areas of bone destruction. The nasal septum is midline. The mandible is intact and the temporomandibular joints are anatomically aligned. Visualized intracranial contents are unremarkable. Orbits and extraocular muscles are symmetric. The imaged cervical spine is grossly negative. IMPRESSION: No acute findings. Please note that all CT scans at this facility use dose modulation, iterative reconstruction, and/or weight-based dosing when appropriate to reduce radiation dose to as low as reasonably achievable. Dictated by Genevieve Damon MD @ 07/15/2024 12:27:26 AM (Electronically Signed)
--- NOTE | 2024-07-14 23:46 | ED_ITS ---
HPI - General Adult General Time Seen by Provider: 23:46 Date Seen: 07/14/24 Chief complaint: Altered Mental Status Stated complaint: Red Medical Time Seen by Provider: 07/14/24 23:46 Source: patient, EMS, RN notes reviewed and old records reviewed Mode of arrival: EMS Limitations: altered mental status History of Present Illness HPI narrative: Lionel is a 73-year-old gentleman with history of type 1 diabetes, atrial fibrillation currently on Xarelto, history of multiple falls with recent right knee injury comes to the emergency room for evaluation via EMS after being found unresponsive on the floor at home. Patient noted to be found by his roommate with unknown down time. He had sustained bruising an injury to his right eye. His blood sugar was 58 according to EMS in the initiated D10. His blood sugar is now 110 and during the ride in via ambulance he has become more alert although he is still slurring his speech. Lionel is aware of person and place although he stated he knew he was at a hospital did just not sure which 1. He denies any pain. He states that he does not recall anything before waking up in the ambulance. He denies headache, neck pain, chest pain common other pains at this time. He is somewhat nauseated but has not had any vomiting. No evidence of loss of bowel or bladder control. Lionel denies any numbness or tingling of the extremities. EMS noted that he had sonorous respirations and thus placed a nasal trumpet and did use a bag-valve mask transiently. Did note that O2 sats did drop initially but with initiation of D10 this did resolve. Related Data Home Medications ?Medication ?Instructions ?Recorded ?Confirmed albuterol sulfate 90 mcg/actuation 1 - 2 puff inhalation Q4H PRN 12/13/21 06/23/24 aerosol inhaler atorvastatin 20 mg tablet 20 mg PO HS 12/13/21 06/23/24 pantoprazole 40 mg tablet,delayed 40 mg PO DAILY 12/13/21 06/23/24 release valsartan 160 mg tablet 160 mg PO HS 12/13/21 06/23/24 empagliflozin 10 mg tablet 10 mg PO DAILY 09/28/23 06/23/24 (Jardiance) rivaroxaban 15 mg tablet (Xarelto) 15 mg PO QPM 02/20/24 06/23/24 diclofenac sodium 1 % topical gel 4 g topical QID 04/30/24 06/23/24 insulin glargine 100 unit/mL (3 19 unit subcut HS 04/30/24 06/23/24 mL) subcutaneous pen (Lantus Solostar U-100 Insulin) insulin detemir U-100 100 unit/mL 19 unit subcut QPM 05/06/24 06/23/24 (3 mL) subcutaneous pen albuterol 90 mcg-budesonide 80 2 inh inhalation BID PRN 05/25/24 06/23/24 mcg/actuation HFA aerosol inhaler insulin aspart U-100 100 unit/mL 12 unit subcut BID 05/25/24 06/23/24 (3 mL) subcutaneous pen carvedilol 25 mg tablet 12.5 mg PO BID 06/02/24 06/23/24 Previous Rx's ?Medication ?Instructions ?Recorded acetaminophen 650 mg 1,300 mg (2 x 650 mg) PO Q8H #30 05/01/24 tablet,extended release tabs Tubigrip, Size G #2 ea 05/19/24 Walker- 2 Wheels #1 ea 06/23/24 Allergies Allergy/AdvReac Type Severity Reaction Status Date / Time duloxetine Allergy Verified 06/23/24 10:48 metformin AdvReac Verified 06/23/24 10:48 tamsulosin AdvReac syncope Verified 06/23/24 10:48 tetracycline AdvReac Verified 06/23/24 10:48 Review of Systems Status of ROS: Reports: 6 or more systems reviewed and unremarkable except as noted in History and below Narrative: Do note that he is only taking Xarelto 15 mg instead of twice a day he is only taking it once a day secondary to nasal bleeds. Const: Denies: fever or chills Eyes: Denies: change in vision ENMT: Denies: throat pain, neck pain or nasal congestion Cardio: Denies: chest pain, swelling of feet/ankles or shortness of breath with exertion Resp: Denies: shortness of breath or cough GI: Reports: nausea; Denies: abdominal pain, vomiting or diarrhea : Denies: urinary frequency Musculo: Reports: extremity pain (Right knee); Denies: back pain or neck pain Neuro: Denies: headache PFSH PFSH Medical History Closed fracture of right distal fibula ?S82.831A - Other fracture of upper and lower end of right fibula, initial encounter for closed fracture (ICD-10) Injury of ligament of right knee ?S89.91XA - Unspecified injury of right lower leg, initial encounter (ICD-10) Ketonuria ?R82.4 - Acetonuria (ICD-10) Hypertension ?I10 - Essential (primary) hypertension (ICD-10) Insulin dependent diabetes mellitus Chronic anticoagulation ?Z79.01 - prison (current) use of anticoagulants (ICD-10) Thyroid nodule ?E04.1 - Nontoxic single thyroid nodule (ICD-10) COVID ?U07.1 - COVID-19 (ICD-10) Fracture of lateral malleolus of right ankle ?S82.61XA - Displaced fracture of lateral malleolus of right fibula, initial encounter for closed fracture (ICD-10) Tibia fracture ?S82.209A - Unspecified fracture of shaft of unspecified tibia, initial encounter for closed fracture (ICD-10) BPH without urinary obstruction ?N40.0 - Benign prostatic hyperplasia without lower urinary tract symptoms (ICD-10) GERD (gastroesophageal reflux disease) ?K21.9 - Gastro-esophageal reflux disease without esophagitis (ICD-10) JOANIE (obstructive sleep apnea) ?G47.33 - Obstructive sleep apnea (adult) (pediatric) (ICD-10) Ascending aorta dilatation ?I77.810 - Thoracic aortic ectasia (ICD-10) ASHD (arteriosclerotic heart disease) ?I25.10 - Atherosclerotic heart disease of [place] coronary artery without angina pectoris (ICD-10) Atrial fibrillation ?I48.91 - Unspecified atrial fibrillation (ICD-10) Combined systolic and diastolic heart failure, NYHA class 3 ?I50.40 - Unspecified combined systolic (congestive) and diastolic (congestive) heart failure (ICD-10) Social History What is your current living situation?: I presently have a place to live Problems where you live: no known problems Problems where you live details: n/a In the past 12 months, utilities in danger of being shut off: no In past 12 months, lack of transportation kept you from medical appts, meetings, work, or getting things needed for daily living: no In the past 12 mos, have been you worried that your food would run out before you had money to buy more?: never true In the past 12 mos, the food you bought just didn't last and you didn't have money to buy more?: never true Highest level of school completed/degree received: some college, no degree Smoking Status: Never smoker Do you use any of these nicotine containing products: None Second hand tobacco smoke exposure: No How often do you have a drink containing alcohol: monthly or less Alcohol type: beer and wine How many standard drinks containing alcohol do you have on a typical day: 1 or 2 How often do you have six or more drinks on one occasion: Never AUDIT-C Alcohol total score: 1 Non-prescribed substance use: denies use Caffeine: No How often does anyone, including family, friends and others, physically hurt you : never How often does anyone, including family, friends and others, insult or talk down to you: never How often does anyone, including family, friends and others, threaten you with harm: never How often does anyone, including family, friends and others, scream or curse at you: never service: No Exam Narrative: Exam Narrative: Lionel is awake and oriented. His responses are appropriate. His responses however are slow but other members of our medical staff note that Lionel has tenderness stalk slow however, he does have some slurring of the speech persisting. His EOM is full. He has ecchymosis and swelling of his right eyelid. He has some superficial abrasion and bruising around the right cheek bone. Neck is without midline cervical tenderness. Face is symmetrical with eyebrow raise and smile. Oral cavity with moist mucous membranes. Neck is supple without lymphadenopathy. Heart with a irregularly irregular rhythm but normal rate. Lungs are with decreased breath sounds in the bases bilaterally left greater than right. Abdomen is soft nontender. Pelvis stable. His right knee is in a brace. He is able to move all extremities without difficulty. Following commands and has a GCS of 15 at this time. Const: Vital Signs, click to edit/add: Vital Signs - 24 hr 07/14/24 23:44 07/14/24 23:46 07/14/24 23:57 Temperature 97.9 F Pulse Rate 73 Respiratory Rate 16 Blood Pressure 176/127 H Blood Pressure [Ri ght Upper Arm] 150/95 H Pulse Oximetry 97 98 93 Oxygen Delivery Me thod Room Air Oxygen Flow Rate 07/15/24 00:00 07/15/24 00:01 07/15/24 00:15 Temperature Pulse Rate 86 74 76 Respiratory Rate 14 14 12 Blood Pressure 186/116 H Blood Pressure [Ri ght Upper Arm] Pulse Oximetry 96 96 76 L Oxygen Delivery Me thod Room Air Oxygen Flow Rate 07/15/24 00:18 07/15/24 00:30 07/15/24 00:32 Temperature Pulse Rate 84 72 71 Respiratory Rate 10 L 12 11 L Blood Pressure 177/117 H 166/107 H Blood Pressure [Ri ght Upper Arm] Pulse Oximetry 88 98 99 Oxygen Delivery Me thod Room Air OxyMask OxyMask Oxygen Flow Rate 2 2 07/15/24 00:53 07/15/24 01:00 07/15/24 01:02 Temperature Pulse Rate 75 70 74 Respiratory Rate 16 20 19 Blood Pressure 144/106 H Blood Pressure [Ri ght Upper Arm] Pulse Oximetry 94 88 90 Oxygen Delivery Me thod OxyMask OxyMask OxyMask Oxygen Flow Rate 2 2 2 07/15/24 01:22 07/15/24 01:42 Temperature Pulse Rate 71 68 Respiratory Rate 106 H 11 L Blood Pressure 133/86 149/94 H Blood Pressure [Ri ght Upper Arm] Pulse Oximetry 98 99 Oxygen Delivery Me thod OxyMask OxyMask Oxygen Flow Rate 2 2 Course Course ED Course: Differential diagnosis includes but is not limited to hypoglycemic episode, fall, seizure, CVA, electrolyte imbalance, infection. IV has already been placed. Will check CBC, comprehensive panel, troponin, EtOH, urinalysis. Will obtain chest x-ray CTs of the face head and neck. Nursing staff currently talking to Germain sister to understand what his true baseline may be. Reevaluation(s) Reevaluation #1: Patient's sister notes that the slurred speech is not normal for him. X-ray does show a left sided infiltrate. Last known well time was 0200 hours prior to being found by his roommate. EMS arrival at approximately 2341 hours. Patient is on Xarelto and likely not a candidate for lytics if indeed this was a stroke. Have ordered CTA of the head and neck along with ETOH, COVID influenza RSV swabs. Patient continues to have falling glucose to the 50s and thus we have restarted the D10. Reevaluation #2: Patient noted to have blood sugar of 130 and is now talking normally. Certainly his speech content thought process was normal previously but had that slurred speech. Head CT with no evidence of stroke. Concern for possible subtle common carotid artery dissection based on CTA of the neck. Will speak to Neurology regarding this. Consultations Consultation #1: At the pleasure of speaking to Neurology from [facility]. Able to review the films and they do not feel that this is a dissection noted on the head angio and neck angio. Does not feel this needs to be further evaluated with a MRA as suggested by Radiology but do suggest an MRI of the brain without contrast in the morning. Vital Signs Vital signs: Initial Vital Signs Pulse Oximetry 97 07/14/24 23:44 Vital Signs Pulse Oximetry 97 07/14/24 23:44 Temperature 97.9 F 07/14/24 23:46 Pulse Rate 68 07/15/24 01:42 Respiratory Rate 11 L 07/15/24 01:42 Blood Pressure 149/94 H 07/15/24 01:42 Pulse Oximetry 99 07/15/24 01:42 Oxygen Delivery Method OxyMask 07/15/24 01:42 Oxygen Flow Rate 2 07/15/24 01:42 Medications Administered Medications: Generic Name Dose Route Start Last Admin Trade Name Freq PRN Reason Stop Dose Admin Dextrose 500 mls @ 500 mls/hr 07/15/24 01:25 07/15/24 01:37 10 % Dextrose 500 Ml IV 500 mls/hr .Q1H JD Administration Ceftriaxone Sodium 1 gm/ 100 mls @ 200 mls/hr 07/15/24 01:30 07/15/24 02:09 Sodium Chloride IVPB 07/15/24 01:31 Infused ONCE ONE Infusion Azithromycin 500 mg/ Sodium 255 mls @ 255 mls/hr 07/15/24 01:30 07/15/24 0 2:11 Chloride IVPB 07/15/24 01:31 255 mls/hr ONCE ONE Administration Discontinued Medications Generic Name Dose Route Start Last Admin Trade Name Freq PRN Reason Stop Dose Admin Sodium Chloride 500 mls @ 500 mls/hr 07/15/24 00:27 07/15/24 02:15 0.9 % Sodium Chloride 500 Ml IV 07/15/24 01:26 Infused .Q1H ONE Infusion Ondansetron HCl 4 mg 07/14/24 23:58 07/15/24 00:19 Ondansetron 2 Mg/Ml Inj IVP 07/14/24 23:59 4 mg ONCE ONE Administration Medical Decision Making MDM Narrative Medical decision making narrative: 1. Pneumonia-decreased breath sounds in left lung base. Afebrile and no evidence of sepsis but patient does have altered mentation. Will start Rocephin 1 g IV, Zithromax 500 mg IV. O2 sats while awake were at 96% but dropped to 70 while sleeping. Patient has a OxyMask on at this time. No wheezing. Blood cultures were added. Patient also has lower extremity Doppler pending. Certainly PE would be in the diagnosis with hypoxia as he does have a splint on his right leg. Given the fact that he is already had contrast for CTA would not want to pursue dedicated CT a of the chest. I feel that if his lower extremity Doppler is negative we are likely not dealing with a PE causing this. 2. Hypoglycemia-patient noted to be unresponsive at home after a fall. EMS notes a blood sugar of 58. He was given D10 with a blood sugar up to 110 and gradually improved although they slurred speech never entirely cleared. Here in the emergency room when D10 was stopped his blood sugar dropped back down to 60 and it was started once again. And increased again to 90. Blood sugars are now again dropping to 70. Patient cannot recall if he gave himself extra insulin. He does not have an insulin pump. Will hang D10 once again and continue to monitor blood sugars. Certainly this could be secondary to underlying infection as well. Addendum: Patient has a blood sugar now of 130 and is speaking normally. Does note that he did not have big supper last night. Does not feel that he may have overdosed himself on insulin. Will continue to monitor. 3. Altered mentation -patient does have rather slow speech. Appropriate content interaction but still has slightly slurred speech. I did remove the nasal trumpet and this has helped somewhat. CTA showed a subtle linear filling defect questionable dissection. I was able to speak to Neurology at [facility] and they were able to view the images and do not feel that this is a dissection and would not pursue MRI of the neck. However, given the initial slurred speech would suggest MRI of the brain tomorrow morning. 4. Thyroid nodule- will need to have this followed up as an outpatient. 4. Disposition-admit to the floor under the care of [facility] hospitalist. Dr. Cui accepts this patient to the floor. Medical Records Medical records reviewed: Yes I reviewed the patient's medical records Lab Data Lab results reviewed: Yes I reviewed the patient's lab results Labs: Lab Results 07/14/24 07/14/24 07/15/24 Range/Units 23:45 23:46 00:02 WBC 11.32 H (4.50-11.00) K/uL RBC 5.41 (4.30-5.90) m/uL Hgb 16.6 (13.5-17.5) gm/dL Hct 49.8 (37.0-53.0) % MCV 92 (80-100) fL MCH 31 (26-34) pg MCHC 33 (32-36) gm/dL RDW Coeff of Louise 14.4 (11.5-15.5) % Plt Count 194 (140-440) K/uL Neut % (Auto) 82.0 H (42.0-72.0) % Lymph % (Auto) 12.2 L (20-44) % [place] % (Auto) 4.0 (0.0-11.0) % Eos % (Auto) 0.2 (0.0-7.0) % Baso % (Auto) 0.2 (0.0-3.0) % Neut # (Auto) 9.30 H (1.7-7.0) K/uL Lymph # (Auto) 1.40 (0.90-2.90) K/uL [place] # (Auto) 0.50 (0.00-0.90) K/UL Eos # (Auto) 0.00 (0.00-0.50) K/uL Baso # (Auto) 0.00 (0.00-0.30) K/uL Abs Immat Gran (auto) 0.20 (0.00-0.30) K/uL Imm/Tot Granulo (auto) 1.4 % Sodium 141 (135-149) mmol/L Potassium 3.2 L (3.6-5.1) mmol/L Chloride 107 (96-114) mmol/L Carbon Dioxide 22 (20-32) mmol/L Anion Gap 12 (7-15) mEq/L BUN 26 (7-30) mg/dL Creatinine 0.9 (0.5-1.5) mg/dL Estimated Creat Clear 75.35 Estimated GFR 90 ml/min Glucose 57 L (60-115) mg/dL Calcium 9.4 (8.4-10.6) mg/dL Total Bilirubin 1.3 (0.1-1.5) mg/dL AST 22 (12-35) U/L ALT 14 (4-50) U/L Alkaline Phosphatase 67 (40-150) U/L Total Protein 7.5 (6.0-8.3) g/dL Albumin 4.4 (3.3-5.0) g/dL Urine Color (Yellow) Urine Appearance (Clear) Urine pH (5.0-8.5) Ur Specific [place] (1.000-1.030) Urine Protein (Negative) Urine Glucose (UA) (Negative) Urine Ketones (Negative) Urine Blood (Negative) Urine Nitrite (Negative) Urine Bilirubin (Negative) Urine Urobilinogen (0.2-1.0) Ur Leukocyte Esterase (Negative) Urine RBC (0-2) Urine WBC (0-5) Ur Squamous Epith Cells (None-Few) Amorphous Sediment (None) Urine Bacteria (None) Urine Mucus (None) Urine Opiates Screen (Negative) Ur Oxycodone Screen (Negative) Urine Methadone Screen (Negative) Ur Barbiturates Screen (Negative) U Tricyclic Antidepress (Negative) Ur Phencyclidine Scrn (Negative) Ur Amphetamines Screen (Negative) U Methamphetamines Scrn (Negative) U Benzodiazepines Scrn (Negative) Urine Cocaine Screen (Negative) U Marijuana (THC) Screen (Negative) Ur Drug Screen Comment Ethyl Alcohol < 0.01 L (0.01-0.03) % SARS-CoV-2 (PCR) (Negative) Influenza Type A (PCR) (Negative) Influenza Type B (PCR) (Negative) RSV (PCR) (Negative) POC Glucose 105 (60-115) mg/dl POC Troponin I 0.02 (0.01-0.04) ng/ml 07/15/24 07/15/24 07/15/24 Range/Units 00:20 00:23 00:25 WBC (4.50-11.00) K/uL RBC (4.30-5.90) m/uL Hgb (13.5-17.5) gm/dL Hct (37.0-53.0) % MCV (80-100) fL MCH (26-34) pg MCHC (32-36) gm/dL RDW Coeff of Louise (11.5-15.5) % Plt Count (140-440) K/uL Neut % (Auto) (42.0-72.0) % Lymph % (Auto) (20-44) % [place] % (Auto) (0.0-11.0) % Eos % (Auto) (0.0-7.0) % Baso % (Auto) (0.0-3.0) % Neut # (Auto) (1.7-7.0) K/uL Lymph # (Auto) (0.90-2.90) K/uL [place] # (Auto) (0.00-0.90) K/UL Eos # (Auto) (0.00-0.50) K/uL Baso # (Auto) (0.00-0.30) K/uL Abs Immat Gran (auto) (0.00-0.30) K/uL Imm/Tot Granulo (auto) % Sodium (135-149) mmol/L Potassium (3.6-5.1) mmol/L Chloride (96-114) mmol/L Carbon Dioxide (20-32) mmol/L Anion Gap (7-15) mEq/L BUN (7-30) mg/dL Creatinine (0.5-1.5) mg/dL Estimated Creat Clear Estimated GFR ml/min Glucose (60-115) mg/dL Calcium (8.4-10.6) mg/dL Total Bilirubin (0.1-1.5) mg/dL AST (12-35) U/L ALT (4-50) U/L Alkaline Phosphatase (40-150) U/L Total Protein (6.0-8.3) g/dL Albumin (3.3-5.0) g/dL Urine Color Yellow (Yellow) Urine Appearance Slightly Cloudy A (Clear) Urine pH 5.5 (5.0-8.5) Ur Specific [place] >= 1.030 (1.000-1.030) Urine Protein 3+ A (Negative) Urine Glucose (UA) 2+ A (Negative) Urine Ketones 1+ A (Negative) Urine Blood 1+ A (Negative) Urine Nitrite Negative (Negative) Urine Bilirubin Negative (Negative) Urine Urobilinogen 0.2 (0.2-1.0) Ur Leukocyte Esterase Negative (Negative) Urine RBC 0-2 (0-2) Urine WBC 0-2 (0-5) Ur Squamous Epith Cells Moderate A (None-Few) Amorphous Sediment Moderate A (None) Urine Bacteria Few A (None) Urine Mucus Few A (None) Urine Opiates Screen Negative (Negative) Ur Oxycodone Screen Negative (Negative) Urine Methadone Screen Negative (Negative) Ur Barbiturates Screen Negative (Negative) U Tricyclic Antidepress Negative (Negative) Ur Phencyclidine Scrn Negative (Negative) Ur Amphetamines Screen Negative (Negative) U Methamphetamines Scrn Negative (Negative) U Benzodiazepines Scrn Negative (Negative) Urine Cocaine Screen Negative (Negative) U Marijuana (THC) Screen Negative (Negative) Ur Drug Screen Comment See Note Ethyl Alcohol (0.01-0.03) % SARS-CoV-2 (PCR) Negative SARS-CoV-2 (Negative) Influenza Type A (PCR) Negative PCR FLU A (Negative) Influenza Type B (PCR) Negative PCR FLU B (Negative) RSV (PCR) Negative PCR RSV (Negative) POC Glucose 62 (60-115) mg/dl POC Troponin I (0.01-0.04) ng/ml 07/15/24 07/15/24 07/15/24 Range/Units 01:00 01:30 02:05 WBC (4.50-11.00) K/uL RBC (4.30-5.90) m/uL Hgb (13.5-17.5) gm/dL Hct (37.0-53.0) % MCV (80-100) fL MCH (26-34) pg MCHC (32-36) gm/dL RDW Coeff of Louise (11.5-15.5) % Plt Count (140-440) K/uL Neut % (Auto) (42.0-72.0) % Lymph % (Auto) (20-44) % [place] % (Auto) (0.0-11.0) % Eos % (Auto) (0.0-7.0) % Baso % (Auto) (0.0-3.0) % Neut # (Auto) (1.7-7.0) K/uL Lymph # (Auto) (0.90-2.90) K/uL [place] # (Auto) (0.00-0.90) K/UL Eos # (Auto) (0.00-0.50) K/uL Baso # (Auto) (0.00-0.30) K/uL Abs Immat Gran (auto) (0.00-0.30) K/uL Imm/Tot Granulo (auto) % Sodium (135-149) mmol/L Potassium (3.6-5.1) mmol/L Chloride (96-114) mmol/L Carbon Dioxide (20-32) mmol/L Anion Gap (7-15) mEq/L BUN (7-30) mg/dL Creatinine (0.5-1.5) mg/dL Estimated Creat Clear Estimated GFR ml/min Glucose (60-115) mg/dL Calcium (8.4-10.6) mg/dL Total Bilirubin (0.1-1.5) mg/dL AST (12-35) U/L ALT (4-50) U/L Alkaline Phosphatase (40-150) U/L Total Protein (6.0-8.3) g/dL Albumin (3.3-5.0) g/dL Urine Color (Yellow) Urine Appearance (Clear) Urine pH (5.0-8.5) Ur Specific [place] (1.000-1.030) Urine Protein (Negative) Urine Glucose (UA) (Negative) Urine Ketones (Negative) Urine Blood (Negative) Urine Nitrite (Negative) Urine Bilirubin (Negative) Urine Urobilinogen (0.2-1.0) Ur Leukocyte Esterase (Negative) Urine RBC (0-2) Urine WBC (0-5) Ur Squamous Epith Cells (None-Few) Amorphous Sediment (None) Urine Bacteria (None) Urine Mucus (None) Urine Opiates Screen (Negative) Ur Oxycodone Screen (Negative) Urine Methadone Screen (Negative) Ur Barbiturates Screen (Negative) U Tricyclic Antidepress (Negative) Ur Phencyclidine Scrn (Negative) Ur Amphetamines Screen (Negative) U Methamphetamines Scrn (Negative) U Benzodiazepines Scrn (Negative) Urine Cocaine Screen (Negative) U Marijuana (THC) Screen (Negative) Ur Drug Screen Comment Ethyl Alcohol (0.01-0.03) % SARS-CoV-2 (PCR) (Negative) Influenza Type A (PCR) (Negative) Influenza Type B (PCR) (Negative) RSV (PCR) (Negative) POC Glucose 97 77 131 H (60-115) mg/dl POC Troponin I (0.01-0.04) ng/ml Imaging Data Chest x-ray: Attestation: I have reviewed the pertinent imaging results. Radiologist's impression: The cardiac silhouette is magnified, but likely enlarged, similar to prior. Mild pulmonary vascular congestion is present. Patchy left lung base opacification may reflect atelectasis, however developing infectious process is not excluded in the appropriate clinical context. No definite pleural effusion. No pneumothorax. No acute osseous abnormality identified. Chronic widening of the bilateral acromioclavicular joint spaces. Facial CT: Attestation: I have reviewed the pertinent imaging results. Radiologist's impression: No acute fracture identified. No significant soft tissue swelling. The paranasal sinuses and mastoid air cells are clear. No air-fluid levels. No bony hyperostosis or areas of bone destruction. The nasal septum is midline. The mandible is intact and the temporomandibular joints are anatomically aligned. Visualized intracranial contents are unremarkable. Orbits and extraocular muscles are symmetric. The imaged cervical spine is grossly negative. IMPRESSION: No acute findings. CT scan - head: Attestation: I have reviewed the pertinent imaging results. My impression: I do not note any skull fracture or acute intracranial bleed. Radiologist's impression: Brain: No intracranial hemorrhage or evidence of acute infarct. No mass effect or midline shift. No abnormal extra-axial fluid collections. Mild generalized cerebral and cerebellar volume loss with associated ex vacuo dilation of the lateral ventricles. Mild chronic small vessel ischemic disease. Intracranial vascular calcifications. Skull base and calvarium: The visualized paranasal sinuses and mastoid air cells are clear. The visualized orbits are grossly unremarkable. No acute fracture identified. Nasal tube in place. Soft tissues: Unremarkable. IMPRESSION: No acute intracranial findings. Cervical spine x-ray: Attestation: I have reviewed the pertinent imaging results. My impression: No acute fracture Radiologist's impression: ertebrae: No acute fracture or suspicious bone lesion. Mild anterolisthesis of C3 on C4 and C4 on C5. Straightening of the normal cervical lordosis. Discs and facet joints: Multilevel endplate spurring and facet arthropathy. Moderate disc space narrowing at C5-C6. Bilateral neural foraminal narrowing and mild spinal canal stenosis at C5-C6. Extraspinal findings: Visualized intracranial contents and paravertebral soft tissues are unremarkable. Hypodense left thyroid nodules, the largest of which measures 3.1 cm. The included lung apices are clear. IMPRESSION: 1. No acute fracture or traumatic malalignment of the cervical spine. 2. Multilevel degenerative spondylosis. 3. Left thyroid nodules measuring up to 3.1 cm. Consider nonemergent thyroid ultrasound. CTA HEAD AND NECK: Attestation: I have reviewed the pertinent imaging results. Radiologist's impression: 1. There is a subtle linear filling defect in the distal left common carotid artery and proximal left internal carotid artery (series 5 image 146 and series image 81). Differential considerations include subtle dissection versus artifac t. Consider further evaluation with MRA of the neck. 2. Cervical arterial vasculature is otherwise patent without significant stenosis. 3. No intracranial proximal large vessel occlusion or significant aneurysm identified. ECG Data Attestation: I personally reviewed and interpreted this ECG as follows: Interpretation: EKG by my read shows atrial fibrillation rate controlled at 79. I do not note any acute ST or T-wave changes. Discharge Plan Discharge Prescriptions: No Action Levemir FlexPen 100 unit/mL (3 mL) insulin pen 19 unit subcut QPM (DME) Walker- 2 Wheels [facility] See Rx Instructions .Route Qty: 1 0RF Rx Instructions: As directed Xarelto 15 mg tablet 15 mg PO QPM carvedilol 25 mg tablet 12.5 mg PO BID diclofenac sodium 1 % gel 4 g TOPICAL QID insulin glargine [Lantus Solostar U-100 Insulin] 100 unit/mL (3 mL) insulin pen 19 unit subcut HS acetaminophen 650 mg Tablet Extended Release 1,300 mg PO Q8H Qty: 30 0RF atorvastatin 20 mg tablet 20 mg PO HS pantoprazole 40 mg tablet,delayed release (DR/EC) 40 mg PO DAILY albuterol sulfate 90 mcg/actuation HFA aerosol inhaler 1 - 2 puff INHALATION Q4H PRN valsartan 160 mg tablet 160 mg PO HS Jardiance 10 mg tablet 10 mg PO DAILY insulin aspart U-100 100 unit/mL (3 mL) insulin pen 12 unit SUBCUT BID Patient Comments: [NO ORIGINAL SIG] albuterol-budesonide 90-80 mcg/actuation HFA aerosol inhaler 2 inh inhalation BID PRN (DME) Tubigrip, Size G Misc See Rx Instructions .Route Qty: 2 0RF Rx Instructions: As directed. Fit patient for size Follow Up/Referrals: Elijah Fernandez MD [Primary Care Provider] -
[2024-07-14 23:57] VITALS: BP 176/127; PULSE 73; O2SAT 93
[2024-07-15] VITALS (23 sets, daily range): BP systolic 125–186; BP diastolic 82–117; PULSE 68–99; RESP 10–106; TEMP 36.3–36.8; O2SAT 76–99; BMI 34.2
--- NOTE | 2024-07-15 00:04 | CRLHL7_ITS ---
For Patients: As a result of the Cures Act, medical imaging exams and procedure reports are released immediately into your electronic medical record. You may view this report before your referring provider. If you have questions, please contact your health care provider. Indication: Found down. Altered level of consciousness. Technique: Chest 1 view. Comparison: CTA chest 05/25/2024, chest x-ray 05/25/2024. Findings/Impression: The cardiac silhouette is magnified, but likely enlarged, similar to prior. Mild pulmonary vascular congestion is present. Patchy left lung base opacification may reflect atelectasis, however developing infectious process is not excluded in the appropriate clinical context. No definite pleural effusion. No pneumothorax. No acute osseous abnormality identified. Chronic widening of the bilateral acromioclavicular joint spaces. Dictated by Pavel Alonso MD @ 07/15/2024 12:22:46 AM (Electronically Signed)
[2024-07-15 00:08] LABS: Basophils Percent Auto 0.2 % (0.0-3.0); Eosinophils Percent Auto 0.2 % (0.0-7.0); Hematocrit 49.8 % (37.0-53.0); Hemoglobin* 16.6 gm/dL (13.5-17.5); Immature Granulocytes Pct Auto 1.4 %; Lymphocytes Percent Auto 12.2 % (20-44); Mean Corpuscular HGB Conc 33 gm/dL (32-36); Mean Corpuscular Hemoglobin 31 pg (26-34); Mean Corpuscular Volume 92 fL (80-100); Platelet Count* 194 K/uL (140-440); RDW Coefficient of Variation % 14.4 % (11.5-15.5); Red Blood Count 5.41 m/uL (4.30-5.90); White Blood Count* 11.32 K/uL (4.50-11.00)
[2024-07-15 00:13] LABS: Slide Review Reflex No
[2024-07-15] MEDS: ONDANSETRON 2 MG/ML inj 4 MG IVP (00:19)
[2024-07-15 00:22] LABS: Albumin* 4.4 g/dL (3.3-5.0); Chloride* 107 mmol/L (96-114); Potassium* 3.2 mmol/L (3.6-5.1); Sodium* 141 mmol/L (135-149)
[2024-07-15 00:24] LABS: Bilirubin Total* 1.3 mg/dL (0.1-1.5); Blood Urea Nitrogen* 26 mg/dL (7-30); Creatinine* 0.9 mg/dL (0.5-1.5); Est. Creatinine Clearance* 75.35; Estimated Glomerular Filt Rate 90 ml/min
[2024-07-15 00:25] LABS: Alanine Aminotransferase* 14 U/L (4-50); Alkaline Phosphatase* 67 U/L (40-150); Anion Gap 12 mEq/L (7-15); Aspartate Amino Transferase* 22 U/L (12-35); Calcium* 9.4 mg/dL (8.4-10.6); Carbon Dioxide* 22 mmol/L (20-32); Glucose* 57 mg/dL (60-115); Total Protein* 7.5 g/dL (6.0-8.3)
--- NOTE | 2024-07-15 00:27 | CRLHL7_ITS ---
For Patients: As a result of the Century Cures Act, medical imaging exams and procedure reports are released immediately into your electronic medical record. You may view this report before your referring provider. If you have questions, please contact your health care provider. INDICATION: Acute stroke. TECHNIQUE: CTA neck with contrast bolus tracking, 3D angiographic rendering using maximum intensity projection (MIP) and images permanently archived. FINDINGS: There is carotid atherosclerosis. There is no significant carotid artery stenosis or dissection. There is no significant vertebral artery stenosis or dissection. There is a 2.5 centimeter indeterminate left thyroid nodule. Degenerative changes are noted in the cervical spine. IMPRESSION: 1. No significant carotid or vertebral artery stenosis or dissection. 2. Large left thyroid nodule; recommend nonemergent outpatient ultrasound when clinically appropriate. Please note that all CT scans at this facility use dose modulation, iterative reconstruction, and/or weight-based dosing when appropriate to reduce radiation dose to as low as reasonably achievable. Dictated by Pineda Sampson MD @ 07/15/2024 12:29:08 PM (Electronically Signed)
--- NOTE | 2024-07-15 00:27 | CRLHL7_ITS ---
For Patients: As a result of the Century Cures Act, medical imaging exams and procedure reports are released immediately into your electronic medical record. You may view this report before your referring provider. If you have questions, please contact your health care provider. INDICATION: Acute stroke. TECHNIQUE: CTA head with contrast bolus tracking, 3D angiographic rendering using maximum intensity projection (MIP) and images permanently archived. FINDINGS: There is normal opacification of the intracranial vasculature. There is no large vessel occlusion. No aneurysm is identified. IMPRESSION: Unremarkable head CTA. Please note that all CT scans at this facility use dose modulation, iterative reconstruction, and/or weight-based dosing when appropriate to reduce radiation dose to as low as reasonably achievable. Dictated by Pineda Sampson MD @ 07/15/2024 12:30:32 PM (Electronically Signed)
[2024-07-15 00:33] LABS: Ethanol* < 0.01 % (0.01-0.03)
[2024-07-15 00:36] LABS: Appearance Urine Slightly Cloudy (Clear); Bilirubin Urine Negative (Negative); Blood Urine 1+ (Negative); Color Urine Yellow (Yellow); Glucose Urine 2+ (Negative); Ketones Urine 1+ (Negative); Leukocyte Esterase Urine Negative (Negative); Nitrite Urine Negative (Negative); Protein Urine 3+ (Negative); Specific Gravity Urine >= 1.030 (1.000-1.030); Urobilinogen Urine 0.2 (0.2-1.0); pH Urine 5.5 (5.0-8.5)
[2024-07-15 00:46] LABS: Amphetamine Screen Urine Negative (Negative); Barbiturate Screen Urine Negative (Negative); Benzodiazepines Screen Urine Negative (Negative); Cannabinoid Screen Urine Negative (Negative); Cocaine Screen Urine Negative (Negative); Methadone Screen Urine Negative (Negative); Methamphetamines Screen Urine Negative (Negative); Opiate Screen Urine Negative (Negative); Oxycodone Screen Urine Negative (Negative); Phencyclidine Screen Urine Negative (Negative); Tricyclic Antidepressant Urine Negative (Negative)
[2024-07-15 00:56] LABS: RBC Urine 0-2 (0-2); Squamous Epithelial Cell Urine Moderate (None-Few); WBC Urine 0-2 (0-5)
[2024-07-15 00:57] LABS: Amorphous Sediment Urine Moderate; Bacteria Urine Few; Mucus Urine Few
[2024-07-15] MEDS: 0.9 % SODIUM CHLORIDE 500 ML 500 ML IV (00:58)
--- OUTSIDE RECORDS SUMMARY | 2024-07-15 00:58 | XMS_ITS | Patient Health Record ---
Author Organization [facility] Billing Info Address [address] [place] [address] Care Team Providers Care Automotive Service Advisor Name Role Phone ALEX CHANCE Unavailable [phone] Allergies Allergen (clinical drug ingredient) Drug/Non Drug [...] Problem Status W/U Status Risk Notes Problem 93459378 Diabetes mellitu s without mention of complication, type II or unspecified type, not stated as uncontrolled (250.00) Active confirmed Problem 59025103 Essential hypertension (401.9) Active confirmed Problem 241599727 Erectile dysfunction (607.84) Active confirmed Problem 08552042 Shoulder pain (719.41) Active confirmed Plan Of Treatment No Information Insurance Providers Payer Name Payer Address Payer Phone Subscriber Number Group Number Insured Name Patient Relationship to Insured Coverage Start Date Coverage End Date [facility] [employer] CLAIMS [address] [place], [place] [id number] [phone] [id number] Lionel Carlos Self - patient is the [...]
--- OUTSIDE RECORDS SUMMARY | 2024-07-15 00:58 | XMS_ITS | Clinical Summary ---
Author Organization [employer] [facility] Address [address] [place] [address] Care Team Providers Care Servomechanism Designer Name Role Phone Elijah Fernandez MD Primary Care Provider [phone] Allergies Active Allergy Reactions Criticality Noted Date [...] Type Department Care Team Description 07/13/2024 Telephone [facility] [address] [place] [address] Elijah Fernandez MD Outside Order (Half-Way ) 06/30/2024 1:10 PM [facility] [employer] [facility] Office Visit [facility] [address] [place] [address] Elijah Fernandez MD Diabetes 06/30/2024 Travel 05/25/2024 Orders Only [facility] Scanner 1 scan: (1-Ord) BELT, XR CHEST 1V PORTABLE, 05/25/2024 05/25/2024 Orders Only [facility] Scanner 1 scan: (1-Ord) [facility], US VENOUS LE BI, 05/25/2024 05/25/2024 Orders Only [facility] Scanner 1 scan: (1-Ord) [facility], ANGIO CHEST PE PROTOCOL, 05/25/2024 05/25/2024 Orders Only [facility] Scanner 1 scan: (1-Ord) [facility], CHEST 1V PORTABLE, 05/25/2024 05/01/2024 Orders Only [facility] Scanner 1 scan: (1-Ord) [facility], US VENOUS LE RT, 05/01/2024 04/29/2024 Orders Only [facility] Scanner 1 scan: (1-Ord) BELT, CT KNEE RT WO CON, 04/29/2024 04/29/2024 Orders Only [facility] Scanner 1 scan: (1-Ord) BELT, RT FEMUR 2 VIEWS, 04/29/2024 04/28/2024 Telephone [facility] [address] [facility] [address] Mary Jo Mix MD Results (Thyroid US) 04/27/2024 1:00 PM [employer] Ancillary Procedure [facility] [address] [facility] [address] 04/27/2024 Travel from Last 3 Months Immunizations [...] on file Legal Sex Male 6:44 AM [employer] Gender Identity Not on file Sexual Orientation Not on file Occupation Industry Job Start Date Job End Date Disabled Not on file Not on file Not on file Obstetrics History Last Filed Vital Signs Vital Sign Reading Time Taken Comments Blood Pressure 128/84 06/30/2024 1:13 PM [employer] Pulse 87 06/30/2024 1:13 PM [employer] Temperature 36.5 C (97.7 F) 12/09/2023 10:18 AM CDT Respiratory Rate 22 04/06/2021 2:12 PM [employer] Oxygen Saturation 99% 06/30/2024 1:09 PM [employer] Inhaled Oxygen Concentration - - Weight 128.9 kg (284 lb 3.2 oz) 02/13/2024 1:02 PM CDT Height 182.9 cm (6' 0.01) 12/23/2023 1:16 PM CD T Body Mass Index 38.54 12/23/2023 1:16 PM CDT Plan of Treatment Upcoming Encounters Date Type Department Care Team (Late st Contact Info) Description 07/17/2024 1:00 PM CDT Ancillary Procedure [facility] [address] [place] [address] 10/02/2024 12:45 PM CDT Office Visit [facility] [address] [place] [address] Elijah Fernandez MD [address] [place] [address] Health Maintenance Due Date Last Done Comments [...] A1C MONITORING (POCT) Routine 06/30/2024 12:54 PM [employer] Type 2 diabetes mellitus with diabetic neuropathy, with long-term current use of insulin (HC) SCAN-RADIOLOGY REPORT 05/25/2024 12:00 AM [employer] SCAN-ULTRASOUND REPORT 12:00 AM [employer] SCAN-CT INTERPRETATION 12:00 AM [employer] SCAN-RADIOLOGY REPORT 05/25/2024 12:00 AM [employer] SCAN-ULTRASOUND REPORT 12:00 AM [employer] SCAN-CT INTERPRETATION 01/01/202 5 12:00 AM [employer] SCAN-RADIOLOGY REPORT 04/29/2024 12:00 AM [employer] US THYROID/PARATHYROID Routine 4 1:20 PM [employer] Thyroid nodule LIPID PANEL Routine 03/31/2024 3:39 PM [employer] Hyperlipidemia, unspecified hyperlipidemia type COLONOSCOPY DIAGNOSTIC Routine 0 12:12 PM [employer] History of colon polyps ANTI HCV Routine 11/20/2016 12:25 PM CDT Need for hepatitis C screening test from Last 3 Months or Most Recently Relevant to Health Maintenance Results * (ABNORMAL) POCT Hemoglobin A1C Monitoring (06/30/2024 12:54 PM [employer]) POC HEMOGLOBIN A1C 6.3(H) <6.0 % OF TOTAL HGB [facility] Comment: Any point of care results exhibiting inconsistency with the patient's clinical status should be repeated using a different testing method. Blood BLOOD SPECIMEN / Unknown 06/30/2024 12:54 PM [employer] 06/30/2024 12:55 PM [employer] us Elijha Fernandez MD CHEMISTRY Final Resu lt [facility] [address] [place] [address], [facility] [address] [place] [address] * SCAN-RADIOLOGY REPORT (05/25/2024 12:00 AM BL[employer]NACE) Only the most recent of3 resultswithin the time period is included. Anatomical Region Laterality Modality Other us Scanner OTHER Final Result * SCAN-ULTRASOUND REPORT (05/25/2024 12:00 AM [employer]) Only the most recent of2 resultswithin the time period is included. Anatomical Region Laterality Modality Other us Scanner OTHER Final Result * SCAN-CT INTERPRETATION (05/25/2024 12:00 AM [employer]CE) Only the most recent of2 resultswithin the time period is included. Anatomical Region Laterality Modality Other us Scanner OTHER Final Result * US THYROID/PARATHYROID (04/27/2024 1:20 PM [employer]) Anatomical Region Laterality Modality THYROID Ultrasound 04/27/2024 3:06 PM [employer] Impressions 04/27/2024 3:06 PM [employer] Stable size and morphology of left-sided thyroid nodules. Dictated by Matthew Muhammad MD @ 04/27/2024 3:06:11 PM (Electronically Signed) Narrative 04/27/2024 3:06 PM [employer] For Patients: As a result of the [...] * (ABNORMAL) LIPID PANEL (03/31/2024 3:39 PM [employer]) CHOLESTEROL, TOTAL 121 <200 mg/dL [facility] HDL CHOLESTEROL 46 > OR = 40 mg/dL [facility] TRIGLYCERIDES 154(H) <150 mg/dL [facility] LDL-CHOLESTEROL 51 mg/dL (calc) [facility] Comment: Reference range: <100 Desirable range <100 mg/dL for primary prevention; <70 mg/dL for patients with CHD or diabetic patients with > or = 2 CHD risk factors. LDL-C is now calculated using the Jori-Noemy calculation, which is a validated novel method providing better accuracy than the Friedewald equation in the estimation of LDL-C. Jori SS et al. EMMA. 2013;310(19): 3100-5124 (http://education.Picolight.Tungle.me/faq/CDR264) CHOL/HDLC RATIO 2.6 <5.0 (calc) [facility] NON HDL CHOLESTEROL 75 <130 mg/dL (calc) [facility] Comment: For patients with diabetes plus 1 major ASCVD risk factor, treating to a non-HDL-C goal of <100 mg/dL (LDL-C of <70 mg/dL) is considered a therapeutic option. Blood BLOOD SPECIMEN / Unknown 03/31/2024 3:39 PM [employer] 03/31/2024 3:48 PM [employer] Elijah Fernandez MD CHEMISTRY Final Resu lt [facility] [address] [place] [address], [facility] [address] [place] [address] * COLONOSCOPY DIAGNOSTIC (03/29/2020 12:12 PM [employer]NA[employer]) Jori Siddiqui MD GI PROCEDURE ORD Final Re sult * ANTI HCV (11/20/2016 12:25 PM CDT) HEPATITIS C ANTIBODY Non-Reacti ve Non-Reacti ve 11/20/2016 8:[address] [facility] [facility] Blood BLOOD SPECIMEN / Unknown Venipuncture / Unknown 11/20/2016 12:25 PM CDT 11/20/2016 1:51 PM CDT Narrative [facility] - 11/20/2016 8:43 PM CDT Antibodies to HCV not detected; does not exclude the possibility of exposure to HCV. Elijah Fernandez MD SEND OUTS Final Resu lt [facility] [address] [place] [address], [place] from Last 3 Months or Most Recently Relevant to Health Maintenance Insurance MEDICARE PB ONLY MEDICARE PART B HB ONLY MEDICARE PART A HB ONLY [facility] FED EMP MEDICARE PPS [id number] [place] [phone] * Guarantor: [facility] Account Type Relation to Patient Date of Phone Billing Address Contract 2007 [address] [place] [id number] Advance Directives Documents on File Type Date Recorded Patient [employer] POL 05/04/2024 POL 2021 11:11 [...] 11:19 PM 07/09/2007 1:19 AM Care Teams Servomechanism Designer Relationship Specialty Start Date End Date Elijah Fernandez MD [address] [place] [address] PCP - General Family Practice 03/17/14
[2024-07-15 01:03] LABS: PCR FLU A Negative PCR FLU A (Negative); PCR FLU B Negative PCR FLU B (Negative); PCR RSV Negative PCR RSV (Negative); SARS PCR* Negative SARS-CoV-2 (Negative)
--- NOTE | 2024-07-15 01:15 | CRLHL7_ITS ---
For Patients: As a result of the Century Cures Act, medical imaging exams and procedure reports are released immediately into your electronic medical record. You may view this report before your referring provider. If you have questions, please contact your health care provider. INDICATION: Bilateral lower extremity swelling. Recent right leg injury. TECHNIQUE: Ultrasound venous duplex bilateral lower extremity. Compression venous exam was performed using tenorio-scale, color Doppler, and spectral Doppler analysis. COMPARISON: Bilateral lower extremity Doppler ultrasound 05/25/2024. FINDINGS: One of the posterior tibial veins of the left calf demonstrates decreased compressibility with acute appearing intraluminal thrombus. The remainder of the visualized deep veins of the left lower extremity demonstrate no evidence of DVT, though evaluation of the peroneal veins at the left calf is limited. The deep veins of the right lower extremity demonstrate no evidence of DVT, though evaluation of the peroneal veins at the right calf is limited. IMPRESSION: 1. Acute appearing DVT of a left posterior tibial vein. Remainder of the visualized left lower extremity deep veins remain patent, though evaluation of the remainder of the deep veins of the left calf is somewhat limited. 2. No right lower extremity DVT appreciated, though evaluation of the deep veins of the right calf is somewhat limited. Above findings relayed to provider Dr. Espinal via telephone on 07/15/2024 at 3:28 a.m. CDT. Dictated by Pavel Alonso MD @ 07/15/2024 3:29:48 AM (Electronically Signed)
[2024-07-15] MEDS: 10 % DEXTROSE 500 ML 500 ML IV (01:37)
[2024-07-15] MEDS: cefTRIAXone 1 GM in 0.9 % SODIUM CHLORIDE Mini-bag 100 ML IVPB (01:38)
[2024-07-15 01:51] LABS: Troponin, Point-of-Care* 0.02 ng/ml (0.01-0.04)
[2024-07-15 02:00] LABS: Glucose, Point-of-Care* 105 mg/dl (60-115)
[2024-07-15 02:00] LABS: Glucose, Point-of-Care* 62 mg/dl (60-115)
[2024-07-15 02:01] LABS: Glucose, Point-of-Care* 97 mg/dl (60-115)
[2024-07-15 02:01] LABS: Glucose, Point-of-Care* 77 mg/dl (60-115)
[2024-07-15] MEDS: AZITHROMYCIN 500 MG in 0.9 % SODIUM CHLORIDE 250 ml 250 ML 255 MG IVPB (02:11)
[2024-07-15 02:15] LABS: Glucose, Point-of-Care* 131 mg/dl (60-115)
[2024-07-15 03:02] LABS: Glucose, Point-of-Care* 162 mg/dl (60-115)
--- NOTE | 2024-07-15 04:47 | W.PM.TELEH&P ---
Telehealth- H&P: HPI History of Present Illness Date Seen: 07/15/24 Chief complaint: Red Medical Narrative: Lionel Carlos is seen as an Interactive Telehealth visit. 73-year-old male with a past medical history significant for atrial fibrillation on Xarelto, recent tibia-fibula fracture who presents to hospital with unresponsive episode. Patient presented by EMS from his home. Patient was found unresponsive by his roommate. He was noted to have migration of his right eye. When EMS responded to his house, he was found to have a blood sugar of 58. He was administered D10 and immediately was brought to the emergency room. When he came to the emergency room he became more alert but he was still having slurred speech. He was also noted to be extremely drowsy and underwent a nasal trumpet placement. He also had episode of hypoxia from once the D10 was administered, this did improve. In the emergency room, he was seen and examined and underwent CT of the head and neck. His vital signs are concerning for elevated blood pressure 176/127, afebrile, pulse 73. Eventually his blood pressure did improve. When he was brought to the ER, Lionel golden was communicated with, who mentioned that the slurred speech is not normal for the patient. As result the patient underwent a CT of the head and neck. CT head and neck showed no evidence of stroke however there was a concern for subtle comment: Artery dissection. This case was reviewed with neurology at [facility]. They reviewed the images and did not feel that this is a dissection but did recommend the MRI. Due to the episode of hypoxia, chest x-ray was ordered. And interestingly, a lower extremity DVT Doppler was ordered which surprisingly was positive for DVT. This patient had a recent fibula fracture and was in a brace. He has been on Xarelto 15 mg daily which was reduced from 20 mg daily due to epistasis. Review of Systems Status of ROS: Reports: 10 or more systems reviewed and unremarkable except as noted in History and below Const: Denies: fever or chills Cardio: Denies: chest pain, edema or shortness of breath with exertion Resp: Denies: shortness of breath, cough or wheezing Allergy/Immuno: Denies: wheezing PFSH [facility] Medical History Closed fracture of right distal fibula ?S82.831A - Other fracture of upper and lower end of right fibula, initial encounter for closed fracture (ICD-10) Injury of ligament of right knee ?S89.91XA - Unspecified injury of right lower leg, initial encounter (ICD-10) Ketonuria ?R82.4 - Acetonuria (ICD-10) Hypertension ?I10 - Essential (primary) hypertension (ICD-10) Insulin dependent diabetes mellitus Chronic anticoagulation ?Z79.01 - penitentiary (current) use of anticoagulants (ICD-10) Thyroid nodule ?E04.1 - Nontoxic single thyroid nodule (ICD-10) COVID ?U07.1 - COVID-19 (ICD-10) Fracture of lateral malleolus of right ankle ?S82.61XA - Displaced fracture of lateral malleolus of right fibula, initial encounter for closed fracture (ICD-10) Tibia fracture ?S82.209A - Unspecified fracture of shaft of unspecified tibia, initial encounter for closed fracture (ICD-10) BPH without urinary obstruction ?N40.0 - Benign prostatic hyperplasia without lower urinary tract symptoms (ICD-10) GERD (gastroesophageal reflux disease) ?K21.9 - Gastro-esophageal reflux disease without esophagitis (ICD-10) JOANIE (obstructive sleep apnea) ?G47.33 - Obstructive sleep apnea (adult) (pediatric) (ICD-10) Ascending aorta dilatation ?I77.810 - Thoracic aortic ectasia (ICD-10) ASHD (arteriosclerotic heart disease) ?I25.10 - Atherosclerotic heart disease of [place] coronary artery without angina pectoris (ICD-10) Atrial fibrillation ?I48.91 - Unspecified atrial fibrillation (ICD-10) Combined systolic and diastolic heart failure, NYHA class 3 ?I50.40 - Unspecified combined systolic (congestive) and diastolic (congestive) heart failure (ICD-10) Social History What is your current living situation?: I presently have a place to live Problems where you live: no known problems Problems where you live details: n/a In the past 12 months, utilities in danger of being shut off: no In past 12 months, lack of transportation kept you from medical appts, meetings, work, or getting things needed for daily living: no In the past 12 mos, have been you worried that your food would run out before you had money to buy more?: never true In the past 12 mos, the food you bought just didn't last and you didn't have money to buy more?: never true Highest level of school completed/degree received: some college, no degree Smoking Status: Never smoker Do you use any of these nicotine containing products: None Second hand tobacco smoke exposure: No How often do you have a drink containing alcohol: monthly or less Alcohol type: beer and wine How many standard drinks containing alcohol do you have on a typical day: 1 or 2 How often do you have six or more drinks on one occasion: Never AUDIT-C Alcohol total score: 1 Non-prescribed substance use: denies use Caffeine: No How often does anyone, including family, friends and others, physically hurt you: never How often does anyone, including family, friends and others, insult or talk down to you: never How often does anyone, including family, friends and others, threaten you with harm: never How often does anyone, including family, friends and others, scream or curse at you: never service: No Meds Home Medications and Allergies Home Medications ?Medication ?Instructions ?Recorded ?Confirmed ?Type albuterol sulfate 90 mcg/actuation 1 - 2 puff inhalation Q4H PRN 12/13/21 06/23/24 History aerosol inhaler atorvastatin 20 mg tablet 20 mg PO HS 12/13/21 06/23/24 History pantoprazole 40 mg tablet,delayed 40 mg PO DAILY 12/13/21 06/23/24 History release valsartan 160 mg tablet 160 mg PO HS 12/13/21 06/23/24 History empagliflozin 10 mg tablet 10 mg PO DAILY 09/28/23 06/23/24 History (Jardiance) rivaroxaban 15 mg tablet (Xarelto) 15 mg PO QPM 02/20/24 06/23/24 History diclofenac sodium 1 % topical gel 4 g topical QID 04/30/24 06/23/24 History insulin glargine 100 unit/mL (3 19 unit subcut HS 04/30/24 06/23/24 History mL) subcutaneous pen (Lantus Solostar U-100 Insulin) insulin detemir U-100 100 unit/mL 19 unit subcut QPM 05/06/24 06/23/24 History (3 mL) subcutaneous pen albuterol 90 mcg-budesonide 80 2 inh inhalation BID PRN 05/25/24 06/23/24 History mcg/actuation HFA aerosol inhaler insulin aspart U-100 100 unit/mL 12 unit subcut BID 05/25/24 06/23/24 History (3 mL) subcutaneous pen carvedilol 25 mg tablet 12.5 mg PO BID 06/02/24 06/23/24 History Allergies Allergy/AdvReac Type Severity Reaction Status Date / Time duloxetine Allergy Verified 06/23/24 10:48 metformin AdvReac Verified 06/23/24 10:48 tamsulosin AdvReac syncope Verified 06/23/24 10:48 tetracycline AdvReac Verified 06/23/24 10:48 Exam Narrative Exam Narrative: Physical Exam GENERAL: ?vital signs reviewed, well developed and nourished, in no distress, no slurred speech HEENT: pupils are equal round and reactive to light, extraocular movements are grossly within normal limits and oral mucosa is moist. NECK: Supple without lymphadenopathy or nurses noted hardened nodule on thyroid HEART: Regular rate and rhythm without any rubs, murmurs, or gallops. LUNGS: Clear to auscultation bilaterally with good air movement throughout EXTREMITIES: Strength and sensation is observed to be grossly within normal limits in the upper and lower extremities.? No focal strength deficit is observed. mild swelling on right lower leg SKIN:? Observed warm and dry with color normal Const Vital Signs, click to edit/add: Vital Signs - 24 hr 07/14/24 23:44 07/14/24 23:46 07/14/24 23:57 Temperature 97.9 F Pulse Rate 73 Respiratory Rate 16 Blood Pressure 176/127 H Blood Pressure [Right Upper Arm] 150/95 H Pulse Oximetry 97 98 93 Oxygen Delivery Method Room Air Oxygen Flow Rate 07/15/24 00:00 07/15/24 00:01 07/15/24 00:15 Temperature Pulse Rate 86 74 76 Respiratory Rate 14 14 12 Blood Pressure 186/116 H Blood Pressure [Right Upper Arm] Pulse Oximetry 96 96 76 L Oxygen Delivery Method Room Air Oxygen Flow Rate 07/15/24 00:18 07/15/24 00:30 07/15/24 00:30 Temperature Pulse Rate 84 72 Respiratory Rate 10 L 12 Blood Pressure 177/117 H Blood Pressure [Right Upper Arm] Pulse Oximetry 88 98 92 Oxygen Delivery Method Room Air OxyMask OxyMask Oxygen Flow Rate 2 2 07/15/24 00:32 07/15/24 00:53 07/15/24 01:00 Temperature Pulse Rate 71 75 70 Respiratory Rate 11 L 16 20 Blood Pressure 166/107 H Blood Pressure [Right Upper Arm] Pulse Oximetry 99 94 88 Oxygen Delivery Method OxyMask OxyMask OxyMask Oxygen Flow Rate 2 2 2 07/15/24 01:02 07/15/24 01:22 07/15/24 01:42 Temperature Pulse Rate 74 71 68 Respiratory Rate 19 106 H 11 L Blood Pressure 144/106 H 133/86 149/94 H Blood Pressure [Right Upper Arm] Pulse Oximetry 90 98 99 Oxygen Delivery Method OxyMask OxyMask OxyMask Oxygen Flow Rate 2 2 2 07/15/24 02:23 07/15/24 02:43 Temperature Pulse Rate 81 76 Respiratory Rate 14 17 Blood Pressure 161/107 H 141/110 H Blood Pressure [Right Upper Arm] Pulse Oximetry 96 98 Oxygen Delivery Method Room Air Oxygen Flow Rate 0 Hospitalist - H&P: Result Labs Labs: Short CBC 07/15/24 Range/Units 00:02 WBC 11.32 H (4.50-11.00) K/uL Hgb 16.6 (13.5-17.5) gm/dL Hct 49.8 (37.0-53.0) % Plt Count 194 (140-440) K/uL BMP 07/15/24 00:02 Sodium 141 Potassium 3.2 L Chloride 107 Carbon Dioxide 22 BUN 26 Creatinine 0.9 Glucose 57 L Calcium 9.4 Liver Function 07/15/24 Range/Units 00:02 Total Bilirubin 1.3 (0.1-1.5) mg/dL AST 22 (12-35) U/L ALT 14 (4-50) U/L Alkaline Phosphatase 67 (40-150) U/L Albumin 4.4 (3.3-5.0) g/dL Urine 07/15/24 Range/Units 00:25 Urine Color Yellow (Yellow) Urine Appearance Slightly Cloudy A (Clear) Urine pH 5.5 (5.0-8.5) Ur Specific [place] >= 1.030 (1.000-1.030) Urine Protein 3+ A (Negative) Urine Glucose (UA) 2+ A (Negative) Assessment and Plan Assessment and plan (1) Slurring of speech: Status: Acute (2) Hypoglycemia: Status: Acute (3) Closed fracture of right distal fibula: Problem comment: Closed treatment of a closed, acute, nondisplaced right distal fibular fracture, Jeremias B (DOI: 02/19/24) Status: Acute (4) Multiple falls: Problem comment: High high fall risk. Status: Acute Plan Unresponsive episode secondary to hypoglycemia currently the patient is not hypoglycemic and he is now alert and oriented x 3. Patient underwent CT of his head which is negative. CTA of the head and neck which is negative. The patient is concerned about recurrent nature of this hypoglycemia. His recent doctor cut his Lantus down to 18 units at night and 10 units with meals. Will continue this. I been monitoring the hospital. He does have a significant lack of understanding when it comes to nutrition. I will place nutrition consult for education. I do not see a diabetic education process Lower extremity DVT: This patient has been on Xarelto 15 mg daily. This patient's creatinine clearance is normal. His current dose of Xarelto was reduced from 20 mg daily due to recurrent epistaxis. Unfortunately 15 mg was not able to prevent him from getting DVT. However his in some situations, 15 mg can be enough for prevention. Therefore I would consider this to be a anticoagulation failure. His last Xarelto dose was 2 nights ago, July 13, 2024. [facility] does not have anti-Xa monitoring therefore I cannot tell if the patient took his Xarelto recently but based on his history is less likely. Therefore I will start him on a heparin infusion for anticoagulation, and his primary team in the a.m. can review options such as Eliquis or consider Coumadin. Episodes of hypoxia: This is only during the patient's hypoglycemic episode. He was afebrile. He is not short of breath. He is not coughing. He was administered antibiotics for possible pneumonia. I do not think he clinically has a pneumonia. He may however have a pulmonary embolism however a CTA of the chest was not done as the patient already received so much contrast with his head and neck. It likely will not change the outcome therefore I did not pursue the CT chest. Slurred speech: Per recommendation of neurology have ordered an MRI of the brain. Telehealth Visit: Todays History and note l is via interactive telehealth by Dr Hasmukh Cui MD The Patient is located [facility] physician is located at [facility]. Nursing staff assisted in the patient's exam. The visit being done today meets criteria for a telehealth visit and the patient or patient's parent/guardian is aware the visit is a telehealth visit. Camera Start time 400 Camera End time 430 Telehealth: Statement Statement Telehealth Visit: Today's History and Physical is provided via interactive telehealth by Hasmukh Cui MD.? Patient is located at [facility].? Provider is located at [facility].? Nursing staff assisted with the patient's exam. The visit being done today meets criteria for a telehealth visit and the patient or patient?s parent/guardian is aware the visit is a telehealth visit.
[2024-07-15 04:50] LABS: INR 1.75 (0.91-1.10); Partial Thromboplastin Time* 37 Seconds (23-33); Prothrombin Time 21.4 Seconds
[2024-07-15] MEDS: ACETAMINOPHEN 650 MG TABLET ER 1000 MG PO ×3 (05:23→20:19)
[2024-07-15] MEDS: HEPARIN 25,000 UNIT/500 ML BAG 30 UNIT IV (05:32)
[2024-07-15 06:09] LABS: C.Difficile Negative (Negative); CDIFFEPI 027 PRESUMPTIVE NEGATIVE (Negative)
--- NOTE | 2024-07-15 07:29 | PC.NURSE ---
Pt alert and oriented x3. Pt speech is clear, facial movements symmetrical, strength equal bilaterally in upper and lower extremities. Afebrile. Pt reports 2-3/10 pain in right lower ribs I think I must have hit it whenever I fell, pain managed with scheduled medications. Pt is up A1 pivot to commode, pt had x1 loose incontinent/continent BM. Pt is voiding and tolerating a regular diet. BS taken upon arrival to unit around 0310 was 129.
--- NOTE | 2024-07-15 08:15 | CRLHL7_ITS ---
For Patients: As a result of the Cures Act, medical imaging exams and procedure reports are released immediately into your electronic medical record. You may view this report before your referring provider. If you have questions, please contact your health care provider. INDICATION: Slurred speech. TECHNIQUE: Multisequence multiplanar MRI of the brain without the use of intravenous contrast. COMPARISON: MRI brain dated 08/14/2022. FINDINGS: No evidence of acute ischemia. Similar scattered foci T2 prolongation within white matter of both cerebral hemispheres. Stable chronic lacunar infarcts within left yael maite and right cerebellum. Unchanged punctate focus of susceptibility artifact left frontal lobe. Similar mild diffuse parenchymal volume loss. The ventricles are unchanged in size. Flow voids of the larger intracranial arteries are preserved. Normal calvarial bone marrow signal intensity. Bilateral pseudophakia. The paranasal sinuses and mastoid air cells are predominantly clear. IMPRESSION: 1. No acute intracranial abnormality. Specifically, no evidence of acute ischemia. 2. Similar mild diffuse parenchymal volume loss and chronic small vessel ischemic changes. 3. Stable old lacunar infarcts within the left paramedian maite and right cerebellum. 4. Unchanged focal susceptibility artifact within the left frontal white matter which may represent a small cavernoma or sequela of prior microhemorrhage. Dictated by Pavel Phan MD @ 07/15/2024 10:49:04 AM (Electronically Signed)
[2024-07-15] MEDS: OMEPRAZOLE 20 MG CAPSULE DR 40 MG PO (09:59)
[2024-07-15] MEDS: carvediloL 25 MG TABLET 12.5 MG PO ×2 (10:00→20:21)
[2024-07-15] MEDS: ENOXAPARIN 120 MG/0.8 ML INJ SUBCUT ×2 (10:00→20:18)
[2024-07-15] MEDS: SODIUM CHLORIDE 0.9 % (FLUSH) 10 ML SYRINGE 5 ML IVF ×2 (10:01→20:18)
[2024-07-15] MEDS: INSULIN ASPART 100 UNIT/ML 12 UNIT SUBCUT (10:02)
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
[2024-07-15 10:47] LABS: Basophils Absolute Auto 0.02 K/uL (0.00-0.30); Basophils Percent Auto 0.2 % (0.0-3.0); Eosinophils Absolute Auto 0.01 K/uL (0.00-0.50); Eosinophils Percent Auto 0.1 % (0.0-7.0); Hematocrit 51.4 % (37.0-53.0); Hemoglobin* 16.9 gm/dL (13.5-17.5); Immature Granulocytes Abs Auto 0.01 K/uL (0.00-0.30); Immature Granulocytes Pct Auto 0.1 %; Lymphocytes Percent Auto 18.1 % (20-44); Mean Corpuscular HGB Conc 33 gm/dL (32-36); Mean Corpuscular Hemoglobin 31 pg (26-34); Mean Corpuscular Volume 93 fL (80-100); Monocytes Percent Auto 6.9 % (0.0-11.0); Neutrophils Percent Auto 74.6 % (42.0-72.0); Platelet Count* 177 K/uL (140-440); RDW Coefficient of Variation % 14.6 % (11.5-15.5); Red Blood Count 5.55 m/uL (4.30-5.90); White Blood Count* 9.33 K/uL (4.50-11.00)
[2024-07-15 10:57] LABS: Slide Review Reflex No
[2024-07-15 10:59] LABS: Chloride* 103 mmol/L (96-114); Sodium* 139 mmol/L (135-149)
--- NOTE | 2024-07-15 10:59 | P.IMPN_ITS ---
Subjective Date Seen: 07/15/24 Interval history: Patient is seen this morning with Olesya at bedside. Was admitted overnight by our telehealth service. This morning denies headache or dizziness. Does have some bruising around his right orbit related to his fall. Denies chest pain or shortness of breath. Do es have ribcage pain right lower region, worse with deep breath. No abdominal pain. Tolerating orals without nausea vomiting. Remains afebrile. Vitally stable. Admits to recurrent falls at home. Tells me he is not able to afford assisted living or any facility outside of his own home. On IV antibiotics for suspected CAP. CXR shows no evidence of rib fracture though no dedicated views of right side. Has been switch from heparin to Lovenox for DVT. Reported that he was previously only taking half of his Xarelto dose following his surgery. Had an MRI brain this morning. Exam Narrative: Exam Narrative: PHYSICAL EXAM General: Pleasant, conversant, NAD HEENT: Normocephalic, bruising noted right orbit, sclera white, EOMI, oral mucosa moist Cardiovascular: IRRR. Trace pitting edema Pulmonary: CTA bilaterally without rhonchi, rales, expiratory wheezes. No dyspnea on room air. Right lower chest wall pain on palpation, no bruising Neurological: Alert, answering questions appropriately, cranial nerves intact, no focal findings Extremities: No gross joint deformity or swelling. AROMI. Neurovascularly intact Skin: Warm, dry. Const: Vital Signs, click to edit/add: Vital Signs - 24 hr 07/14/24 23:44 07/14/24 23:46 07/14/24 23:57 Temperature 97.9 F Pulse Rate 73 Pulse Rate [Pulse Oximeter] Respiratory Rate 16 Blood Pressure 176/127 H Blood Pressure [Le ft Arm] Blood Pressure [Ri ght Upper Arm] 150/95 H Pulse Oximetry 97 98 93 Oxygen Delivery Me thod Room Air Oxygen Flow Rate 07/15/24 00:00 07/15/24 00:01 07/15/24 00:15 Temperature Pulse Rate 86 74 76 Pulse Rate [Pulse Oximeter] Respiratory Rate 14 14 12 Blood Pressure 186/116 H Blood Pressure [Le ft Arm] Blood Pressure [Ri ght Upper Arm] Pulse Oximetry 96 96 76 L Oxygen Delivery Me thod Room Air Oxygen Flow Rate 07/15/24 00:18 07/15/24 00:30 07/15/24 00:30 Temperature Pulse Rate 84 72 Pulse Rate [Pulse Oximeter] Respiratory Rate 10 L 12 Blood Pressure 177/117 H Blood Pressure [Le ft Arm] Blood Pressure [Ri ght Upper Arm] Pulse Oximetry 88 98 92 Oxygen Delivery Me thod Room Air OxyMask OxyMask Oxygen Flow Rate 2 2 07/15/24 00:32 07/15/24 00:53 07/15/24 01:00 Temperature Pulse Rate 71 75 70 Pulse Rate [Pulse Oximeter] Respiratory Rate 11 L 16 20 Blood Pressure 166/107 H Blood Pressure [Le ft Arm] Blood Pressure [Ri ght Upper Arm] Pulse Oximetry 99 94 88 Oxygen Delivery Me thod OxyMask OxyMask OxyMask Oxygen Flow Rate 2 2 2 07/15/24 01:02 07/15/24 01:22 07/15/24 01:42 Temperature Pulse Rate 74 71 68 Pulse Rate [Pulse Oximeter] Respiratory Rate 19 106 H 11 L Blood Pressure 144/106 H 133/86 149/94 H Blood Pressure [Le ft Arm] Blood Pressure [Ri ght Upper Arm] Pulse Oximetry 90 98 99 Oxygen Delivery Me thod OxyMask OxyMask OxyMask Oxygen Flow Rate 2 2 2 07/15/24 02:23 07/15/24 02:43 07/15/24 03:39 Temperature 97.3 F L Pulse Rate 81 76 Pulse Rate [Pulse Oximeter] 99 Respiratory Rate 14 17 16 Blood Pressure 161/107 H 141/110 H Blood Pressure [Le ft Arm] 141/97 H Blood Pressure [Ri ght Upper Arm] Pulse Oximetry 96 98 95 Oxygen Delivery Me thod Room Air Room Air Oxygen Flow Rate 0 07/15/24 03:39 07/15/24 04:37 07/15/24 09:11 Temperature 97.5 F L Pulse Rate 86 Pulse Rate [Pulse Oximeter] 81 Respiratory Rate 16 Blood Pressure Blood Pressure [Le ft Arm] 145/93 H Blood Pressure [Ri ght Upper Arm] Pulse Oximetry 99 Oxygen Delivery Me thod Room Air Room Air Oxygen Flow Rate Labs Labs: Laboratory Results - last 24 hr 07/14/24 07/14/24 07/15/24 23:45 23:46 00:02 WBC 11.32 H RBC 5.41 Hgb 16.6 Hct 49.8 MCV 92 MCH 31 MCHC 33 RDW Coeff of Louise 14.4 Plt Count 194 Neut % (Auto) 82.0 H Lymph % (Auto) 12.2 L [place] % (Auto) 4.0 Eos % (Auto) 0.2 Baso % (Auto) 0.2 Neut # (Auto) 9.30 H Lymph # (Auto) 1.40 [place] # (Auto) 0.50 Eos # (Auto) 0.00 Baso # (Auto) 0.00 Abs Immat Gran (auto) 0.20 Imm/Tot Granulo (auto) 1.4 INR 1.75 H APTT 37 H Sodium 141 Potassium 3.2 L Chloride 107 Carbon Dioxide 22 Anion Gap 12 BUN 26 Creatinine 0.9 Estimated Creat Clear 75.35 Estimated GFR 90 Glucose 57 L Calcium 9.4 Total Bilirubin 1.3 AST 22 ALT 14 Alkaline Phosphatase 67 Total Protein 7.5 Albumin 4.4 Urine Color Urine Appearance Urine pH Ur Specific [place] Urine Protein Urine Glucose (UA) Urine Ketones Urine Blood Urine Nitrite Urine Bilirubin Urine Urobilinogen Ur Leukocyte Esterase Urine RBC Urine WBC Ur Squamous Epith Cells Amorphous Sediment Urine Bacteria Urine Mucus Stl C. diff Tox B Gene Stl C. diff [id number]-NAP1-BI Urine Opiates Screen Ur Oxycodone Screen Urine Methadone Screen Ur Barbiturates Screen U Tricyclic Antidepress Ur Phencyclidine Scrn Ur Amphetamines Screen U Methamphetamines Scrn U Benzodiazepines Scrn Urine Cocaine Screen U Marijuana (THC) Screen Ur Drug Screen Comment Ethyl Alcohol < 0.01 L SARS-CoV-2 (PCR) Influenza Type A (PCR) Influenza Type B (PCR) RSV (PCR) POC Glucose 105 POC Troponin I 0.02 07/15/24 07/15/24 07/15/24 00:20 00:23 00:25 WBC RBC Hgb Hct MCV MCH MCHC RDW Coeff of [place] Plt Count Neut % (Auto) Lymph % (Auto) [place] % (Auto) Eos % (Auto) Baso % (Auto) Neut # (Auto) Lymph # (Auto) [place] # (Auto) Eos # (Auto) Baso # (Auto) Abs Immat Gran (auto) Imm/Tot Granulo (auto) INR APTT Sodium Potassium Chloride Carbon Dioxide Anion Gap BUN Creatinine Estimated Creat Clear Estimated GFR Glucose Calcium Total Bilirubin AST ALT Alkaline Phosphatase Total Protein Albumin Urine Color Yellow Urine Appearance Slightly Cloudy A Urine pH 5.5 Ur Specific [place] >= 1.030 Urine Protein 3+ A Urine Glucose (UA) 2+ A Urine Ketones 1+ A Urine Blood 1+ A Urine Nitrite Negative Urine Bilirubin Negative Urine Urobilinogen 0.2 Ur Leukocyte Esterase Negative Urine RBC 0-2 Urine WBC 0-2 Ur Squamous Epith Cells Moderate A Amorphous Sediment Moderate A Urine Bacteria Few A Urine Mucus Few A Stl C. diff Tox B Gene Stl C. diff [id number]-[id number] Urine Opiates Screen Negative Ur Oxycodone Screen Negative Urine Methadone Screen Negative Ur Barbiturates Screen Negative U Tricyclic Antidepress Negative Ur Phencyclidine Scrn Negative Ur Amphetamines Screen Negative U Methamphetamines Scrn Negative U Benzodiazepines Scrn Negative Urine Cocaine Screen Negative U Marijuana (THC) Screen Negative Ur Drug Screen Comment See Note Ethyl Alcohol SARS-CoV-2 (PCR) Negative SARS-CoV-2 Influenza Type A (PCR) Negative PCR FLU A Influenza Type B (PCR) Negative PCR FLU B RSV (PCR) Negative PCR RSV POC Glucose 62 POC Troponin I 07/15/24 07/15/24 07/15/24 01:00 01:30 02:05 WBC RBC Hgb Hct MCV MCH MCHC RDW Coeff of [place] Plt Count Neut % (Auto) Lymph % (Auto) [place] % (Auto) Eos % (Auto) Baso % (Auto) Neut # (Auto) Lymph # (Auto) [place] # (Auto) Eos # (Auto) Baso # (Auto) Abs Immat Gran (auto) Imm/Tot Granulo (auto) INR APTT Sodium Potassium Chloride Carbon Dioxide Anion Gap BUN Creatinine Estimated Creat Clear Estimated GFR Glucose Calcium Total Bilirubin AST ALT Alkaline Phosphatase Total Protein Albumin Urine Color Urine Appearance Urine pH Ur Specific [place] Urine Protein Urine Glucose (UA) Urine Ketones Urine Blood Urine Nitrite Urine Bilirubin Urine Urobilinogen Ur Leukocyte Esterase Urine RBC Urine WBC Ur Squamous Epith Cells Amorphous Sediment Urine Bacteria Urine Mucus Stl C. diff Tox B Gene Stl C. diff [id number]-NAP1-[id number] Urine Opiates Screen Ur Oxycodone Screen Urine Methadone Screen Ur Barbiturates Screen U Tricyclic Antidepress Ur Phencyclidine Scrn Ur Amphetamines Screen U Methamphetamines Scrn U Benzodiazepines Scrn Urine Cocaine Screen U Marijuana (THC) Screen Ur Drug Screen Comment Ethyl Alcohol SARS-CoV-2 (PCR) Influenza Type A (PCR) Influenza Type B (PCR) RSV (PCR) POC Glucose 97 77 131 H POC Troponin I 07/15/24 07/15/24 07/15/24 03:02 04:12 10:32 WBC 9.33 RBC 5.55 Hgb 16.9 Hct 51.4 MCV 93 MCH 31 MCHC 33 RDW Coeff of Louise 14.6 Plt Count 177 Neut % (Auto) 74.6 H Lymph % (Auto) 18.1 L [place] % (Auto) 6.9 Eos % (Auto) 0.1 Baso % (Auto) 0.2 Neut # (Auto) 7.00 Lymph # (Auto) 1.70 [place] # (Auto) 0.60 Eos # (Auto) 0.01 Baso # (Auto) 0.02 Abs Immat Gran (auto) 0.01 Imm/Tot Granulo (auto) 0.1 INR APTT Sodium Potassium Chloride Carbon Dioxide Anion Gap BUN Creatinine Estimated Creat Clear Estimated GFR Glucose Calcium Total Bilirubin AST ALT Alkaline Phosphatase Total Protein Albumin Urine Color Urine Appearance Urine pH Ur Specific [place] Urine Protein Urine Glucose (UA) Urine Ketones Urine Blood Urine Nitrite Urine Bilirubin Urine Urobilinogen Ur Leukocyte Esterase Urine RBC Urine WBC Ur Squamous Epith Cells Amorphous Sediment Urine Bacteria Urine Mucus Stl C. diff Tox B Gene Negative Stl C. diff [id number] PRESUMPTIVE NEGATIVE Urine Opiates Screen Ur Oxycodone Screen Urine Methadone Screen Ur Barbiturates Screen U Tricyclic Antidepress Ur Phencyclidine Scrn Ur Amphetamines Screen U Methamphetamines Scrn U Benzodiazepines Scrn Urine Cocaine Screen U Marijuana (THC) Screen Ur Drug Screen Comment Ethyl Alcohol SARS-CoV-2 (PCR) Influenza Type A (PCR) Influenza Type B (PCR) RSV (PCR) POC Glucose 162 H POC Troponin I Assessment and Plan Assessment and plan (1) Slurring of speech: Problem comment: -noted following unresponsive episode secondary to hypoglycemia prior to admission -resolved, no further slurring -CT head -per neurology recommendation MRI brain. Shows no acute intracranial abnormality. Specifically, no evidence of acute ischemia. Stable old lacunar infarcts Status: Resolved (2) Hypoglycemia: Problem comment: -BS at home 58 per EMS, received D10, blood sugar improved to 110 in ED -no further episodes, monitoring -slurred speech has resolved, no further confusion, remains alert and oriented Status: Acute (3) Pneumonia: Problem comment: -CXR shows Patchy left lung base opacification may reflect atelectasis, however developing infectious process is not excluded in the appropriate clinical context -received 1 dose IV ceftriaxone and azithromycin in ED which was not continued on the floor -leukocytosis has resolved. Afebrile. Asymptomatic -obtaining CT chest for PE study, rib fracture rule out. Await findings for evidence of pneumonia, deferring further antibiotics at this time Status: Acute (4) Multiple falls: Problem comment: -recurrent falls over last several months -resulting in nondisplaced distal fibula fracture on 02/19/2024, managed non operatively. Right knee MCL insertion site avulsion fracture found on 03/11/2024. Moderately displaced lateral femoral condyle fracture on 04/29/2024 -from previous hospital stays, concern remains that he is not managing well at home. Rarely leaves his home, spends minimal time on his feet -PT/OT consults -dialysis social worker for discharge planning/placement needs. Patient reports he is not able to afford living arrangements outside of his home Status: Acute (5) Right-sided chest wall pain: Problem comment: -s/p fall -CT chest ordered Status: Acute (6) Atrial fibrillation: Problem comment: - home med for chronic anticoagulation was Xarelto, only 15 mg daily - continue rate control with carvedilol - Telemetry Status: Acute (7) Chronic anticoagulation: Problem comment: - takes only 15mg Xarelto daily - was having epistaxis with full 20 mg dose. Likely subtherapeutic, provoking DVT. - currently on enoxaparin 120 mg b.i.d. after stopping heparin drip - will start apixaban prior to discharge Status: Acute (8) DVT (deep venous thrombosis): Problem comment: - ultrasound shows acute appearing DVT of left posterior tibial vein - as noted, home dose Xarelto decreased from 20 mg to 15 mg. Also recent right fibular fracture immobilized with brace - started on heparin, transitioned to Lovenox currently, will transition to apixaban prior to discharge Status: Acute (9) Insulin dependent diabetes mellitus: Problem comment: - has neuropathy - most recent A1c 6.3 (06/30/24) - usual home dose insulin (changed on 06/30/24) is glargine 18 units at bedtime - will start with 10 units given hypoglycemia - and aspart 10 units t.i.d. 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 Technically limited exam. 2. Normal LV size, mildly increased wall thickness, low normal global systolic function with an estimated EF of ~ 55%. 3. Right ventricular cavity size is not well visualized, global systolic RV function is not well visualized. 4. Mildly enlarged left atrium. 5. The ascending aorta is dilated with a maximal diameter of 4.3 cm. 6. The aortic sinus is dilated with a maximal diameter of 4.7 cm. Status: Chronic Total Time Spent Total Time Spent: Today I spent 60 minutes seeing the patient, discussing the patient with ER staff, reviewing Expanse and Epic notes/diagnostics, discussing the care plan with our team that includes social work, PT/OT, pharmacy, RT, penitentiary and documenting my impressions and plan in the medical record.
[2024-07-15 11:02] LABS: Anion Gap 12 mEq/L (7-15); Blood Urea Nitrogen* 20 mg/dL (7-30); Carbon Dioxide* 24 mmol/L (20-32); Creatinine* 0.9 mg/dL (0.5-1.5); Est. Creatinine Clearance* 75.35; Estimated Glomerular Filt Rate 90 ml/min
[2024-07-15 11:03] LABS: Calcium* 9.1 mg/dL (8.4-10.6); Glucose* 126 mg/dL (60-115)
[2024-07-15 11:04] LABS: INR 1.82 (0.91-1.10); Prothrombin Time 22.1 Seconds
--- NOTE | 2024-07-15 11:27 | CRLHL7_ITS ---
For Patients: As a result of the Century Cures Act, medical imaging exams and procedure reports are released immediately into your electronic medical record. You may view this report before your referring provider. If you have questions, please contact your health care provider. INDICATION: DVT, right lower ribcage pain status post fall TECHNIQUE: CT chest PE was acquired with 95 cc Isovue 370 IV contrast. COMPARISON: Chest CT 05/25/2024 FINDINGS: Heart and vasculature: Contrast opacification of the pulmonary arterial tree is adequate. No sign of pulmonary embolism. Cardiomegaly. Dilated ascending aorta measuring up to 4.3 cm.. Main pulmonary artery is normal in caliber. Reflux of contrast into the intrahepatic IVC. Severe coronary artery calcifications Lungs and pleura: Narrowing of the bilateral lower lobe subsegmental bronchi, possibly exacerbated by expiratory phase imaging. Few new tree-in-bud nodular opacities in the left lower lobe. Stable left upper lobe calcified granuloma. No pleural effusions, pleural thickening, or pneumothorax. Lymph nodes/mediastinum: No mediastinal, hilar, or axillary adenopathy. Chest wall: No masses. Thyroid: Multinodular left thyroid lobe, incompletely imaged, although a nodule measures at least 1.5 cm. Upper abdomen: No acute or significant findings. Prior cholecystectomy Bones: Multilevel degenerative change of the imaged spine. Stable mild compression deformity of the T5 vertebral body. Healed left lateral 9th rib fracture. IMPRESSION: 1. No acute pulmonary embolism. No acute rib fracture. 2. Few new tree-in-bud nodular opacities in the left lower lobe, possible early pneumonia. 3. Dilated ascending aorta measuring up to 4.3 cm. 4. Cardiomegaly with reflux of contrast into the intrahepatic IVC, may suggest a component of cardiac dysfunction. 5. Left thyroid nodule measuring at least 1.5 cm, incompletely imaged. Recommend further evaluation with thyroid ultrasound. Please note that all CT scans at this facility use dose modulation, iterative reconstruction, and/or weight-based dosing when appropriate to reduce radiation dose to as low as reasonably achievable. Dictated by Stephanie Durán MD @ 07/15/2024 1:44:19 PM (Electronically Signed)
--- NOTE | 2024-07-15 12:53 | NUTR.NU ---
RDN with MD consult for diabetic teaching. RDN attempted multiple times to visit with patient, however he was not available on all attempts. Will attempt at later date to visit and offer diet education with designated caregiver present.
[2024-07-15] MEDS: FUROSEMIDE 20 MG TABLET PO (14:11)
[2024-07-15] MEDS: levoFLOXacin 500 MG TABLET PO (17:12)
--- NOTE | 2024-07-15 17:24 | CRLHL7_ITS ---
For Patients: As a result of the Cures Act, medical imaging exams and procedure reports are released immediately into your electronic medical record. You may view this report before your referring provider. If you have questions, please contact your health care provider. INDICATION: Right knee pain, fall, unable to bear weight. TECHNIQUE: Right knee 3 view. COMPARISON: Right knee radiographs 06/02/2024. CT right knee 04/29/2024. FINDINGS: There are healing fractures of the bilateral femoral condyles with mild callus formation. The lateral femoral condyle fracture fragment demonstrates slightly increased displacement compared to prior exam. No new acute fracture identified. No dislocation. Mild medial compartment narrowing. Small knee joint effusion. Mild soft tissue swelling. IMPRESSION: 1. Healing bilateral femoral condyle fractures with slightly increased displacement of the lateral femoral condyle fracture fragment. 2. Mild soft tissue swelling and small knee joint effusion. Dictated by Genevieve Damon MD @ 07/15/2024 7:13:53 PM (Electronically Signed)
[2024-07-15] MEDS: INSULIN ASPART 100 UNIT/ML 10 UNIT SUBCUT (17:53)
--- NOTE | 2024-07-15 19:53 | PC.NURSE ---
End of shift- Pt alert, oriented, cooperative and fatigued. Up with standby assistance and walker/gait belt. Able to pivot to wheelchair at bedside and walk with PT. Pt reported pain in R knee and R side ribs. Medication given per JUN schedule and ice packs placed for improved comfort. Pt reported improvement. Visitors at bedside. Denies SOB, chest pain, NV. Remained vitally stable during shift and tolerating RA, regular diet/fluids.
[2024-07-15] MEDS: VALSARTAN 160 MG TABLET PO (20:18)
[2024-07-15] MEDS: ATORVASTATIN CALCIUM 10 MG TABLET 20 MG PO (20:21)
[2024-07-15] MEDS: INSULIN GLARGINE,HUM.REC.ANLOG 100 UNIT/ML INSULN.PEN 10 UNIT SUBCUT (20:49)
[2024-07-16] VITALS (8 sets, daily range): BP systolic 122–154; BP diastolic 71–98; PULSE 70–91; RESP 16–20; TEMP 36.4–36.8; O2SAT 93–99
[2024-07-16] MEDS: ACETAMINOPHEN 650 MG TABLET ER 1000 MG PO ×3 (04:55→20:44)
--- NOTE | 2024-07-16 06:09 | PC.NURSE ---
[id number] Pt in bed during shift, stood up at bedside x1 to straighten up bed and change brief, tolerated fair. Pt refusing to wear Knee immobilizer, states he is not going to pay for something he already has at home and that he won't wear anyways. Educated pt on fall risk, worsening knee fracture, and importance of wearing knee immobilizer, pt continues to refuse to wear it. using urinal independently in bed, vitally stable.
[2024-07-16 07:04] LABS: Hematocrit 44.6 % (37.0-53.0); Hemoglobin* 14.7 gm/dL (13.5-17.5); Mean Corpuscular HGB Conc 33 gm/dL (32-36); Mean Corpuscular Hemoglobin 31 pg (26-34); Mean Corpuscular Volume 93 fL (80-100); Platelet Count* 162 K/uL (140-440); Red Blood Count 4.79 m/uL (4.30-5.90); White Blood Count* 6.36 K/uL (4.50-11.00)
[2024-07-16 07:06] LABS: Slide Review Reflex No
[2024-07-16 07:22] LABS: INR 1.32 (0.91-1.10); Prothrombin Time 17.3 Seconds
--- NOTE | 2024-07-16 08:56 | PM.ORCN ---
History of Present Illness HPI Time Seen by Provider: 08:30 Date Seen: 07/16/24 Consult date: 07/16/24 Requesting physician: Ana Maria Segovia Chief complaint: Right knee pain Narrative: Lionel Acharya) is a 73-year-old gentleman with a history of type 1 diabetes, atrial fibrillation (on Xarelto), history of multiple falls with recent right knee injury that presented to [place] ED yesterday, 07/15/24, after being found unresponsive on the floor at home. Orthopedic consult requested regarding right knee pain. Chano is a well-known patient to me. His history of recent falls/injuries includes: Closed treatment of a closed, acute, nondisplaced right distal fibular fracture, Mcdowell B (DOI: 02/19/24) Closed treatment of a closed, acute, right knee MCL insertion site avulsion fracture (DOI: 03/11/24) Closed treatment of a closed, acute, moderately displaced right knee lateral femoral condyle fracture (DOI: 04/29/24) On Feb 18, Lionel tripped and fell in his garage. On Mar 11, Lionel slipped and fell out of bed. On Apr 29, Lionel stood up at his desk and his knee gave out. This morning, Chano c/o right lateral knee pain with weightbearing/ambulation. He denies right knee pain at rest. Pain is being managed with acetaminophen PRN. Chano is resting comfortably in bed with his hinged knee brace in place. Denies effusion nor ecchymosis. Chano had a right knee buckling event at Physical Therapy yesterday that increased his right knee pain. Knee immobilizer is recommended, however Chano is adamantly refusing this. Chano also already owns a knee immobilizer at home and has financial concerns about purchasing a new one. Lower extremity venous ultrasound dated 07/15/24 shows an acute left posterior tibial vein DVT. Chano denies left calf pain this morning. Chano takes Xarelto 15 mg daily. [facility] Medical History (Updated 07/16/24 @ 12:39 by Jessica Vidal PA-C) Right knee pain ?M25.561 - Pain in right knee (ICD-10) Chronic anticoagulation ?Z79.01 - prison (current) use of anticoagulants (ICD-10) Atrial fibrillation ?I48.91 - Unspecified atrial fibrillation (ICD-10) Combined systolic and diastolic heart failure, NYHA class 3 ?I50.40 - Unspecified combined systolic (congestive) and diastolic (congestive) heart failure (ICD-10) Hypertension ?I10 - Essential (primary) hypertension (ICD-10) Insulin dependent diabetes mellitus Closed fracture of right distal fibula ?S82.831A - Other fracture of upper and lower end of right fibula, initial encounter for closed fracture (ICD-10) Injury of ligament of right knee ?S89.91XA - Unspecified injury of right lower leg, initial encounter (ICD-10) Ketonuria ?R82.4 - Acetonuria (ICD-10) Thyroid nodule ?E04.1 - Nontoxic single thyroid nodule (ICD-10) COVID ?U07.1 - COVID-19 (ICD-10) Fracture of lateral malleolus of right ankle ?S82.61XA - Displaced fracture of lateral malleolus of right fibula, initial encounter for closed fracture (ICD-10) Tibia fracture ?S82.209A - Unspecified fracture of shaft of unspecified tibia, initial encounter for closed fracture (ICD-10) BPH without urinary obstruction ?N40.0 - Benign prostatic hyperplasia without lower urinary tract symptoms (ICD-10) GERD (gastroesophageal reflux disease) ?K21.9 - Gastro-esophageal reflux disease without esophagitis (ICD-10) JOANIE (obstructive sleep apnea) ?G47.33 - Obstructive sleep apnea (adult) (pediatric) (ICD-10) Ascending aorta dilatation ?I77.810 - Thoracic aortic ectasia (ICD-10) ASHD (arteriosclerotic heart disease) ?I25.10 - Atherosclerotic heart disease of three affiliated coronary artery without angina pectoris (ICD-10) Social History What is your current living situation?: I presently have a place to live Problems where you live: no known problems Problems where you live details: no know problems In the past 12 months, utilities in danger of being shut off: no In past 12 months, lack of transportation kept you from medical appts, meetings, work, or getting things needed for daily living: no In the past 12 mos, have been you worried that your food would run out before you had money to buy more?: never true In the past 12 mos, the food you bought just didn't last and you didn't have money to buy more?: never true Highest level of school completed/degree received: don't know Smoking Status: Never smoker Do you use any of these nicotine containing products: None Second hand tobacco smoke exposure: No How often do you have a drink containing alcohol: monthly or less Alcohol type: beer and wine How many standard drinks containing alcohol do you have on a typical day: 1 or 2 How often do you have six or more drinks on one occasion: Never AUDIT-C Alcohol total score: 1 Non-prescribed substance use: denies use Caffeine: Yes (Energy Drinks) How often does anyone, including family, friends and others, physically hurt you: never How often does anyone, including family, friends and others, insult or talk down to you: never How often does anyone, including family, friends and others, threaten you with harm: never How often does anyone, including family, friends and others, scream or curse at you: never service: No Meds Home Medications and Allergies Home Medications ?Medication ?Instructions ?Recorded ?Confirmed ?Type atorvastatin 20 mg tablet 20 mg PO HS 12/13/21 07/15/24 History pantoprazole 40 mg tablet,delayed 40 mg PO DAILY 12/13/21 07/15/24 History release valsartan 160 mg tablet 160 mg PO HS 12/13/21 07/15/24 History empagliflozin 10 mg tablet 10 mg PO DAILY 09/28/23 07/15/24 History (Jardiance) diclofenac sodium 1 % topical gel 4 g topical QID 04/30/24 06/23/24 History albuterol 90 mcg-budesonide 80 2 inh inhalation BID PRN 05/25/24 07/15/24 History mcg/actuation HFA aerosol inhaler carvedilol 25 mg tablet 12.5 mg PO BID 06/02/24 07/15/24 History furosemide 20 mg tablet 20 mg PO DAILY 07/15/24 07/15/24 History Allergies Allergy/AdvReac Type Severity Reaction Status Date / Time duloxetine Allergy Verified 06/23/24 10:48 metformin AdvReac Verified 06/23/24 10:48 tamsulosin AdvReac syncope Verified 06/23/24 10:48 tetracycline AdvReac Verified 06/23/24 10:48 Ortho Exam Narrative Exam Narrative: Patient is alert and oriented x3. No acute distress. Converses with nonlabored breathing. Presents wearing a hinged knee brace. Right knee exam: No erythema, induration or cutaneous changes. No effusion. No ecchymosis. Nontender: lateral femoral condyle, proximal MCL attachment site, posterior knee, medial/lateral joint line, patellar tendon, quadriceps tendon. Stable to varus and valgus stress testing. Denies medial knee pain with valgus stress testing. Knee AROM: 5-100 degrees (previous visit on 06/23/24 knee AROM: 5-120 degrees). I am able to passively extend his right knee to 0 degrees with pressure. Straight leg raise intact. Mild quadriceps muscle atrophy present. CMS intact with 2+ DP and PT pulses. Const Vital Signs, click to edit/add: Vital Signs - 24 hr 07/15/24 09:11 07/15/24 11:00 07/15/24 15:00 Temperature 97.5 F L 98.1 F 97.7 F Pulse Rate Pulse Rate [Pulse Oximeter] 81 89 86 Respiratory Rate 16 20 20 Blood Pressure [Left Arm] 145/93 H 126/82 147/92 H Pulse Oximetry 99 98 94 Oxygen Delivery Method Room Air Room Air Room Air Oxygen Flow Rate 07/15/24 16:43 07/15/24 19:00 07/15/24 22:52 Temperature 98.2 F Pulse Rate 78 Pulse Rate [Pulse Oximeter] 77 Respiratory Rate 18 18 Blood Pressure [Left Arm] 125/94 H Pulse Oximetry 98 Oxygen Delivery Method Room Air Oxygen Flow Rate 0 07/15/24 22:52 07/15/24 23:00 07/16/24 03:00 Temperature 98.2 F Pulse Rate 71 Pulse Rate [Pulse Oximeter] 73 79 Respiratory Rate 16 16 Blood Pressure [Left Arm] 122/71 Pulse Oximetry 98 96 Oxygen Delivery Method Room Air Room Air Oxygen Flow Rate 0 07/16/24 07:32 Temperature Pulse Rate 85 Pulse Rate [Pulse Oximeter] Respiratory Rate Blood Pressure [Left Arm] Pulse Oximetry Oxygen Delivery Method Oxygen Flow Rate Results Labs Labs: Laboratory Results - last 48 hr 07/14/24 07/14/24 07/15/24 23:45 23:46 00:02 WBC 11.32 H RBC 5.41 Hgb 16.6 Hct 49.8 MCV 92 MCH 31 MCHC 33 RDW Coeff of Louise 14.4 Plt Count 194 Neut % (Auto) 82.0 H Lymph % (Auto) 12.2 L Gillespie % (Auto) 4.0 Eos % (Auto) 0.2 Baso % (Auto) 0.2 Neut # (Auto) 9.30 H Lymph # (Auto) 1.40 Gillespie # (Auto) 0.50 Eos # (Auto) 0.00 Baso # (Auto) 0.00 Abs Immat Gran (auto) 0.20 Imm/Tot Granulo (auto) 1.4 INR 1.75 H APTT 37 H Sodium 141 Potassium 3.2 L Chloride 107 Carbon Dioxide 22 Anion Gap 12 BUN 26 Creatinine 0.9 Estimated Creat Clear 75.35 Estimated GFR 90 Glucose 57 L Calcium 9.4 Total Bilirubin 1.3 AST 22 ALT 14 Alkaline Phosphatase 67 Total Protein 7.5 Albumin 4.4 Urine Color Urine Appearance Urine pH Ur Specific [place] Urine Protein Urine Glucose (UA) Urine Ketones Urine Blood Urine Nitrite Urine Bilirubin Urine Urobilinogen Ur Leukocyte Esterase Urine RBC Urine WBC Ur Squamous Epith Cells Amorphous Sediment Urine Bacteria Urine Mucus Stl C. diff Tox B Gene Stl C. diff [id number]-NAP1-[id number] Urine Opiates Screen Ur Oxycodone Screen Urine Methadone Screen Ur Barbiturates Screen U Tricyclic Antidepress Ur Phencyclidine Scrn Ur Amphetamines Screen U Methamphetamines Scrn U Benzodiazepines Scrn Urine Cocaine Screen U Marijuana (THC) Screen Ur Drug Screen Comment Ethyl Alcohol < 0.01 L SARS-CoV-2 (PCR) Influenza Type A (PCR) Influenza Type B (PCR) RSV (PCR) POC Glucose 105 POC Troponin I 0.02 07/15/24 07/15/24 07/15/24 00:20 00:23 00:25 WBC RBC Hgb Hct MCV MCH MCHC RDW Coeff of Louise Plt Count Neut % (Auto) Lymph % (Auto) Gillespie % (Auto) Eos % (Auto) Baso % (Auto) Neut # (Auto) Lymph # (Auto) Gillespie # (Auto) Eos # (Auto) Baso # (Auto) Abs Immat Gran (auto) Imm/Tot Granulo (auto) INR APTT Sodium Potassium Chloride Carbon Dioxide Anion Gap BUN Creatinine Estimated Creat Clear Estimated GFR Glucose Calcium Total Bilirubin AST ALT Alkaline Phosphatase Total Protein Albumin Urine Color Yellow Urine Appearance Slightly Cloudy A Urine pH 5.5 Ur Specific [place] >= 1.030 Urine Protein 3+ A Urine Glucose (UA) 2+ A Urine Ketones 1+ A Urine Blood 1+ A Urine Nitrite Negative Urine Bilirubin Negative Urine Urobilinogen 0.2 Ur Leukocyte Esterase Negative Urine RBC 0-2 Urine WBC 0-2 Ur Squamous Epith Cells Moderate A Amorphous Sediment Moderate A Urine Bacteria Few A Urine Mucus Few A Stl C. diff Tox B Gene Stl C. diff [id number]-[id number] Urine Opiates Screen Negative Ur Oxycodone Screen Negative Urine Methadone Screen Negative Ur Barbiturates Screen Negative U Tricyclic Antidepress Negative Ur Phencyclidine Scrn Negative Ur Amphetamines Screen Negative U Methamphetamines Scrn Negative U Benzodiazepines Scrn Negative Urine Cocaine Screen Negative U Marijuana (THC) Screen Negative Ur Drug Screen Comment See Note Ethyl Alcohol SARS-CoV-2 (PCR) Negative SARS-CoV-2 Influenza Type A (PCR) Negative PCR FLU A Influenza Type B (PCR) Negative PCR FLU B RSV (PCR) Negative PCR RSV POC Glucose 62 POC Troponin I 07/15/24 07/15/24 07/15/24 01:00 01:30 02:05 WBC RBC Hgb Hct MCV MCH MCHC RDW Coeff of Louise Plt Count Neut % (Auto) Lymph % (Auto) Gillespie % (Auto) Eos % (Auto) Baso % (Auto) Neut # (Auto) Lymph # (Auto) [place]illespie # (Auto) Eos # (Auto) Baso # (Auto) Abs Immat Gran (auto) Imm/Tot Granulo (auto) INR APTT Sodium Potassium Chloride Carbon Dioxide Anion Gap BUN Creatinine Estimated Creat Clear Estimated GFR Glucose Calcium Total Bilirubin AST ALT Alkaline Phosphatase Total Protein Albumin Urine Color Urine Appearance Urine pH Ur Specific [place] Urine Protein Urine Glucose (UA) Urine Ketones Urine Blood Urine Nitrite Urine Bilirubin Urine Urobilinogen Ur Leukocyte Esterase Urine RBC Urine WBC Ur Squamous Epith Cells Amorphous Sediment Urine Bacteria Urine Mucus Stl C. diff Tox B Gene Stl C. diff [id number] Urine Opiates Screen Ur Oxycodone Screen Urine Methadone Screen Ur Barbiturates Screen U Tricyclic Antidepress Ur Phencyclidine Scrn Ur Amphetamines Screen U Methamphetamines Scrn U Benzodiazepines Scrn Urine Cocaine Screen U Marijuana (THC) Screen Ur Drug Screen Comment Ethyl Alcohol SARS-CoV-2 (PCR) Influenza Type A (PCR) Influenza Type B (PCR) RSV (PCR) POC Glucose 97 77 131 H POC Troponin I 07/15/24 07/15/24 07/15/24 03:02 04:12 10:32 WBC 9.33 RBC 5.55 Hgb 16.9 Hct 51.4 MCV 93 MCH 31 MCHC 33 RDW Coeff of Louise 14.6 Plt Count 177 Neut % (Auto) 74.6 H Lymph % (Auto) 18.1 L G[place]pie % (Auto) 6.9 Eos % (Auto) 0.1 Baso % (Auto) 0.2 Neut # (Auto) 7.00 Lymph # (Auto) 1.70 Gillespie # (Auto) 0.60 Eos # (Auto) 0.01 Baso # (Auto) 0.02 Abs Immat Gran (auto) 0.01 Imm/Tot Granulo (auto) 0.1 INR 1.82 H APTT Sodium 139 Potassium 4.0 Chloride 103 Carbon Dioxide 24 Anion Gap 12 BUN 20 Creatinine 0.9 Estimated Creat Clear 75.35 Estimated GFR 90 Glucose 126 H Calcium 9.1 Total Bilirubin AST ALT Alkaline Phosphatase Total Protein Albumin Urine Color Urine Appearance Urine pH Ur Specific [place] Urine Protein Urine Glucose (UA) Urine Ketones Urine Blood Urine Nitrite Urine Bilirubin Urine Urobilinogen Ur Leukocyte Esterase Urine RBC Urine WBC Ur Squamous Epith Cells Amorphous Sediment Urine Bacteria Urine Mucus Stl C. diff Tox B Gene Negative Stl C. diff [id number] PRESUMPTIVE NEGATIVE Urine Opiates Screen Ur Oxycodone Screen Urine Methadone Screen Ur Barbiturates Screen U Tricyclic Antidepress Ur Phencyclidine Scrn Ur Amphetamines Screen U Methamphetamines Scrn U Benzodiazepines Scrn Urine Cocaine Screen U Marijuana (THC) Screen Ur Drug Screen Comment Ethyl Alcohol SARS-CoV-2 (PCR) Influenza Type A (PCR) Influenza Type B (PCR) RSV (PCR) POC Glucose 162 H POC Troponin I 07/16/24 06:02 WBC 6.36 RBC 4.79 Hgb 14.7 Hct 44.6 MCV 93 MCH 31 MCHC 33 RDW Coeff of Louise Plt Count 162 Neut % (Auto) Lymph % (Auto) Gillespie % (Auto) Eos % (Auto) Baso % (Auto) Neut # (Auto) Lymph # (Auto) Gillespie # (Auto) Eos # (Auto) Baso # (Auto) Abs Immat Gran (auto) Imm/Tot Granulo (auto) INR 1.32 H APTT Sodium Potassium Chloride Carbon Dioxide Anion Gap BUN Creatinine Estimated Creat Clear Estimated GFR Glucose Calcium Total Bilirubin AST ALT Alkaline Phosphatase Total Protein Albumin Urine Color Urine Appearance Urine pH Ur Specific [place] Urine Protein Urine Glucose (UA) Urine Ketones Urine Blood Urine Nitrite Urine Bilirubin Urine Urobilinogen Ur Leukocyte Esterase Urine RBC Urine WBC Ur Squamous Epith Cells Amorphous Sediment Urine Bacteria Urine Mucus Stl C. diff Tox B Gene Stl C. diff [id number] Urine Opiates Screen Ur Oxycodone Screen Urine Methadone Screen Ur Barbiturates Screen U Tricyclic Antidepress Ur Phencyclidine Scrn Ur Amphetamines Screen U Methamphetamines Scrn U Benzodiazepines Scrn Urine Cocaine Screen U Marijuana (THC) Screen Ur Drug Screen Comment Ethyl Alcohol SARS-CoV-2 (PCR) Influenza Type A (PCR) Influenza Type B (PCR) RSV (PCR) POC Glucose POC Troponin I Diagnostic results Additional Comments: Right knee CT dated 07/16/24 shows: 1. Interval healing of the displaced fracture involving the posterior aspect of the medial femoral condyle. 2. Unchanged alignment of the larger displaced fracture involving the latearl femoral condyle, without interval healing changes. 3. Moderate hemarthrosis. 3-view right knee images were reviewed dated 07/15/24. These show: a healing lateral femoral condyle fracture with slight increase in displacement in comparison to 2-view 2-view right knee images were reviewed dated 06/02/24. Lower extremity venous ultrasound dated 07/15/24 shows an acute left posterior tibial vein DVT. Right knee CT from [facility] dated 04/29/24 shows: Bilateral femoral condylar fractures present. Slight irregularity along the lateral tibial plateau without fracture line favored to be due to osteopenia. Images were reviewed with Dr. Pearce. Right knee CT from [facility] dated 03/11/24 shows: 1. Acute nondisplaced fracture of the medial femoral condyle most?consistent with an extensive avulsion type fracture of the MCL insertion.?? 2. Thin cortical avulsion fracture at the tibial insertion of the PCL.?? 3. Osteopenia.?? 4. Small knee joint effusion with lipohemarthrosis component. Tiny popliteal cyst.?? 5. Mild hypertrophic change in the patellofemoral compartment.?? 6. Atrophy of the vastus medialis musculature.? Assessment and Plan Assessment and plan (1) Fracture of lateral condyle of femur: Problem comment: Closed treatment of a closed, acute, moderately displaced right knee lateral femoral condyle fracture (DOI: 04/29/24) Status: Acute Assessment and Plan: Right knee CT shows nonunion of this lateral femoral condyle fracture with similar displacement compared to right knee CT dated 04/29/24. CT was also reviewed with Dr. Pearce. Non-operative treatment is our recommendation. This fracture is intra-articular and posterior with a 4mm step-off, which explains Chano's lateral knee pain with stairs. Chano will wear a t-scope knee brace daily. This brace will be locked in extension when ambulating. Brace may be unlocked or removed altogether when resting/sleeping at night. May fully weightbear as tolerated with a walker for assistance. For pain management, I recommend rest, ice, oral NSAIDs and/or Tylenol PRN. Chano will continue with his in-home PT/OT. Patient will follow-up with myself in 2-3 weeks for clinical re-evaluation or sooner if concerns arise. All questions were answered. Phone Orthopedics with any questions or concerns. [phone] Total time spent: 35 minutes (2) Multiple falls: Problem comment: -recurrent falls over last several months -resulting in nondisplaced distal fibula fracture on 02/19/2024, managed non operatively. Right knee MCL insertion site avulsion fracture found on 03/11/2024. Moderately displaced lateral femoral condyle fracture on 04/29/2024 -from previous hospital stays, concern remains that he is not managing well at home. Rarely leaves his home, spends minimal time on his feet -PT/OT consults -protective services social worker for discharge planning/placement needs. Patient reports he is not able to afford living arrangements outside of his home -discussed making changes to the home including removing obstacles from the floors (rugs, cords), installing grab bar/assistive devices throughout the home, changing bedding to nonslip fabrics Status: Acute Total time spent: Total time spent is greater than 50% in coordination of care (as documented) at patient's floor/unit and/or counseling patient: (3) DVT (deep venous thrombosis): Problem comment: - ultrasound shows acute appearing DVT of left posterior tibial vein - as noted, home dose Xarelto decreased from 20 mg to 15 mg. Also recent right fibular fracture immobilized with brace - started on heparin, transitioned to Lovenox currently, will transition to apixaban 07/16 Status: Acute Total time spent: Total time spent is greater than 50% in coordination of care (as documented) at patient's floor/unit and/or counseling patient: (4) Insulin dependent diabetes mellitus: Problem comment: - has neuropathy - most recent A1c 6.3 (06/30/24) - usual home dose insulin (changed on 06/30/24) is glargine 18 units at bedtime - will start with 10 units given hypoglycemia - and aspart 10 units t.i.d. with meals - Hold Jardiance for now - monitor for further hypoglycemia - nutrition consult Status: Acute Total time spent: Total time spent is greater than 50% in coordination of care (as documented) at patient's floor/unit and/or counseling patient:
[2024-07-16] MEDS: FUROSEMIDE 20 MG TABLET PO (09:15)
[2024-07-16] MEDS: ENOXAPARIN 120 MG/0.8 ML INJ SUBCUT (09:16)
[2024-07-16] MEDS: carvediloL 25 MG TABLET 12.5 MG PO ×2 (09:16→20:46)
[2024-07-16] MEDS: SODIUM CHLORIDE 0.9 % (FLUSH) 10 ML SYRINGE 5 ML IVF ×2 (09:17→20:48)
[2024-07-16] MEDS: OMEPRAZOLE 20 MG CAPSULE DR 40 MG PO (09:24)
--- NOTE | 2024-07-16 09:30 | CRLHL7_ITS ---
For Patients: As a result of the Century Cures Act, medical imaging exams and procedure reports are released immediately into your electronic medical record. You may view this report before your referring provider. If you have questions, please contact your health care provider. INDICATION: right knee fractures, assess 3 month old displaced fracture. TECHNIQUE: CT of the right knee without contrast. COMPARISON: Radiographs 07/15/2024. CT 04/29/2024 and 03/11/2024. FINDINGS: Bones: The bones are diffusely demineralized. Interval increase in bridging bone formation at the previously seen displaced fracture along the posteromedial aspect of the distal femur adjacent to the medial femoral epicondyle. Fracture line is no longer visualized at this site. The displaced fracture involving the posterior aspect of the lateral femoral condyle is unchanged in position with persistent approximately 5 mm of articular surface step-off along the posterior weight-bearing aspect of the lateral femoral condyle. No appreciable healing changes are seen at this fracture site compared to 04/29/2024. This fracture extends obliquely from the anterolateral aspect of the lateral femoral condyle to the posteromedial aspect of the nonweightbearing portion where there is approximately 7 mm of displacement. No new displaced fracture is seen. Similar small calcified density along the posterior aspect of the intercondylar notch may represent small intra-articular bodies versus intra-articular fracture fragments. Moderate hemarthrosis. Regional muscles and tendons: Moderate fatty replacement of the visualized quadriceps musculature. Mild fatty replacement of the calf musculature. Soft tissues: Mild anterior knee soft tissue swelling. Atherosclerotic arterial calcifications. IMPRESSION: 1. Interval healing of the displaced fracture involving the posterior aspect of the medial femoral condyle. 2. Unchanged alignment of the larger displaced fracture involving the lateral femoral condyle, without interval healing changes. 3. Moderate hemarthrosis. Please note that all CT scans at this facility use dose modulation, iterative reconstruction, and/or weight-based dosing when appropriate to reduce radiation dose to as low as reasonably achievable. Dictated by Amelia Lopez MD @ 07/16/2024 10:40:21 AM (Electronically Signed)
--- NOTE | 2024-07-16 12:30 | P.IMPN_ITS ---
Assessment and Plan Assessment and plan (1) Slurring of speech: Problem comment: -noted following unresponsive episode secondary to hypoglycemia prior to admission -resolved, no further slurring -CT head without acute intracranial findings. CTA head unremarkable. CTA neck without significant carotid or vertebral artery stenosis or dissection -per neurology recommendation MRI brain. Shows no acute intracranial abnormality. Specifically, no evidence of acute ischemia. Stable old lacunar infarcts RESOLVED Status: Resolved (2) Hypoglycemia: Problem comment: -BS at home 58 per EMS, received D10, blood sugar improved to 110 in ED -no further episodes, monitoring -slurred speech has resolved, no further confusion, remains alert and oriented RESOLVED Status: Resolved (3) Pneumonia: Problem comment: -CXR shows Patchy left lung base opacification may reflect atelectasis, however developing infectious process is not excluded in the appropriate clinical context -received 1 dose IV ceftriaxone and azithromycin in ED which was not continued on the floor -leukocytosis has resolved. Afebrile. Asymptomatic -obtaining CT chest for PE study, rib fracture rule out. Await findings for evidence of pneumonia, deferring further antibiotics at this time -CTA chest 07/15 shows few new tree-in-bud nodular opacities in the left lower lobe, possible early pneumonia -levofloxacin p.o. daily -incentive spirometry Status: Acute (4) Multiple falls: Problem comment: -recurrent falls over last several months -resulting in nondisplaced distal fibula fracture on 02/19/2024, managed non operatively. Right knee MCL insertion site avulsion fracture found on 03/11/2024. Moderately displaced lateral femoral condyle fracture on 04/29/2024 -from previous hospital stays, concern remains that he is not managing well at home. Rarely leaves his home, spends minimal time on his feet -PT/OT consults -older adult social work specialist for discharge planning/placement needs. Patient reports he is not able to afford living arrangements outside of his home -discussed making changes to the home including removing obstacles from the floors (rugs, cords), installing grab bar/assistive devices throughout the home, changing bedding to nonslip fabrics -has home PT/OT, home health, nursing set up following most recent TCU stay Status: Acute (5) Right-sided chest wall pain: Problem comment: -s/p fall -CT chest negative for acute fractures -symptomatic cares for chest wall contusion Status: Acute (6) Atrial fibrillation: Problem comment: - home med for chronic anticoagulation was Xarelto, only 15 mg daily - continue rate control with carvedilol - Telemetry 07/16 discontinue enoxaparin. Start Eliquis, therapeutic dosing for new DVT Status: Acute (7) Chronic anticoagulation: Problem comment: - takes only 15mg Xarelto daily - was having epistaxis with full 20 mg dose. Likely subtherapeutic, provoking DVT. - currently on enoxaparin 120 mg b.i.d. after stopping heparin drip - will start apixaban prior to discharge 07/16 start apixaban 10 mg b.i.d. x7 days, then 5 mg b.i.d. thereafter. Outpatient follow-up with PCP for ongoing management Status: Acute (8) DVT (deep venous thrombosis): Problem comment: - ultrasound shows acute appearing DVT of left posterior tibial vein - as noted, home dose Xarelto decreased from 20 mg to 15 mg. Also recent right fibular fracture immobilized with brace - started on heparin, transitioned to Lovenox currently, will transition to apixaban 07/16 Status: Acute (9) Insulin dependent diabetes mellitus: Problem comment: - has neuropathy - most recent A1c 6.3 (06/30/24) - usual home dose insulin (changed on 06/30/24) is glargine 18 units at bedtime - will start with 10 units given hypoglycemia - and aspart 10 units t.i.d. with meals - Hold Jardiance for now - monitor for further hypoglycemia - nutrition consult Continue to monitor blood glucose, likely discharge on 15 units glargine at b edtime to avoid further hypoglycemic episodes at TCU/SNF Status: Acute (10) Hypertension: Problem comment: - pressures stable, continue home medications Status: Acute (11) Combined systolic and diastolic heart failure, NYHA class 3: Problem comment: - HFpEF - continue lasix 20mg daily - echo 07/20 Final Impressions: 1. Technically limited exam. 2. Normal LV size, mildly increased wall thickness, low normal global systolic function with an estimated EF of ~ 55%. 3. Right ventricular cavity size is not well visualized, global systolic RV function is not well visualized. 4. Mildly enlarged left atrium. 5. The ascending aorta is dilated with a maximal diameter of 4.3 cm. 6. The aortic sinus is dilated with a maximal diameter of 4.7 cm. Status: Chronic (12) Right knee pain: Problem comment: -right knee bilateral femoral condylar fractures from 04/29/2024 -recurrent falls, increased pain following most recent fall -CT 07/16 shows Interval healing of the displaced fracture involving the posterior aspect of the medial femoral condyle. Unchanged alignment of the larger displaced fracture involving the lateral femoral condyle, without interval healing changes. Moderate hemarthrosis -Reviewed with Orthopedic surgery. Nonsurgical management. T Scope brace - locked/immobilized position while weight-bearing, okay to unlock while at rest or for therapies Outpatient follow-up with Man Lopez PA-C on 08/04/2024 Status: Acute (13) Thyroid nodule: Problem comment: stable since 2019 - followed by Dr. Mix Noted again on recent imaging. Outpatient follow-up with PCP -> Dominguez Status: Acute Plan Concern for noncompliance with recommendations, medication management, safety compliance. Total Time Spent Total Time Spent: Today I spent 60 minutes seeing the patient, discussing the patient with ER staff, reviewing Expanse and Epic notes/diagnostics, discussing the care plan with our team that includes social work, PT/OT, pharmacy, RT, fci and documenting my impressions and plan in the medical record. Subjective Date Seen: 07/16/24 Interval history: Patient is seen this morning sitting up in a chair. Reports feeling pretty go od. Remains focused on his falls occurring only when he is hypoglycemic. We discussed again that this is not the case but that he has had falls in the recent past not related to his blood sugars. We again discussed that he needs to make some changes in his home to make it safer. Denies headache or dizziness. Denies chest pain or shortness of breath. Blood sugars have been reasonable, no further hypoglycemia. Tolerating orals without nausea vomiting. Complained of right-sided ribcage pain yesterday following his most recent fall. CT chest shows no acute fractures. Later in the day yesterday started complaining of right knee pain. Previous bilateral femoral condylar fractures from April. CT this morning shows no acute fractures. Patient has been resistant to wearing immobilizer. Is willing to try T Scope brace as suggested by Ortho. Initially refusing TCU/SNF, but is now open to it knowing that he has been inpatient and this would be paid for following his 3rd night. Exam Narrative: Exam Narrative: PHYSICAL EXAM General: Pleasant, conversant, NAD HEENT: Normocephalic, bruising noted right orbit, sclera white, EOMI, oral mucosa moist Cardiovascular: IRRR. Trace pitting edema Pulmonary: CTA bilaterally without rhonchi, rales, expiratory wheezes. No dyspnea on room air. Neurological: Alert, answering questions appropriately, cranial nerves intact, no focal findings Extremities: No gross joint deformity or swelling. AROMI. Neurovascularly inta ct Skin: Warm, dry. Const: Vital Signs, click to edit/add: Vital Signs - 24 hr 07/15/24 15:00 07/15/24 16:43 07/15/24 19:00 Temperature 97.7 F 98.2 F Pulse Rate 78 Pulse Rate [Pulse Oximeter] 86 77 Respiratory Rate 20 18 Blood Pressure [Le ft Arm] 147/92 H 125/94 H Pulse Oximetry 94 98 Oxygen Delivery Me thod Room Air Room Air Oxygen Flow Rate 0 07/15/24 22:52 07/15/24 22:52 07/15/24 23:00 Temperature Pulse Rate 71 Pulse Rate [Pulse Oximeter] 73 Respiratory Rate 18 16 Blood Pressure [Le ft Arm] Pulse Oximetry 98 Oxygen Delivery Me thod Room Air Oxygen Flow Rate 0 07/16/24 03:00 07/16/24 07:00 07/16/24 07:32 Temperature 98.2 F 97.8 F Pulse Rate 85 Pulse Rate [Pulse Oximeter] 79 74 Respiratory Rate 16 18 Blood Pressure [Le ft Arm] 122/71 135/98 H Pulse Oximetry 96 99 Oxygen Delivery Me thod Room Air Room Air Oxygen Flow Rate Labs Labs: Laboratory Results - last 24 hr 07/16/24 06:02 WBC 6.36 RBC 4.79 Hgb 14.7 Hct 44.6 MCV 93 MCH 31 MCHC 33 Plt Count 162 INR 1.32 H
[2024-07-16] MEDS: INSULIN ASPART 100 UNIT/ML SUBCUT (12:47)
[2024-07-16] MEDS: INSULIN ASPART 100 UNIT/ML 10 UNIT SUBCUT ×2 (12:48→17:38)
--- NOTE | 2024-07-16 13:07 | PC.SOCIAL ---
Discharge planning: bone worker met with pt to discuss TCU placement. Pt will have Medicare coverage for short-term rehab after Saturday night and the provider is willing to let him stay in the hospital to obtain that three night stay so that he does indeed have Medicare coverage for short-term rehab, as the pt states he is unable to afford private paying for a TCU or [facility] where he has been before and discharged from on 07/11/2024. Pt is not able to go up stairs right now with his right knee being immobilized and it is not safe for him to be home alone during the day at this time. Pt agreed to let this worker send a short-term rehab referral to [facility] who have TCU openings and can accommodate Saturday admissions. Pt states his roommate should be able to give him a ride to wherever he goes. Social work to follow-up as needed.
[2024-07-16] MEDS: levoFLOXacin 500 MG TABLET PO (16:06)
--- NOTE | 2024-07-16 19:43 | PC.NURSE ---
End of shift [id number] - Pt alert, oriented, cooperative. Up with standby assistance to stand/pivot from bed to wheelchair. Up with PT, with difficulty bearing wt through R leg when attempting to climb stairs. Using urinal independently. Pain in R knee and R ribs managed with medication per MAR and ice pack with pt reporting improved comfort. Tolerating RA and regular diet/fluids. Denied SOB, chest pain, n/v. Pt noted to be tearful when reflecting on care plan. RN provided emotional support and pt mood appeared to improve. Phone conversation with pt's sister during shift to provide update. Pt appears to be resting comfortably in chair at end of shift with call light within reach.
[2024-07-16] MEDS: APIXABAN 5 MG TABLET 10 MG PO (20:46)
[2024-07-16] MEDS: VALSARTAN 80 MG TABLET 160 MG PO (20:47)
[2024-07-16] MEDS: ATORVASTATIN CALCIUM 10 MG TABLET 20 MG PO (20:47)
[2024-07-16] MEDS: INSULIN GLARGINE,HUM.REC.ANLOG 100 UNIT/ML INSULN.PEN 10 UNIT SUBCUT (20:48)
[2024-07-17] VITALS (8 sets, daily range): BP systolic 132–157; BP diastolic 88–106; PULSE 67–88; RESP 14–16; TEMP 36.3–36.9; O2SAT 93–98
--- NOTE | 2024-07-17 04:34 | PC.NURSE ---
Shift note: Patient has been bed throughout the shift. Confirmed pain level of 2/10 at the start of the shift but refused pain medication at that time. Alert and oriented. Knee brace to the right leg. Diastolic Bp continue to be elevated. He takes pill whole with water. Droplet precaution in place. Doing well on RA. No chest pain, SOB or increase in leg pain. Telemetry reading continue to be A.fib. Pleasant and cooperate with treatment and care.
[2024-07-17] MEDS: ACETAMINOPHEN 650 MG TABLET ER 1000 MG PO ×3 (05:52→21:00)
[2024-07-17 07:18] LABS: Chloride* 107 mmol/L (96-114); Hematocrit 45.3 % (37.0-53.0); Hemoglobin* 14.9 gm/dL (13.5-17.5); Mean Corpuscular HGB Conc 33 gm/dL (32-36); Mean Corpuscular Hemoglobin 31 pg (26-34); Mean Corpuscular Volume 93 fL (80-100); Platelet Count* 151 K/uL (140-440); Red Blood Count 4.88 m/uL (4.30-5.90); White Blood Count* 5.75 K/uL (4.50-11.00)
[2024-07-17 07:19] LABS: Potassium* 3.7 mmol/L (3.6-5.1); Sodium* 139 mmol/L (135-149)
[2024-07-17 07:22] LABS: Anion Gap 9 mEq/L (7-15); Blood Urea Nitrogen* 21 mg/dL (7-30); Calcium* 8.6 mg/dL (8.4-10.6); Carbon Dioxide* 23 mmol/L (20-32); Creatinine* 0.8 mg/dL (0.5-1.5); Est. Creatinine Clearance* 75.35; Estimated Glomerular Filt Rate 93 ml/min; Glucose* 84 mg/dL (60-115)
[2024-07-17 07:30] LABS: Slide Review Reflex No
--- NOTE | 2024-07-17 08:58 | NUTR.NU ---
RDN with MD consult for diabetes education. Plan is for patient to be discharged to SNF. MD gave verbal order to cancel current MD order. RDN to continue to monitor.
[2024-07-17] MEDS: FUROSEMIDE 20 MG TABLET PO (09:24)
[2024-07-17] MEDS: OMEPRAZOLE 20 MG CAPSULE DR 40 MG PO (09:24)
[2024-07-17] MEDS: APIXABAN 5 MG TABLET 10 MG PO ×2 (09:24→21:02)
[2024-07-17] MEDS: carvediloL 25 MG TABLET 12.5 MG PO ×2 (09:24→21:07)
[2024-07-17] MEDS: INSULIN ASPART 100 UNIT/ML 10 UNIT SUBCUT ×3 (09:25→18:28)
[2024-07-17] MEDS: SODIUM CHLORIDE 0.9 % (FLUSH) 10 ML SYRINGE 5 ML IVF ×2 (09:26→21:02)
--- NOTE | 2024-07-17 11:17 | PM.IMPN1 ---
Assessment and Plan Assessment and plan (1) Slurring of speech: Problem comment: -noted following unresponsive episode secondary to hypoglycemia prior to admission -resolved, no further slurring -CT head without acute intracranial findings. CTA head unremarkable. CTA neck without significant carotid or vertebral artery stenosis or dissection -per neurology recommendation MRI brain. Shows no acute intracranial abnormality. Specifically, no evidence of acute ischemia. Stable old lacunar infarcts RESOLVED Status: Resolved (2) Hypoglycemia: Problem comment: -BS at home 58 per EMS, received D10, blood sugar improved to 110 in ED -no further episodes, monitoring -slurred speech has resolved, no further confusion, remains alert and oriented RESOLVED Status: Resolved (3) Pneumonia: Problem comment: -CXR shows Patchy left lung base opacification may reflect atelectasis, however developing infectious process is not excluded in the appropriate clinical context -received 1 dose IV ceftriaxone and azithromycin in ED which was not continued on the floor -leukocytosis has resolved. Afebrile. Asymptomatic -obtaining CT chest for PE study, rib fracture rule out. Await findings for evidence of pneumonia, deferring further antibiotics at this time -CTA chest 07/15 shows few new tree-in-bud nodular opacities in the left lower lobe, possible early pneumonia -levofloxacin p.o. daily -incentive spirometry Status: Acute (4) Multiple falls: Problem comment: -recurrent falls over last several months -resulting in nondisplaced distal fibula fracture on 02/19/2024, managed non operatively. Right knee MCL insertion site avulsion fracture found on 03/11/2024. Moderately displaced lateral femoral condyle fracture on 04/29/2024 -from previous hospital stays, concern remains that he is not managing well at home. Rarely leaves his home, spends minimal time on his feet -PT/OT consults -director of social media marketing for discharge planning/placement needs. Patient reports he is not able to afford living arrangements outside of his home -discussed making changes to the home including removing obstacles from the floors (rugs, cords), installing grab bar/assistive devices throughout the home, changing bedding to nonslip fabrics -has home PT/OT, home health, nursing set up following most recent TCU stay Status: Acute (5) Right-sided chest wall pain: Problem comment: -s/p fall -CT chest negative for acute fractures -symptomatic cares for chest wall contusion 07/17 - improving, still sore Status: Acute (6) Atrial fibrillation: Problem comment: - home med for chronic anticoagulation was Xarelto, only 15 mg daily - continue rate control with carvedilol - Telemetry 07/16 discontinue enoxaparin. Start Eliquis, therapeutic dosing for new DVT Status: Acute (7) Chronic anticoagulation: Problem comment: - takes only 15mg Xarelto daily - was having epistaxis with full 20 mg dose. Likely subtherapeutic, provoking DVT. - currently on enoxaparin 120 mg b.i.d. after stopping heparin drip - will start apixaban prior to discharge 07/16 start apixaban 10 mg b.i.d. x7 days, then 5 mg b.i.d. thereafter. Outpatient follow-up with PCP for ongoing management (will continue for AFib following therapeutic DVT therapy) Status: Acute (8) DVT (deep venous thrombosis): Problem comment: - ultrasound shows acute appearing DVT of left posterior tibial vein - as noted, home dose Xarelto decreased from 20 mg to 15 mg. Also recent right fibular fracture immobilized with brace - started on heparin, transitioned to Lovenox currently, will transition to apixaban 07/16 Status: Acute (9) Insulin dependent diabetes mellitus: Problem comment: - has neuropathy - most recent A1c 6.3 (06/30/24) - usual home dose insulin (changed on 06/30/24) is glargine 18 units at bedtime - will start with 10 units given hypoglycemia - and aspart 10 units t.i.d. with meals - Hold Jardiance for now - monitor for further hypoglycemia - nutrition consult Continue to monitor blood glucose, likely discharge on 10-15 units glargine at bedtime and 10 units t.i.d. with meals to avoid further hypoglycemic episodes at TCU/SNF Status: Acute (10) Hypertension: Problem comment: - pressures stable, continue home medications Status: Acute (11) Combined systolic and diastolic heart failure, NYHA class 3: Problem comment: - HFpEF - continue lasix 20mg daily - echo 07/20 Final Impressions: 1. Technically limited exam. 2. Normal LV size, mildly increased wall thickness, low normal global systolic function with an estimated EF of ~ 55%. 3. Right ventricular cavity size is not well visualized, global systolic RV function is not well visualized. 4. Mildly enlarged left atrium. 5. The ascending aorta is dilated with a maximal diameter of 4.3 cm. 6. The aortic sinus is dilated with a maximal diameter of 4.7 cm. Status: Chronic (12) Right knee pain: Problem comment: -right knee bilateral femoral condylar fractures from 04/29/2024 -recurrent falls, increased pain following most recent fall -CT 07/16 shows Interval healing of the displaced fracture involving the posterior aspect of the medial femoral condyle. Unchanged alignment of the larger displaced fracture involving the lateral femoral condyle, without interval healing changes. Moderate hemarthrosis -Reviewed with Orthopedic surgery. Nonsurgical management. T Scope brace - locked/immobilized position while weight-bearing, okay to unlock while at rest or for therapies Outpatient follow-up with Man Lopez PA-C on 08/04/2024 Status: Acute (13) Thyroid nodule: Problem comment: stable since 2019 - followed by Dr. Mix Noted again on recent imaging. Outpatient follow-up with PCP -> Dominguez Status: Acute Plan Awaiting placement, Rolo reviewing 07/17/2024 Total Time Spent Total Time Spent: Today I spent 60 minutes seeing the patient, discussing the patient with ER staff, reviewing Expanse and Epic notes/diagnostics, discussing the care plan with our team that includes social work, PT/OT, pharmacy, RT, [place] [facility] and documenting my impressions and plan in the medical record. Subjective Date Seen: 07/17/24 Interval history: Patient is seen sitting up in bed this morning. Feeling better. Denies headache or dizziness. Denies chest pain or shortness of breath. Has remained afebrile. Working with therapies yesterday. Tolerating T scope brace on right knee but failed doing stairs with PT. director of social media marketing assisting with SNF placement, patient is in agreement. Awaiting placement, Rolo reviewing. Exam Narrative: Exam Narrative: PHYSICAL EXAM General: Pleasant, conversant, NAD Cardiovascular: IRRR. Trace pitting edema Pulmonary: CTA bilaterally without rhonchi, rales, expiratory wheezes. No dyspnea on room air. Neurological: Alert, answering questions appropriately, cranial nerves intact, no focal findings Extremities: No gross joint deformity or swelling. AROMI. Neurovascularly intact Skin: Warm, dry. Const: Vital Signs, click to edit/add: Vital Signs - 24 hr 07/16/24 14:11 07/16/24 15:00 07/16/24 15:53 Temperature Pulse Rate 74 Pulse Rate [Pulse Oximeter] 91 70 Respiratory Rate 20 20 Blood Pressure [Le ft Arm] 130/83 154/98 H Pulse Oximetry 93 97 Oxygen Delivery Me thod Room Air Room Air Oxygen Flow Rate 07/16/24 19:00 07/16/24 23:00 07/16/24 23:00 Temperature 97.6 F 97.6 F Pulse Rate Pulse Rate [Pulse Oximeter] 89 78 78 Respiratory Rate 20 20 Blood Pressure [Le ft Arm] 132/97 H 137/94 H Pulse Oximetry 94 96 Oxygen Delivery Me thod Room Air Room Air Oxygen Flow Rate 0 0 07/16/24 23:00 07/17/24 02:47 07/17/24 07:00 Temperature 97.7 F 97.7 F Pulse Rate 70 Pulse Rate [Pulse Oximeter] 79 87 Respiratory Rate 14 16 Blood Pressure [Le ft Arm] 147/106 H 157/104 H Pulse Oximetry 97 98 Oxygen Delivery Me thod Room Air Oxygen Flow Rate Labs Labs: Laboratory Results - last 24 hr 07/17/24 06:13 WBC 5.75 RBC 4.88 Hgb 14.9 Hct 45.3 MCV 93 MCH 31 MCHC 33 Plt Count 151 Sodium 139 Potassium 3.7 Chloride 107 Carbon Dioxide 23 Anion Gap 9 BUN 21 Creatinine 0.8 Estimated Creat Clear 75.35 Estimated GFR 93 Glucose 84 Calcium 8.6
[2024-07-17] MEDS: ONDANSETRON 2 MG/ML inj 4 MG IVP (11:50)
[2024-07-17] MEDS: INSULIN ASPART 100 UNIT/ML SUBCUT (11:56)
--- NOTE | 2024-07-17 14:14 | PC.SOCIAL ---
Addendum entered by CHERI Gallagher 07/17/24 14:35: Discharge planning: Pre-admission screening was completed and secure emailed to Megan at [facility]. [id number]. Social work to follow-up as needed. Original Note: Discharge planning: Pt has been accepted to [facility] for admission on 07/18/2024 for short-term rehab. Pt's friend, Mariana, will give him a ride there at 2pm. Pt needs to arrive at [place] no later than 3pm. Pt will have a private room with a shared bathroom. Pt will have a qualifying Medicare stay that will pay for his rehab for the first 20 days at 100%, if the pt stays beyond the 20 days, he will have a daily co-pay of $209.50. health worker informed the pt of this information. Pt states that he doesn't plan to stay beyond the 20 days. [facility] will need the discharge orders at least two hours before the pt arrives. The discharge orders can be faxed to fax number #[phone]. Nurse to nurse report can be give to the charge nurse at phone number #[phone]. All of this information was given to the charge nurse on duty today. health worker informed Megan at [place] of the pt's ride time. Social work to follow-up as needed.
[2024-07-17] MEDS: levoFLOXacin 500 MG TABLET PO (16:01)
--- NOTE | 2024-07-17 18:49 | PC.NURSE ---
End of shift-- Pleasant and cooperative, alert and oriented patient. VSS and pt is afebrile. SPO2 maintained >90% on RA. Pt c/o pain in his right ribs and right knee that he occasionally rated as high as 3 out of 10, but appears well managed with Tylenol only. LS CTA. Telemetry showed known chronic a fib and was discontinued. He c/o some mild nausea this morning and was given Zofran and a camelia saul with apparent relief. BG 55 this evening. Pt was given OJ and BG improved to 98. Pt given scheduled insulin after eating 100% of a regular dinner. He was up to the BR and chair with assist of 1, belt, walker and brace and tolerated it well.
[2024-07-17] MEDS: VALSARTAN 80 MG TABLET 160 MG PO (21:01)
[2024-07-17] MEDS: ATORVASTATIN CALCIUM 10 MG TABLET 20 MG PO (21:02)
[2024-07-17] MEDS: INSULIN GLARGINE,HUM.REC.ANLOG 100 UNIT/ML INSULN.PEN 10 UNIT SUBCUT (21:03)
[2024-07-18] MEDS: ACETAMINOPHEN 650 MG TABLET ER 1000 MG PO ×2 (05:18→12:53)
[2024-07-18 05:22] VITALS: RESP 16
--- NOTE | 2024-07-18 06:46 | PC.NURSE ---
End of shift [id number]: AxOx4, pleasant, and cooperative with cares. Sats maintained >90% on RA. Pt reported rib pain with position change, rating 2/10. Scheduled Tylenol brought relief. Denies nausea. BG sliding scale protocol @ 2100 held per Narciso MEDINA. Knee immobilizer in place. A1 GB W. Continent of the bladder. Tolerating reg diet/fluids well. Pt able to sleep for majority of the night, restful night VS in place. Pt appears resting with call light in reach.
[2024-07-18 07:00] VITALS: PULSE 71; RESP 18
[2024-07-18 07:59] VITALS: BP 173/114; PULSE 71; RESP 18; TEMP 36.9; O2SAT 97
[2024-07-18] MEDS: APIXABAN 5 MG TABLET 10 MG PO (09:12)
[2024-07-18] MEDS: carvediloL 25 MG TABLET 12.5 MG PO (09:13)
[2024-07-18] MEDS: OMEPRAZOLE 20 MG CAPSULE DR 40 MG PO (09:13)
[2024-07-18] MEDS: FUROSEMIDE 20 MG TABLET PO (09:13)
[2024-07-18] MEDS: INSULIN ASPART 100 UNIT/ML 10 UNIT SUBCUT ×2 (09:15→12:54)
[2024-07-18 11:02] VITALS: BP 144/94; PULSE 69; RESP 16; O2SAT 97
--- NOTE | 2024-07-18 12:07 | PM.DS1 ---
DS: Providers Provider Date Seen: 07/18/24 Date of admission: 07/15/24 09:37 Primary care physician: Elijah Fernandez MD Admitting Clinician: Hasmukh Cui MD Consults: 07/15/24 04:15 Consult to Physical Therapy [CONS] Routine Comment: Reason(s) for PT Consult:: Balance Assessment Any Restrictions?:: No Restrictions Consult to Speech Therapy [CONS] Routine Comment: Reason(s) for Speech Consult:: Speech/Swallowing Eval 07/15/24 04:17 Consult to Occupational Therapy [CONS] Routine Comment: Reason(s) for OT Consult:: Evaluate and Treat Any Restrictions?:: No Restrictions 07/15/24 20:07 Consult to Physician [CONS] Routine Comment: Consulting Provider: Mary Jo Campo Has provider been notified: Yes Attending Physician on discharge: BASIL Salas, ISAB[facility]AC [facility] Date of Discharge: 07/18/24 DS: Diagnosis Discharge Diagnosis (1) Slurring of speech: Status: Resolved Problem details: -noted following unresponsive episode secondary to hypoglycemia prior to admission -resolved, no further slurring -CT head without acute intracranial findings. CTA head unremarkable. CTA neck without significant carotid or vertebral artery stenosis or dissection -per neurology recommendation MRI brain. Shows no acute intracranial abnormality. Specifically, no evidence of acute ischemia. Stable old lacunar infarcts RESOLVED (2) Hypoglycemia: Status: Resolved Problem details: -BS at home 58 per EMS, received D10, blood sugar improved to 110 in ED -no further episodes, monitoring -slurred speech has resolved, no further confusion, remains alert and oriented RESOLVED (3) Pneumonia: Status: Acute Problem details: -CXR shows Patchy left lung base opacification may reflect atelectasis, however developing infectious process is not excluded in the appropriate clinical context -received 1 dose IV ceftriaxone and azithromycin in ED which was not continued on the floor -leukocytosis has resolved. Afebrile. Asymptomatic -obtaining CT chest for PE study, rib fracture rule out. Await findings for evidence of pneumonia, deferring further antibiotics at this time -CTA chest 07/15 shows few new tree-in-bud nodular opacities in the left lower lobe, possible early pneumonia -levofloxacin p.o. daily -incentive spirometry Discharged on levofloxacin, to complete 7 day course. (4) Multiple falls: Status: Acute Problem details: -recurrent falls over last several months -resulting in nondisplaced distal fibula fracture on 02/19/2024, managed non operatively. Right knee MCL insertion site avulsion fracture found on 03/11/2024. Moderately displaced lateral femoral condyle fracture on 04/29/2024 -from previous hospital stays, concern remains that he is not managing well at home. Rarely leaves his home, spends minimal time on his feet -PT/OT consults -community mental health social worker for discharge planning/placement needs. Patient reports he is not able to afford living arrangements outside of his home -discussed making changes to the home including removing obstacles from the floors (rugs, cords), installing grab bar/assistive devices throughout the home, changing bedding to nonslip fabrics -has home PT/OT, home health, nursing set up following most recent TCU stay Willing to go to SNF this time as Medicare is paying for it. Continues to reiterate he would not be able to afford assisted living or other arrangements otherwise. Safety recommendations made as above. Suggested he and his roommate work on these prior to him returning home following his SNF stay. Would suspect he will likely resume his home PT/OT, home health, nursing following SNF stay. (5) Right-sided chest wall pain: Status: Acute Problem details: -s/p fall -CT chest negative for acute fractures -symptomatic cares for chest wall contusion 07/17 - improving, still sore Continues to improve. Tylenol as needed. (6) Atrial fibrillation: Status: Acute Problem details: - home med for chronic anticoagulation was Xarelto, only 15 mg daily - continue rate control with carvedilol - Telemetry 07/16 discontinue enoxaparin. Start Eliquis, therapeutic dosing for new DVT Will continue on carvedilol, Eliquis (currently therapeutic dosing for DVT). Ongoing medication management with PCP. (7) Chronic anticoagulation: Status: Acute Problem details: - takes only 15mg Xarelto daily - was having epistaxis with full 20 mg dose. Likely subtherapeutic, provoking DVT. - currently on enoxaparin 120 mg b.i.d. after stopping heparin drip - will start apixaban prior to discharge 07/16 start apixaban 10 mg b.i.d. x7 days, then 5 mg b.i.d. thereafter. Outpatient follow-up with PCP for ongoing management (will continue for AFib following therapeutic DVT therapy) (8) DVT (deep venous thrombosis): Status: Acute Problem details: - ultrasound shows acute appearing DVT of left posterior tibial vein - as noted, home dose Xarelto decreased from 20 mg to 15 mg. Also recent right fibular fracture immobilized with brace - started on heparin, transitioned to Lovenox currently, will transition to apixaban 07/16 Discharged on apixaban, dosing as above. (9) Insulin dependent diabetes mellitus: Status: Acute Problem details: - has neuropathy - most recent A1c 6.3 (06/30/24) - usual home dose insulin (changed on 06/30/24) is glargine 18 units at bedtime - will start with 10 units given hypoglycemia - and aspart 10 units t.i.d. with meals - Hold Jardiance for now - monitor for further hypoglycemia - nutrition consult Continue to monitor blood glucose, likely discharge on 10-15 units glargine at bedtime and 10 units t.i.d. with meals to avoid further hypoglycemic episodes at TCU/SNF On discharge, patient will continue on 10 units Lantus at bedtime, aspart 10 units t.i.d. with meals. Glucose checks ACHS. Further insulin adjustments to be completed outpatient as needed. Resume Jardiance. 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 Technically limited exam. 2. Normal LV size, mildly increased wall thickness, low normal global systolic function with an estimated EF of ~ 55%. 3. Right ventricular cavity size is not well visualized, global systolic RV function is not well visualized. 4. Mildly enlarged left atrium. 5. The ascending aorta is dilated with a maximal diameter of 4.3 cm. 6. The aortic sinus is dilated with a maximal diameter of 4.7 cm. (12) Right knee pain: Status: Acute Problem details: -right knee bilateral femoral condylar fractures from 04/29/2024 -recurrent falls, increased pain following most recent fall -CT 07/16 shows Interval healing of the displaced fracture involving the posterior aspect of the medial femoral condyle. Unchanged alignment of the larger displaced fracture involving the lateral femoral condyle, without interval healing changes. Moderate hemarthrosis -Reviewed with Orthopedic surgery. Nonsurgical management. T Scope brace - locked/immobilized position while weight-bearing, okay to unlock while at rest or for therapies Outpatient follow-up with Man Lopez PA-C on 08/04/2024 (13) Thyroid nodule: Status: Acute Problem details: stable since 2019 - followed by Dr. Mix Noted again on recent imaging. Outpatient follow-up with PCP -> Dominguez (14) Ascending aorta dilatation: Status: Acute Problem details: 4.7 cm 06/22 CT 07/15/24 4.3 cm . Cardiomegaly with reflux of contrast into the intrahepatic IVC may suggest a component of cardiac dysfunction Ongoing PCP management DS: Summary Hospital Course Hospital Course: Course of care and details as noted above. Remainder of chronic medical comorbidities were monitored and managed with home medications. Status at Discharge Functional status at discharge: uses cane/walker Overall status at discharge: patient is progressing back to baseline Time Spent with Patient Time attestation: Total time spent providing and/or coordinating discharge services: Time spent: Greater than 30 minutes Exam Narrative: Exam Narrative: PHYSICAL EXAM General: Pleasant, conversant, NAD Cardiovascular: RRR Pulmonary: No dyspnea Neurological: Alert, answering questions appropriately Skin: Warm, dry. Const: Vital Signs, click to edit/add: Vital Signs - 24 hr 07/17/24 15:00 07/17/24 15:00 07/17/24 19:00 Temperature 97.4 F L 97.7 F Pulse Rate [Pulse Oximeter] 67 67 84 Respiratory Rate 16 16 16 Blood Pressure [Le ft Arm] 132/92 H 132/88 Pulse Oximetry 97 95 Oxygen Delivery Me thod Room Air Room Air 07/17/24 23:00 07/17/24 23:30 07/18/24 05:22 Temperature 97.5 F L Pulse Rate [Pulse Oximeter] 71 Respiratory Rate 16 16 16 Blood Pressure [Le ft Arm] 156/96 H Pulse Oximetry 95 Oxygen Delivery Me thod Room Air 07/18/24 07:00 07/18/24 07:59 07/18/24 11:02 Temperature 98.4 F Pulse Rate [Pulse Oximeter] 71 71 69 Respiratory Rate 18 18 16 Blood Pressure [Le ft Arm] 173/114 H 144/94 H Pulse Oximetry 97 97 Oxygen Delivery Me thod Room Air Room Air DS: Data Data Completed and Pending Labs on day of discharge: Preliminary micro results at discharge 07/15/24 01:40 Blood Culture - Preliminary Blood NO GROWTH AFTER [address] scan - head: Attestation: I have reviewed the pertinent imaging results. Radiologist's impression: Brain: No intracranial hemorrhage or evidence of acute infarct. No mass effect or midline shift. No abnormal extra-axial fluid collections. Mild generalized cerebral and cerebellar volume loss with associated ex vacuo dilation of the lateral ventricles. Mild chronic small vessel ischemic disease. Intracranial vascular calcifications. Skull base and calvarium: The visualized paranasal sinuses and mastoid air cells are clear. The visualized orbits are grossly unremarkable. No acute fracture identified. Nasal tube in place. Soft tissues: Unremarkable. IMPRESSION: No acute intracranial findings. Cervical spine CT: Attestation: I have reviewed the pertinent imaging results. Radiologist's impression: Vertebrae: No acute fracture or suspicious bone lesion. Mild anterolisthesis of C3 on C4 and C4 on C5. Straightening of the normal cervical lordosis. Discs and facet joints: Multilevel endplate spurring and facet arthropathy. Moderate disc space narrowing at C5-C6. Bilateral neural foraminal narrowing and mild spinal canal stenosis at C5-C6. Extraspinal findings: Visualized intracranial contents and paravertebral soft tissues are unremarkable. Hypodense left thyroid nodules, the largest of which measures 3.1 cm. The included lung apices are clear. IMPRESSION: 1. No acute fracture or traumatic malalignment of the cervical spine. 2. Multilevel degenerative spondylosis. 3. Left thyroid nodules measuring up to 3.1 cm. Consider nonemergent thyroid ultrasound. Facial CT: Attestation: I have reviewed the pertinent imaging results. Radiologist's impression: No acute fracture identified. No significant soft tissue swelling. The paranasal sinuses and mastoid air cells are clear. No air-fluid levels. No bony hyperostosis or areas of bone destruction. The nasal septum is midline. The mandible is intact and the temporomandibular joints are anatomically aligned. Visualized intracranial contents are unremarkable. Orbits and extraocular muscles are symmetric. The imaged cervical spine is grossly negative. IMPRESSION: No acute findings. Chest x-ray: Attestation: I have reviewed the pertinent imaging results. Radiologist's impression: Findings/Impression: The cardiac silhouette is magnified, but likely enlarged, similar to prior. Mild pulmonary vascular congestion is present. Patchy left lung base opacification may reflect atelectasis, however developing infectious process is not excluded in the appropriate clinical context. No definite pleural effusion. No pneumothorax. No acute osseous abnormality identified. Chronic widening of the bilateral acromioclavicular joint spaces. Head CTA: Attestation: I have reviewed the pertinent imaging results. Radiologist's impression: There is normal opacification of the intracranial vasculature. There is no large vessel occlusion. No aneurysm is identified. IMPRESSION: Unremarkable head CTA. Neck CTA: Attestation: I have reviewed the pertinent imaging results. Radiologist's impression: There is carotid atherosclerosis. There is no significant carotid artery stenosis or dissection. There is no significant vertebral artery stenosis or dissection. There is a 2.5 centimeter indeterminate left thyroid nodule. Degenerative changes are noted in the cervical spine. IMPRESSION: 1. No significant carotid or vertebral artery stenosis or dissection. 2. Large left thyroid nodule; recommend nonemergent outpatient ultrasound when clinically appropriate. Venous duplex: Attestation: I have reviewed the pertinent imaging results. Radiologist's impression: One of the posterior tibial veins of the left calf demonstrates decreased compressibility with acute appearing intraluminal thrombus. The remainder of the visualized deep veins of the left lower extremity demonstrate no evidence of DVT, though evaluation of the peroneal veins at the left calf is limited. The deep veins of the right lower extremity demonstrate no evidence of DVT, though evaluation of the peroneal veins at the right calf is limited. IMPRESSION: 1. Acute appearing DVT of a left posterior tibial vein. Remainder of the visualized left lower extremity deep veins remain patent, though evaluation of the remainder of the deep veins of the left calf is somewhat limited. 2. No right lower extremity DVT appreciated, though evaluation of the deep veins of the right calf is somewhat limited. Brain MRI: Attestation: I have reviewed the pertinent imaging results. Radiologist's impression: No evidence of acute ischemia. Similar scattered foci T2 prolongation within white matter of both cerebral hemispheres. Stable chronic lacunar infarcts within left yael maite and right cerebellum. Unchanged punctate focus of susceptibility artifact left frontal lobe. Similar mild diffuse parenchymal volume loss. The ventricles are unchanged in size. Flow voids of the larger intracranial arteries are preserved. Normal calvarial bone marrow signal intensity. Bilateral pseudophakia. The paranasal sinuses and mastoid air cells are predominantly clear. IMPRESSION: 1. No acute intracranial abnormality. Specifically, no evidence of acute ischemia. 2. Similar mild diffuse parenchymal volume loss and chronic small vessel ischemic changes. 3. Stable old lacunar infarcts within the left paramedian maite and right cerebellum. 4. Unchanged focal susceptibility artifact within the left frontal white matter which may represent a small cavernoma or sequela of prior microhemorrhage. CTA chest: Attestation: I have reviewed the pertinent imaging results. Radiologist's impression: Heart and vasculature: Contrast opacification of the pulmonary arterial tree is adequate. No sign of pulmonary embolism. Cardiomegaly. Dilated ascending aorta measuring up to 4.3 cm.. Main pulmonary artery is normal in caliber. Reflux of contrast into the intrahepatic IVC. Severe coronary artery calcifications Lungs and pleura: Narrowing of the bilateral lower lobe subsegmental bronchi, possibly exacerbated by expiratory phase imaging. Few new tree-in-bud nodular opacities in the left lower lobe. Stable left upper lobe calcified granuloma. No pleural effusions, pleural thickening, or pneumothorax. Lymph nodes/mediastinum: No mediastinal, hilar, or axillary adenopathy. Chest wall: No masses. Thyroid: Multinodular left thyroid lobe, incompletely imaged, although a nodule measures at least 1.5 cm. Upper abdomen: No acute or significant findings. Prior cholecystectomy Bones: Multilevel degenerative change of the imaged spine. Stable mild compression deformity of the T5 vertebral body. Healed left lateral 9th rib fracture. IMPRESSION: 1. No acute pulmonary embolism. No acute rib fracture. 2. Few new tree-in-bud nodular opacities in the left lower lobe, possible early pneumonia. 3. Dilated ascending aorta measuring up to 4.3 cm. 4. Cardiomegaly with reflux of contrast into the intrahepatic IVC, may suggest a component of cardiac dysfunction. 5. Left thyroid nodule measuring at least 1.5 cm, incompletely imaged. Recommend further evaluation with thyroid ultrasound. Knee x-ray: Attestation: I have reviewed the pertinent imaging results. Radiologist's impression: There are healing fractures of the bilateral femoral condyles with mild callus formation. The lateral femoral condyle fracture fragment demonstrates slightly increased displacement compared to prior exam. No new acute fracture identified. No dislocation. Mild medial compartment narrowing. Small knee joint effusion. Mild soft tissue swelling. IMPRESSION: 1. Healing bilateral femoral condyle fractures with slightly increased displacement of the lateral femoral condyle fracture fragment. 2. Mild soft tissue swelling and small knee joint effusion. Knee CT: Attestation: I have reviewed the pertinent imaging results. My impression: Review by Orthopedic surgery Radiologist's impression: Bones: The bones are diffusely demineralized. Interval increase in bridging bone formation at the previously seen displaced fracture along the posteromedial aspect of the distal femur adjacent to the medial femoral epicondyle. Fracture line is no longer visualized at this site. The displaced fracture involving the posterior aspect of the lateral femoral condyle is unchanged in position with persistent approximately 5 mm of articular surface step-off along the posterior weight-bearing aspect of the lateral femoral condyle. No appreciable healing changes are seen at this fracture site compared to 04/29/2024. This fracture extends obliquely from the anterolateral aspect of the lateral femoral condyle to the posteromedial aspect of the nonweightbearing portion where there is approximately 7 mm of displacement. No new displaced fracture is seen. Similar small calcified density along the posterior aspect of the intercondylar notch may represent small intra-articular bodies versus intra-articular fracture fragments. Moderate hemarthrosis. Regional muscles and tendons: Moderate fatty replacement of the visualized quadriceps musculature. Mild fatty replacement of the calf musculature. Soft tissues: Mild anterior knee soft tissue swelling. Atherosclerotic arterial calcifications. IMPRESSION: 1. Interval healing of the displaced fracture involving the posterior aspect of the medial femoral condyle. 2. Unchanged alignment of the larger displaced fracture involving the lateral femoral condyle, without interval healing changes. 3. Moderate hemarthrosis. Discharge Plan Discharge Disposition: [facility] Date of Admission: 07/15/24 09:37 Attending Provider on Discharge: Jessica iVdal Consulting Providers: Mary Jo Campo Primary Care Provider: Elijah Fernandez Condition: Improved Anticipated Discharge Date/Time: 07/18/24 08:28 Discharge Medications: New insulin aspart U-100 100 unit/mL (3 mL) Insulin Pen 10 unit subcut TIDWM Qty: 3 0RF valsartan 160 mg tablet 160 mg PO HS Qty: 30 0RF pantoprazole 40 mg tablet,delayed release (DR/EC) 40 mg PO DAILY Qty: 30 0RF insulin glargine [Lantus Solostar U-100 Insulin] 100 unit/mL (3 mL) insulin pen 10 unit subcut QPM Qty: 3 0RF insulin aspart U-100 100 unit/mL (3 mL) insulin pen 10 unit subcut TID Qty: 9 2RF carvedilol 12.5 mg tablet 12.5 mg PO BID Qty: 60 0RF Rx Instructions: must administer with a meal/food Jardiance 10 mg tablet 10 mg PO DAILY Qty: 30 0RF furosemide 20 mg tablet 20 mg PO DAILY Qty: 30 0RF acetaminophen 500 mg capsule 1,000 mg PO Q6H PRNQty: 90 0RF albuterol-budesonide 90-80 mcg/actuation HFA aerosol inhaler 2 inh inhalation BID PRN (Reason: shortness of breath) Qty: 5.9 0RF atorvastatin 20 mg tablet 20 mg PO DAILY Qty: 30 0RF apixaban 5 mg tablet 10 mg PO BID 5 Days Qty: 20 0RF Rx Instructions: Take 2 tabs twice daily for 5 days, followed by 1 tab twice daily apixaban 5 mg tablet 5 mg PO BID Qty: 60 0RF Rx Instructions: Start this after completing 2 tabs twice daily levofloxacin 500 mg tablet 500 mg PO DAILY 5 Days Qty: 5 0RF Discontinued (DME) Walker- 2 Wheels Misc See Rx Instructions .Route Qty: 1 0RF Rx Instructions: As directed Xarelto 15 mg tablet 15 mg PO QPM carvedilol 25 mg tablet 12.5 mg PO BID diclofenac sodium 1 % gel 4 g TOPICAL QID insulin glargine [Lantus Solostar U-100 Insulin] 100 unit/mL (3 mL) insulin pen 18 unit subcut HS acetaminophen 650 mg Tablet Extended Release 1,300 mg PO Q8H Qty: 30 0RF furosemide 20 mg tablet 20 mg PO DAILY atorvastatin 20 mg tablet 20 mg PO HS pantoprazole 40 mg tablet,delayed release (DR/EC) 40 mg PO DAILY valsartan 160 mg tablet 160 mg PO HS Jardiance 10 mg tablet 10 mg PO DAILY insulin aspart U-100 100 unit/mL (3 mL) insulin pen 12 unit SUBCUT BID Patient Comments: [NO ORIGINAL SIG] albuterol-budesonide 90-80 mcg/actuation HFA aerosol inhaler 2 inh inhalation BID PRN (DME) Tubigrip, Size G Misc See Rx Instructions .Route Qty: 2 0RF Rx Instructions: As directed. Fit patient for size Discharge Orders: Discharge Order (Routine); Ordered 07/18/24 Ordered By: Jessica Vidal Consulting provider completed their portion of the discharge: Yes Additional Instructions: BRACE TO BE WORN AND IN THE LOCKED POSITION WHILE AMBULATING. MAY UNLOCK WHILE AT REST OR WORKING WITH THERAPIES IN NON WEIGHT BEARING ACTIVITIES KEEP YOUR JULY FOLLOW UP APPOINTMENT WITH MARY JO CAMPO IN ORTHOPEDIC SURGERY BEFORE YOU RETURN HOME, IT IS IMPORTANT YOU REMOVE ANY OBSTACLES FROM THE FLOORS (RUGS, CORDS, ETC). INSTALL GRAB BARS AND ASSISTIVE DEVICES THROUGHOUT THE HOME. REPLACE BEDDING WITH NONSLIP FABRICS. YOUR LANTUS HAS BEEN CHANGED TO 10 UNITS AT BEDTIME YOUR NOVOLOG HAS BEEN CHANGED TO 10 UNITS TID WITH MEALS STOP TAKING YOUR XARELTO YOU WILL TAKE APIXIBAN 2 TABS TWICE DAILY FOR 5 MORE DAYS, THEN 1 TAB TWICE DAILY THEREAFTER. YOUR PCP WILL CONTINUE TO MANAGE THIS FOR YOU TAKE 5 MORE DAYS OF LEVAQUIN FOR YOUR PNEUMONIA Activity Level: Wear Brace Discharge Diet: Diabetic Follow Up Appointments: Mary Jo Campo PA-C [Physician [employer]] - Elijah Fernandez MD [Primary Care Provider] - Forms: Generaytor Info Instructions Admit to: SNF Discharge Potential: Good Length of Stay: <30 days Can use facility standing orders?: Yes Code Status: Full Code TEDs: N/A Rehab Potential: Good Therapy: Physical Therapy and Occupational Therapy Therapy Orders: Evaluate and Treat Oxygen: No Urinary Catheter: No Glucose Checks: ACHS Orders are good >30 days: No Signature: BASIL SALAS PA-[facility] HOSPITALIST
[2024-07-18] MEDS: INSULIN ASPART 100 UNIT/ML SUBCUT (12:54)
--- NOTE | 2024-07-18 14:34 | PC.NURSE ---
End of shift-- Pleasant and cooperative, alert and oriented patient was discharged via wheelchair with friend at approximately 1345. VSS, though hypertensive this morning, and pt is afebrile. Rechecked B/P following am meds was greatly improved. See EMR for details. Pain appears well managed with scheduled Tylenol only. LS CTA. He still complained of some very mild nausea this morning, but declined intervention for it and ate 100% of 2 regular meals today. BG 143 and 206 today. Given insulin per sliding scale and MD orders. Nurse to nurse report was given to George at [facility] and all questions were answered. SL x3 were removed with tip intact.
== END 2024-07-18 13:39 | DRG 637 ==
LOC: ED 07-15 02:35 → MEDSURG 07-15 03:01
PROVIDERS: Physician Assistant; Admitting Provider Student in an Organized Health Care Education/Training Program; Emergency Provider Family Medicine; PCP Surgery; Visit Provider Student in an Organized Health Care Education/Training Program
DX: E10.649 Type 1 diabetes mellitus with hypoglycemia without coma (principal); J18.9 Pneumonia, unspecified organism; S72.421 Displaced fracture of lateral condyle of right femur; I50.42 Chronic combined systolic (congestive) and diastolic (congestive) heart failure; I82.442 Acute embolism and thrombosis of left tibial vein; R47.81 Slurred speech; Z79.4 Long term (current) use of insulin; E10.40 Type 1 diabetes mellitus with diabetic neuropathy, unspecified; R29.6 Repeated falls; Z91.81 History of falling; R07.89 Other chest pain; Z79.01 Long term (current) use of anticoagulants; I11.0 Hypertensive heart disease with heart failure; I77.810 Thoracic aortic ectasia; I48.91 Unspecified atrial fibrillation; G47.33 Obstructive sleep apnea (adult) (pediatric); I25.10 Atherosclerotic heart disease of native coronary artery without angina pectoris; E04.1 Nontoxic single thyroid nodule
CPT/HCPCS: 36415; 70450; 70486; 70496; 70498; 70551; 71045; 71275; 72125; 73562; 73700; 80048; 80053; 80306; 81001; 82077; 82947; 82962; 84484; 85025; 85027; 85610; 85730; 87040; 87086; 87493; 87631; 93005; 93970; 94761; 97110; 97116; 97161; 97165; 97530; 97535; 99284; 99285; 99291; A9270; G0378; J0456; J0696; J1644; J1650; J1815; J2405; J7030; J7050; Q9967

== ENCOUNTER 2024-12-31 10:01 | Outpatient (CLI) | payer MEDICARE, BC, SELFPAY ==
--- NOTE | 2024-12-31 10:15 | MR_ITS ---
[address] [address] Phone:?[phone] Fax:?[phone] Referring Physician Information: GODFREY Spivey [address] [facility] [address] Phone:?[phone] Fax:?[phone] Patient:Stef Carlos D.O.B:?1950 Sex:?Male Phone:?[phone] [facility] MRN:[id number] Exam Date:?12/31/2024 EXAM: MRI of the RIGHT KNEE, without contrast CLINICAL HISTORY: Ongoing right knee pain. Evaluate for medial meniscal tear. COMPARISONS: Plain radiographs 11/03/2024 and 06/02/2024. CT examinations 04/29/2024 and 03/11/2024. TECHNICAL: MR sequences of the right knee: sagittals: PD, T2 FS coronals: PD, STIR axials: PD, T2 FS CONTRAST: None SEDATION: None FINDINGS: Bones: Ununited intra-articular fracture through the lateral femoral condyle/epicondyle, also present on previous CT scan 04/29/2024. There is edema-like signal within the fibular head. 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 1.6 x 1.0 cm area of grade IV chondromalacia over the trochlear groove and lateral femoral trochlea with associated central osteophytosis. Retinacula: The medial and lateral retinacula are intact. Fat pads: The infrapatellar, quadriceps, and prefemoral fat pads are unremarkable. Knee joint: Effusion: Physiologic amount of joint fluid. Popliteal cyst: Small popliteal cyst. Intra-articular bodies: None. Posteromedial corner: The semimembranosus and pes anserine tendons are intact. Medial compartment: Medial meniscus: Intact. Cartilage: Broad-based grade II chondromalacia over the weight-bearing portion of the medial femoral condyle. Lateral compartment: Lateral meniscus: Slight free edge fraying of the body of the lateral meniscus. Cartilage: Single focus of slitlike chondral fissuring over the medial weightbearing portion of the lateral femoral condyle with subjacent subchondral edema-like signal. Ligaments: Anterior cruciate ligament: Intact. Posterior cruciate ligament: Mucoid degeneration the posterior cruciate ligament. Medial collateral ligament: Intact. Posterior oblique ligament: Intact. Fibular collateral ligament: The fibular collateral ligament is attached to the ununited lateral femoral condyle/epicondyle fracture fragment. No tear of the ligament itself is seen. Posterolateral corner: The distal biceps femoris tendon, iliotibial band, popliteus muscle, popliteofibular ligament, and arcuate ligament are intact. The popliteus tendon is attached to the ununited lateral femoral condyle/epicondyle fracture fragment. No tear of the popliteus tendon itself is seen. Extensor mechanism: Patellar tendon: Intact. Quadriceps tendon: Intact. There is mild diffuse muscular atrophy. IMPRESSION: 1. Ununited intra-articular fracture through the lateral femoral condyle/epicondyle, also present on previous CT scan 04/29/2024. 2. The fibular collateral ligament and popliteus tendon are attached to the ununited lateral femoral condyle/epicondyle fracture fragment without evidence of tear of the fibular collateral ligament or popliteus tendon themselves. 3. Edema-like signal within the fibular head could reflect residual bone marrow contusion but is nonspecific. 4. Mucoid degeneration the posterior cruciate ligament. No discrete ligamentous tear or acute ligamentous injury. 5. 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 1.6 x 1.0 cm area of grade IV chondromalacia over the trochlear groove and lateral femoral trochlea with associated central osteophytosis. 6. Broad-based grade II chondromalacia over the weight-bearing portion of the medial femoral condyle. 7. Single focus of slitlike chondral fissuring over the medial weightbearing portion of the lateral femoral condyle with subjacent subchondral edema-like signal. 8. Slight free edge fraying of the body of the lateral meniscus. 9. Mild diffuse muscular atrophy. 10. No medial meniscal pathology of the right knee. RCB Electronically signed on 12/31/2024 11:56:00 AM by Rell Herrera M.D.
== END 2024-12-31 10:02 | disposition home or self-care (01) ==
LOC: MRI 10:02
PROVIDERS: PCP Surgery; Visit Provider Physician Assistant Surgical
DX: M25.561 Pain in right knee (principal); S72.411D Displaced unspecified condyle fracture of lower end of right femur, subsequent encounter for closed fracture with routine healing; M22.41 Chondromalacia patellae, right knee
CPT/HCPCS: 73721

== ENCOUNTER 2025-01-08 07:14 | Outpatient (CLI) | payer MEDICARE, BC, SELFPAY ==
--- NOTE | 2025-01-08 09:08 | P.ANES_ITS ---
Anesthesia Charges Start Date/Time Anesthesia Start Date: 01/08/25 Anesthesia Start Time: 08:40 Stop Date/Time Anesthesia Stop Date: 01/08/25 Anesthesia Stop Time: 09:04 Summary Extremes of Age - Over 70 or under 1: HIDE OR SKIN BUFFER Coding CPT Codes CPT Codes: ANES LWR INTST NDSC NOS - 06243 ([id number]) P3 - PATIENT W/SEVERE SYS DISEASE, QX - HIDE OR SKIN BUFFER SVC W/ MD MED DIRECTION, QK - NURSE'S ASSISTANT 2-4 CNCRNT ANES PROC Additional Codes: Summary - Extremes of Age - Over 70 or under 1: HIDE OR SKIN BUFFER ([id number])
--- NOTE | 2025-01-08 09:08 | W.ANESCHARGE ---
Anesthesia Charges Start Date/Time Anesthesia Start Date: 01/08/25 Anesthesia Start Time: 08:40 Stop Date/Time Anesthesia Stop Date: 01/08/25 Anesthesia Stop Time: 09:04 Summary Extremes of Age - Over 70 or under 1: TRIMMING CUTTER MACHINE Coding CPT Codes CPT Codes: ANES LWR INTST NDSC NOS - 48133 ([id number]) P3 - PATIENT W/SEVERE SYS DISEASE, QX - TRIMMING CUTTER MACHINE SVC W/ MD MED DIRECTION, QK - ELECTRIC METER REPAIRER HELPER 2-4 CNCRNT ANES PROC Additional Codes: Summary - Extremes of Age - Over 70 or under 1: TRIMMING CUTTER MACHINE ([id number])
--- NOTE | 2025-01-08 10:06 | W.ANESCHARGE ---
Anesthesia Charges Start Date/Time Anesthesia Start Date: 01/08/25 Anesthesia Start Time: 08:40 Stop Date/Time Anesthesia Stop Date: 01/08/25 Anesthesia Stop Time: 09:04 Summary Extremes of Age - Over 70 or under 1: MDA Coding CPT Codes CPT Codes: ANES LWR INTST NDSC NOS - 80383 ([id number]) QK - REGISTERED NURSE OBSTETRICS 2-4 CNCRNT ANES PROC, QX - MEDICAL CHEMIST SVC W/ MD MED DIRECTION, P3 - PATIENT W/SEVERE SYS DISEASE Additional Codes: Summary - Extremes of Age - Over 70 or under 1: MDA ([id number])
== END 2025-01-08 07:15 | disposition home or self-care (01) ==
LOC: OP CLINIC 07:15
PROVIDERS: PCP Surgery; Visit Provider Internal Medicine Gastroenterology
DX: Z12.11 Encounter for screening for malignant neoplasm of colon (principal); Z86.0101 Personal history of adenomatous and serrated colon polyps; D12.2 Benign neoplasm of ascending colon; K57.30 Diverticulosis of large intestine without perforation or abscess without bleeding
CPT/HCPCS: 00811; 45380; 45385; 88305; 99100; J2704

== ENCOUNTER 2025-04-09 13:29 | Outpatient (CLI) | payer MEDICARE, BC, SELFPAY | END 2025-04-09 13:30 | disposition home or self-care (01) | LOC: AMB 04-12 17:01 | PROVIDERS: PCP Surgery; Visit Provider Family Medicine | DX: R53.1 Weakness (principal); R42 Dizziness and giddiness | CPT/HCPCS: A0425; A0433 ==

== ENCOUNTER 2025-04-09 14:15 | Emergency (ER) | payer MEDICARE, BC, SELFPAY ==
--- OUTSIDE RECORDS SUMMARY | 2025-04-09 14:18 | XMS_ITS | Continuity of Care Document ---
Author Organization [facility] Address [address] [place] [address] Insurance Providers Payer Plan Claims Address Claims Phone Policy Number Group Number Relation Employer Guarantor Name Guarantor Guarantor Address Guarantor Phone Ricardo Cross G[place] [id number] [place] [id number] Davis [place] [address] [address], [place], [place] [address]eyz:[id number] [address] Problems Condition ICD9 code ICD10 code SNOMED code Start Date End Date S tatus Essential (primary) hypertension I1003/5ActiveUnspecified combined systolic (congestive) and diastolic (congestive) heart trofskjN59.40035ActiveAtherosclerotic heart disease of [place] coronary artery without angina yxjbdgmlP92.10035ActiveObstructive sleep apnea (adult) (pediatric)G47.33035ActiveGastro-esophageal reflux disease without lybhkwlezioG30.905ActiveBenign prostatic hyperplasia without lower urinary tract lpdzchtsB10.0035ActiveType 2 diabetes mellitus without essskkqgtokxmA87.905ActiveUnspecified atrial vvguxqfeovkdX99.91035ActiveHypoglycemia, mykgduhvgysO53.5Active Slurred ucffbhY17.81035ActiveHistory of kjbrsgxP10.815Active Viral pneumonia, erwxconltzyS35.905ActivePneumonia, unspecified organism J18.905ActiveAcute embolism and thrombosis of left tibial veinI82.442 5ActivePolyneuropathy, wnoxjfzwmbvK18.905Active Results Test Value / Unit Interpretation Reference Ran Blood chemistry[[id number]] Glucose [Mass/volume] in Ser um or Plasma [2345-7] 179 mg/dL N Blood chemistry[[id number]]?Glucose [Mass/volume] in Serum or Plasma [2345-7]130 mg/dLNBlood chemistry[[id number]]?Glucose [Mass/volume] in Serum or Plasma [2345-7]255 mg/dLNBlood chemistry[[id number]]?Glucose [Mass/volume] in Serum or Plasma [2345-7]97 mg/dLNBlood chemistry[[id number]]?Glucose [Mass/volume] in Serum or Plasma [2345-7] 168 mg/dLNBlood chemistry[[id number]]?Glucose [Mass/volume] in Serum or Plasma [2345-7]130 mg/dLNBlood chemistry[[id number]]?Glucose [Mass/volume] in Serum or Plasma [2345-7]143 mg/dLNBlood chemistry[[id number]]?Glucose [Mass/volume] in Serum or Plasma [2345-7] 135 mg/dLNBlood chemistry[[id number]]?Glucose [Mass/volume] in Serum or Plasma [2345-7]197 mg/dLNBlood chemistry[[id number]]?Glucose [Mass/volume] in Serum or Plasma [2345-7]233 mg/dLNBlood chemistry[[id number]]?Glucose [Mass/volume] in Serum or Plasma [2345-7] 156 mg/dLNBlood chemistry[[id number]]?Glucose [Mass/volume] in Serum or Plasma [2345-7]190 mg/dLNBlood chemistry[[id number]]?Glucose [Mass/volume] in Serum or Plasma [2345-7]190 mg/dLNBlood chemistry[[id number]]?Glucose [Mass/volume] in Serum or Plasma [2345-7] 271 mg/dLNBlood chemistry[[id number]]?Glucose [Mass/volume] in Serum or Plasma [2345-7]113 mg/dLNBlood chemistry[[id number]]?Glucose [Mass/volume] in Serum or Plasma [2345-7]143 mg/dLNBlood chemistry[[id number]]?Glucose [Mass/volume] in Serum or Plasma [2345-7] 140 mg/dLNBlood chemistry[[id number]]?Glucose [Mass/volume] in Serum or Plasma [2345-7]147 mg/dLNBlood chemistry[[id number]]?Glucose [Mass/volume] in Serum or Plasma [2345-7]131 mg/dLNBlood chemistry[[id number]]?Glucose [Mass/volume] in Serum or Plasma [2345-7] 166 mg/dLNBlood chemistry[[id number]]?Glucose [Mass/volume] in Serum or Plasma [2345-7]123 mg/dLNBlood chemistry[[id number]]?Glucose [Mass/volume] in Serum or Plasma [2345-7]134 mg/dLNBlood chemistry[[id number]]?Glucose [Mass/volume] in Serum or Plasma [2345-7] 236 mg/dLNBlood chemistry[[id number]]?Glucose [Mass/volume] in Serum or Plasma [2345-7]159 mg/dLNBlood chemistry[[id number]]?Glucose [Mass/volume] in Serum or Plasma [2345-7]215 mg/dLNBlood chemistry[[id number]]?Glucose [Mass/volume] in Serum or Plasma [2345-7] 130 mg/dLNBlood chemistry[[id number]]?Glucose [Mass/volume] in Serum or Plasma [2345-7]148 mg/dLNBlood chemistry[[id number]]?Glucose [Mass/volume] in Serum or Plasma [2345-7]124 mg/dLNTuberculosis reaction wheal[29236-9]?Tuberculosis reaction wheal [79417-8]0 mmNEGBlood chemistry[[id number]]?Glucose [Mass/volume] in Serum or Plasma [2345-7] 144 mg/dLNBlood chemistry[[id number]]?Glucose [Mass/volume] in Serum or Plasma [2345-7]171 mg/dLNBlood chemistry[[id number]]?Glucose [Mass/volume] in Serum or Plasma [2345-7]97 mg/dLNBlood chemistry[[id number]]?Glucose [Mass/volume] in Serum or Plasma [2345-7] 167 mg/dLNBlood chemistry[[id number]]?Glucose [Mass/volume] in Serum or Plasma [2345-7]134 mg/dLNBlood chemistry[[id number]]?Glucose [Mass/volume] in Serum or Plasma [2345-7]172 mg/dLNBlood chemistry[[id number]]?Glucose [Mass/volume] in Serum or Plasma [2345-7] 129 mg/dLNBlood chemistry[[id number]]?Glucose [Mass/volume] in Serum or Plasma [2345-7]195 mg/dLNBlood chemistry[[id number]]?Glucose [Mass/volume] in Serum or Plasma [2345-7]135 mg/dLNBlood chemistry[[id number]]?Glucose [Mass/volume] in Serum or Plasma [2345-7] 151 mg/dLNTuberculosis reaction wheal[83878-0]?Tuberculosis reaction wheal [09002-1]See noteTB testBlood chemistry[[id number]]?Glucose [Mass/volume] in Serum or Plasma [2345-7]154 mg/dLNBlood chemistry[[id number]]?Glucose [Mass/volume] in Serum or Plasma [2345-7] 151 mg/dLNBlood chemistry[[id number]]?Glucose [Mass/volume] in Serum or Plasma [2345-7]127 mg/dLNBlood chemistry[[id number]]?Glucose [Mass/volume] in Serum or Plasma [2345-7]152 mg/dLNBlood chemistry[[id number]]?Glucose [Mass/volume] in Serum or Plasma [2345-7] 132 mg/dLNBlood chemistry[[id number]]?Glucose [Mass/volume] in Serum or Plasma [2345-7]227 mg/dLNBlood chemistry[[id number]]?Glucose [Mass/volume] in Serum or Plasma [2345-7]178 mg/dLNBlood chemistry[[id number]]?Glucose [Mass/volume] in Serum or Plasma [2345-7] 147 mg/dLNBlood chemistry[[id number]]?Glucose [Mass/volume] in Serum or Plasma [2345-7]123 mg/dLNBlood chemistry[[id number]]?Glucose [Mass/volume] in Serum or Plasma [2345-7]176 mg/dLNBlood chemistry[[id number]]?Glucose [Mass/volume] in Serum or Plasma [2345-7] 134 mg/dLNBlood chemistry[[id number]]?Glucose [Mass/volume] in Serum or Plasma [2345-7]140 mg/dLNBlood chemistry[[id number]]?Glucose [Mass/volume] in Serum or Plasma [2345-7]126 mg/dLNBlood chemistry[[id number]]?Glucose [Mass/volume] in Serum or Plasma [2345-7] 146 mg/dLNBlood chemistry[[id number]]?Glucose [Mass/volume] in Serum or Plasma [2345-7]130 mg/dLNBlood chemistry[[id number]]?Glucose [Mass/volume] in Serum or Plasma [2345-7]130 mg/dLNBlood chemistry[[id number]]?Glucose [Mass/volume] in Serum or Plasma [2345-7] 206 mg/dLNBlood chemistry[[id number]]?Glucose [Mass/volume] in Serum or Plasma [2345-7]104 mg/dLNBlood chemistry[[id number]]?Glucose [Mass/volume] in Serum or Plasma [2345-7]140 mg/dLNBlood chemistry[[id number]]?Glucose [Mass/volume] in Serum or Plasma [2345-7] 136 mg/dLNBlood chemistry[[id number]]?Glucose [Mass/volume] in Serum or Plasma [2345-7]94 mg/dLNBlood chemistry[[id number]]?Glucose [Mass/volume] in Serum or Plasma [2345-7]206 mg/dLNBlood chemistry[[id number]]?Glucose [Mass/volume] in Serum or Plasma [2345-7] 148 mg/dLNBlood chemistry[[id number]]?Glucose [Mass/volume] in Serum or Plasma [2345-7]191 mg/dLNBlood chemistry[[id number]]?Glucose [Mass/volume] in Serum or Plasma [2345-7]129 mg/dLNBlood chemistry[[id number]]?Glucose [Mass/volume] in Serum or Plasma [2345-7] 132 mg/dLNBlood chemistry[[id number]]?Glucose [Mass/volume] in Serum or Plasma [2345-7]142 mg/dLNBlood chemistry[[id number]]?Glucose [Mass/volume] in Serum or Plasma [2345-7]167 mg/dLNBlood chemistry[[id number]]?Glucose [Mass/volume] in Serum or Plasma [2345-7] 247 mg/dLNBlood chemistry[[id number]]?Glucose [Mass/volume] in Serum or Plasma [2345-7]179 mg/dLNBlood chemistry[[id number]]?Glucose [Mass/volume] in Serum or Plasma [2345-7]141 mg/dLNBlood chemistry[[id number]]?Glucose [Mass/volume] in Serum or Plasma [2345-7] 177 mg/dLNBlood chemistry[[id number]]?Glucose [Mass/volume] in Serum or Plasma [2345-7]100 mg/dLNBlood chemistry[[id number]]?Glucose [Mass/volume] in Serum or Plasma [2345-7]180 mg/dLNBlood chemistry[[id number]]?Glucose [Mass/volume] in Serum or Plasma [2345-7] 150 mg/dLNBlood chemistry[[id number]]?Glucose [Mass/volume] in Serum or Plasma [2345-7]162 mg/dLNBlood chemistry[[id number]]?Glucose [Mass/volume] in Serum or Plasma [2345-7]110 mg/dLNBlood chemistry[[id number]]?Glucose [Mass/volume] in Serum or Plasma [2345-7] 247 mg/dLNBlood chemistry[[id number]]?Glucose [Mass/volume] in Serum or Plasma [2345-7]185 mg/dLNBlood chemistry[[id number]]?Glucose [Mass/volume] in Serum or Plasma [2345-7]205 mg/dLNBlood chemistry[[id number]]?Glucose [Mass/volume] in Serum or Plasma [2345-7] 113 mg/dLNBlood chemistry[[id number]]?Glucose [Mass/volume] in Serum or Plasma [2345-7]221 mg/dLNBlood chemistry[[id number]]?Glucose [Mass/volume] in Serum or Plasma [2345-7]174 mg/dLNBlood chemistry[[id number]]?Glucose [Mass/volume] in Serum or Plasma [2345-7] 151 mg/dLNBlood chemistry[[id number]]?Glucose [Mass/volume] in Serum or Plasma [2345-7]177 mg/dLNBlood chemistry[[id number]]?Glucose [Mass/volume] in Serum or Plasma [2345-7]248 mg/dLNTuberculosis reaction wheal[05938-6]?Tuberculosis reaction wheal [26496-6]0 mmNEGBlood chemistry[[id number]]?Glucose [Mass/volume] in Serum or Plasma [2345-7] 172 mg/dLNBlood chemistry[[id number]]?Glucose [Mass/volume] in Serum or Plasma [2345-7]140 mg/dLNBlood chemistry[[id number]]?Glucose [Mass/volume] in Serum or Plasma [2345-7]172 mg/dLNBlood chemistry[[id number]]?Glucose [Mass/volume] in Serum or Plasma [2345-7] 199 mg/dLNBlood chemistry[[id number]]?Glucose [Mass/volume] in Serum or Plasma [2345-7]189 mg/dLNBlood chemistry[[id number]]?Glucose [Mass/volume] in Serum or Plasma [2345-7]126 mg/dLNBlood chemistry[[id number]]?Glucose [Mass/volume] in Serum or Plasma [2345-7] 123 mg/dLNBlood chemistry[[id number]]?Glucose [Mass/volume] in Serum or Plasma [2345-7]254 mg/dLNBlood chemistry[[id number]]?Glucose [Mass/volume] in Serum or Plasma [2345-7]146 mg/dLNBlood chemistry[[id number]]?Glucose [Mass/volume] in Serum or Plasma [2345-7] 96 mg/dLNTuberculosis reaction wheal[80756-9]?Tuberculosis reaction wheal [38863-2]See noteTB testBlood chemistry[[id number]]?Glucose [Mass/volume] in Serum or Plasma [2345-7]126 mg/dLN Allergies, adverse reactions, alerts Substance Reaction Date Status Type duloxetine 07/17/2024Non Zqxplbxxyhsji98/21/2025Non Aqjsiczcobjbon16/21/2025Non Drug reamlmwtrhvl10/21/2025Non Drug Immunizations Vaccine Route Date Status COVID-19 Vaccine Unassigned Route of Administration Completed COVID-19 Vaccine Unassigned Route of Administration Completed COVID-19 Vaccine Unassigned Route of Administration Completed COVID-19 Vaccine Unassigned Route of Administration Completed COVID-19 Vaccine Unassigned Route of Administration Completed COVID-19 Vaccine Unassigned Route of Administration Completed COVID-19 Vaccine Unassigned Route of Administration Completed Influenza Vaccine Unassigned Route of Administration 0 01/14/2024 Completed Pneumococcal Vaccine Unassigned Route of Administratio n 02/13/2016 Completed Pneumococcal Vaccine Unassigned Route of Administratio n 02/08/2015 Completed Pneumococcal Vaccine Unassigned Route of Administratio n 08/02/2004 Completed Tetanus Vaccine Unassigned Route of Administration Completed Zoster Vaccine Unassigned Route of Administration 11/27 Completed Zoster Vaccine Unassigned Route of Administration 08/29 Completed Zoster Vaccine Unassigned Route of Administration 01/28 Completed Medications Medication Instructions Route Dosage Frequency Start Date Stop Da te Indications Status acetaminophen 500 mg tablet (acetaminophen) 1,000 mg, oral, Every 6 Hours - PRN, N.O. Non-Pharmacological Interventions:1=Warm blanket 2=Re-position 3=Ice pack 4=Warm pack oral 1.0 6.0 h 07/18/2024 08/11/2024 ActiveAirsupra (albuterol-budesonide) 90-80 mcg/actuation HFA aerosol inhaler (Airsupra (albuterol-budesonide))2 puffs, inhalation, Twice A Day - PRN, N.O. Non-Pharmacological Interventions:1=Deep nose breathing 2=Repositioned 3=Elevate head of bed 4=Encourage incentive spirometer if applicableDx: SOBinhalation1.0 12.0 h0505ActiveAplisol (tuberculin ppd) 5 tub. unit /0.1 mL solution (Aplisol (tuberculin ppd))0.1 ml, intradermal, Once A Day Every 14 Days, Document Lot #, Expiration, and Maintenance And Engineering Manager in the Preventive Health Module.intradermal1.01.0 d0/5Activeatorvastatin 20 mg tablet (atorvastatin)20 mg, oral, At Bedtimeoral1.therosclerotic heart disease of [place] coronary artery without angina pectorisActivecarvedilol 12.5 mg tablet (carvedilol)12.5 mg, oral, Twice A Day, BID with a meal/foodoral 1.012.0 h0tiveEliquis (apixaban) 5 mg tablet (Eliquis (apixaban))10 mg, oral, Twice A Day, Monitor for bruising/bleeding. Notify of concerns.oral1.012.0 h0tiveinsulin aspart U-100 100 unit/mL (3 mL) insulin pen (insulin aspart U-100)10 mL, subcutaneous, With Meals subcutaneous1.Type 2 diabetes mellitus without complicationsActiveJardiance (empagliflozin) 10 mg tablet (Jardiance (empagliflozin))10 mg, oral, Once A Dayoral1.01.0 d05Active Lantus Solostar U-100 Insulin (insulin glargine) 100 unit/mL (3 mL) insulin pen (Lantus Solostar U-100 Insulin (insulin glargine))10 units, subcutaneous, At Bedtimesubcutaneous1./tiveLasix (furosemide) 20 mg tablet (Lasix (furosemide))20 mg, oral, Once A Dayoral1.01.0 d0/ Activelevofloxacin 500 mg tablet (levofloxacin)500 mg, oral, Once A Dayoral1.0 1.0 d0/tivepantoprazole 40 mg tablet,delayed release (DR/EC) (pantoprazole)40 mg, oral, Once A Dayoral1.01.0 d05Active valsartan 160 mg tablet (valsartan)160 mg, oral, At Bedtimeoral1. 5ActiveAirsupra (albuterol-budesonide) 90-80 mcg/actuation HFA aerosol inhaler (Airsupra (albuterol-budesonide))2 puffs, inhalation, Twice A Day - PRN, Rinse mouth after each use N.O. Non-Pharmacological Interventions:1=Deep nose breathing 2=Repositioned 3=Elevate head of bed 4=Encourage incentive spirometer if applicableDx: SOBinhalation1.012.0 h0tiveEliquis (apixaban) 5 mg tablet (Eliquis (apixaban))5 mg, oral, Twice A Day, Monitor for bruising/bleeding. Notify MD of concerns.oral1.012.0 h05Active Lantus Solostar U-100 Insulin (insulin glargine) 100 unit/mL (3 mL) insulin pen (Lantus Solostar U-100 Insulin (insulin glargine))12 units, subcutaneous, At Bedtimesubcutaneous1.5Activeinsulin aspart U-100 100 unit/mL (3 mL) insulin pen (insulin aspart U-100)10 units, subcutaneous, With Meals, HOLD IF BS<685uxskelzjdrus7.Type 2 diabetes mellitus without complicationsActiveinsulin aspart U-100 100 unit/mL (3 mL) insulin pen (insulin aspart U-100)10 units, subcutaneous, With Mealssubcutaneous1.0 Type 2 diabetes mellitus without complicationsActiveAplisol (tuberculin ppd) 5 tub. unit /0.1 mL solution (Aplisol (tuberculin ppd))0.1 ml, intradermal, Once A Day Every 14 Days, Document Lot #, Expiration, and Maintenance And Engineering Manager in the Preventive Health Module.intradermal1..0 d007/18/2024 5ActiveEliquis (apixaban) 5 mg tablet (Eliquis (apixaban))10 mg, oral, Twice A Day, Monitor for bruising/bleeding. Notify of concerns.oral1.012.0 h /tivelevofloxacin 500 mg tablet (levofloxacin)500 mg, oral, Once A Dayoral1.01.0 d05Active Vital Signs Date Vital Result Comment 07/18/2024 05:41 PM Temperature 98.9 [degF] Oxygen Riadkacmwx44 %Respiratory Rate18 /minHeart Rate91 /minBlood Pressure Ifzwvbbw435 mm[Hg]Blood Pressure Ukfmsjkrb67 mm[Hg]07/18/2024 09:38 PM Pelrwzaujyq17.1 [degF]Oxygen Vsjnideoiw25 %Respiratory Rate20 /minHeart Rate78 /minBlood Pressure Frgufiou870 mm[Hg]Blood Pressure Rlosufpxw35 mm[Hg]07/19/2024 04:27 VBEtizieahfje77.7 [degF]Oxygen Bxkbsdbhdt15 %Heart Rate68 /minBlood Pressure Mtnuydkq793 mm[Hg]Blood Pressure Vrvxdebid789 mm[Hg]07/19/2024 05:59 AM Svbljfhdgyu55.5 [degF]Oxygen Mhnrzzuest32 %Respiratory Rate18 /minHeart Rate93 /minBlood Pressure Zzzhtmji934 mm[Hg]Blood Pressure Xoatralgd613 mm[Hg] 07/19/2024 09:20 EVAhorvauwdsa68.3 [degF]Oxygen Yaskvwadnj63 %Respiratory Rate16 /minHeart Rate91 /minBlood Pressure Covhbwus095 mm[Hg]Blood Pressure Diastolic 95 mm[Hg]Body Upcxtq725 [lb_av]Body Mass Index34.79 kg/m207/19/2024 09:01 AMBody Aeljle83 [in_us]07/19/2024 01:14 TABbkqsnguftd45.3 [degF]Oxygen Yjtzstuppm60 % Respiratory Rate16 /minHeart Rate75 /minBlood Pressure Hmvacduh906 mm[Hg]Blood Pressure Tseihjdug84 mm[Hg]07/19/2024 06:56 XZPovnfnbpjdd51 [degF]Oxygen Uwqqoaorlj58 %Respiratory Rate20 /minHeart Rate79 /minBlood Pressure Bnsvzuqq145 mm[Hg]Blood Pressure Tqbhdvkca753 mm[Hg]07/19/2024 11:02 HKVvxrtzmlrhw03.7 [degF]Oxygen Scpswrwtlm22 %Respiratory Rate18 /minHeart Rate88 /minBlood Pressure Xgpqzcbl629 mm[Hg]Blood Pressure Hjmkxgsmy77 mm[Hg]07/20/2024 08:23 AM Zxqgjkvpnbw06.3 [degF]Oxygen Yrqgchaxmu71 %Respiratory Rate16 /minHeart Rate77 /minBlood Pressure Iyutvupr390 mm[Hg]Blood Pressure Gpubyfvsd08 mm[Hg]Body Nsxspx690 [lb_av]Body Mass Index34.41 kg/m207/20/2024 01:26 PMBlood Pressure Nuvviiiu944 mm[Hg]Blood Pressure Satzwfpfv34 mm[Hg]07/20/2024 09:10 PMBlood Pressure Axotspbe518 mm[Hg]Blood Pressure Aycdqiriv68 mm[Hg]07/21/2024 08:05 AM Wyorhhvuhda28.6 [degF]Oxygen Ofqjtaeepi91 %Respiratory Rate20 /minHeart Rate92 /minBlood Pressure Zxayisfj839 mm[Hg]Blood Pressure Asmljtgxq34 mm[Hg]Body Lhtqrm191 [lb_av]Body Mass Index34.15 kg/m207/22/2024 09:06 EZWwyiwjrurhz63.3 [degF]Oxygen Ifrbbcsbin58 %Respiratory Rate16 /minHeart Rate74 /minBlood Pressure Rdfqcxmx392 mm[Hg]Blood Pressure Waborerqr98 mm[Hg]07/22/2024 09:05 AM Body Ysvwly000 [lb_av]Body Mass Index34.41 kg/m207/23/2024 09:48 XUBoqqrgzrlcy11 [degF]Oxygen Gaffygznzn19 %Respiratory Rate18 /minHeart Rate93 /minBlood Pressure Yxwyruug232 mm[Hg]Blood Pressure Samxhlkyr19 mm[Hg]07/23/2024 10:39 AM Body Jccwjf489.7 [lb_av]Body Mass Index34.37 kg/m207/24/2024 10:17 AMBody Weight 268.2 [lb_av]Body Mass Index34.43 kg/m207/24/2024 12:20 HUSrdjkisbmtm66.9 [degF] 07/24/2024 12:19 PMOxygen Vpdlvbvekm98 %Respiratory Rate18 /minHeart Rate83 /min Blood Pressure Lygbfpkh858 mm[Hg]Blood Pressure Zfyoljjbf29 mm[Hg]07/25/2024 09:59 LBSzfcmogopau54.3 [degF]Oxygen Nypqrhiuiv24 %Respiratory Rate16 /minHeart Rate62 /minBlood Pressure Cynliqiy912 mm[Hg]Blood Pressure Nqpcbyaba14 mm[Hg] Body Vlxpru578.4 [lb_av]Body Mass Index34.33 kg/m207/26/2024 09:27 AMTemperature 98.2 [degF]Oxygen Onsgtfzmjq64 %Respiratory Rate18 /minHeart Rate79 /minBlood Pressure Xkknrzxi047 mm[Hg]Blood Pressure Nyunhcyxr95 mm[Hg]07/26/2024 09:47 AM Body Huzdei974.6 [lb_av]Body Mass Index34.61 kg/m207/27/2024 10:38 AMBody Weight 266.8 [lb_av]Body Mass Index34.25 kg/m207/27/2024 12:00 MFGtghfvzelum03.8 [degF] Oxygen Jtijsabzhk14 %Respiratory Rate18 /minHeart Rate86 /minBlood Pressure Lmdmgduc218 mm[Hg]Blood Pressure Yqhymvvjy02 mm[Hg]07/28/2024 10:18 AM Emtnrjuhkul71.5 [degF]Oxygen Atpyugomud23 %Respiratory Rate18 /minHeart Rate84 /minBlood Pressure Xozahazv457 mm[Hg]Blood Pressure Gmhdpivdo83 mm[Hg]07/28/2024 10:14 AMBody Wvzuio745 [lb_av]Body Mass Index34.15 kg/m207/29/2024 10:09 AM Fkawqyteuwz59.4 [degF]Oxygen Baajkirojj03 %Respiratory Rate16 /minHeart Rate75 /minBlood Pressure Pzaindue267 mm[Hg]Blood Pressure Wjmajzkoa87 mm[Hg]07/29/2024 10:51 AMBody Vgpmkr381 [lb_av]Body Mass Index34.53 kg/m207/30/2024 10:36 AMBody Fcqzup086 [lb_av]Body Mass Index34.53 kg/m207/30/2024 10:37 HXTvbupkkrzbj11.1 [degF]Oxygen Hopqhaaxwd14 %Respiratory Rate16 /minHeart Rate87 /minBlood Pressure Tunncarc634 mm[Hg]Blood Pressure Ydbrvnztn31 mm[Hg]07/31/2024 07:43 AM Wnqvvttxmpb57.3 [degF]Oxygen Djbnydexis18 %Respiratory Rate16 /minHeart Rate85 /minBlood Pressure Vsavvlgo877 mm[Hg]Blood Pressure Hspliardo45 mm[Hg]07/31/2024 09:34 AMBody Orriej211.8 [lb_av]Body Mass Index34.51 kg/m208/01/2024 07:46 AM Ealxnrehyyy53.5 [degF]Oxygen Nlaqutrwfv24 %Respiratory Rate20 /minHeart Rate93 /minBlood Pressure Izhzqnfi043 mm[Hg]Blood Pressure Xbxrufsql47 mm[Hg]08/01/2024 09:47 AMBody Tcqhep799 [lb_av]Body Mass Index34.41 kg/m208/02/2024 08:28 AM Blxyfjzlauj41.3 [degF]Oxygen Cuqfcqssor27 %Respiratory Rate20 /minHeart Rate84 /minBlood Pressure Wvryskgt761 mm[Hg]Blood Pressure Whrcblprt74 mm[Hg]08/02/2024 09:23 AMBody Qpsvgt681 [lb_av]Body Mass Index34.41 kg/m208/03/2024 08:49 AM Ebcpxbwvfnx01.3 [degF]Oxygen Wxwitvqnjh82 %Respiratory Rate16 /minHeart Rate68 /minBlood Pressure Qrlvibvd964 mm[Hg]Blood Pressure Tbhmrxpqz63 mm[Hg]08/03/2024 09:20 AMBody Wfrmud100 [lb_av]Body Mass Index34.28 kg/m208/04/2024 09:05 AMBody Vuxidi206 [lb_av]Body Mass Index34.41 kg/m208/04/2024 09:06 UJZjgngbmsxjz95.8 [degF]Oxygen Cliickuljo50 %Respiratory Rate16 /minHeart Rate68 /minBlood Pressure Mnqnwfgs293 mm[Hg]Blood Pressure Avirzydmc80 mm[Hg]08/05/2024 08:22 AM Hxckvccgbwz75.2 [degF]Oxygen Kwvymjtzob69 %Respiratory Rate16 /minHeart Rate75 /minBlood Pressure Tpoqzrhn236 mm[Hg]Blood Pressure Qxnskvieo87 mm[Hg]08/05/2024 08:21 AMBody Pnqcyl216 [lb_av]Body Mass Index34.28 kg/m208/06/2024 10:44 AM Ocwiflomcmw78 [degF]Oxygen Jzemtdnjdu98 %Respiratory Rate18 /minHeart Rate79 /minBlood Pressure Rdfgglmn198 mm[Hg]Blood Pressure Uonyxcdmb14 mm[Hg]08/06/2024 10:40 AMBody Negmve122 [lb_av]Body Mass Index34.28 kg/m208/07/2024 10:23 AM Wtekdjfpwjc45 [degF]Oxygen Euedehyktb27 %Respiratory Rate18 /minHeart Rate65 /minBlood Pressure Dyvwqqyl210 mm[Hg]Blood Pressure Opwpskolf02 mm[Hg]08/07/2024 12:51 PMBody Tzdjmz339.2 [lb_av]Body Mass Index34.43 kg/m208/08/2024 08:24 AM Ihsfwglmdak06.1 [degF]Oxygen Ldjmphexxm45 %Respiratory Rate17 /minHeart Rate74 /minBlood Pressure Jzgaghvg530 mm[Hg]Blood Pressure Pxweexksh95 mm[Hg]08/08/2024 07:25 AMBody Lzgnza563.4 [lb_av]Body Mass Index34.33 kg/m208/09/2024 08:43 AM Outhkkonoeg01.2 [degF]Oxygen Kqflfzneid48 %Respiratory Rate16 /minHeart Rate95 /minBlood Pressure Ctvfodin348 mm[Hg]Blood Pressure Kgvtdxndd72 mm[Hg]08/09/2024 10:06 AMBody Yohnko162 [lb_av]Body Mass Index34.15 kg/m208/10/2024 09:32 AM Ycvfiseewrm97.5 [degF]Oxygen Ojcxcueoug31 %Respiratory Rate16 /minHeart Rate75 /minBlood Pressure Srxkczhk682 mm[Hg]Blood Pressure Bxxgagjng55 mm[Hg]Body Lugfls107 [lb_av]Body Mass Index34.28 kg/m208/11/2024 07:56 VCMzluzuvvqeq79.5 [degF]Oxygen Honblftsda71 %Respiratory Rate16 /minHeart Rate83 /minBlood Pressure Zfpblscc356 mm[Hg]Blood Pressure Wnxeqefck96 mm[Hg]08/11/2024 09:49 AM Body Pcvebq834 [lb_av]Body Mass Index34.28 kg/m2 Social History No smoking Hx information available Encounters Type CPT Code Date Location Provider Indication s encounter report 07/18/2024 10:13 Arlette FAUSTINencounter janchz1907/18/2024 02:30 PM - 08/11/2024 01:14 Leonidas Ochoa MD01 Advance Directives Directive Description Verification Date Supporting Document(s) Other Directive
--- OUTSIDE RECORDS SUMMARY | 2025-04-09 14:18 | XMS_ITS | Clinical Summary ---
Author Organization [facility] Address [address] [place] [address] Care Team Providers Care Bus Dispatcher [place] Name Role Phone Brenda Ochoa MD Primary Care Provider + Dilia Chopra APRN, FAMILY COACH Unavailable [phone] Allergies Active AllergyReactionsCriticalityNoted PnozYxoipuqkJrxinlxfsjIydrg57/02/2017 Mouth sores MxpetyrwnGtumrfxv57/10/1195HhnivrnxgvYujejkdzzPjde75/02/2008 Other Reaction(s): Unknown Patient reports fainting HagigfpmpnesIiosbzp37/18/2006 Other Reaction(s): Intolerance-Can't Take Bumps on tongue PN: LW Reaction: mouth sores Medications MedicationSigDispense QuantityRefillsLast FilledStart DateEnd DateStatus valsartan (DIOVAN) 160 mg oral tablet Take 1 tablet (160 mg) by mouth Daily.5Active simvastatin (ZOCOR) 40 mg oral tablet 1 tab(s) Orally daily in pm for 90 daysActive apixaban (ELIQUIS) 5 mg oral tablet Take 1 tablet (5 mg) by mouth twice a day.5Active albuterol-budesonide (AIRSUPRA) 90-80 mcg/actuation Inhl HFAA Inhale 2 puffs twice a day as needed.5Active acetaminophen (TYLENOL) 500 mg oral tablet Take 2 tablets (1,000 mg) by mouth every 6 (six) hours as needed.07/18/2024 Active CONTOUR NEXT TEST STRIPS Strip testing strips by [facility].(Non-Drug; Combo Route) route four times a day.4Active atorvastatin (LIPITOR) 20 mg oral tablet Take 1 tablet (20 mg) by mouth Daily.09/06/2023ctive carvedilol (COREG) 12.5 mg oral tablet Take 1 tablet (12.5 mg) by mouth twice a day.07/18/2024tive empagliflozin (JARDIANCE) 10 mg oral tablet Take 1 tablet (10 mg) by mouth Daily.4Active furosemide (LASIX) 20 mg oral tablet Take 1 tablet (20 mg) by mouth Daily.5Active insulin aspart, pen, (NOVOLOG) 100 units/mL SubQ pen Inject 10 Units under the skin.06/30/2024tive LANTUS SOLOSTAR U-100 INSULIN 100 unit/mL (3 mL) SubQ pen Inject 12 Units under the skin Daily.07/24/2024tive pantoprazole (PROTONIX) 40 mg oral delayed release tablet Take 1 tablet (40 mg) by mouth Daily.4Active BD INSULIN PEN NEEDLE UF 31 gauge x 5/16 needle USE FOR ADMINISTERING INSULIN FOUR TIMES DAILY08/14/2024tive XARELTO 15 mg oral tablet 06/27/2024tive Active Problems ProblemNoted DateDiagnosed DateASHD (arteriosclerotic heart disease)08/21/2024 Acute combined systolic and diastolic CHF, NYHA class Diabetes ufuckozf20/25/2025Shoulder pain08/21/2024Viral pneumonia, wmcuheqexny83/24/2025 Acute embolism and thrombosis of left tibial vein07/18/2024Polyneuropathy, adlovngudaq38/22/2025Pneumonia, unspecified xiszsrau46/22/2025enign prostatic hyperplasia without lower urinary tract wmnjpacr43/21/2025therosclerotic heart disease of [place] coronary artery without angina /21/2025History of cbrhcdo5907/17/2024Unspecified combined systolic (congestive) and diastolic (congestive) heart jdqkeqd7307/17/2024Obstructive sleep apnea (adult) (pediatric) 07/17/2024Type 2 diabetes mellitus without gczzjkqerezlp37/21/2025Hypoglycemia, uvezusqfpmn38/21/2025Slurred joxmau6807/17/2024Nondisplaced fracture of distal end of right osxcgg2302/25/2024Medial knee pain, right02/25/2024scending aorta irmkiwcfzf61/03/2022 Overview (08/21/2024): 4.7 cm May 2021 4.5 cm May 2022 4.7 cm May 2023 Atrial xodovwxgbyam80/08/2021Heart failure with reduced ejection fraction 10/04/2020denomatous colon polyp01/29/2017 Overview (08/21/2024): Colonoscopy 12/2016 polyps repeat in 3 years Colonoscopy 03/2020 polyp, repeat in 5 years Morbid obesity with body mass index of 40.0-44.9 in adult07/03/2016Obstructive sleep apnea05/17/2014Chronic cough04/01/2014Calcific tendinitis of right /17/2013Other chronic allergic hxnyzbfmayjocf36/04/2012Overactive ggfxkgi2406/25/2011Regular zdhcdyjeezc46/24/0073Fftepynbgi77/24/2009Hiatal hernia 11/14/2006BPH without urinary acjrcmrohvu04/19/2006Essential hypertension 08/15/2005Esophageal ojkxqs7708/15/2005 Overview (08/21/2024): EGD 07/2014 normal Tyrqugcbltpupj41/19/2006Type 2 diabetes mellitus with diabetic neuropathy, with long-term current use of mfncner1008/08/2004 Immunizations ImmunizationAdministration DatesNext GyeL2Z6 Eknhbfdwh69/18/2009Hep B Adult 03/28/1999,11/21/1998,09/05/1998Influenza Adjuvanted (Fluad Quadrivalent PF) 01/25/2023,01/09/2021,02/15/2020Influenza Adjuvanted (Fluad Trivalent PF) 01/14/2024,01/06/2019,02/20/2018,01/01/2017Influenza High Dose (Fluzone Quadrivalent PF)02/25/2022Influenza Iuiaxkngabq51/26/2014,04/15/2009,02/25/2008, 02/13/2005,04/25/2004,03/30/2003,02/24/2001,03/29/2000,03/28/1999,03/22/1998, 02/17/1997,03/01/1995Influenza high dose (Fluzone Trivalent PF)02/13/2016, 02/08/2015Influenza split virus (Fluzone Quadrivalent PF)01/26/2014Influenza split virus ihneccxyh99/01/2013,02/19/2012,01/19/2011,02/08/2010,01/24/2009, 02/26/2008,03/10/2007,05/03/2006,02/03/2005Moderna 12+ Yrs Bivalent COVID Vaccine (Blue cap)02/25/2022Moderna 12+ Yrs mRNA Spikevax COVID Vaccine Seasonal 01/23/2024,02/04/2023neumococcal BUZ1087Pneumococcal Polysaccharide BTMP5295,08/02/2004RSV Bivalent PF (Abrysvo)02/04/2023SPIKEVAX (Moderna) 12+ Yrs Monovalent COVID Vaccine (registered occupational therapist)10/05/2021,03/05/2021,07/14/2020, 06/13/2020Td adult absorbed PF (2 Lf)06/22/2014,09/05/1998,04/28/1989Tdap 06/22/2014,10/04/2005Zoster Live02/19/2012Zoster Txskrbrmsez39/14/2018, 09/25/2017 Social History Tobacco UseTypesPacks/DayYears UsedDateSmoking Tobacco: NeverSmokeless Tobacco: Never Tobacco Cessation:Counseling Given: Not Answered Alcohol UseStandard Drinks/WeekCommentsNot Asked0 (1 standard drink = 0.6 oz pure alcohol)1 glass of wine every 2-3 weeksSex and Gender InformationValueDate RecordedSex Assigned at BirthNot on fileLegal SlpPsft8007/30/2024 11:19 AM CDT Gender IdentityNot on fileSexual OrientationNot on file Plan of Treatment Health MaintenanceDue DateLast CwqjZjvyuxzhRckwcxwmthv14/25/1951Creatinine 1950Eye Exam1950 6006CbdV7G09/25/1950Microalbumin Q12 Month1949 Depression Assessment (PHQ-2)1950Yearly Review of HCD12/22/1999Adult Tetanus Rakhatj57/24/313347/, 06/22/2014, 10/04/2005, Additional history existsMedicare Wellness Visit/01/2024, 04/27/2022, 04/14/2021, Additional history existsCOVID-19 Vaccine ( season)2024 01/23/2024, 02/04/2023, 02/25/2022, Additional history existsInfluenza Vaccine (#1)5001/14/2024, 01/25/2023, 02/25/2022, Additional history exists Pneumococcal 50+ CdkxnAzopqpmky44/17/2016, 02/08/2015, 08/02/2004Hepatitis C HnaubcdmzQipsxjrot10/25/2017Zoster IwkyjgmOzqhhqjwa94/14/2018, 09/25/2017, 02/19/2012RSV NqkspiuqPoaxihptv98/09/2023Meningococcal B VaccineAged OutNo longer eligible based on patient's age to complete this topic Insurance * Guarantor: Lionel CarlosAccojen TypeRelation to PatientDate of BirthPhone Billing AddressPersonal/BsozogXmvj73/25/1951 [address] [place] [address] Care Teams Team MemberRelationshipSpecialtyStart DateEnd Date Brenda Ochoa MD [address] [place] [address] [facility]07/30/24 Dilia Chopra, NURSE MIDWIFE, FAMILY COACH [address] [facility] [address] [place] [address] [facility]07/30/24
--- OUTSIDE RECORDS SUMMARY | 2025-04-09 14:18 | XMS_ITS | Patient Health Record ---
Author Organization [facility] Billing Info Address [address] [place] [id number] Phone [phone] Care Team Providers Care Medical Records Manager Name Role Phone ALEX CHANCE MD [phone] Allergies Allergen (clinical drug ingredient) Drug/Non Drug Allergy documented on EMR Reaction Allergy Type Onset Date Status tamsulosin Flomax Unknown Drug Allergy ActivetetracyclineTetracycline HClUnknownDrug AllergyActive Reason For Referral No Information Medications Medication SIG (Take, Route, Frequency, Duration) Notes Start Date End Date Diagnosis (ICD Code) Status MetFORMIN HCl ER 500 mg Tabl et Extended Release 24 Hour 1 tablet with evening meal Orally Once a day; Duration: 90 day(s) 08/12/2013Diabetes mellitus without mention of complication, type II or unspecified type, not stated as uncontrolled (ICD_9 - 250.00)ActiveSimvastatin 40mg Tablet1 tab(s) Orally daily in pm; Duration: 90 daysPure hypercholesterolemia (ICD_9 - 272.0)ActiveMulti Vitamin MensActiveB Complex ActiveNaproxen 500 mg Tablet1 tablet as needed Orally every 12 hrs10/14/2013 Rotator cuff tear (ICD_9 - 840.4)ActiveLisinopril 5 MG Tablet1 tablet Orally Once a day; Duration: 30 day(s)09/10/2013Essential hypertension (ICD_9 - 401.9) ActiveCetirizine HCl 10 mg Tablet1 tablet as needed Orally Once a day; Duration: 90 day(s)11/04/2013llergic rhinitis (ICD_9 - 477.9)ActiveGlipiZIDE 10 MG Tablet 1 tablet Orally Once a day; Duration: 30 day(s)03/11/2014ctiveAspir-81 81 MG Tablet Delayed Release1 tablet Orally Once a day; Duration: 30 day(s)08/12/2013 Diabetes mellitus without mention of complication, type II or unspecified type, not stated as uncontrolled (ICD_9 - 250.00)ActiveLisinopril 10 MG Tablet1 tablet Orally Once a day; Duration: 90 day(s)11/04/2013llergic rhinitis (ICD_9 - 477.9)ActiveCalcium Citrate + T5NienjzZwmtppvale 20mgActiveGlipiZIDE 10 MG Unspecified1 tablet Orally Once a day; Duration: 30Active Immunizations Status Vaccine Route Administration Date Visit Date Comments Administered FLU (Past vaccine of unknown type) Unknown 07/22/2013 Social History Sex Observation Social History Observation Description Sex Observation Male Problems Problem Type SNOMED Code ICD Code Dates Problem Status W/U Sta tus Risk Notes Problem Type II diabetes mellitus without complication (508385819) Diabetes mellitus without mention of complication, type II or unspecified type, not stated as uncontrolled (250.00) Added On:09/10/2013 Active confirmed ProblemEssential hypertension (15544043)Essential hypertension (401.9) Added On:09/10/2013 ActiveconfirmedProblemErectile dysfunction (785606721)Erectile dysfunction (607.84) Added On:09/10/2013 ActiveconfirmedProblemShoulder pain (21759343)Shoulder pain (719.41) Added On:07/22/2013 Activeconfirmed Plan Of Treatment No Information Insurance Providers Payer Name Payer Address Payer Phone Subscriber Number Group Number Insured Name Patient Relationship to Insured Coverage Start Date Coverage End Date [facility] [address] [place], [place] [id number] [phone] [id number] [place] Carloself - patient is the [id number] Medical (General) History Medical History History ICD Code Migraine headaches High blood pressureHigh cholesterolArthritisHiatal herniaDMBPH- LUTsSurgical History Surgery Date(Month/Year) septoplasty hernia repairshoulder surgeryprostateright shoulder arthroscopic rotator cuff repair/ Dr. Chance08/26/2013Hospitalization History Reason Date(Month/Year) SEE ABOVE for chest pain was negative06/2013
--- OUTSIDE RECORDS SUMMARY | 2025-04-09 14:19 | XMS_ITS | Clinical Summary ---
Author Organization [facility] Address [address] [place] [address] Care Team Providers Care Food Service Steward Name Role Phone Elijah Fernandez MD Primary Care Provider [phone] Allergies Active AllergyReactionsCriticalityNoted DateCommentsDuloxetineOther - Describe In Comment Field06/28/2016 Mouth sores OvkyouvofCvvydhle05/10/6392QmvyshvhigQreqjvjZpis46/02/2008 Patient reports fainting TetracyclineIntolerance-Can't Take08/14/2005 Bumps on tongue PN: LW Reaction: mouth sores Medications MedicationSigDispense QuantityRefillsLast FilledStart DateEnd DateStatus pen needle (BD Insulin Pen Needle UF) 31 gauge x 5/16 (disposable insulin pen needle) Indications:Type 2 diabetes mellitus with diabetic neuropathy, with long-term current use of insulin (HC)USE FOR ADMINISTERING INSULIN 400 Each 5Active apixaban (Eliquis) 5 mg tablet Indications:Atrial fibrillation, unspecified type (HC)Take 1 Tablet (5 mg) by mouth two times daily. 180 Tablet 5Active Lantus Solostar U-100 Insulin 100 unit/mL (3 mL) pen Indications:Type 2 diabetes mellitus with diabetic neuropathy, with long-term current use of insulin (HC)Inject 10 units subcutaneous before bedtime. 15 mL 5Active insulin aspart (U-100) 100 unit/mL (3 mL) pen Indications:Type 2 diabetes mellitus with diabetic neuropathy, with long-term current use of insulin (HC)Inject 6 units subcutaneous three times daily before meals. Plus correction scale. Up to 36 units daily 15 mL 5Active atorvastatin 20 mg tablet Indications:Hyperlipidemia, unspecified hyperlipidemia typeTake 1 Tablet (20 mg) by mouth at bedtime. 90 Tablet 5Active empagliflozin 10 mg tablet Indications:Type 2 diabetes mellitus with diabetic neuropathy, with long-term current use of insulin (HC)Take 1 Tablet (10 mg) by mouth once daily. 90 Tablet 5Active pantoprazole 40 mg delayed-release tablet Indications:Chronic GERDTake 1 Tablet (40 mg) by mouth once daily before a meal. 90 Tablet 5Active polyethylene glycol-electrolyte 236-22.74-6.74 -5.86 gram suspension Indications:Diarrhea, unspecified typeDrink 2 liters (half the bottle) the day before the procedure and 2 liters (half the bottle) 6 hours prior to procedure. 4000 mL 5Active FreeStyle Dulce 3 Plus Sensor for continuous blood glucose monitor (CGM) Indications:Type 2 diabetes mellitus with diabetic neuropathy, with long-term current use of insulin (HC)To be used to read blood sugars, follow stitcher utility directions. Change each sensor every 15 days 6 Each tive FreeStyle Dulce 3 [place] for continuous blood glucose monitor (CGM) Indications:Type 2 diabetes mellitus with diabetic neuropathy, with long-term current use of insulin (HC)To be used to read blood sugars follow stitcher utility directions. 1 Each 5Active blood sugar diagnostic (Contour Next Test Strips) strip Indications:Type 2 diabetes mellitus with diabetic neuropathy, with long-term current use of insulin (HC)USE TO TEST FOUR TIMES DAILY 400 Each 5Active carvediloL (COREG) 12.5 mg tablet Indications:Longstanding persistent atrial fibrillation (HC)Take 1 Tablet (12.5 mg) by mouth two times daily. 180 Tablet 5Active valsartan (DIOVAN) 160 mg tablet Indications:Essential hypertensionTake 1 Tablet (160 mg) by mouth once daily. 90 Tablet 5Active furosemide (Lasix) 20 mg tablet Indications:Bilateral lower extremity edemaTake 1 Tablet (20 mg) by mouth once daily in the morning. 90 Tablet 5Active ondansetron (ZOFRAN ODT) 4 mg disintegrating tablet Indications:NauseaPlace 1 Tablet (4 mg) on the tongue every 8 hours if needed for Nausea/Vomiting. 30 Tablet 5ActiveHospital, Clinic, or Other Facility Administered Medication Ordered DoseRouteFrequencyStart DateEnd DateStatus triamcinolone acetonide (KENALOG) injection 40 mg Indications:Hamstring tendinitis of right thigh40 mgIArticONE TIME03/23/2025 03/23/2025Ended Active Problems ProblemNoted DateDiagnosed DateNondisplaced fracture of distal end of right kvowky244Ascending aorta usfqiefiud89/03/2022 Overview (12/09/2023): 4.7 cm May 2021 4.5 cm May 2022 4.7 cm May 2023 Heart failure with reduced ejection faopatlt35/08/2021trial fibrillation 1Adenomatous colon polyp01/29/2017 Overview (01/13/2025): Colonoscopy 12/2016 polyps repeat in 3 years Colonoscopy 03/2020 polyp, repeat in 5 years Colonoscopy 12/2024 2-TA, repeat in 5 years Morbid obesity with BMI of 40.0-44.9, adult07/03/2016OSA 05/04/2014 AHI-48 05/17/2014Calcific tendinitis of right lsmxfojd64/17/2013Other chronic allergic hlgpykutbfegrs50/04/2012Overactive zgfrgvo1906/25/2011Regular astigmatism 10/20/20087490Smevaligsv13/24/2009HIATAL UVYMXO1411/14/2006Unspecified essential artblcjjnwxg77/19/2006Other and unspecified uynjigsgbcxfvi71/19/2006Esophageal nbaymj4408/15/2005 Overview (08/02/2014): EGD 07/2014 normal BPH without urinary eegjqjsxkaa36/19/2006Type 2 diabetes mellitus with diabetic neuropathy, with long-term current use of bddobfd2208/08/2004Acute combined systolic and diastolic CHF, NYHA class 3ASHD (arteriosclerotic heart disease) Resolved Problems ProblemNoted DateDiagnosed DateResolved DateMedial knee pain, right02/25/2024 10/02/2024enign cyst of right gzatfn06/ Overview (04/06/2021): Cyst found on kidney at emergency room -- plan follow up CT March 2022. New onset atrial xeoogyhxwtqa421Chronic cough04/01/2014 0194Urrorvcinj64Right knee painTinea pedisBursitis of hip, right, greater mlbztugcmn70/23/2012 04/08/2019Esophageal ulcerFx foot bone NEC-eqjfnn1109/26/2010 07/02/20183059Cegodr17/24/Vitreous Hemorrhage-R007/09/ Memory lossMajor depressive disorder, recurrent episode, severe, without mention of psychotic mdcifdwb41Generalized anxiety bbaddmpo58Headache(784.0) Encounters DateTypeDepartmentCare JtfsKojejzllqwt67/12/2025 12:45 PM CSTOffice [facility] [address] [place] [address] Elijah Fernandez MD Diabetes; Nausea (Nausea and diarrhea started when patient got here)04/09/2025 Kttoov1703/23/2025 11:30 AM CSTAncillary Procedure [facility] [address] [place] [address] 03/23/2025 10:40 AM CSTOffice Visit [facility] [address] [place] [address] Joseph Martinez, Knee Pain/problem (Right knee)03/23/2025Telephone [facility] [address] [place] [address] Mary Jo Mix MD Testing (Needs follow up US for thyroid nodule)03/23/20259243Ramkci68/19/2025 Telephone [facility] [address] [place] [address] Elijah Fernandez MD Fcucnihr54/07/2025 11:15 AM CSTOffice Visit [facility] [address] [facility] [place] [address] Elijah Fernandez MD Nausea (Been going on since the end of December/Eating and drinking makes him sick to his stomach)03/05/20252114Wbftys81/04/2025Nurse Triage [facility] [address] [place] [address] Elijah Fernandez MD Cxlwsl6402/21/2025Refill [facility] [address] [place] [address] Elijah Fernandez MD Refill Request (Xarelto)02/20/2025Refill [facility] [address] [place] [address] Elijah Fernandez MD Refill Request (Valsartan)02/01/2025Refill [facility] [address] [place] [address] Elijah Fernandez MD Refill Request (carvediloL 12.5 mg tablet)01/12/2025Nurse Triage [facility] [address] [place] [address] Elijah Fernandez MD Abdominal Pain01/11/2025Orders Only [facility] [address] [place] [address] Elijah Fernandez MD 1 scan: (1-Ord) TYRVLJDFMB97/13/2025Lab Requisition [facility] [phone] Jori Siddiqui MD 01/08/2025 7:45 AM CDTOffice Visit [facility] [address] [place] [address] Jori Siddiqui MD 01/08/2025Nurse Triage [facility] [address] [place] [address] Elijah Fernandez MD Questionsfrom Last 3 Months Immunizations ImmunizationAdministration DatesNext DueAMB INFLUENZA IIV3 (AGE 65+ YRS) PF (Flu Clinic Only)02/20/2018COVID-19 VACCINE SPIKEVAX (MODERNA 50MCG/0.5ML) 12YO+ PFS 4COVID-19 vaccine (Moderna 100mcg/0.5mL) PF, MDV01/23/2024,02/04/2023, 02/25/2022,10/05/2021,10/05/2021,03/05/2021,03/05/2021,07/14/2020,07/14/2020, 06/13/2020,1COVID-19 vaccine (Moderna 50mcg/0.5mL) 12YO+ BIVALENT PF, MDV1Hepatitis B (Adult)03/28/1999,11/21/1998,09/05/1998Influenza A (H1N1), Inactivated (Age >=3 Years)04/15/2009Influenza Virus, Unspecified 01/14/2024,01/25/2023,01/09/2021,02/15/2020,01/06/2019,02/20/2018,01/01/2017, 07/22/2013,01/27/2013,02/19/2012,01/19/2011,02/08/2010,04/15/2009,01/24/2009, 02/25/2008,03/10/2007,05/03/2006,02/13/2005,04/25/2004,04/25/2004,03/30/2003, 03/30/2003,02/24/2001,02/24/2001,03/29/2000,03/29/2000,03/28/1999,03/28/1999, 03/22/1998,03/22/1998,02/17/1997,02/17/1997,03/01/1995Influenza, High-dose Qcowoavjxzl86/24/2025,01/14/2024,02/13/2016,02/08/2015Influenza, High-dose Quadrivalent Uveiakdycps08/30/2022Influenza, IIV3 (Age >=3 years)01/27/2013, 02/19/2012,01/19/2011,02/08/2010,01/24/2009,02/26/2008,03/10/2007,05/03/2006, 02/03/2005Influenza, XMS985/Influenza, Inactivated AIIV4 (Age 65+ Years) Preserv Free01/25/2023,01/09/2021,02/15/2020Influenza, Inactivated IIV3 (Age 65+ Years) Preserv Free01/14/2024,01/06/2019,01/01/2017Pneumococcal Poly,23-Valent (Pneumovax)02/13/2016,08/02/2004Pneumococcal conj 10-Valent NON-US VACCINE 02/13/2016,02/08/2015,08/02/2004Pneumococcal conj 13-Valent (Prevnar 13) 02/08/2015RSV, Bivalent Vaccine Reconstituted (Abrysvo 120MCG/0.5mL)02/04/2023 Rsv Unspecified Unknown Dose Epnqldo2302/04/2023Td (Age >=7 Years)06/22/2014, 09/05/1998,04/28/1989Tdap06/22/2014,10/04/2005Tuberculin Skin Test, Unspecified 08/31/2008Zoster (Shingrix-RZV, recombinant)12/10/2017,09/25/2017Zoster (Zostavax-ZVL, live)02/19/2012Zoster, Unspecified Tghatkepbqq59/14/2018, 09/25/2017,02/19/2012 Family History Medical HistoryRelationNameCommentsNo Known ProblemsBrotherCancer-gfmkcQhlnxy59 Heart DiseaseFatherHypertensionFatherCancerMotherStomachDiabetesSister 15 yrs youngerUnknownSister 216 months youngerRelationNameStatusCommentsBrotherFather MotherSister 1Sister 2 Social History Tobacco UseTypesPacks/DayYears UsedDateSmoking Tobacco: NeverPassive Smoke Exposure: YesSmokeless Tobacco: Never Tobacco Cessation:Counseling Given: Yes Comments:2nd hand smoke exposure for 12+ yrs Alcohol UseStandard Drinks/WeekCommentsYes0 (1 standard drink = 0.6 oz pure alcohol)very rarely (1-2 drinks every 3 weeks, prior history of heavy alcohol usePHQ-2AnswerDate RecordedPHQ-2 TOTAL BIVJQ666Social ConnectionsAnswer Date RecordedDo you often feel lonely or isolated from those around you?4 03/05/2025lcohol UseAnswerDate RecordedHow often do you have a drink containing alcohol?How many drinks containing alcohol do you have on a typical day when you are drinking?How often do you have five or more drinks on one occasion?Financial Resource StrainAnswerDate Recorded Difficulty of Paying Living Tzxadapc570/07/2025Difficulty of Paying Living ExpensesNot on file03/05/2025Food InsecurityAnswerDate RecordedDo you worry your food will run out before you are able to buy more?Transportation NeedsAnswerDate RecordedDoes lack of transportation keep you from medical appointments?Does lack of transportation keep you from work, meetings or getting things that you need?Housing StabilityAnswerDate Recorded What is your housing situation today?UtilitiesAnswerDate RecordedDo you have trouble paying for utilities (for example, heat, electricity, water, phone)?Sex and Gender InformationValueDate RecordedSex Assigned at BirthNot on fileLegal MmzScsk5305/12/2012 6:44 AM CSTGender IdentityNot on file Sexual OrientationNot on fileOccupationIndustryJob Start DateJob End Date DisabledNot on fileNot on fileNot on file Last Filed Vital Signs Vital SignReadingTime TakenCommentsBlood Gocmfhyy878/7004/09/2025 1:06 PM DRY FINISHER Cvrmk135104/09/2025 12:55 PM BUNCamvcyoklgt45.5 ??C (97.7 ??F)12/09/2023 10:18 AM CDTRespiratory Bnjt799606/07/2020 2:12 PM CSTOxygen Nalmzizjby25%04/09/2025 12:55 PM CSTInhaled Oxygen Concentration--Kmdqce813.1 kg (271 lb 6.4 oz)03/05/2025 11:07 AM QNSOkbabh630.3 cm (5' 11.38)10/02/2024 11:19 AM CDTBody Mass Index 37.45010/02/2024 11:19 AM CDT Plan of Treatment DateTypeDepartmentCare Team (Latest Contact Info)Gjqfnbxgufm73/03/2026 10:30 AM CSTOffice Visit [facility] [address] [place] [address] Christopher Tang MD [address] [facility] [address] [place], [place] [address] NamePriorityAssociated DiagnosesDate/TimeSURGICAL PROCEDURE (TYPE PROCEDURE DESCRIPTION BELOW) Diarrhea, unspecified type Health MaintenanceDue DateLast DoneCommentsTetanus , 06/22/2014, 10/04/2005, Additional history existsCOVID-19 vaccine series (2024- season), 01/23/2024, 01/23/2024, Additional history existsBMI (ht and wt on same day) for age 18+/09/2024, 12/23/2023, 12/09/2023, Additional history existsDepression screening for age 12+10/02/2025 10/02/2024, 09/06/2023, 09/06/2023, Additional history existsMedicare Wellness for age 65+/09/2024, 09/06/2023, 04/27/2022, Additional history existsLipids for age 45-7512//06/2023, 02/20/2023, 11/20/2022, Additional history existsColonoscopy through age 7509/, 01/08/2025, 01/08/2025, Additional history existsHepatitis B series for 19+ Zkowchvaa21/30/1999, 11/21/1998, 09/05/1998Pneumococcal series for age 50+ Ykmisvfgd18/17/2016, 02/13/2016, 02/08/2015, Additional history existsHepatitis C screening for age 18-78Dxrkscafx48/25/2017Zoster (shingles) series for age 50+ Sqssxhrkn85/14/2018, 09/25/2017, 02/19/2012RSV vaccine for adults or Xkrksdtma10/09/2023, 02/04/2023Influenza PwyhassEgvcbsrmq37/24/2025, 01/14/2024, 01/14/2024, Additional history exists Procedures Procedure NamePriorityDate/TimeAssociated DiagnosisCommentsHEMOGLOBIN A1C MONITORING (POCT)Hxybrpn3804/09/2025 12:42 PM DRY FINISHER Type 2 diabetes mellitus with diabetic neuropathy, with long-term current use of insulin (HC) XR KNEE WB 3 VIEWS BILATERAL AND 1 VIEW UZUIUSkctnlh03/25/2025 11:39 AM DRY FINISHER Arthritis of knee LAB TRACKING FWNOTKkexsii36/12/2025 8:48 AM CDTPATH TISSUE WOSTQbjblne27/12/2025 8:48 AM CDT COLONOSCOPY ECAJUKHPRKAzpwpot31/12/2025 12:00 AM CDT Chronic diarrhea LIPID XKLPBZsuwoig34/03/2024 3:39 PM DRY FINISHER Hyperlipidemia, unspecified hyperlipidemia type ANTI JGUBlwguen63/25/2017 12:25 PM CDT Need for hepatitis C screening test from Last 3 Months or Most Recently Relevant to Health Maintenance Results * (ABNORMAL) POCT Hemoglobin A1C Monitoring (04/09/2025 12:42 PM DRY FINISHER)Component ValueRef RangeTest MethodAnalysis TimePerformed AtPathologist SignaturePOC HEMOGLOBIN A1C7.0(H)<6.0 % OF TOTAL HGB106/10/2024 1:04 PM CSTMESILLA VALLEY HOSPITALComment: Any point of care results exhibiting inconsistency with the patient's clinical status should be repeated using a different testing method. Specimen (Source)Anatomical Location / LateralityCollection Method / Volume Collection TimeReceived TimeBloodBLOOD SPECIMEN / UnknownQuest Collect / Unknown 04/09/2025 12:42 PM CST04/09/2025 12:42 PM DRY FINISHER Narrative Authorizing ProviderResult TypeResult StatusElijah Fernandez [facility] OKLAHOMA CITYHEMISTRYFinal ResultPerforming OrganizationAddressCity/State/ZIP CodePhone Number [facility] [address] [place] [address], [place] [phone] [facility] [address] [place] [address], * XR KNEE WB 3 VIEWS BILATERAL AND 1 VIEW RIGHT (03/23/2025 11:39 AM DRY FINISHER) Anatomical RegionLateralityModalityKNEES, KNEE RComputed RadiographySpecimen (Source)Anatomical Location / LateralityCollection Method / VolumeCollection TimeReceived Time03/24/2025 11:21 AM DRY FINISHER Narrative 03/24/2025 11:21 AM DRY FINISHER For Patients: As a result of the Cures Act, medical imaging exams and procedure reports are released immediately into your electronic medical record. You may view this report before your referring provider. If you have questions, please contact your health care provider. INDICATION: Arthritis of. TECHNIQUE: Four views of the right knee. COMPARISON: 01/09/2021. FINDINGS: Asymmetric demineralization of the right knee compared to the left. This is nonspecific but can be due to disuse or disorders such as complex regional pain syndrome. Minimal osteoarthritis in the right knee. Small knee joint effusion. Dictated by Pedro Lacy MD @ 03/24/2025 11:21:04 AM (Electronically Signed) Procedure Note Pedro Lacy MD - 03/24/2025 For Patients: As a result of the Cures Act, medical imagingexams and procedure reports are released immediately into your electronicmedical record. You may view this report before your referring provider.If you have questions, please contact your health care provider. INDICATION: Arthritis of. TECHNIQUE: Four views of the right knee. COMPARISON: 01/09/2021. FINDINGS: Asymmetric demineralization of the right knee compared to the left. Thisis nonspecific but can be due to disuse or disorders such as complexregional pain syndrome. Minimal osteoarthritis in the right knee. Smallknee joint effusion. Dictated by Pedro Lacy MD @ 03/24/2025 11:21:04 AM (Electronically Signed) Authorizing ProviderResult TypeResult StatusDustin Otf Martinez DOGENERAL IMAGING Final Result * LAB TRACKING EVENT (01/08/2025 8:48 AM CDT)Specimen (Source)Anatomical Location / LateralityCollection Method / VolumeCollection TimeReceived Time Other (Other)Client Collect / Zssyppo1601/08/2025 8:48 AM CDT01/09/2025 10:39 AM CDT Narrative Authorizing ProviderResult TypeResult StatusMarbillie Siddiqui MDLAB BILL ONLY Final ResultPerforming OrganizationAddressCity/State/ZIP CodePhone Number [facility] [address] [place] [address], * PATH TISSUE EXAM (01/08/2025 8:48 AM CDT)ComponentValueRef RangeTest Method Analysis TimePerformed AtPathologist SignatureCase ReportPathology Report ?Case: [id number] ? Authorizing Provider: ??Jori Siddiqui MD ?? Collected: ? 01/08/2025 0848 ? Ordering Location: ? [facility] ?Received: ?01/11/2025 1401 ? Pathologist: ? Will Tyler MD ? Specimens: ?? A) - Ascending Colon Biopsy ? B) - Ascending Colon Biopsy ? C) - Sigmoid Colon ? 01/12/2025 12:21 PM [facility]-CENTRAL LABORATORYFinal DiagnosisA) COLON, ASCENDING, POLYPECTOMIES: 1. Tubular adenomas (2) 2. Negative for high grade dysplasia 3. Per the colonoscopy report: ?? a. Polyp sizes: 2 mm - 3 mm ?? b. Resection: Complete ?? c. Retrieval: Complete B) COLON, ASCENDING, BIOPSY: 1. Normal colonic mucosa 2. Negative for microscopic, active, and chronic colitis C) COLON, SIGMOID, BIOPSY: 1. Colonic mucosa with nonspecific regenerative change (see comment) 2. Negative for chronic colitis 01/12/2025 12:21 PM [employer] [employer] [address] [facility]) These findings are nonspecific but, in this case, likely reflect changes related to the patient's diverticular disease; the differential diagnosis also includes resolving infectious or ischemic colitis, mild NSAID injury, or potentially a reaction to bowel preparation.01/12/2025 12:21 PM [facility]ORATORYClinical InformationMr. Carlos is a 74 y.o. undergoing surveillance sdlbyhsnkyf20/16/2025 12:21 PM [facility] BILOXICENTRAL LABORATORYGross DescriptionA) Received in formalin are 3 lee mucosal fragments ranging from 3 mm to 5 mm in greatest dimension, which are entirely submitted in one cassette. It is labeled with the patient's name and designatedascending colon, multiple polyps. B) Received in formalin are 7 lee mucosal fragments ranging from 2 mm to 4 mm in greatest dimension, which are entirely submitted in one cassette. It is labeled with the patient's name and designatedascending colon. C) Received in formalin are 6 lee mucosal fragments ranging from 3 mm to 7 mm in greatest dimension, which are entirely submitted in one cassette. It is labeled with the patient's name and designatedsigmoid colon. Tari Champion 01/11/2025 4:36 PM 01/12/2025 12:21 PM [facility] LABORATORYMicroscopic DescriptionThe final diagnosis is based on microscopic examination of appropriate sections of all specimens.01/12/2025 12:21 PM [facility] LABORATORYAdditional Information Interpreted at [facility] - [address] [place] [address] S[address] [facility] [address], [place] [address]/12/2025 12:21 PM [facility] LABORATORYSpecimen (Source)Anatomical Location / LateralityCollection Method / VolumeCollection TimeReceived TimeOtherSPECIMEN FROM COLON / Unknown 01/08/2025 8:48 AM CDT01/11/2025 2:01 PM CDTSpecimen (specimen) (Ascending Colon Biopsy)01/08/2025 8:48 AM CDT01/11/2025 2:01 PM CDTSpecimen (specimen)SPECIMEN FROM COLON / Pebyyua1001/08/2025 8:48 AM CDT01/11/2025 2:01 PM CDT Narrative Authorizing ProviderResult TypeResult StatusJori Siddiqui MD PATHOLOGY/CYTOLOGYFinal ResultPerforming OrganizationAddressCity/State/ZIP Code Phone Number [facility] [address] [place] [address], * COLONOSCOPY DIAGNOSTIC (01/08/2025 12:00 AM CDT) Narrative Authorizing ProviderResult TypeResult StatusElijha Fernandez MDGI PROCEDURE ORDFinal Result * (ABNORMAL) LIPID PANEL (03/31/2024 3:39 PM DRY FINISHER)ComponentValueRef RangeTest MethodAnalysis TimePerformed AtPathologist SignatureCHOLESTEROL, KGARL869<200 mg/dLQuest Cancer Genetics-Vy CorporationeHDL OCOGMNNNGFQ90> OR = 40 mg/dLQuest Cancer Genetics-Telespree SewaRYTFZJRKUNZQR663(H)<150 mg/dLQuest Aria Systemse LDL-DDOITZMBZQF14zw/dL (calc)[employer] DaleComment: Reference range: <100 Desirable range <100 mg/dL for primary prevention; <70 mg/dL for patients with CHD or diabetic patients with > or = 2 CHD risk factors. LDL-C is now calculated using the Jori-Noemy calculation, which is a validated novel method providing better accuracy than the Friedewald equation in the estimation of LDL-C. Jori SS et al. EMMA. 2013;310(19): 8684-2599 (http://education.Awesome.me/faq/LPD035) CHOL/HDLC RATIO2.6<5.0 (calc)[facility]-Telespree [facility] HospitaleNON HDL QDJVFTMNCWV77 <130 mg/dL (calc)[employer] [facility] HospitaleComment: For patients with diabetes plus 1 major ASCVD risk factor, treating to a non-HDL-C goal of <100 mg/dL (LDL-C of <70 mg/dL) is considered a therapeutic option. Specimen (Source)Anatomical Location / LateralityCollection Method / Volume Collection TimeReceived TimeBloodBLOOD SPECIMEN / Qdmrqdz0203/31/2024 3:39 PM DRY FINISHER 03/31/2024 3:48 PM DRY FINISHER Narrative Authorizing ProviderResult TypeResult StatusElijah Fernandez MDCHEMISTRYFinal ResultPerforming OrganizationAddressCity/State/ZIP CodePhone Number [facility] [address] [place] [address], [facility] [address] [place] [address] * ANTI HCV (11/20/2016 12:25 PM CDT)ComponentValueRef RangeTest MethodAnalysis TimePerformed AtPathologist SignatureHEPATITIS C ANTIBODYNon-Reactive Non-Yxynjvgj54/25/2017 8:43 PM CDTALINDIANA [facility] Specimen (Source)Anatomical Location / LateralityCollection Method / Volume Collection TimeReceived TimeBloodBLOOD SPECIMEN / UnknownVenipuncture / Nqubohb0211/20/2016 12:25 PM CDT11/20/2016 1:51 PM CDT Narrative [facility] - 11/20/2016 8:43 PM CDT Antibodies to HCV not detected; does not exclude the possibility of exposure to HCV. Authorizing ProviderResult TypeResult StatusKyshaquille Fernandez MDSEND OUTSFinal ResultPerforming OrganizationAddressCity/State/ZIP CodePhone Number [facility] [address] [place] [address], from Last 3 Months or Most Recently Relevant to Health Maintenance Insurance * Guarantor: Lionel Carlos TypeRelation to PatientDate of BirthPhone Billing AddressPersonal/CyyyzcZjlc18/25/1951 [address] [place] [address] * Guarantor: Lionel Carlos TypeRelation to PatientDate of BirthPhone Billing AddressNursing Fwh[address]20/25/1951 [address] [place] [address] * Guarantor: [employer]ICAccount TypeRelation to PatientDate of BirthPhoneBilling [id number]/01/2008 [address] [place] [address] Advance Directives TypeDate RecordedPatient RepresentativeExplanationPOLST05/04/20241036YTHFN4/25/2022 11:11 SYDNI 12/19/2021 * Full Code (Latest Code Status on File) Date ActivatedDate InactivatedComments10/04/2020 9:05 PM10/16/2020 2:59 PMQuestion AnswerCommentsCode Status Discussion:* Discussed * Full Code Date ActivatedDate InactivatedComments07/09/2007 1:19 AM07/21/2007 4:26 PM * Full Code Date ActivatedDate InactivatedComments07/08/2007 11:19 PM07/09/2007 1:19 AM Care Teams Team MemberRelationshipSpecialtyStart DateEnd Date Elijah [place] [address] [address] PCP - GeneralFamily Nhyvvjho01/19/14
[2025-04-09 14:25] VITALS: BP 151/104; PULSE 71; RESP 18; TEMP 36.2; O2SAT 96
[2025-04-09 14:27] VITALS: BP 151/104; PULSE 77; RESP 8; O2SAT 92
--- NOTE | 2025-04-09 14:36 | ED_ITS ---
HPI - General Adult General Time Seen by Provider: 14:36 Date Seen: 04/09/25 Chief complaint: Dizziness/Vertigo Stated complaint: Dizziness Time Seen by Provider: 04/09/25 14:32 Source: patient, RN notes reviewed and old records reviewed Mode of arrival: ambulatory Limitations: no limitations History of Present Illness HPI narrative: This 74-year-old male is brought in by EMS from [facility] after having a syncopal event. Patient was in clinic today and getting routine diabetic blood work done. He states he was fasting. He had not ate or drank a nything yet today, he is EKG from clinic is timed 1:40 p.m.. He notes he started having nausea when he was having the blood draw, progressed to dizziness. He does not remember being lowered to the ground by anyone. He states he has had these events in the past. He states this is just like what happened when he was in [facility]. He had an event like this in April, I did see him, have reviewed that note. He is chronically anticoagulated for atrial fibrillation, has had a history a DVT. He did not note any chest pain, had no sense of any heart irregularity, no S of breath. He states he feels better now than when he went into the clinic. EMS did place an IV, started 500 mL of normal saline and is almost complete. His EKG from clinic today showed atrial fibrillation with a PVC. Nonspecific ST changes, some artifact. Rate was 88 beats per minute. His history is significant for osteoarthritis, ascending aorta dilation, thyroid nodule, DVT, chronic anticoagulation, combined systolic and diastolic heart failure, NYHA class 3, chronic atrial fibrillation, insulin-dependent diabetes, hypertension, pneumonia. Related Data Previous Rx's ?Medication ?Instructions ?Recorded insulin aspart U-100 100 unit/mL 10 unit (0.1 mL) subc ut TIDWM #3 mL 07/16/24 (3 mL) subcutaneous pen acetaminophen 500 mg capsule 1,000 mg (2 x 500 mg) PO Q6H PRN 07/18/24 #90 caps albuterol 90 mcg-budesonide 80 2 inh inhalation BID WA N shortness 07/18/24 mcg/actuation HFA aerosol inhaler of breath #5.9 grams apixaban 5 mg tablet 5 mg PO BID #60 tabs 5 apixaban 5 mg tablet 10 mg (2 x 5 mg) PO BID 5 da ys #20 07/18/24 tabs atorvastatin 20 mg tablet 20 mg PO DAILY #30 tabs 06/28 06/23 carvedilol 12.5 mg tablet 12.5 mg PO BID #60 tabs 06/28 06/23 empagliflozin 10 mg tablet 10 mg PO DAILY #30 tabs (Jardiance) furosemide 20 mg tablet 20 mg PO DAILY #30 tabs 06/28 06/23 insulin aspart U-100 100 unit/mL 10 unit (0.1 mL) subc ut TID #9 mL 07/18/24 (3 mL) subcutaneous pen insulin glargine 100 unit/mL (3 10 unit (0.1 mL) subcu t QPM #3 mL 07/18/24 mL) subcutaneous pen (Lantus Solostar U-100 Insulin) levofloxacin 500 mg tablet 500 mg PO DAILY 5 days #5 t abs 07/18/24 pantoprazole 40 mg tablet,delayed 40 mg PO DAILY #30 t abs 07/18/24 release valsartan 160 mg tablet 160 mg PO HS #30 tabs Allergies Allergy/AdvReac Type Severity Reaction Status Date / Time duloxetine Allergy Verified 04/09/25 14:29 metformin AdvReac Verified 04/09/25 14:29 tamsulosin AdvReac syncope Verified 04/09/25 14:29 tetracycline AdvReac Verified 04/09/25 14:29 Review of Systems Status of ROS: Reports: 6 or more systems reviewed and unremarkable except as noted in History and below [facility] Medical History Ascending aorta dilatation ?I77.810 - Thoracic aortic ectasia (ICD-10) Right knee pain ?M25.561 - Pain in right knee (ICD-10) Chronic anticoagulation ?Z79.01 - 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 block 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 (current) use of anticoagulants (ICD-10) Atrial fibrillation ?I48.91 - Unspecified atrial fibrillation (ICD-10) Combined systolic and diastolic heart failure, NYHA class 3 ?I50.40 - Unspecified combined systolic (congestive) and diastolic (congestive) heart failure (ICD-10) Hypertension ?I10 - Essential (primary) hypertension (ICD-10) Insulin dependent diabetes mellitus Closed fracture of right distal fibula ?S82.831A - Other fracture of upper and lower end of right fibula, initial encounter for closed fracture (ICD-10) Injury of ligament of right knee ?S89.91XA - Unspecified injury of right lower leg, initial encounter (ICD-10) Ketonuria ?R82.4 - Acetonuria (ICD-10) Thyroid nodule ?E04.1 - Nontoxic single thyroid nodule (ICD-10) COVID ?U07.1 - COVID-19 (ICD-10) Fracture of lateral malleolus of right ankle ?S82.61XA - Displaced fracture of lateral malleolus of right fibula, initial encounter for closed fracture (ICD-10) Tibia fracture ?S82.209A - Unspecified fracture of shaft of unspecified tibia, initial encounter for closed fracture (ICD-10) BPH without urinary obstruction ?N40.0 - Benign prostatic hyperplasia without lower urinary tract symptoms (ICD-10) GERD (gastroesophageal reflux disease) ?K21.9 - Gastro-esophageal reflux disease without esophagitis (ICD-10) JOANIE (obstructive sleep apnea) ?G47.33 - Obstructive sleep apnea (adult) (pediatric) (ICD-10) ASHD (arteriosclerotic heart disease) ?I25.10 - Atherosclerotic heart disease of [place] coronary artery without angina pectoris (ICD-10) Social History What is your current living situation?: I presently have a place to live Problems where you live: no known problems Problems where you live details: no know problems In the past 12 months, utilities in danger of being shut off: no In past 12 months, lack of transportation kept you from medical appts, meetings, work, or getting things needed for daily living: no In the past 12 mos, have been you worried that your food would run out before you had money to buy more?: never true In the past 12 mos, the food you bought just didn't last and you didn't have money to buy more?: never true Highest level of school completed/degree received: don't know Smoking Status: Never smoker Do you use any of these nicotine containing products: None Second hand tobacco smoke exposure: No How often do you have a drink containing alcohol: monthly or less Alcohol type: beer and wine How many standard drinks containing alcohol do you have on a typical day: 1 or 2 How often do you have six or more drinks on one occasion: Never AUDIT-C Alcohol total score: 1 Non-prescribed substance use: denies use Caffeine: Yes (Energy Drinks) How often does anyone, including family, friends and others, physically hurt you : never How often does anyone, including family, friends and others, insult or talk down to you: never How often does anyone, including family, friends and others, threaten you with harm: never How often does anyone, including family, friends and others, scream or curse at you: never service: No Exam Const: Vital Signs, click to edit/add: Vital Signs - 24 hr 04/09/25 14:25 04/09/25 14:49 Temperature 97.1 F L Pulse Rate [Right Pulse Oximeter] 71 Respiratory Rate 18 Blood Pressure [Ri ght Upper Arm] 151/104 H Pulse Oximetry 96 96 Oxygen Delivery Me thod Room Air This 74-year-old male is alert, interactive, no apparent distress. He is lying in the bed in exam room 1. His color looks good, his speech is normal. He is in rate controlled atrial fibrillation on the monitor. Pupils equal round reactive, sclera clear, extraocular muscles intact, symmetric facial function. Neck supple, no masses, no adenopathy, jugular venous tension. Lungs are clear, good air entry, wheezing crackles, no tachypnea, no accessory muscle use. CV somewhat irregular but not fast, no murmur, normal S1-S2. Abdomen is soft, nondistended, he has some mild epigastric tenderness but states he usually has some on palpation, there is no masses, no rebound or guarding. He has no significant lower extremity edema. Moving his arms and legs, no focal gross neurologic abnormality noted. Documenting provider has reviewed patient's vital signs: yes Course Course ED Course: Patient already had fluids initiated. He was mildly orthostatic when he was seen in April of 2024. He went to a blood draw today fasting that was in the afternoon, had not ate or drank all day. I do think that he certainly could have had vasovagal syncope. Will get an EKG, continue on cardiac monitoring and pulse oximetry to make sure he is not hypoxic or any arrhythmia outside of his controlled atrial fibrillation. Will look at a portable chest x-ray. I absolutely do not feel he needs a head CT at this time, he has a nonfocal exam this is not consistent with any stroke pathology. Will get baseline labs on him. Will check with nursing staff to make sure he had a glucose checked. Per nursing staff on subsequent discussion, glucose was normal, they do not remember the exact number from EMS but was normal. The IV was actually started in clinic. Reevaluation(s) Time of Reevaluation #1: 16:59 Reevaluation #1: Patient is reassessed. He is adamant that he feels even better now than when he did when he went into the clinic. He needs to definitely drink more. His lactate has been elevated when he comes in with these syncopal episodes. He really has not ate or drank anything today. He has not been sick with anything, no headaches, no cough or cold symptoms, no shortness of breath, no palpitations or irregular heartbeat, no abdominal pain, no nausea or vomiting. He has nocturia that is not new but no hematuria, no dysuria, no symptoms of UTIs. He has no concern of any illness. He is not coughing, no shortness of breath, no dyspnea. He does need to urinate, we will get him up and have him ambulate to the bathroom. He would like to discharge home at this time. I do think this is a reasonable request. I will have him follow up in clinic and monitor symptoms. We did review his white blood count was mildly elevated but again he has absolutely no symptoms at this time. Vital Signs Vital signs: Initial Vital Signs Temperature 97.1 F L 04/09/25 14:25 Temperature Source Temporal Artery Scan 04/09/25 14:25 Pulse Rate 71 04/09/25 14:25 Pulse Rhythm Regular 04/09/25 14:25 Pulse Strength 3+ Normal 04/09/25 14:25 Respiratory Rate 18 04/09/25 14:25 Blood Pressure 151/104 H 04/09/25 14:25 Blood Pressure Mean 119 H 04/09/25 14:25 Blood Pressure Position Sitting 04/09/25 14:25 Pulse Oximetry 96 04/09/25 14:25 Oxygen Delivery Method Room Air 04/09/25 14:25 Vital Signs Temperature 97.1 F L 04/09/25 14:25 Pulse Rate 71 04/09/25 14:25 Respiratory Rate 18 04/09/25 14:25 Blood Pressure 151/104 H 04/09/25 14:25 Pulse Oximetry 96 04/09/25 14:25 Oxygen Delivery Method Room Air 04/09/25 14:25 Temperature 97.1 F L 04/09/25 14:25 Pulse Rate 71 04/09/25 14:25 Respiratory Rate 18 04/09/25 14:25 Blood Pressure 151/104 H 04/09/25 14:25 Pulse Oximetry 96 04/09/25 14:49 Oxygen Delivery Method Room Air 04/09/25 14:25 Medical Decision Making Lab Data Lab results reviewed: Yes I reviewed the patient's lab results Labs: Lab Results 04/09/25 Range/Units 15:30 WBC 12.66 H (4.50-11.00) K/uL RBC 5.98 H (4.30-5.90) m/uL Hgb 18.0 H (13.5-17.5) gm/dL Hct 53.2 H (37.0-53.0) % MCV 89 (80-100) fL MCH 30 (26-34) pg MCHC 34 (32-36) gm/dL RDW Coeff of Louise 13.6 (11.5-15.5) % Plt Count 103 L (140-440) K/uL Neut % (Auto) 81.1 H (42.0-72.0) % Lymph % (Auto) 12.2 L (20-44) % [place] % (Auto) 5.0 (0.0-11.0) % Eos % (Auto) 0.2 (0.0-7.0) % Baso % (Auto) 0.2 (0.0-3.0) % Neut # (Auto) 10.30 H (1.7-7.0) K/uL Lymph # (Auto) 1.50 (0.90-2.90) K/uL [place] # (Auto) 0.60 (0.00-0.90) K/UL Eos # (Auto) 0.00 (0.00-0.50) K/uL Baso # (Auto) 0.00 (0.00-0.30) K/uL Abs Immat Gran (auto) 0.20 (0.00-0.30) K/uL Imm/Tot Granulo (auto) 1.3 % Sodium 137 (135-149) mmol/L Potassium 4.6 (3.6-5.1) mmol/L Chloride 103 (96-114) mmol/L Carbon Dioxide 20 (20-32) mmol/L Anion Gap 14 (7-15) mEq/L BUN 23 (7-30) mg/dL Creatinine 1.0 (0.5-1.5) mg/dL Estimated GFR 78 ml/min Glucose 142 H (60-115) mg/dL Lactate 3.2 H (0.5-1.9) mmol/L Calcium 8.9 (8.4-10.6) mg/dL Total Bilirubin 2.8 H (0.1-1.5) mg/dL AST 32 (12-35) U/L ALT 21 (4-50) U/L Alkaline Phosphatase 85 (40-150) U/L Troponin I < 0.01 (0.01-0.04) ng/mL Total Protein 7.4 (6.0-8.3) g/dL Albumin 4.3 (3.3-5.0) g/dL Imaging Data Chest x-ray: Attestation: I have reviewed the pertinent imaging results. Radiologist's impression: Patient: BOYD LOREDO Facility:?[facility] Patient ID:?[id number] Site Patient ID:?[id number]. Site :?[id number] Study:?XRay-Chest PORTABLE-04/09/2025 3:43:44 PM Ordering Physician:?Walker Khalil Final Report: Indication: Shortness of breath. Technique: Chest 1 view. Comparison: Chest x-ray May 25, 2024 Findings/Impression: Cardiomegaly. Minimally increased interstitial markings bilaterally, likely reflective of pulmonary vascular congestion. Left basilar/retrocardiac density, likely reflective of atelectasis however pneumonia should be excluded clinically. No pleural effusion. No pneumothorax. Dictated by Hasmukh Dye MD @ 04/09/2025 3:49:41 PM (Electronic Signature) ECG Data Attestation: I personally reviewed and interpreted this ECG as follows: (Atrial fibrillation with premature ventricular complexes, rate 76 beats per minute. No active ischemia but nonspecific ST abnormality noted, unchanged.) Prior ECG tracings: available for review Discharge Plan Discharge Clinical Impression: Syncope Qualifiers: Syncope type: unspecified Qualified Code(s): R55 - Syncope and collapse Patient Disposition: Home, Self-Care Condition: Stable Instructions: Syncope (ED) Additional Instructions: Please follow-up with your primary care provider within the next week. Check into orthostatic hypotension further. It is very important that you at least drink some fluids like water even if you have to do a fasting blood test. I do not recommend you waiting half a day to do fasting blood work. If you develop any concerning symptoms in in her room where you feeling dizzy, feel like you are going to pass out, feel like he might be developing an illness, any concerns at all, please seek re-evaluation. Activity Level: Activity as Tolerated Prescriptions: No Action insulin aspart U-100 100 unit/mL (3 mL) Insulin Pen 10 unit subcut TIDWM Qty: 3 0RF valsartan 160 mg tablet 160 mg PO HS Qty: 30 0RF pantoprazole 40 mg tablet,delayed release (DR/EC) 40 mg PO DAILY Qty: 30 0RF insulin glargine [Lantus Solostar U-100 Insulin] 100 unit/mL (3 mL) insulin p en 10 unit subcut QPM Qty: 3 0RF insulin aspart U-100 100 unit/mL (3 mL) insulin pen 10 unit subcut TID Qty: 9 2RF carvedilol 12.5 mg tablet 12.5 mg PO BID Qty: 60 0RF Rx Instructions: must administer with a meal/food Jardiance 10 mg tablet 10 mg PO DAILY Qty: 30 0RF furosemide 20 mg tablet 20 mg PO DAILY Qty: 30 0RF acetaminophen 500 mg capsule 1,000 mg PO Q6H PRNQty: 90 0RF albuterol-budesonide 90-80 mcg/actuation HFA aerosol inhaler 2 inh inhalation BID PRN (Reason: shortness of breath) Qty: 5.9 0RF atorvastatin 20 mg tablet 20 mg PO DAILY Qty: 30 0RF apixaban 5 mg tablet 10 mg PO BID 5 Days Qty: 20 0RF Rx Instructions: Take 2 tabs twice daily for 5 days, followed by 1 tab twice daily apixaban 5 mg tablet 5 mg PO BID Qty: 60 0RF Rx Instructions: Start this after completing 2 tabs twice daily levofloxacin 500 mg tablet 500 mg PO DAILY 5 Days Qty: 5 0RF Follow Up/Referrals: Elijah Fernandez MD [Primary Care Provider, Family Practice] Stand Alone Forms: [facility] Info Instructions
[2025-04-09 14:49] VITALS: O2SAT 96
--- NOTE | 2025-04-09 14:49 | CRLHL7_ITS ---
For Patients: As a result of the Century Cures Act, medical imaging exams and procedure reports are released immediately into your electronic medical record. You may view this report before your referring provider. If you have questions, please contact your health care provider. Indication: Shortness of breath. Technique: Chest 1 view. Comparison: Chest x-ray May 25, 2024 Findings/Impression: Cardiomegaly. Minimally increased interstitial markings bilaterally, likely reflective of pulmonary vascular congestion. Left basilar/retrocardiac density, likely reflective of atelectasis however pneumonia should be excluded clinically. No pleural effusion. No pneumothorax. Dictated by Hasmukh Dye MD @ 04/09/2025 3:49:41 PM (Electronically Signed)
[2025-04-09 15:00] VITALS: PULSE 82; RESP 16; O2SAT 97
[2025-04-09 15:36] LABS: Hematocrit* 53.2 % (37.0-53.0); Hemoglobin* 18.0 gm/dL (13.5-17.5); Immature Granulocytes Pct Auto 1.3 %; Mean Corpuscular HGB Conc 34 gm/dL (32-36); Mean Corpuscular Hemoglobin 30 pg (26-34); Mean Corpuscular Volume 89 fL (80-100); RDW Coefficient of Variation % 13.6 % (11.5-15.5); Red Blood Count* 5.98 m/uL (4.30-5.90); White Blood Count* 12.66 K/uL (4.50-11.00)
[2025-04-09 15:38] LABS: Immature Granulocytes Abs Auto 0.20 K/uL (0.00-0.30); Lymphocytes Absolute Auto 1.50 K/uL (0.90-2.90); Slide Review Reflex No
[2025-04-09 15:41] LABS: Lactate* 3.2 mmol/L (0.5-1.9)
[2025-04-09 15:59] LABS: Albumin* 4.3 g/dL (3.3-5.0); Chloride* 103 mmol/L (96-114); Potassium* 4.6 mmol/L (3.6-5.1); Sodium* 137 mmol/L (135-149)
[2025-04-09 16:00] VITALS: PULSE 78; RESP 16; O2SAT 99
[2025-04-09 16:02] LABS: Alanine Aminotransferase* 21 U/L (4-50); Alkaline Phosphatase* 85 U/L (40-150); Anion Gap 14 mEq/L (7-15); Aspartate Amino Transferase* 32 U/L (12-35); Bilirubin Total* 2.8 mg/dL (0.1-1.5); Blood Urea Nitrogen* 23 mg/dL (7-30); Carbon Dioxide* 20 mmol/L (20-32); Creatinine* 1.0 mg/dL (0.5-1.5); Estimated Glomerular Filt Rate 78 ml/min; Total Protein* 7.4 g/dL (6.0-8.3)
[2025-04-09 16:03] LABS: Calcium* 8.9 mg/dL (8.4-10.6); Glucose* 142 mg/dL (60-115)
[2025-04-09 17:00] VITALS: BP 131/99; PULSE 87; RESP 14; O2SAT 98
== END 2025-04-09 17:35 | disposition home or self-care (01) ==
PROVIDERS: Emergency Provider Family Medicine; PCP Surgery
DX: R55 Syncope and collapse (principal); E11.9 Type 2 diabetes mellitus without complications; I48.91 Unspecified atrial fibrillation; R35.1 Nocturia; D72.829 Elevated white blood cell count, unspecified; Z79.01 Long term (current) use of anticoagulants; Z79.4 Long term (current) use of insulin
CPT/HCPCS: 36415; 71045; 80053; 83605; 84484; 85025; 93005; 94761; 99284; 99285